=== PATIENT | male | born 1985 | race Caucasian/White ===

== ENCOUNTER 2016-08-23 23:39 | Emergency (ER) | payer SELFPAY ==
[~2016-08-23] VITALS: Ht 170.2 cm; Wt 72.6 kg
[~2016-08-23 23:39] MED LIST: BUSP5TAB59 PO; CODE118S2 PO; HYDR-3816 PO; MINO50CA2 PO; OMEP20CA12 PO; PRM25T PO; SUCR1ORA5 PO; SULF1TAB38 PO
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
[2016-08-24] MEDS ORDERED: SULF1TAB35 PO (00:11)
[2016-08-24] MEDS ORDERED: NF-CIPROHC OT (00:11)
[2016-08-24] MEDS ORDERED: TRIM/SULFAMETH 160/800 (SEPTRA DS) TAB PO ONE (00:15)
[2016-08-24] MEDS ORDERED: KETOROLAC 60 MG/2 ML VIAL IM ONE (00:15)
[2016-08-24 00:36] VITALS: BP 0/0
== END 2016-08-24 00:36 | disposition home or self-care (01) ==
LOC: EDUNIT# 23:39 → ER 23:41
DX: H60.01 Abscess of right external ear (principal); F41.9 Anxiety disorder, unspecified; F32.9 Major depressive disorder, single episode, unspecified; K21.9 Gastro-esophageal reflux disease without esophagitis; F17.210 Nicotine dependence, cigarettes, uncomplicated
CPT/HCPCS: 96372; 99284

== ENCOUNTER 2016-08-28 08:18 | Emergency (ER) | payer SELFPAY ==
[~2016-08-28] VITALS: Ht 170.2 cm; Wt 72.6 kg
[~2016-08-28 08:18] MED LIST changes: +NF-CIPROHC OT; +SULF1TAB35 PO
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
[2016-08-28] MEDS ORDERED: fentaNYL INJECTION 100 MCG/2 ML AMP IM ONE (09:15)
[2016-08-28 10:36] VITALS: BP 0/0
== END 2016-08-28 10:36 | disposition left against medical advice (07) ==
LOC: EDUNIT# 08:18 → ER 08:19
DX: M25.511 Pain in right shoulder (principal); V86.09XA Driver of other special all-terrain or other off-road motor vehicle injured in traffic accident, initial encounter; Y92.480 Sidewalk as the place of occurrence of the external cause
CPT/HCPCS: 71010; 73000; 73030; 96372; 99284

== ENCOUNTER 2017-04-10 14:59 | Emergency (ER) | payer SELFPAY ==
[~2017-04-10] VITALS: Ht 170.2 cm; Wt 63.5 kg
[~2017-04-10 14:59] MED LIST changes: +HYDR-34 PO; -HYDR-3816 PO
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
[2017-04-10] MEDS ORDERED: NS IV 1000 ML 1,000 ML IV STA (16:29)
[2017-04-10] MEDS ORDERED: FAMOTIDINE 20MG/2ML IV (PEPCID) IV STA (16:29)
[2017-04-10] MEDS ORDERED: SUCRALFATE 1 GM (CARAFATE) TAB PO ONE (16:30)
[2017-04-10 16:39] LABS: BASOPHILS % (AUTO) 0 % (0-10); EOSINOPHILS # (AUTO) 0.1 10^3/uL (0.0-0.3); EOSINOPHILS % (AUTO) 1 % (0-10); HEMATOCRIT 49 % (40-54); HEMOGLOBIN 17.4 G/DL (13.3-17.7); LYMPHOCYTES # (AUTO) 2.1 X 10^3 (1.0-4.0); LYMPHOCYTES % (AUTO) 20 % (12-44); MEAN CORPUSCULAR HEMOGLOBIN 31 PG (25-34); MEAN CORPUSCULAR HGB CONC 35 G/DL (32-36); MEAN CORPUSCULAR VOLUME 88 FL (80-99); MEAN PLATELET VOLUME 10.2 FL (7.4-10.4); MONOCYTES # (AUTO) 0.5 X 10^3 (0.0-1.0); MONOCYTES % (AUTO) 5 % (0-12); NEUTROPHILS # (AUTO) 7.3 X 10^3 (1.8-7.8); NEUTROPHILS % (AUTO) 73 % (42-75); PLATELET COUNT 262 10^3/uL (130-400); RED BLOOD COUNT 5.57 10^6/uL (4.35-5.85); RED CELL DISTRIBUTION WIDTH 12.8 % (10.0-14.5); WHITE BLOOD COUNT 10.1 10^3/uL (4.3-11.0)
[2017-04-10 16:52] LABS: ALANINE AMINOTRANSFERASE 23 U/L (0-55); ALBUMIN 4.7 GM/DL (3.2-4.5); ALKALINE PHOSPHATASE 62 U/L (40-136); BILIRUBIN,TOTAL 0.5 MG/DL (0.1-1.0); BUN/CREATININE RATIO 6; CALCIUM 10.6 MG/DL (8.5-10.1); CARBON DIOXIDE 25 MMOL/L (21-32); CHLORIDE 101 MMOL/L (98-107); CREATININE SERUM 1.07 MG/DL (0.60-1.30); GFR ESTIMATED > 60; GLUCOSE 107 MG/DL (70-105); SODIUM 138 MMOL/L (135-145)
[2017-04-10] MEDS ORDERED: SUCR1TAB36 PO (17:01)
--- NOTE | 2017-04-10 17:06 | ED Abdominal Pain ---
General Chief Complaint: Abdominal/GI Problems Stated Complaint: STOMACH PAIN Nursing Triage Note: abdominal pain and nausea with hx of gastritis Sepsis Screen: No Definite Risk History of Present Illness Date Seen by Provider: Apr 10, 2017 Time Seen by Provider: 16:15 Initial Comments 32-year-old male Patient reports for abdominal pain. He reports symptoms of been present for approximately 2 weeks, intermittently. He reports the pain has worsened over the last 2 days. He denies any matting or diarrhea. He's had very little solid food or liquid intake in the last 24 hours because of the pain. He's had a previous appendectomy, no other abdominal surgeries. He reports a normal stool yesterday with no discoloration. He denies any blood in stools or change in color. Timing/Duration: Intermittent Severity/Quality: Cramping, Dull Location: Generalized Abdomen Radiation: No Radiation Activities at Onset: None Associated Symptoms: Denies Symptoms Allergies and Home Medications Allergies Coded Allergies: No Known Drug Allergies (Unverified , 02/04/13) Home Medications Ciprofloxacin/Hydrocortisone 1 Ea Susp, 2 DROPS OT TID Prescribed by: IBETH AHN on 08/24/16 001 Omeprazole 20 Mg Capsule.dr, 20 MG PO BID Prescribed by: DALILA GUPTA on 02/04/16 002 Sucralfate 1 Gm/10 Ml Oral.susp, 1 GM PO QID 30 minutes before meals and bedtime Prescribed by: DALILA GUPTA on 02/04/16 0024 Sucralfate 1 Gm Tablet, 1 GM PO BID Prescribed by: PINEDA CAST on 04/10/17 1701 Sulfamethoxazole/Trimethoprim 1 Each Tablet, 1 EACH PO BID Prescribed by: IBETH AHN on 08/24/16 001 Patient Home Medication List Home Medication List Reviewed: Yes Review of Systems Constitutional: no symptoms reported, see HPI Gastrointestinal: See HPI, Abdominal Pain, Denies Constipated, Denies Diarrhea , Denies Difficulty Swallowing, Nausea, Poor Appetite, Poor Fluid Intake, Denies Rectal Bleeding, Denies Vomiting All Other Systems Reviewed Negative Unless Noted: Yes Past Aujjdxs-Fnnkgy-Riyccq Hx Patient Social History Alcohol Beverage of Choice: Beer 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 Type Used: Cigarettes Recent Foreign Travel: No Contact w/Someone Who Travel: No Recent Infectious Disease Expo: No Recent Hopitalizations: No Immunizations Up To Date Tetanus Booster (TDap): Unknown Seasonal Allergies Seasonal Allergies: No Surgeries History of Surgeries: Yes (JAW/FACIAL SURGERY; FLUID DRAINED FROM RIGHT HIP) Surgeries: Appendectomy Respiratory History of Respiratory Disorde: No Cardiovascular History of Cardiac Disorders: No Neurological History of Neurological Disord: No Reproductive System Hx Reproductive Disorders: No Gastrointestinal History of Gastrointestinal Di: Yes Gastrointestinal Disorders: Gastroesophageal Reflux Musculoskeletal History of Musculoskeletal Dis: No Endocrine History of Endocrine Disorders: No Cancer History of Cancer: No Psychosocial History of Psychiatric Problem: Yes Behavioral Health Disorders: Anxiety, Depression Integumentary History of Skin or Integumenta: No Skin/Integumentary Disorders: Recent Skin Changes Blood Transfusions History of Blood Disorders: No Adverse Reaction to a Blood Tr: No Reviewed Nursing Assessment Reviewed/Agree w Nursing PMH: Yes Physical Exam Vital Signs VS - Last 72 Hours, by Label 04/10/17 15:27 Temp 96.8 Pulse 43 Resp 20 B/P (MAP) 142/86 (104) Pulse Ox 99 O2 Delivery Room Air Capillary Refill : Less Than 3 Seconds General Appearance: WD/WN, no apparent distress HEENT: PERRL/EOMI, normal ENT inspection Neck: non-tender, full range of motion, supple, normal inspection Respiratory: chest non-tender, lungs clear, normal breath sounds Cardiovascular: normal peripheral pulses, regular rate, rhythm, no murmur Gastrointestinal: normal bowel sounds, non tender, soft, No rebound, No tenderness, other (negative Fiore sign) Extremities: normal range of motion, non-tender, normal inspection, normal capillary refill Neurologic/Psychiatric: no motor/sensory deficits, alert, normal mood/affect, oriented x 3 Skin: normal color, warm/dry Progress/Results/Core Measures Results/Orders Lab Results Laboratory Tests Test 04/10/17 15:20 Range/Units White Blood Count 10.1 4.3-11.0 10^3/uL Red Blood Count 5.57 4.35-5.85 10^6/uL Hemoglobin 17.4 13.3-17.7 G/DL Hematocrit 49 40-54 % Mean Corpuscular Volume 88 80-99 FL Mean Corpuscular Hemoglobin 31 25-34 PG Mean Corpuscular Hemoglobin Concent 35 32-36 G/DL Red Cell Distribution Width 12.8 10.0-14.5 % Platelet Count 262 130-400 10^3/uL Mean Platelet Volume 10.2 7.4-10.4 FL Neutrophils (%) (Auto) 73 42-75 % Lymphocytes (%) (Auto) 20 12-44 % Monocytes (%) (Auto) 5 0-12 % Eosinophils (%) (Auto) 1 0-10 % Basophils (%) (Auto) 0 0-10 % Neutrophils # (Auto) 7.3 1.8-7.8 X 10^3 Lymphocytes # (Auto) 2.1 1.0-4.0 X 10^3 Monocytes # (Auto) 0.5 0.0-1.0 X 10^3 Eosinophils # (Auto) 0.1 0.0-0.3 10^3/uL Basophils # (Auto) 0.0 0.0-0.1 10^3/uL Sodium Level 138 135-145 MMOL/L Potassium Level 4.0 3.6-5.0 MMOL/L Chloride Level 101 98-107 MMOL/L Carbon Dioxide Level 25 21-32 MMOL/L Anion Gap 12 5-14 MMOL/L Blood Urea Nitrogen 6 L 7-18 MG/DL Creatinine 1.07 0.60-1.30 MG/DL Estimat Glomerular Filtration Rate > 60 BUN/Creatinine Ratio 6 Glucose Level 107 H 70-105 MG/DL Calcium Level 10.6 H 8.5-10.1 MG/DL Total Bilirubin 0.5 0.1-1.0 MG/DL Aspartate Amino Transf (AST/SGOT) 21 5-34 U/L Alanine Aminotransferase (ALT/SGPT) 23 0-55 U/L Alkaline Phosphatase 62 40-136 U/L Total Protein 8.0 6.4-8.2 GM/DL Albumin 4.7 H 3.2-4.5 GM/DL My Orders Orders - PINEDA CAST Ns Iv 1000 Ml (Sodium Chloride 0.9%) (04/10/17 16:29) Famotidine Injection (Pepcid Injection) (04/10/17 16:29) Saline Lock/Iv-Start (04/10/17 16:29) Sucralfate Tablet (Carafate Tablet) (04/10/17 16:30) Cbc With Automated Diff (04/10/17 16:31) Comprehensive Metabolic Panel (04/10/17 16:31) Medications Given in ED Current Medications Medications Dose Ordered Sig/Suha Route Start Time Stop Time Status Last Admin Dose Admin Sucralfate 1 gm ONCE ONCE PO 04/10/17 16:30 04/10/17 16:32 DC 04/10/17 16:41 1 GM Vital Signs/I&O Vital Sign - Last 12Hours 04/10/17 15:27 Temp 96.8 Pulse 43 Resp 20 B/P (MAP) 142/86 (104) Pulse Ox 99 O2 Delivery Room Air Blood Pressure Mean: 104 Progress Note : Time: 16:15 Progress Note Initial evaluation completed, will give normal saline 1 L IV, Pepcid 20 mg IV and Carafate 1 g by mouth. 171 patient reports symptoms have improved, he no longer has abdominal pain. Discharge instructions and return precautions reviewed with patient, all questions answered. Departure Impression Impression: Primary Impression: Gastritis Qualified Codes: K29.00 - Acute gastritis without bleeding Disposition: HOME, SELF-CARE Condition: Improved Departure-Patient Inst. Decision time for Depature: 17:00 Referrals: NO,LOCAL PHYSICIAN (PCP/Family) Primary Care Physician Patient Instructions: [place] Diet, Gastritis (DC) Add. Discharge Instructions: [place] diet. Increase water intake. Take medication as directed. Prilosec Over The Counter, take 1 tablet 4 times daily for 2 weeks, then discontinue. Establish care at [facility], [phone] Return to emergency department for new problems or concerns. All discharge instructions reviewed with patient and/or family. Voiced understanding. Scripts Sucralfate (Carafate) 1 Gm Tablet 1 GM PO BID, #20 TAB Prov: PINEDA CAST 04/10/17 PINEDA CAST Apr 10, 2017 17:06
[2017-04-10 17:50] VITALS: BP 142/86
== END 2017-04-10 17:50 | disposition home or self-care (01) ==
LOC: EDUNIT# 14:59 → ER 15:00
DX: K29.70 Gastritis, unspecified, without bleeding (principal); F41.9 Anxiety disorder, unspecified; F32.9 Major depressive disorder, single episode, unspecified; K21.9 Gastro-esophageal reflux disease without esophagitis; Z90.49 Acquired absence of other specified parts of digestive tract
CPT/HCPCS: 36415; 80053; 85025

== ENCOUNTER 2017-04-11 06:43 | Emergency (ER) | payer SELFPAY ==
[~2017-04-11] VITALS: Ht 170.2 cm; Wt 63.5 kg
[~2017-04-11 06:43] MED LIST changes: +SUCR1TAB36 PO
[2017-04-11] MEDS ORDERED: NS IV 1000 ML 1,000 ML IV SCH (06:55)
[2017-04-11 07:02] LABS: BASOPHILS % (AUTO) 0 % (0-10); EOSINOPHILS # (AUTO) 0.2 10^3/uL (0.0-0.3); EOSINOPHILS % (AUTO) 2 % (0-10); HEMATOCRIT 47 % (40-54); HEMOGLOBIN 16.7 G/DL (13.3-17.7); LYMPHOCYTES # (AUTO) 2.4 X 10^3 (1.0-4.0); LYMPHOCYTES % (AUTO) 26 % (12-44); MEAN CORPUSCULAR HEMOGLOBIN 31 PG (25-34); MEAN CORPUSCULAR HGB CONC 36 G/DL (32-36); MEAN CORPUSCULAR VOLUME 87 FL (80-99); MEAN PLATELET VOLUME 9.8 FL (7.4-10.4); MONOCYTES # (AUTO) 0.3 X 10^3 (0.0-1.0); MONOCYTES % (AUTO) 3 % (0-12); NEUTROPHILS # (AUTO) 6.4 X 10^3 (1.8-7.8); NEUTROPHILS % (AUTO) 69 % (42-75); PLATELET COUNT 243 10^3/uL (130-400); RED BLOOD COUNT 5.33 10^6/uL (4.35-5.85); RED CELL DISTRIBUTION WIDTH 12.8 % (10.0-14.5); WHITE BLOOD COUNT 9.3 10^3/uL (4.3-11.0)
[2017-04-11 07:27] LABS: ALANINE AMINOTRANSFERASE 18 U/L (0-55); ALBUMIN 4.2 GM/DL (3.2-4.5); ALKALINE PHOSPHATASE 52 U/L (40-136); BILIRUBIN,TOTAL 0.4 MG/DL (0.1-1.0); BUN/CREATININE RATIO 8; CALCIUM 9.9 MG/DL (8.5-10.1); CARBON DIOXIDE 26 MMOL/L (21-32); CHLORIDE 104 MMOL/L (98-107); CREATININE SERUM 1.38 MG/DL (0.60-1.30); GFR ESTIMATED 60; GLUCOSE 206 MG/DL (70-105); POTASSIUM 3.5 MMOL/L (3.6-5.0); SODIUM 138 MMOL/L (135-145); TOTAL PROTEIN 6.9 GM/DL (6.4-8.2)
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
--- NOTE | 2017-04-11 08:25 | Diagnostic Imaging Report ---
INDICATION: Left foot pain. FINDINGS: 3 views of left foot show no fracture, dislocation or other acute abnormalities. IMPRESSION: Negative left foot. Dictated by: Dictated on workstation # [id number]
[2017-04-11 08:33] LABS: AMPHETAMINE SCREEN, URINE POSITIVE (NEGATIVE); BARBITURATE SCREEN URINE NEGATIVE (NEGATIVE); BENZODIAZEPINES SCREEN URINE NEGATIVE (NEGATIVE); CANNABINOID SCREEN, URINE POSITIVE (NEGATIVE); COCAINE SCREEN URINE NEGATIVE (NEGATIVE); METHADONE STAT NEGATIVE (NEGATIVE); METHAMPHETAMINE SCREEN URINE S POSITIVE (NEGATIVE); OPIATE SCREEN URINE NEGATIVE (NEGATIVE); OXYCODONE STAT NEGATIVE (NEGATIVE); PROPOXYPHENE STAT NEGATIVE (NEGATIVE); TRICYCLIC ANTIDEPRESSANTS SCRE NEGATIVE (NEGATIVE)
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
[2017-04-11 09:09] VITALS: BP 105/78
== END 2017-04-11 09:09 ==
LOC: EDUNIT# 06:43 → ER 06:44
DX: S09.90XA Unspecified injury of head, initial encounter (principal); M25.511 Pain in right shoulder; M79.672 Pain in left foot; F19.10 Other psychoactive substance abuse, uncomplicated; K21.9 Gastro-esophageal reflux disease without esophagitis; F41.9 Anxiety disorder, unspecified; F32.9 Major depressive disorder, single episode, unspecified; F12.10 Cannabis abuse, uncomplicated; F15.10 Other stimulant abuse, uncomplicated; F17.210 Nicotine dependence, cigarettes, uncomplicated; Z90.49 Acquired absence of other specified parts of digestive tract; W01.198A Fall on same level from slipping, tripping and stumbling with subsequent striking against other object, initial encounter
CPT/HCPCS: 36415; 70450; 71045; 72125; 73030; 73630; 80053; 80306; 80320; 85025

== ENCOUNTER 2021-05-07 05:35 | Outpatient (CLI) | payer OTHER ==
[~2021-05-07] VITALS: Ht 170.2 cm; Wt 73.0 kg
[~2021-05-07 05:35] MED LIST changes: -OMEP20CA12 PO; +OMEP20CA18 PO; -SULF1TAB35 PO
== END 2021-05-08 14:12 | disposition home or self-care (01) ==
LOC: PREOP 05:35
PROVIDERS: ATTEND Surgery
DX: Z01.818 Encounter for other preprocedural examination (principal)

== ENCOUNTER 2021-05-18 08:37 | Day surgery (SDC) | payer OTHER ==
[~2021-05-18] VITALS: Ht 170.2 cm; Wt 73.0 kg
[2021-05-18] MEDS ORDERED: LACTATED RINGERS 1,000 ML IV ONE (08:42)
[2021-05-18] MEDS ORDERED: LACTATED RINGERS 1,000 ML IV STA (08:56)
[2021-05-18 09:00] VITALS: BP 110/77
[2021-05-18] MEDS ORDERED: HURRICAINE EXT TUBE (BENZOCAINE) XX PRN (09:00)
[2021-05-18] MEDS ORDERED: fentaNYL INJ 100 MCG/2 ML AMP ONE (09:57)
[2021-05-18] MEDS ORDERED: fentaNYL INJ 100 MCG/2 ML AMP IVP ONE (10:00)
[2021-05-18] MEDS ORDERED: MIDAZOLAM 2 MG/2 ML (VERSED) VIAL ONE (11:01)
[2021-05-18] MEDS ORDERED: PROPOFOL INJECTION 50 ML IV ONE (11:01)
--- NOTE | 2021-05-18 11:38 | Progress Note-Post Operative ---
Post-Operative Progess Note Surgeon (s)/General Utility Maintenance Repairer (s) Surgeon MARICRUZ FRANKEL DO General Utility Maintenance Repairer: Henrique Hurd, MSIII Pre-Operative Diagnosis Rectal bleed, Chronic Gastritis, Anal lesion Post-Operative Diagnosis Gastritis Esophagitis Hiatal hernia anal lesion int hemorrhoids Procedure & Operative Findings Date of Procedure 05/18/21 Procedure Performed/Findings EGD with bx Colon with cold bx PROCEDURE NOTE: After informed consent was obtained, the patient was brought to the endoscopy suite, placed in bed in left lateral decubitus position. He was administered IV sedation by the STREET WORKER who then monitored vitals the entire time, heart rate, blood pressure and pulse ox and the scope was inserted down the mouth through the esophagus into the stomach. On the way down, noted some mild esophagitis, took a picture, pushed into the stomach, pushed past the antrum into the duodenum. Duodenum looked good. Pulled back and did a biopsy of antrum and then retroflexed the scope. Took another biopsy of the body of the stomach and saw hiatal hernia; took a picture of this. Then pulled the scope into the GE junction, took another picture of the esophagitis and then did a biopsy of the GE junction. Pushed the scope back into the stomach, suctioned all the air out of the stomach. At this point pulled the scope up the esophagus and out the mouth. Switched camera, switched gloves, went down below, started the colonoscopy. Just prior to pushing in took a picture of the anal lesion. Pushed the scope in to about 120 cm to get all the way to cecum, took a picture of the appendiceal orifice, noted the ileocecal valve and then slowly withdrew the scope, insufflating to look circumferentially at the gautam starting in the cecum, up the ascending colon to the hepatic flexure, then down the transverse colon, splenic flexure, into the descending colon, down into the sigmoid and finally into the rectum. Retroflexed in the rectal vault, did not see any fistula but did see some minimal internal hemorrhoids and took a picture of this. I did a NLYA and the anal canal was firm along the 9 o'clock position with him in left lateral decub; this was also where the anal/gluteal lesion was located. Then did 3 cold biopsies of the anal/gluteal lesion. The patient tolerated the procedure and he recovered in the endoscopy suite. Anesthesia Type IV sedation by STREET WORKER Estimated Blood Loss Estimated blood loss (mL): scant Specimens/Packing Specimens Removed antral bx body of stomach bx GE jxn bx anal lesion bx MARICRUZ FRANKEL DO May 18, 2021 11:38
[2021-05-18 11:40] VITALS: BP 100/63
--- NOTE | 2021-05-18 11:42 | Endoscopy Discharge Instruct ---
Endo Procedure/Findings Findings 1.: Gastritis 2.: Hiatal Hernia 3.: Internal Hemorrhoids 4.: Other Findings (anal lesion) Discharge Instructions - Activity: You might feel a little sleepy until tomorrow. This is due to the medicine you received to relax you. Until tomorrow, you should: NOT drive a car, operate machinery or power tools. NOT drink any alcoholic beverages. NOT make any important decisions or sign importortant papers. Do not return to work until tomorrow, unless otherwise instructed. Resume previous activities tomorrow. Diet: Start by taking liquids. If you tolerate liquids, advance to solid food. 1.: EGD in 3 years 2.: Colonscopy in 10 years Notify Physician - If you experience excessive bleeding, unusual abdominal pain, fever, or chest pain, contact your doctor immediately. MARICRUZ FRANKEL DO May 18, 2021 11:42
[2021-05-18 12:25] VITALS: BP 106/81
[2021-05-18 12:39] VITALS: BP 106/81
--- NOTE | 2021-05-18 13:27 | Anesthesia-General Post-Op ---
MAC Patient Condition Mental Status/LOC: Same as Preop Cardiovascular: Satisfactory Nausea/Vomiting: Absent Respiratory: Satisfactory Pain: Controlled Complications: Absent Post Op Complications Complications None Follow Up Care/Instructions Patient Instructions None needed. Anesthesiology Discharge Order Discharge Order Patient is doing well, no complaints, stable vital signs, no apparent adverse anesthesia problems. No complications reported per nursing. SUZY TESFAYE CRNA May 18, 2021 13:27
--- NOTE | 2021-06-04 13:18 | Progress Note ---
Standard Progress Note Progress Notes/Assess & Plan Date Seen by a Provider: May 18, 2021 Time Seen by a Provider: 11:03 Progress/Assessment & Plan Addendum to Anesthesia Record: Versed 2mg IV given to patient at 1103 prior to the start of EGD. SUZY TESFAYE CRNA Jun 04, 2021 13:18
== END 2021-05-18 12:47 | disposition home or self-care (01) ==
LOC: ENDO 08:37
PROVIDERS: ATTEND Surgery
DX: C44.520 Squamous cell carcinoma of anal skin (principal); K29.50 Unspecified chronic gastritis without bleeding; K31.89 Other diseases of stomach and duodenum; K20.90 Esophagitis, unspecified without bleeding; K44.9 Diaphragmatic hernia without obstruction or gangrene; K64.4 Residual hemorrhoidal skin tags
CPT/HCPCS: 88305

== ENCOUNTER 2021-05-26 11:18 | Emergency (ER) | payer OTHER ==
[~2021-05-26] VITALS: Ht 167 cm; Wt 77.0 kg
[2021-05-26] MEDS ORDERED: CATHETER FLUSH 10 ML SYR IV PRN (12:30)
[2021-05-26] MEDS ORDERED: NS 100 ML (IVPB) BAG IV ONE (12:30)
[2021-05-26] MEDS ORDERED: HOLD METFORMIN - RECEIVED CONTRAST 20 ML VIAL IV SCH (12:30)
[2021-05-26] MEDS ORDERED: IOHEXOL 350 MG/ML 100 ML (OMNIPAQUE 350) VIAL IV ONE (12:30)
[2021-05-26 12:39] LABS: BASOPHILS # (AUTO) 0.1 10^3/uL (0.0-0.1); BASOPHILS % (AUTO) 1 % (0-10); EOSINOPHILS # (AUTO) 0.2 10^3/uL (0.0-0.3); EOSINOPHILS % (AUTO) 2 % (0-10); HEMATOCRIT 42 % (40-54); HEMOGLOBIN 13.8 g/dL (13.3-17.7); LYMPHOCYTES # (AUTO) 1.4 10^3/uL (1.0-4.0); LYMPHOCYTES % (AUTO) 13 % (12-44); MEAN CORPUSCULAR HEMOGLOBIN 30 pg (25-34); MEAN CORPUSCULAR HGB CONC 33 g/dL (32-36); MEAN CORPUSCULAR VOLUME 89 fL (80-99); MEAN PLATELET VOLUME 9.6 fL (9.0-12.2); MONOCYTES # (AUTO) 0.6 10^3/uL (0.0-1.0); MONOCYTES % (AUTO) 6 % (0-12); NEUTROPHILS # (AUTO) 8.1 10^3/uL (1.8-7.8); NEUTROPHILS % (AUTO) 78 % (42-75); PLATELET COUNT 307 10^3/uL (130-400); WHITE BLOOD COUNT 10.3 10^3/uL (4.3-11.0)
[2021-05-26 12:43] LABS: ALBUMIN 4.5 GM/DL (3.2-4.5); POTASSIUM 3.6 MMOL/L (3.6-5.0)
[2021-05-26 12:45] LABS: CALCIUM 9.4 MG/DL (8.5-10.1)
[2021-05-26 12:46] LABS: TOTAL PROTEIN 7.7 GM/DL (6.4-8.2)
[2021-05-26 12:48] LABS: BILIRUBIN,TOTAL 0.5 MG/DL (0.1-1.0)
[2021-05-26 12:49] LABS: CREATININE SERUM 1.01 MG/DL (0.60-1.30)
--- NOTE | 2021-05-26 13:01 | Diagnostic Imaging Report ---
EXAMINATION: CT chest, abdomen and pelvis with intravenous contrast. TECHNIQUE: Multiple contiguous axial images were obtained through the chest, abdomen and pelvis after the uneventful administration of intravenous contrast. All CT scans use one or more of the following dose optimizing techniques: automated exposure control, MA and/or KvP adjustment based on patient size and exam type or iterative reconstruction. HISTORY: rectal pain, recent dx Anal CA COMPARISON: None available. FINDINGS: Thyroid: The visualized thyroid gland is normal. Mediastinum: Heart size is normal without significant pericardial effusion. The aorta is normal in caliber. No suspicious lymphadenopathy. Lungs and airways: The lungs are clear without consolidation, pleural effusion, or pneumothorax. No suspicious pulmonary lesion. The airways are normal. Solid organs: The liver is normal without focal lesion. The gallbladder is normal. There is no biliary ductal dilation. Pancreas is normal. Spleen is normal. Adrenal glands are normal. The kidneys are normal without hydronephrosis. Bowel: The stomach and small bowel are normal without obstruction. The colon and appendix are normal. There is thickening of the right perirenal soft tissues with trace air and fluid. Peritoneum: There is no intraperitoneal free fluid or free air. No suspicious lymphadenopathy. Vasculature: Normal without aneurysm. Musculoskeletal: No suspicious osseous lesion or compression fracture. Pelvis: The prostate gland is normal. The urinary bladder is normal. IMPRESSION: 1. No acute abnormality in the chest, abdomen and pelvis. 2. Thickening of the right perirenal soft tissues which may be compatible with history of recent diagnosis of anal cancer. Recommend correlation with any recent procedure to this location. Tiny amount of air and fluid could be postprocedural or secondary to fistula or infection. Dictated by: Dictated on workstation # [id number]
--- NOTE | 2021-05-26 13:04 | ED GI ---
General Chief Complaint: Rect Problems Stated Complaint: RECTAL PAIN Nursing Triage Note: PT AMBULATORY TO ER. PT C/O PAIN TO RECTUM. PT REPORTS STARTED OUT A HEMMORHOID, REPORTS HAS EVOLVED INTO A FISSURE, REPORTS DR TESFAYE CULTURED IT RECENTLY, UNSURE OF RESULTS, PT C/O INCREASE IN PAIN/DRAINAGE. Source of Information: Patient Exam Limitations: No Limitations History of Present Illness Date Seen by Provider: May 26, 2021 Time Seen by Provider: 13:11 Initial Comments To vehicle with reports of rectal pain. This is been increasing over the course of the past few days no fevers no chills. He had a colonoscopy and EGD on the of this month and is scheduled to follow with Dr. Frankel today at 2:30 PM. He is otherwise healthy. He states he had a sore to this location at his anus for about 2 years. Timing/Duration: 2-3 Days Severity/Quality: Severe Location: Other (Rectal) Radiation: No Radiation Activities at Onset: None Associated Symptoms: Denies Symptoms Allergies and Home Medications Allergies Coded Allergies: No Known Drug Allergies (Unverified , 02/04/13) Patient Home Medication List Home Medication List Reviewed: Yes No Active Prescriptions or Reported Meds Review of Systems Review of Systems Constitutional: see HPI EENTM: No Symptoms Reported Respiratory: No Symptoms Reported Cardiovascular: No Symptoms Reported Gastrointestinal: See HPI, Abdominal Pain (Suprapubic pain), Other Genitourinary: No Symptoms Reported Musculoskeletal: no symptoms reported Skin: no symptoms reported Psychiatric/Neurological: No Symptoms Reported Endocrine: No Symptoms Reported Hematologic/Lymphatic: No Symptoms Reported Past Qpnitgw-Yxhuos-Ffkdqp Hx Patient Social History Tobacco Use?: Yes Tobacco type used: Cigarettes Smoking Status: Current Everyday Smoker Use of E-Cig and/or Vaping dev: No Substance use?: Yes Substance type: Marijuana Alcohol Use?: No Pt feels they are or have been: No Immunizations Up To Date Tetanus Booster (TDap): Unknown First/Initial COVID19 Vaccinat: NO Second COVID19 Vaccination Jim: NO Third COVID19 Vaccination Date: NO Seasonal Allergies Seasonal Allergies: No Past Medical History Surgeries: Yes (JAW/FACIAL SURGERY; FLUID DRAINED FROM RIGHT HIP) Appendectomy Respiratory: No Cardiac: No Neurological: No Reproductive Disorders: No Gastrointestinal: Yes Gastroesophageal Reflux Musculoskeletal: No Endocrine: No HEENT: No Cancer: No Psychosocial: Yes Anxiety, Depression Integumentary: No Recent Skin Changes Blood Disorders: No Adverse Reaction/Blood Tranf: No Physical Exam Vital Signs Vital Signs - First Documented 05/26/21 11:48 Temp 36.7 Pulse 108 Resp 24 B/P (MAP) 134/89 (104) Pulse Ox 94 O2 Delivery Room Air Capillary Refill : Height/Weight/BMI Height: 5'7.00" Weight: 140lbs. 0oz. [id number]; 27.00 BMI Method:Stated General Appearance: WD/WN, no apparent distress HEENT: PERRL/EOMI, normal ENT inspection Respiratory: no respiratory distress, no accessory muscle use Cardiovascular: regular rate, rhythm, no murmur Gastrointestinal: normal bowel sounds, non tender, soft Genital/Rectal: other (Rectal exam done on with Zahida BERGER student at the bedside. At the right side of the anus there is an moist beefy red colored patch) Neurologic/Psychiatric: alert, normal mood/affect, oriented x 3 Skin: normal color, warm/dry Progress/Results/Core Measures Results/Orders Lab Results Laboratory Tests Test 05/26/21 11:56 Range/Units White Blood Count 10.3 4.3-11.0 10^3/uL Red Blood Count 4.67 4.30-5.52 10^6/uL Hemoglobin 13.8 13.3-17.7 g/dL Hematocrit 42 40-54 % Mean Corpuscular Volume 89 80-99 fL Mean Corpuscular Hemoglobin 30 25-34 pg Mean Corpuscular Hemoglobin Concent 33 32-36 g/dL Red Cell Distribution Width 14.1 10.0-14.5 % Platelet Count 307 130-400 10^3/uL Mean Platelet Volume 9.6 9.0-12.2 fL Immature Granulocyte % (Auto) 0 % Neutrophils (%) (Auto) 78 H 42-75 % Lymphocytes (%) (Auto) 13 12-44 % Monocytes (%) (Auto) 6 0-12 % Eosinophils (%) (Auto) 2 0-10 % Basophils (%) (Auto) 1 0-10 % Neutrophils # (Auto) 8.1 H 1.8-7.8 10^3/uL Lymphocytes # (Auto) 1.4 1.0-4.0 10^3/uL Monocytes # (Auto) 0.6 0.0-1.0 10^3/uL Eosinophils # (Auto) 0.2 0.0-0.3 10^3/uL Basophils # (Auto) 0.1 0.0-0.1 10^3/uL Immature Granulocyte # (Auto) 0.0 0.0-0.1 10^3/uL Sodium Level 142 135-145 MMOL/L Potassium Level 3.6 3.6-5.0 MMOL/L Chloride Level 103 98-107 MMOL/L Carbon Dioxide Level 25 21-32 MMOL/L Anion Gap 14 5-14 MMOL/L Blood Urea Nitrogen 12 7-18 MG/DL Creatinine 1.01 0.60-1.30 MG/DL Estimat Glomerular Filtration Rate 99 BUN/Creatinine Ratio 12 Glucose Level 90 70-105 MG/DL Calcium Level 9.4 8.5-10.1 MG/DL Corrected Calcium 9.0 8.5-10.1 MG/DL Total Bilirubin 0.5 0.1-1.0 MG/DL Aspartate Amino Transf (AST/SGOT) 21 5-34 U/L Alanine Aminotransferase (ALT/SGPT) 34 0-55 U/L Alkaline Phosphatase 76 40-136 U/L Total Protein 7.7 6.4-8.2 GM/DL Albumin 4.5 3.2-4.5 GM/DL My Orders Orders - ZANA OLMEDO EQUIPMENT APPLICATION SPECIALIST Cbc With Automated Diff (05/26/21 12:24) Comprehensive Metabolic Panel (05/26/21 12:24) Ed Iv/Invasive Line Start (05/26/21 12:24) Ct Chest/Abdomen/Pelvis W (05/26/21 12:24) Iohexol Injection (Omnipaque 350 Mg/Ml 1 (05/26/21 12:30) Received Contrast (Hold Metformin- Contr (05/26/21 12:30) Sodium Chloride Flush (Catheter Flush Sy (05/26/21 12:30) Ns (Ivpb) (Sodium Chloride 0.9% Ivpb Bag (05/26/21 12:30) Medications Given in ED Current Medications Medications Dose Ordered Sig/Suha Route Start Time Stop Time Status Last Admin Dose Admin Iohexol 100 ml ONCE ONCE IV 05/26/21 12:30 05/26/21 12:32 DC 05/26/21 12:57 97 ML Sodium Chloride 10 ml NEEDED PRN IV 05/26/21 12:30 05/26/21 12:57 10 ML Sodium Chloride 100 ml ONCE ONCE IV 05/26/21 12:30 05/26/21 12:32 DC 05/26/21 12:57 80 ML Vital Signs/I&O 05/26/21 11:48 Temp 36.7 Pulse 108 Resp 24 B/P (MAP) 134/89 (104) Pulse Ox 94 O2 Delivery Room Air Blood Pressure Mean: 104 Departure Communication (Admissions) NAME: LOIS VILLALTA [facility] REC#: [id number] PT STATUS: REG ER : 1985 PHYSICIAN: ZANA OLMEDO EQUIPMENT APPLICATION SPECIALIST ADMIT DATE: 05/26/21/ER Draft Date of Exam:05/26/21 CT CHEST/ABDOMEN/PELVIS W EXAMINATION: CT chest, abdomen and pelvis with intravenous contrast. TECHNIQUE: Multiple contiguous axial images were obtained through the chest, abdomen and pelvis after the uneventful administration of intravenous contrast. All CT scans use one or more of the following dose optimizing techniques: automated exposure control, MA and/or KvP adjustment based on patient size and exam type or iterative reconstruction. HISTORY: rectal pain, recent dx Anal CA COMPARISON: None available. FINDINGS: Thyroid: The visualized thyroid gland is normal. Mediastinum: Heart size is normal without significant pericardial effusion. The aorta is normal in caliber. No suspicious lymphadenopathy. Lungs and airways: The lungs are clear without consolidation, pleural effusion, or pneumothorax. No suspicious pulmonary lesion. The airways are normal. Solid organs: The liver is normal without focal lesion. The gallbladder is normal. There is no biliary ductal dilation. Pancreas is normal. Spleen is normal. Adrenal glands are normal. The kidneys are normal without hydronephrosis. Bowel: The stomach and small bowel are normal without obstruction. The colon and appendix are normal. There is thickening of the right perirenal soft tissues with trace air and fluid. Peritoneum: There is no intraperitoneal free fluid or free air. No suspicious lymphadenopathy. Vasculature: Normal without aneurysm. Musculoskeletal: No suspicious osseous lesion or compression fracture. Pelvis: The prostate gland is normal. The urinary bladder is normal. IMPRESSION: 1. No acute abnormality in the chest, abdomen and pelvis. 2. Thickening of the right perirenal soft tissues which may be compatible with history of recent diagnosis of anal cancer. Recommend correlation with any recent procedure to this location. Tiny amount of air and fluid could be postprocedural or secondary to fistula or infection. Dictated on workstation # [id number] Dict: 05/26/21 1257 Trans: 05/26/21 1300 [facility] [id number] Interpreted by: GRACY CORONEL DO Electronically signed by: Impression Primary Impression: Anal cancer Disposition: HOME, SELF-CARE Condition: Stable Departure-Patient Inst. Decision time for Depature: 13:14 Referrals: MARICRUZ FRANKEL,LOCAL PHYSICIAN (PCP) Primary Care Physician Patient Instructions: Anal Cancer Add. Discharge Instructions: 1. Keep appoint with Dr. Frankel later today. Return you have any concerns. All discharge instructions reviewed with patient and/or family. Voiced understanding. Scripts Amoxicillin/Potassium Clav (Augmentin 500-125 Tablet) 500 Mg-125 Mg Tablet 1 EACH PO BID, #10 TAB Prov: ZANA OLMEDO APRN 05/26/21 Oxycodone HCl/Acetaminophen (Percocet 5-325 mg Tablet) 1 Each Tablet 1 TAB PO Q4H for PAIN-MODERATE MDD 6 TABS for 7 Days, #20 TAB Prov: ZANA OLMEDO APRN 05/26/21 Docusate Sodium (Colace) 100 Mg Capsule 100 MG PO BID, #20 CAP Prov: ZANA OLMEDO APRN 05/26/21 Copy Copies To 1: MARICRUZ FRANKEL PETER J APRN May 26, 2021 13:04
[2021-05-26] MEDS ORDERED: oxyCODONE/APAP 5/325MG (PERCOCET 5) TABLET PO ONE (13:15)
[2021-05-26] MEDS ORDERED: fentaNYL INJ 100 MCG/2 ML AMP IVP PRN (13:15)
[2021-05-26] MEDS ORDERED: AUGMENTIN 875 MG TAB (AMOXICILLIN/CLAVULANATE) PO SCH (13:15)
[2021-05-26] MEDS ORDERED: LIDOCAINE 2% VISCOUS 15 ML UDC MM ONE (13:15)
[2021-05-26] MEDS ORDERED: OXYC1TAB87 PO (13:16)
[2021-05-26] MEDS ORDERED: DOCU-143 PO (13:16)
[2021-05-26] MEDS ORDERED: AMOX-355 PO (13:16)
[2021-05-26 13:51] VITALS: BP 118/74
== END 2021-05-26 13:51 | disposition home or self-care (01) ==
LOC: ER 11:18
DX: C21.0 Malignant neoplasm of anus, unspecified (principal); F17.210 Nicotine dependence, cigarettes, uncomplicated
CPT/HCPCS: 36415; 71260; 74177; 80053; 85025

== ENCOUNTER 2021-06-02 13:03 | Outpatient (RCR) | payer OTHER ==
[~2021-06-02 13:03] MED LIST changes: -ACET-2267 PO; -CALC300T4 PO
[2021-06-02 13:41] LABS: BASOPHILS # (AUTO) 0.1 10^3/uL (0.0-0.1); BASOPHILS % (AUTO) 1 % (0-10); EOSINOPHILS # (AUTO) 0.3 10^3/uL (0.0-0.3); EOSINOPHILS % (AUTO) 4 % (0-10); HEMATOCRIT 45 % (40-54); LYMPHOCYTES % (AUTO) 25 % (12-44); MEAN CORPUSCULAR HEMOGLOBIN 30 pg (25-34); MEAN CORPUSCULAR HGB CONC 34 g/dL (32-36); MEAN CORPUSCULAR VOLUME 89 fL (80-99); MONOCYTES # (AUTO) 0.5 10^3/uL (0.0-1.0); MONOCYTES % (AUTO) 6 % (0-12); NEUTROPHILS % (AUTO) 64 % (42-75); PLATELET COUNT 342 10^3/uL (130-400); WHITE BLOOD COUNT 7.8 10^3/uL (4.3-11.0)
[2021-06-02 14:19] LABS: ALANINE AMINOTRANSFERASE 73 U/L (0-55); ALBUMIN 4.6 GM/DL (3.2-4.5); ALKALINE PHOSPHATASE 71 U/L (40-136); BILIRUBIN,TOTAL 0.5 MG/DL (0.1-1.0); BUN/CREATININE RATIO 12; CALCIUM 9.7 MG/DL (8.5-10.1); CARBON DIOXIDE 26 MMOL/L (21-32); CHLORIDE 105 MMOL/L (98-107); CREATININE SERUM 1.12 MG/DL (0.60-1.30); GFR ESTIMATED 88; GLUCOSE 94 MG/DL (70-105); POTASSIUM 4.1 MMOL/L (3.6-5.0); SODIUM 142 MMOL/L (135-145); TOTAL PROTEIN 8.3 GM/DL (6.4-8.2)
[2021-06-03] MEDS ORDERED: CALC300T4 PO (13:53)
[2021-06-03] MEDS ORDERED: ACET-2267 PO (13:53)
== END 2021-06-06 | disposition home or self-care (01) ==
LOC: ONC 13:03
PROVIDERS: ATTEND Internal Medicine Hematology & Oncology
DX: C21.0 Malignant neoplasm of anus, unspecified (principal); I87.2 Venous insufficiency (chronic) (peripheral)
CPT/HCPCS: 80053; 85025; 86703; G0463; 36415; 99214

== ENCOUNTER → 2021-06-02 | Outpatient (CLI) | payer OTHER ==
[~2021-06-02] VITALS: Ht 167.7 cm; Wt 77.3 kg
[~2021-06-02] MED LIST changes: +ACET-2267 PO; +AMOX-355 PO; +CALC300T4 PO; +DOCU-143 PO; +OXYC1TAB87 PO
== END | disposition home or self-care (01) ==
LOC: PREOP 15:14
PROVIDERS: ATTEND Surgery
DX: Z01.818 Encounter for other preprocedural examination (principal)

== ENCOUNTER 2021-06-05 07:42 | Day surgery (SDC) | payer OTHER ==
[~2021-06-05] VITALS: Ht 167.7 cm; Wt 77.3 kg
[~2021-06-05 07:42] MED LIST changes: +ACET-2267 PO; +CALC300T4 PO
[2021-06-05] MEDS ORDERED: LACTATED RINGERS 1,000 ML IV PRN (08:00)
[2021-06-05] MEDS ORDERED: ceFAZolin 2 GM IV Premixed 50 ML IV ONE (08:00)
[2021-06-05 08:12] LABS: AMPHETAMINE SCREEN, URINE POSITIVE (NEGATIVE); BARBITURATE SCREEN URINE NEGATIVE (NEGATIVE); BENZODIAZEPINES SCREEN URINE NEGATIVE (NEGATIVE); CANNABINOID SCREEN, URINE POSITIVE (NEGATIVE); COCAINE SCREEN URINE NEGATIVE (NEGATIVE); METHADONE STAT NEGATIVE (NEGATIVE); OPIATE SCREEN URINE NEGATIVE (NEGATIVE); OXYCODONE STAT NEGATIVE (NEGATIVE); PROPOXYPHENE STAT NEGATIVE (NEGATIVE); TRICYCLIC ANTIDEPRESSANTS SCRE NEGATIVE (NEGATIVE)
[2021-06-05] MEDS ORDERED: 0.9% SODIUM CHLORIDE PF INJ 20 ML VIAL ONE (08:12)
[2021-06-05] MEDS ORDERED: LIDOCAINE/EPI 2% 1:100,00 (XYLOCAINE) 20 ML VIAL ONE (08:12)
[2021-06-05] MEDS ORDERED: HEParin (CENTRAL IV FLUSH) 500 UNIT/5 ML SYR ONE (08:12)
== END 2021-06-05 08:27 | disposition home or self-care (01) ==
LOC: SDC 07:42
PROVIDERS: ATTEND Surgery
DX: C21.0 Malignant neoplasm of anus, unspecified (principal); F15.90 Other stimulant use, unspecified, uncomplicated; Z53.09 Procedure and treatment not carried out because of other contraindication
CPT/HCPCS: 80306; 87081

== ENCOUNTER → 2021-06-08 | Outpatient (CLI) | payer OTHER ==
--- NOTE | 2021-06-08 14:51 | Diagnostic Imaging Report ---
INDICATION: Primary squamous cell carcinoma of the anus. Serum blood glucose level at the time of injection is 97 mg/dL. The patient was administered 12.3 mCi F-18 FDG intravenously in the right antecubital location and PET imaging was performed from the top of the skull to mid thighs. Noncontrast CT was also performed for attenuation correction and anatomic correlation. No prior PET/CT studies are available for comparison. Comparison is made with CT chest, abdomen and pelvis study from 05/26/2021. There is symmetric activity throughout the brain. Soft tissues of the neck are unremarkable. No mediastinal or hilar hypermetabolism is seen. No pulmonary parenchymal hypermetabolism is identified. There is physiologic activity throughout the gastrointestinal and genitourinary tracts of abdomen and pelvis. There is intense hypermetabolism in the region of the anus correlating with the patient's recent diagnosis. SUV max is 12.5. No other areas of hypermetabolism are identified. IMPRESSION: Unremarkable PET/CT study apart from hypermetabolism of the anus corresponding with patient's diagnosis of anal carcinoma. No distant metastases are identified. Dictated by: Dictated on workstation # [id number]
== END ==
LOC: RAD 08:52
PROVIDERS: ATTEND Internal Medicine Hematology & Oncology
DX: C21.0 Malignant neoplasm of anus, unspecified (principal)
CPT/HCPCS: 78815; A9552

== ENCOUNTER 2021-06-10 05:39 | Outpatient (CLI) | payer SELFPAY ==
[~2021-06-10] VITALS: Ht 170.2 cm; Wt 74.4 kg
[2021-06-12] MEDS ORDERED: ACHD5005 PO (12:36)
== END 2021-06-10 10:28 | disposition home or self-care (01) ==
LOC: PREOP 05:39
PROVIDERS: ATTEND Surgery
DX: Z01.818 Encounter for other preprocedural examination (principal)

== ENCOUNTER 2021-06-12 09:53 | Day surgery (SDC) | payer OTHER ==
[2021-06-12] VITALS (9 sets, daily range): BP systolic 100–121; BP diastolic 68–78
[~2021-06-12] VITALS: Ht 170.2 cm; Wt 74.4 kg
[2021-06-12] MEDS ORDERED: ceFAZolin 2 GM IV Premixed 50 ML IV ONE (10:15)
[2021-06-12] MEDS ORDERED: LACTATED RINGERS 1,000 ML IV PRN (10:15)
[2021-06-12 10:20] LABS: AMPHETAMINE SCREEN, URINE NEGATIVE (NEGATIVE); BARBITURATE SCREEN URINE NEGATIVE (NEGATIVE); BENZODIAZEPINES SCREEN URINE NEGATIVE (NEGATIVE); CANNABINOID SCREEN, URINE POSITIVE (NEGATIVE); COCAINE SCREEN URINE NEGATIVE (NEGATIVE); METHADONE STAT NEGATIVE (NEGATIVE); OPIATE SCREEN URINE NEGATIVE (NEGATIVE); OXYCODONE STAT NEGATIVE (NEGATIVE); PROPOXYPHENE STAT NEGATIVE (NEGATIVE); TRICYCLIC ANTIDEPRESSANTS SCRE NEGATIVE (NEGATIVE)
[2021-06-12] MEDS ORDERED: LIDOCAINE/EPI 1%-1:200,000 (XYLOCAINE) 30 ML VIAL ONE (10:36)
[2021-06-12] MEDS ORDERED: 0.9% SODIUM CHLORIDE PF INJ 20 ML VIAL ONE (10:36)
[2021-06-12] MEDS ORDERED: HEParin (CENTRAL IV FLUSH) 500 UNIT/5 ML SYR ONE (10:36)
[2021-06-12] MEDS ORDERED: PROPOFOL INJECTION 50 ML IV ONE (10:43)
[2021-06-12] MEDS ORDERED: fentaNYL INJ 100 MCG/2 ML AMP ONE ×2 (10:43→12:48)
[2021-06-12] MEDS ORDERED: MIDAZOLAM 2 MG/2 ML (VERSED) VIAL ONE (10:44)
--- NOTE | 2021-06-12 11:46 | Progress Note-Pre Operative ---
Pre-Operative Progress Note H&P Reviewed The H&P was reviewed, patient examined and no changes noted. Time Seen by Provider: 11:44 Date H&P Reviewed: June 12, 2021 Time H&P Reviewed: 11:44 Pre-Operative Diagnosis: Anal CA, Venous insufficiency MARICRUZ FRANKEL DO June 12, 2021 11:46
--- NOTE | 2021-06-12 12:35 | Progress Note-Post Operative ---
Post-Operative Progess Note Surgeon (s)/Building Service Worker (s) Surgeon MARICRUZ FRANKEL DO Building Service Worker: none Pre-Operative Diagnosis Anal CA, Venous insufficiency Post-Operative Diagnosis same Procedure & Operative Findings Date of Procedure 06/12/21 Procedure Performed/Findings PROCEDURE: Neelam-Cath placement The patient was taken to the operating suite, was prepped and draped in the sterile fashion. A surgical pause was performed. Local anesthetic was infiltrated at the clavicle and along the tract to the right anterior chest, where more local was placed so the pocket could be created. Using an 18 gauge finder needle with negative inspiration the right subclavian vein was accessed on the first attempt and dark nonpulsatile blood was withdrawn. The wire was inserted and fluoroscopy assured proper placement. The needle was removed. The regular wire was inserted and fluoroscopy assured proper placement. The wire was then secured. A #11 blade scalpel was used to make an incision over the right chest and along the guidewire. Cautery was used to dissect down to the pectoral fascia. A pocket was created with blunt dissection. The dilator sheath was then advanced over the wire under fluoroscopy and the dilator and wire were removed. The Groshong catheter was inserted through the sheath and the sheath was then removed. The Groshong wire was removed. The catheter was then tunneled to the right chest pocket. Fluoroscopy was used to cut to length and this was then attached to the port which was then placed within the pocket. The port was then sutured down to the chest wall with a 3-0 prolene. The port was then accessed without difficulty. It was then flushed with saline and then heparin. The subcutaneous tissues were then reapproximated using 3-0 Vicryl. Finally the skin was closed with 4-0 undyed monocryl, 3 interrupted sutures. The areas were then washed and dried. Skin Affix was placed over incision. The insertion point of the neck Skin Affix was placed over the incision. The patient tolerated the procedure well without complication and was taken to recovery room in stable condition. Anesthesia Type IV sedation by Anesthesia Estimated Blood Loss Estimated blood loss (mL): scant Specimens/Packing Specimens Removed MARICRUZ Oliver DO June 12, 2021 12:35
[2021-06-12] MEDS ORDERED: ACHD5005 PO (12:36)
--- NOTE | 2021-06-12 12:37 | Discharge Inst-Surgical ---
Discharge Inst-Surgical Depart Medication/Instructions New, Converted or Re-Newed RX: Transmitted to Pharmacy Patient Instructions Follow up Appt: Make appointment for 2 weeks. [phone] Instructions: No lifting greater than 20 pounds. No strenuous activity. May shower in 24 hours, no tub bath or soaking. Use incentive spirometer at home as directed. No Smoking Skin/Wound Care: May remove bandages in am. You need to leave the Dermabond on incision it will fall off on it's own. Symptoms to Report: Appetite Changes, Extremity Discoloration, Numbness/Tingling, Swelling Increased, Bleeding Excessive, Eyesight Changes, Pain Increased, Urine Color Change, Constipation(Persistent), Fever over 101 degree F, Pain/Pressure in chest, Urinating Difficulty, Cough Up/Vomit Blood, Heart Beat Irreg/Pounding, Pain/Pressure in jaw, Cramps in feet or legs, Lightheadedness, Pain/Pressure in shoulder, Diarrhea(Persistent), Memory Changes Suddenly, Questions/Concerns, Weight gain consecutive days, Dizziness/Fainting, Nausea/Vomiting, Shortness of Breath, Weight gain over 2 pounds If questions or concerns contact your physician Or seek help at emergency department. Activity Activity as Tolerated: Yes Activity Instructions: Avoid Stress to Incision Driving Instructions: No Driving/Refer to Dr. Zavala Discharge Diet: No Restrictions Diet After 24 Hours: Clear Liquid if Nauseous If Any Problems/Questions/Issu: Contact Your Physician, Go to Emergency Room Skin/Wound Care Infection Signs and Symptoms: Increased Redness, Foul Odor of Wound, Increased Drainage, Skin Itchy or Has a Rash, Increased Swelling, Temperature Above 101 F Bathing Instructions: Shower Stitches/Christopher/Dermabond Dis: Dermabond Ice Pack: Ice On and Off Site MARICRUZ FRANKEL DO June 12, 2021 12:37
[2021-06-12] MEDS ORDERED: fentaNYL INJ 100 MCG/2 ML AMP IVP ONE (13:00)
[2021-06-12] MEDS ORDERED: HYDROcodone/APAP 5 MG/325 MG (LORTAB) TAB ONE (13:42)
[2021-06-12] MEDS ORDERED: HYDROcodone/APAP 5 MG/325 MG (LORTAB) TAB PO ONE (13:45)
--- NOTE | 2021-06-12 14:56 | Anesthesia-General Post-Op ---
MAC Patient Condition Mental Status/LOC: Same as Preop Cardiovascular: Satisfactory Nausea/Vomiting: Absent Respiratory: Satisfactory Pain: Controlled Complications: Absent Post Op Complications Complications None Follow Up Care/Instructions Patient Instructions None needed. Anesthesiology Discharge Order Discharge Order Patient was seen and doing well after the procedure with no complaints, stable vital signs, no apparent adverse anesthesia problems. MARIANO MENDIOLA DO June 12, 2021 14:56
--- NOTE | 2021-06-12 15:06 | Diagnostic Imaging Report ---
INDICATION: Fluoroscopy for port placement. Fluoroscopy was provided in the OR during port placement. Six seconds of fluoroscopic time was utilized. Three images were obtained demonstrating a right chest wall port tip overlying the region of the right atrium. IMPRESSION: Fluoroscopy for port placement. Dictated by: Dictated on workstation # [id number]
== END 2021-06-12 15:30 | disposition home or self-care (01) ==
LOC: SDC 09:53
PROVIDERS: ATTEND Surgery
DX: C21.1 Malignant neoplasm of anal canal (principal); I87.2 Venous insufficiency (chronic) (peripheral); F17.210 Nicotine dependence, cigarettes, uncomplicated; Z28.310 Unvaccinated for COVID-19; Z28.9 Immunization not carried out for unspecified reason
CPT/HCPCS: 36561; 76000; 80306; 87081; C1788

== ENCOUNTER 2021-06-17 10:22 | Emergency (ER) | payer OTHER ==
[~2021-06-17] VITALS: Ht 167 cm; Wt 74.0 kg
[~2021-06-17 10:22] MED LIST changes: +ACHD5005 PO
[2021-06-17] MEDS ORDERED: KETOROLAC 30 MG/ML VIAL IVP ONE (10:45)
[2021-06-17] MEDS ORDERED: ASPIRIN 81 MG CHEW (CHILDREN'S ASA) PO ONE (10:45)
[2021-06-17 10:46] LABS: BASOPHILS % (AUTO) 1 % (0-10); EOSINOPHILS % (AUTO) 0 % (0-10); HEMATOCRIT 36 % (40-54); HEMOGLOBIN 12.6 g/dL (13.3-17.7); LYMPHOCYTES # (AUTO) 0.8 10^3/uL (1.0-4.0); LYMPHOCYTES % (AUTO) 13 % (12-44); MEAN CORPUSCULAR HEMOGLOBIN 31 pg (25-34); MEAN CORPUSCULAR HGB CONC 35 g/dL (32-36); MEAN CORPUSCULAR VOLUME 88 fL (80-99); MEAN PLATELET VOLUME 8.8 fL (9.0-12.2); MONOCYTES # (AUTO) 0.5 10^3/uL (0.0-1.0); MONOCYTES % (AUTO) 8 % (0-12); NEUTROPHILS # (AUTO) 4.9 10^3/uL (1.8-7.8); NEUTROPHILS % (AUTO) 79 % (42-75); PLATELET COUNT 329 10^3/uL (130-400); WHITE BLOOD COUNT 6.3 10^3/uL (4.3-11.0)
[2021-06-17 11:00] LABS: CHLORIDE 101 MMOL/L (98-107); INR 1.1 (0.8-1.4); POTASSIUM 3.9 MMOL/L (3.6-5.0); PROTHROMBIN TIME PATIENT 14.2 SEC (12.2-14.7); SODIUM 138 MMOL/L (135-145)
[2021-06-17 11:01] LABS: AMYLASE 28 U/L (25-125); CALCIUM 9.6 MG/DL (8.5-10.1)
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
[2021-06-17 11:02] LABS: GLUCOSE 94 MG/DL (70-105); TOTAL PROTEIN 7.9 GM/DL (6.4-8.2)
[2021-06-17 11:03] LABS: CARBON DIOXIDE 27 MMOL/L (21-32)
[2021-06-17 11:04] LABS: BILIRUBIN,TOTAL 0.8 MG/DL (0.1-1.0)
[2021-06-17 11:06] LABS: ALKALINE PHOSPHATASE 71 U/L (40-136); CREATININE SERUM 0.89 MG/DL (0.60-1.30); GFR ESTIMATED 115
[2021-06-17 11:07] LABS: BUN/CREATININE RATIO 15
--- NOTE | 2021-06-17 11:07 | Diagnostic Imaging Report ---
INDICATION: Chest pain COMPARISON: 04/11/2017 FINDINGS: The lungs are clear. Old healed deformities to the right clavicular shaft chronic. No infiltrate, effusion, pneumothorax or failure pattern. Lungs are clear although hyperexpanded. IMPRESSION: Clear hyperexpanded lungs, otherwise negative. Dictated by: Dictated on workstation # [id number]
[2021-06-17 11:09] LABS: ALANINE AMINOTRANSFERASE 34 U/L (0-55); MAGNESIUM 2.5 MG/DL (1.6-2.4)
[2021-06-17 11:10] LABS: CREATINE KINASE 252 U/L (30-200); LIPASE 14 U/L (8-78)
[2021-06-17 11:17] LABS: CREATINE KINASE MB 3.7 NG/ML (<6.6)
[2021-06-17 11:23] LABS: BILIRUBIN,URINE NEGATIVE (NEGATIVE); CLARITY,URINE CLEAR; COLOR,URINE YELLOW; GLUCOSE, URINE (UA) NEGATIVE (NEGATIVE); KETONES,URINE NEGATIVE (NEGATIVE); LEUKOCYTE ESTERASE ,URINE NEGATIVE (NEGATIVE); NITRITE,URINE NEGATIVE (NEGATIVE); PH,URINE 7.5 (5-9); PROTEIN,URINE NEGATIVE (NEGATIVE)
[2021-06-17 11:36] LABS: AMPHETAMINE SCREEN, URINE POSITIVE (NEGATIVE); BARBITURATE SCREEN URINE NEGATIVE (NEGATIVE); BENZODIAZEPINES SCREEN URINE NEGATIVE (NEGATIVE); CANNABINOID SCREEN, URINE POSITIVE (NEGATIVE); COCAINE SCREEN URINE NEGATIVE (NEGATIVE); METHADONE STAT NEGATIVE (NEGATIVE); OPIATE SCREEN URINE POSITIVE (NEGATIVE); OXYCODONE STAT NEGATIVE (NEGATIVE); PROPOXYPHENE STAT NEGATIVE (NEGATIVE); TRICYCLIC ANTIDEPRESSANTS SCRE NEGATIVE (NEGATIVE)
[2021-06-17 11:38] LABS: BACTERIA,URINE NEGATIVE /HPF
[2021-06-17 12:25] VITALS: BP 115/74
== END 2021-06-17 12:25 | disposition home or self-care (01) ==
LOC: EDUNIT# 10:22 → ER 10:25
DX: R07.89 Other chest pain (principal); F15.90 Other stimulant use, unspecified, uncomplicated; F19.90 Other psychoactive substance use, unspecified, uncomplicated; C21.0 Malignant neoplasm of anus, unspecified; F17.200 Nicotine dependence, unspecified, uncomplicated; Z28.310 Unvaccinated for COVID-19
CPT/HCPCS: 71045; 80053; 80306; 81000; 82150; 82550; 82553; 83690; 83735; 83874; 83880; 84484; 85025; 85610; 85730; G0480; 36415; 80320; 93005

== ENCOUNTER 2021-06-17 12:59 | Emergency (ER) | payer OTHER ==
[~2021-06-17] VITALS: Ht 172 cm; Wt 90.0 kg
[2021-06-17] MEDS ORDERED: NS 100 ML (IVPB) BAG IV ONE (13:15)
[2021-06-17] MEDS ORDERED: IOHEXOL 350 MG/ML 100 ML (OMNIPAQUE 350) VIAL IV ONE (13:15)
[2021-06-17] MEDS ORDERED: CATHETER FLUSH 10 ML SYR IV PRN (13:15)
[2021-06-17] MEDS ORDERED: HOLD METFORMIN - RECEIVED CONTRAST 20 ML VIAL IV SCH (13:15)
--- NOTE | 2021-06-17 14:16 | Diagnostic Imaging Report ---
PROCEDURE: CT angiography of the chest with contrast. TECHNIQUE: Multiple contiguous axial images were obtained through the chest after uneventful bolus administration of intravenous contrast. 3D reconstructed CTA MIP acquisitions were also performed. Auto Exposure Controls were utilized during the CT exam to meet ALARA standards for radiation dose reduction. DATE: June 17, 2021. COMPARISON: CT chest, abdomen and pelvis May 26, 2021. INDICATION: 36-year-old male, chest pain. History of rectal cancer. FINDINGS: There is no identified pulmonary nodule or lung mass. There is no focal airspace consolidation. There is no pneumothorax. There is no pleural effusion. The central airways are patent. There is no identified pulmonary embolus. The heart is not enlarged. There is no pericardial effusion. There is no identified abnormally enlarged mediastinal, hilar, or axillary lymph node which meets CT size criteria for adenopathy. There is a low-attenuation right adrenal nodule measuring 13 mm in size on axial image 145. Internal attenuation measures 8 Hounsfield units. This is consistent with an adrenal adenoma. Multilevel degenerative changes of the spine. There is no identified acute bony abnormality. IMPRESSION: CT CHEST. 1. No identified pulmonary embolus or other acute cardiopulmonary abnormality. 2. No evidence of metastatic disease to the chest. 3. 11 mm right adrenal adenoma. Dictated by: Dictated on workstation # [id number]
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
[2021-06-17 14:43] LABS: AMPHETAMINE SCREEN, URINE POSITIVE (NEGATIVE); BARBITURATE SCREEN URINE NEGATIVE (NEGATIVE); BENZODIAZEPINES SCREEN URINE NEGATIVE (NEGATIVE); CANNABINOID SCREEN, URINE POSITIVE (NEGATIVE); COCAINE SCREEN URINE NEGATIVE (NEGATIVE); METHADONE STAT NEGATIVE (NEGATIVE); OPIATE SCREEN URINE POSITIVE (NEGATIVE); OXYCODONE STAT NEGATIVE (NEGATIVE); PROPOXYPHENE STAT NEGATIVE (NEGATIVE); TRICYCLIC ANTIDEPRESSANTS SCRE NEGATIVE (NEGATIVE)
[2021-06-17 14:46] VITALS: BP 99/68
== END 2021-06-17 14:46 | disposition home or self-care (01) ==
LOC: EDUNIT# 12:59 → ER 13:00
DX: R07.89 Other chest pain (principal); F15.90 Other stimulant use, unspecified, uncomplicated; F12.20 Cannabis dependence, uncomplicated; F19.90 Other psychoactive substance use, unspecified, uncomplicated; C21.0 Malignant neoplasm of anus, unspecified; F17.210 Nicotine dependence, cigarettes, uncomplicated
CPT/HCPCS: 36415; 71275; 80306; 84484; 93005; 93041

== ENCOUNTER 2021-07-01 10:02 | Outpatient (RCR) | payer OTHER ==
[2021-06-15 09:36] LABS: BASOPHILS # (AUTO) 0.1 10^3/uL (0.0-0.1); BASOPHILS % (AUTO) 1 % (0-10); EOSINOPHILS # (AUTO) 0.2 10^3/uL (0.0-0.3); EOSINOPHILS % (AUTO) 3 % (0-10); HEMATOCRIT 33 % (40-54); HEMOGLOBIN 11.3 g/dL (13.3-17.7); LYMPHOCYTES # (AUTO) 1.1 10^3/uL (1.0-4.0); LYMPHOCYTES % (AUTO) 15 % (12-44); MEAN CORPUSCULAR HEMOGLOBIN 30 pg (25-34); MEAN CORPUSCULAR HGB CONC 34 g/dL (32-36); MEAN CORPUSCULAR VOLUME 88 fL (80-99); MONOCYTES # (AUTO) 0.6 10^3/uL (0.0-1.0); MONOCYTES % (AUTO) 8 % (0-12); NEUTROPHILS # (AUTO) 5.7 10^3/uL (1.8-7.8); NEUTROPHILS % (AUTO) 74 % (42-75); PLATELET COUNT 304 10^3/uL (130-400); WHITE BLOOD COUNT 7.7 10^3/uL (4.3-11.0)
[2021-06-15 09:45] LABS: ALBUMIN 4.1 GM/DL (3.2-4.5)
[2021-06-15 09:46] LABS: POTASSIUM 4.2 MMOL/L (3.6-5.0)
[2021-06-15 09:47] LABS: CALCIUM 9.6 MG/DL (8.5-10.1)
[2021-06-15 09:48] LABS: TOTAL PROTEIN 7.7 GM/DL (6.4-8.2)
[2021-06-15 09:50] LABS: BILIRUBIN,TOTAL 0.9 MG/DL (0.1-1.0)
[2021-06-15 09:52] LABS: CREATININE SERUM 0.94 MG/DL (0.60-1.30)
[~2021-07-01] VITALS: Ht 170.2 cm; Wt 74.4 kg
[~2021-07-01 10:02] MED LIST changes: +FLUOROURACIL IV SCH; +HEParin (CENTRAL IV FLUSH) 500 UNIT/5 ML SYR IV PRN; +MITOMYCIN IV SCH; +NS IV 500 ML (CANCER CENTER) IV SCH; +NS IV SCH; +ONDANSETRON MDV (CANCER CENTER 8 MG in NS (IVPB) 50 ML IV SCH
== END 2021-07-07 | disposition home or self-care (01) ==
LOC: ONC 10:02
PROVIDERS: ATTEND Internal Medicine Hematology & Oncology
DX: Z51.0 Encounter for antineoplastic radiation therapy (principal); C21.0 Malignant neoplasm of anus, unspecified
CPT/HCPCS: 77300; 77301; 77334; 77338; 77470; G0463; 36591; 77290; 77336; 77386; 80053; 85025; 96409; 96416; 99204; J9290

== ENCOUNTER → 2021-07-20 | Outpatient (CLI) | payer OTHER ==
[~2021-07-20] MED LIST changes: -FLUOROURACIL IV SCH; -HEParin (CENTRAL IV FLUSH) 500 UNIT/5 ML SYR IV PRN; +IOHEXOL 240 MGI/ML 50 ML (OMNIPAQUE) VIAL IV ONE; -MITOMYCIN IV SCH; -NS IV 500 ML (CANCER CENTER) IV SCH; -NS IV SCH; -ONDANSETRON MDV (CANCER CENTER 8 MG in NS (IVPB) 50 ML IV SCH
--- NOTE | 2021-07-20 13:04 | Diagnostic Imaging Report ---
INDICATION: Possible malfunctioning port. TIME OF EXAM: 12:05 p.m. The port was accessed by the radiology nursing. Fluoroscopy over the chest was performed during injection of approximately 10 mL of Omnipaque 240 contrast. A total of 0.6 minutes of fluoroscopic time was utilized. Preliminary radiograph of the chest demonstrates a right chest wall port. No definite fracture or interruption of the port tubing is seen. There is no abnormal kinking of the tubing. Note is made that the port tip is located within the right atrium. No abnormal extravasation of contrast from the port tubing is seen during contrast injection. There is normal flushing of the tubing with aspiration of blood. IMPRESSION: The tip of the port is located within the right atrium. No port malfunction is identified. No kinking, fracture, or abnormal extravasation is seen. Dictated by: Dictated on workstation # [id number]
== END ==
LOC: RAD 07-16 10:50
PROVIDERS: ATTEND Internal Medicine Hematology & Oncology
DX: C21.0 Malignant neoplasm of anus, unspecified (principal)
CPT/HCPCS: 36598

== ENCOUNTER 2021-07-29 16:40 | Inpatient (IN) | payer OTHER ==
[~2021-07-29] VITALS: Ht 170.2 cm; Wt 74.1 kg
[~2021-07-29 16:40] MED LIST changes: -IOHEXOL 240 MGI/ML 50 ML (OMNIPAQUE) VIAL IV ONE
[2021-07-29] MEDS ORDERED: morphine INJ 10 MG/ML 1ML (SYR OR VIAL) IV STA (17:01)
[2021-07-29 17:13] LABS: BASOPHILS % (AUTO) 1 % (0-10); EOSINOPHILS % (AUTO) 0 % (0-10); HEMATOCRIT 42 % (40-54); HEMOGLOBIN 14.5 g/dL (13.3-17.7); LYMPHOCYTES # (AUTO) 0.4 10^3/uL (1.0-4.0); LYMPHOCYTES % (AUTO) 8 % (12-44); MEAN CORPUSCULAR HEMOGLOBIN 31 pg (25-34); MEAN CORPUSCULAR HGB CONC 34 g/dL (32-36); MEAN CORPUSCULAR VOLUME 89 fL (80-99); MEAN PLATELET VOLUME 8.3 fL (9.0-12.2); MONOCYTES # (AUTO) 0.5 10^3/uL (0.0-1.0); MONOCYTES % (AUTO) 9 % (0-12); NEUTROPHILS # (AUTO) 4.3 10^3/uL (1.8-7.8); NEUTROPHILS % (AUTO) 82 % (42-75); PLATELET COUNT 260 10^3/uL (130-400); WHITE BLOOD COUNT 5.3 10^3/uL (4.3-11.0)
[2021-07-29] MEDS ORDERED: ASPIRIN 81 MG CHEW (CHILDREN'S ASA) PO ONE (17:15)
[2021-07-29] MEDS ORDERED: NITROGLYCERIN 0.4 MG SL TABS BTL 25'S SL ONE (17:19)
[2021-07-29] MEDS: NITROGLYCERIN 0.4 MG SL TABS BTL 25'S SL PRN ×3 (17:20→21:51)
--- NOTE | 2021-07-29 17:23 | Diagnostic Imaging Report ---
INDICATION: Chest pain. Continuous chemotherapy infusions. Tightness in the chest and shoulder. EXAMINATION: Chest, 07/29/2021. COMPARISON: 06/17/2021. FINDINGS: There is a right-sided chest port at the tip in the junction of the SVC and right atrium. The heart and pulmonary vasculature appear normal. Lungs and pleural spaces clear. No infiltrate, effusion or pneumothorax. There is an old fracture of the right clavicle. IMPRESSION: No acute cardiopulmonary process. Dictated by: Dictated on workstation # [id number]
[2021-07-29 17:25] LABS: ALBUMIN 4.3 GM/DL (3.2-4.5); POTASSIUM 3.7 MMOL/L (3.6-5.0)
[2021-07-29 17:26] LABS: CALCIUM 9.6 MG/DL (8.5-10.1); PROTHROMBIN TIME PATIENT 13.4 SEC (12.2-14.7)
[2021-07-29 17:28] LABS: TOTAL PROTEIN 8.1 GM/DL (6.4-8.2)
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
[2021-07-29 17:29] LABS: BILIRUBIN,TOTAL 0.6 MG/DL (0.1-1.0)
[2021-07-29] MEDS ORDERED: ENOXAPARIN 80 MG/0.8 ML (LOVENOX) SYR SC ONE (17:30)
[2021-07-29] MEDS ORDERED: ONDANSETRON 4 MG/2 ML (SDV) Z0FRAN IVP ONE (17:30)
[2021-07-29 17:31] LABS: CREATININE SERUM 1.27 MG/DL (0.60-1.30)
[2021-07-29 17:34] LABS: MAGNESIUM 2.2 MG/DL (1.6-2.4)
[2021-07-29] MEDS ORDERED: NS IV 1000 ML 1,000 ML ONE ×2 (17:35→17:47)
[2021-07-29] MEDS ORDERED: LIDOCAINE 1% INJ 20 ML VIAL ONE (17:46)
[2021-07-29] MEDS ORDERED: HEParin (CATH LAB) 2,000 ML IV ONE (17:46)
[2021-07-29] MEDS ORDERED: MIDAZOLAM 5 MG/5 ML (VERSED) VIAL ONE (17:46)
[2021-07-29] MEDS ORDERED: fentaNYL INJ 100 MCG/2 ML AMP ONE (17:46)
[2021-07-29] MEDS ORDERED: HEParin 1000 UNIT/ML (10ML VIAL) FOR BOLUS ONE (17:47)
[2021-07-29] MEDS ORDERED: NITRO DRIP 25000 MCG/D5W 250 ML IV ONE (17:47)
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
[2021-07-29 17:50] LABS: LYMPHOCYTES % (MANUAL) 9 %; MONOCYTES % (MANUAL) 6 %; NEUTROPHILS % (MANUAL) 85 %; RBC MORPH NORMAL
[2021-07-29] MEDS ORDERED: VERAPAMIL 5 MG/2 ML (CALAN) VIAL IV ONE (17:51)
[2021-07-29 17:57] LABS: BILIRUBIN,URINE NEGATIVE (NEGATIVE); CLARITY,URINE CLOUDY; COLOR,URINE YELLOW; GLUCOSE, URINE (UA) NEGATIVE (NEGATIVE); KETONES,URINE NEGATIVE (NEGATIVE); LEUKOCYTE ESTERASE ,URINE NEGATIVE (NEGATIVE); NITRITE,URINE NEGATIVE (NEGATIVE); PROTEIN,URINE NEGATIVE (NEGATIVE)
[2021-07-29 18:00] VITALS: BP 89/67
[2021-07-29 18:14] LABS: BACTERIA,URINE FEW /HPF; HYALINE CASTS, URINE RARE /LPF; RBC,URINE RARE /HPF; SQUAMOUS EPITHELIAL CELL,UR RARE /HPF; WBC,URINE 0-2 /HPF
[2021-07-29 18:23] LABS: AMPHETAMINE SCREEN, URINE POSITIVE (NEGATIVE); BARBITURATE SCREEN URINE NEGATIVE (NEGATIVE); BENZODIAZEPINES SCREEN URINE NEGATIVE (NEGATIVE); CANNABINOID SCREEN, URINE POSITIVE (NEGATIVE); COCAINE SCREEN URINE NEGATIVE (NEGATIVE); METHADONE STAT NEGATIVE (NEGATIVE); OPIATE SCREEN URINE POSITIVE (NEGATIVE); OXYCODONE STAT NEGATIVE (NEGATIVE); PROPOXYPHENE STAT NEGATIVE (NEGATIVE); TRICYCLIC ANTIDEPRESSANTS SCRE NEGATIVE (NEGATIVE)
[2021-07-29] MEDS ORDERED: NS IV 1000 ML 1,000 ML IV SCH (18:30)
--- NOTE | 2021-07-29 18:32 | Cardiac Cath Report ---
Cardiac Cath Report Physician (s)/Grounds Foreman (s) Physician MARJ DAY MD Pre-Procedure Diagnosis Pre-Procedure Diagnosis: Coronary artery disease Post-Procedure Note Procedure Start Date: Jul 29, 2021 Name of Procedure: Emergency cardiac catheterization Left ventriculogram Aortic arch angiogram Findings/Procedure Note PROCEDURE NOTE: 36-year-old gentleman with history of tobaccoism, methamphetamine use, noted to have acute ST elevation on arrival to the emergency room with severe chest pain. He has been starting on 5-FU treatment for anal cancer. Production Material Handler was called, I decided to proceed with emergency cardiac catheterization. After explaining the procedure to the patient, all pros and cons were explained, all questions were answered. The patient signed the consent and then he was placed on the cardiac catheterization laboratory. Groin was prepped SL fashion local anesthesia was used. Sheath placed in the right radial artery, [place] catheter was advanced to the left ventricular cavity, engage the right and left coronary system then I pulled back the catheter to the aortic arch and did aortic arch angiogram then I used the J-wire to cross the aortic valve and advanced to the left ventricle and performed left ventriculogram. Pullback LV to aorta was done. At the end of the procedure the sheath was removed. Vascular band was used FINDINGS: Hemodynamics LV 92/20, end-diastolic pressure of 20 Aorta 95/74 mean of 83 ANATOMY: Left Main is free of obstructive disease Left Anterior Descending is slightly tortuous with no obstructive disease, mild disease in the small diagonal branch Left Circumflex has mild disease nonobstructive disease Right Coronary Artery is dominant artery, tortuous artery with no obstructive disease LV Gram was done showing normal left ventricular size with mild hypokinesia of the anterior wall, estimate ejection fraction 40% Aorta evaluation done with aortic arch angiogram showing normal aortic arch in size, no dissection or aneurysm, normal origin of the brachiocephalic artery, left carotid and left subclavian arteries CONCLUSION: 1. Slightly tortuous coronary system with mild disease no significant obstructive disease 2. Normal left ventricular size with mild hypokinesia at the anterior wall with ejection fraction 40% 3. Normal aortic arch and great vessels of the neck DISCUSSION AND RECOMMENDATION: ST elevation is probably secondary to chemotherapy with probably coronary spasm or the use of methamphetamine. There is no significant obstructive disease at this point, patient had elevated troponin level, I will continue on aspirin katie atment, advised avoiding any illicit drug use. We will discussed with Dr. Mason regarding his treatment Anesthesia Type: Conscious Sedation Estimated blood loss (mL): 10 ml Contrast Amount: 42 ml Total Radiation Dose: 128 mGy Post-Procedure Diagnosis Post-operative diagnosis: ST elevation myocardial infarction Coronary artery disease Anal cancer Hypotension MARJ DAY MD Jul 29, 2021 18:32
[2021-07-29] MEDS ORDERED: PANTOPRAZOLE 40 MG (PROTONIX) VIAL IV NR (19:00)
[2021-07-30] MEDS: NITROGLYCERIN 0.4 MG SL TABS BTL 25'S SL PRN (00:53)
[2021-07-30] MEDS ORDERED: NITROGLYCERIN 0.4 MG SL TABS BTL 25'S SL PRN (02:45)
[2021-07-30] MEDS: NS IV 1000 ML 1,000 ML IV SCH ×2 (03:38→13:33)
[2021-07-30 06:12] LABS: HEMATOCRIT 39 % (40-54); HEMOGLOBIN 12.9 g/dL (13.3-17.7); MEAN CORPUSCULAR HEMOGLOBIN 30 pg (25-34); MEAN CORPUSCULAR HGB CONC 33 g/dL (32-36); MEAN CORPUSCULAR VOLUME 91 fL (80-99); MEAN PLATELET VOLUME 8.7 fL (9.0-12.2); PLATELET COUNT 215 10^3/uL (130-400); WHITE BLOOD COUNT 3.4 10^3/uL (4.3-11.0)
[2021-07-30 06:28] LABS: POTASSIUM 4.1 MMOL/L (3.6-5.0)
[2021-07-30 06:29] LABS: CALCIUM 8.9 MG/DL (8.5-10.1)
[2021-07-30 06:33] LABS: CREATININE SERUM 0.99 MG/DL (0.60-1.30)
[2021-07-30] MEDS ORDERED: ASPIRIN E.C. 81 MG (ECOTRIN) TAB PO SCH ×2 (09:00)
[2021-07-30] MEDS ORDERED: PANTOPRAZOLE 40 MG (PROTONIX) TAB PO SCH ×2 (09:00)
--- NOTE | 2021-07-30 09:00 | Cardiology Progress Note ---
Subjective Date Seen by Provider: Jul 30, 2021 Time Seen by Provider: 08:58 Subjective/Events-last exam Patient was seen at bedside, laying down comfortably Complaining of fatigue, had another episode of chest pain last night, responded to nitroglycerin Review of Systems General: No Chills, No Night Sweats; Fatigue; No Malaise, No Appetite, No Other HEENT: No Head Aches, No Visual Changes, No Eye Pain, No Ear Pain, No Dysphasia, No Sinus Congestion, No Post Nasal Drip, No Sore Throat, No Other Pulmonary: No Dyspnea, No Cough, No Pleuritic Chest Pain, No Other Cardiovascular: No: Chest Pain, Palpitations, Orthopnea, Paroxysmal Noc. Dyspnea, Edema, Lt Headedness, Other Objective-Cardiology Exam Last Set of Vital Signs Vital Signs 07/30/21 07/30/21 13:28 17:00 Temp 36.8 Pulse 90 Resp 9 B/P (MAP) 98/64 Pulse Ox 96 O2 Delivery Room Air I&O Intake and Output 07/29/21 23:59 Intake Total 1250 ml Output Total 400 ml Balance 850 ml Intake Oral 250 ml IV Total 1000 ml Output Urine Total 400 ml Daily Weight Change No General: Alert, Oriented X3, Cooperative, No Acute Distress HEENT: Atraumatic, PERRLA Neck: Supple, No JVD Lungs: Clear to Auscultation, Normal Air Movement Heart: Regular Rate, Normal S1, Normal S2, No Murmurs Abdomen: Normal Bowel Sounds, Soft, No Tenderness, No Hepatosplenomegaly, No Masses Extremities: No Clubbing, No Cyanosis, No Edema, Normal Pulses, No Tenderness/Swelling Skin: No Rashes, No Breakdown, No Significant Lesion Neuro: Normal Gait, Normal Speech, Strength at 5/5 X4 Ext, Normal Tone, Sensation Intact Psych/Mental Status: Mental Status NL, Mood NL Results Lab Laboratory Tests 07/30/21 05:37 A/P-Cardiology Admission Diagnosis Acute ST elevation myocardial infarction Coronary artery disease Hypotension Tobaccoism Assessment/Plan Acute ST elevation myocardial infarction in the inferolateral leads with h ypotensive shock Started on IV fluid, received aspirin 325 mg, Lovenox 70 mg, 1 sublingual nitroglycerin Cardiac catheterization was carried out on July 29, 2021 showing mild coronary artery disease nonobstructive disease, probably she has significant coronary spasm. Recurrent chest pain, mild elevation in troponin, probably secondary to his coronary spasm, Prinzmetal angina. Educated on avoiding illicit drugs. Continue to monitor Mild cardiomyopathy noted on left ventriculogram, I am planning to evaluate 2D echocardiogram. Nausea and vomiting, received 1 dose of Zofran. Feeling better Anal cancer, receiving chemotherapy, has been receiving 5-FU. Had similar chest pain with the first infusion about a month ago and currently having chest pain during the second infusion Tobaccoism, educated on smoking cessation History of methamphetamine use. Educated on avoiding drugs Addendum on 07/30/2021 at 1720 Patient became anxious about going home, requesting to go home I received multiple phone calls patient is demanding to go home, has been feeling better. I will discharge him home and arrange for follow-up as an outpatient Final diagnosis Acute ST elevation myocardial infarction in the inferolateral wall Chest pain Congestive heart failure, acute left ventricular systolic dysfunction, ischemic cardiomyopathy Anal cancer MARJ DAY MD Jul 30, 2021 09:00
[2021-07-30] MEDS ORDERED: [UNRECOGNIZED DRUG - CODE] INCATH (14:01)
[2021-07-30] MEDS ORDERED: ASPI-1238 PO (17:25)
--- NOTE | 2021-07-30 17:26 | Discharge Inst-Post CATH ---
Discharge Inst-CATH/EP Problems Reviewed?: Yes Post Cardiac Cath/EP D/C Inst Follow Up/Plan Appointment with Dr. Crespo's office in 1 to 2 weeks <b>CARDIAC CATH/EP PROCEDURE DISCHARGE INSTRUCTIONS</b> ACTIVITY * Go Home directly and rest. * Limit activity of the leg (or wrist if it was used) for 7 days including aer obics, swimming, jogging, bicycling, etc. * Restrict stair-climbing for 7 days if possible, if not, climb up with your non-cath leg, then bring together on the same step. * Avoid lifting, pushing, pulling or excessive movement of the affected extremi ty for 7 days. * Customary sexual activity may be resumed after 2 days-use caution not to use a position that strains or causes pain to the affected extremity. * No driving for 24 hours. * NO SMOKING. * Avoid straining for bowel movements for 7 days. * Gentle walking on level ground is allowed. * Returning to work will depend on the type of procedure and the results. Your doctor will discuss this with you. CALL YOUR DOCTOR FOR ANY OF THE FOLLOWING: *If bleeding from the puncture site occurs- Apply gentle pressure to site with clean cloth and call your doctor or EMS. * If a knot or lump forms under the skin, increases in size, or causes pain. * If bruising appears to be worsening or moving further down your leg instead of disappearing. * Temperature above 101 F. CARE OF YOUR GROIN INCISION; * Bruising or purple discoloration of the skin near the puncture site is common. * You may shower only, no bathtub bathing for 5 days. Be careful to avoid slipping as your leg may feel stiff. * If a closure device was used on your femoral artery, please see the attached guide regarding care of the device and your leg. * Leave dressing on FOR 24 hours. CARE OF YOUR WRIST INCISION; * Bruising or purple discoloration of the skin near the puncture site is common. * You may shower. * DO NOT submerge wrist. * Leave dressing on FOR 24 hours. MARJ CRESPO MD Jul 30, 2021 17:25
[2021-07-30] MEDS ORDERED: CARV3.12 PO (17:28)
[2021-07-30] MEDS ORDERED: LOSA25TA41 PO (17:28)
== END 2021-07-30 18:30 | disposition home or self-care (01) | DRG 280 ==
LOC: EDUNIT# 16:40 → ER 16:42 → ICU 18:26 → ER 18:26 → ICU 18:46
PROVIDERS: ADMIT Internal Medicine Cardiovascular Disease; ATTEND Internal Medicine Cardiovascular Disease
PROC: 4A023N7 Measurement of Cardiac Sampling and Pressure, Left Heart, Percutaneous Approach (ICD-10-PCS; principal; 2021-07-29)
PROC: B2111ZZ Fluoroscopy of Multiple Coronary Arteries using Low Osmolar Contrast (ICD-10-PCS; 2021-07-29)
PROC: B2151ZZ Fluoroscopy of Left Heart using Low Osmolar Contrast (ICD-10-PCS; 2021-07-29)
PROC: B3101ZZ Fluoroscopy of Thoracic Aorta using Low Osmolar Contrast (ICD-10-PCS; 2021-07-29)
DX: I21.19 ST elevation (STEMI) myocardial infarction involving other coronary artery of inferior wall (principal); R57.8 Other shock; I50.21 Acute systolic (congestive) heart failure; C21.0 Malignant neoplasm of anus, unspecified; F17.210 Nicotine dependence, cigarettes, uncomplicated; G43.909 Migraine, unspecified, not intractable, without status migrainosus; Z87.820 Personal history of traumatic brain injury; K21.9 Gastro-esophageal reflux disease without esophagitis; Z85.048 Personal history of other malignant neoplasm of rectum, rectosigmoid junction, and anus; Z92.21 Personal history of antineoplastic chemotherapy; F41.9 Anxiety disorder, unspecified; F32.A Depression, unspecified; F43.10 Post-traumatic stress disorder, unspecified; R11.2 Nausea with vomiting, unspecified; I25.10 Atherosclerotic heart disease of native coronary artery without angina pectoris; I25.5 Ischemic cardiomyopathy
CPT/HCPCS: 36415; 71045; 80048; 80053; 80306; 81000; 83735; 83874; 83880; 84484; 85007; 85027; 85610; 85730; 87081; 87088; 93005; 93041; 93306

== ENCOUNTER → 2021-08-06 | Outpatient (RCR) | payer OTHER ==
[2021-07-14 10:54] LABS: BASOPHILS % (AUTO) 1 % (0-10); EOSINOPHILS # (AUTO) 0.2 10^3/uL (0.0-0.3); EOSINOPHILS % (AUTO) 5 % (0-10); HEMATOCRIT 40 % (40-54); HEMOGLOBIN 13.2 g/dL (13.3-17.7); LYMPHOCYTES # (AUTO) 0.5 10^3/uL (1.0-4.0); LYMPHOCYTES % (AUTO) 10 % (12-44); MEAN CORPUSCULAR HEMOGLOBIN 30 pg (25-34); MEAN CORPUSCULAR HGB CONC 33 g/dL (32-36); MEAN CORPUSCULAR VOLUME 90 fL (80-99); MEAN PLATELET VOLUME 8.1 fL (9.0-12.2); MONOCYTES # (AUTO) 0.4 10^3/uL (0.0-1.0); MONOCYTES % (AUTO) 8 % (0-12); NEUTROPHILS # (AUTO) 3.7 10^3/uL (1.8-7.8); NEUTROPHILS % (AUTO) 77 % (42-75); PLATELET COUNT 238 10^3/uL (130-400); WHITE BLOOD COUNT 4.9 10^3/uL (4.3-11.0)
[2021-07-14 11:29] LABS: ALBUMIN 4.3 GM/DL (3.2-4.5); BILIRUBIN,TOTAL 0.3 MG/DL (0.1-1.0); CALCIUM 9.4 MG/DL (8.5-10.1); CREATININE SERUM 1.16 MG/DL (0.60-1.30); POTASSIUM 3.8 MMOL/L (3.6-5.0); TOTAL PROTEIN 8.2 GM/DL (6.4-8.2)
[2021-07-27 10:23] LABS: BASOPHILS # (AUTO) 0.1 10^3/uL (0.0-0.1); BASOPHILS % (AUTO) 1 % (0-10); EOSINOPHILS # (AUTO) 0.3 10^3/uL (0.0-0.3); EOSINOPHILS % (AUTO) 5 % (0-10); HEMATOCRIT 39 % (40-54); HEMOGLOBIN 13.2 g/dL (13.3-17.7); LYMPHOCYTES # (AUTO) 0.4 10^3/uL (1.0-4.0); LYMPHOCYTES % (AUTO) 8 % (12-44); MEAN CORPUSCULAR HEMOGLOBIN 30 pg (25-34); MEAN CORPUSCULAR HGB CONC 34 g/dL (32-36); MEAN CORPUSCULAR VOLUME 90 fL (80-99); MEAN PLATELET VOLUME 8.3 fL (9.0-12.2); MONOCYTES # (AUTO) 0.6 10^3/uL (0.0-1.0); MONOCYTES % (AUTO) 10 % (0-12); NEUTROPHILS # (AUTO) 4.1 10^3/uL (1.8-7.8); NEUTROPHILS % (AUTO) 76 % (42-75); PLATELET COUNT 254 10^3/uL (130-400); WHITE BLOOD COUNT 5.5 10^3/uL (4.3-11.0)
[2021-07-27 10:44] LABS: BILIRUBIN,TOTAL 0.4 MG/DL (0.1-1.0); CALCIUM 8.8 MG/DL (8.5-10.1); CREATININE SERUM 1.04 MG/DL (0.60-1.30); TOTAL PROTEIN 7.3 GM/DL (6.4-8.2)
[~2021-08-06] MED LIST changes: +ASPI-1238 PO; +CARV3.12 PO; +FLUOROURACIL IV SCH; +HEParin (CENTRAL IV FLUSH) 500 UNIT/5 ML SYR IV PRN; +LOSA25TA41 PO; +NS IV 500 ML (CANCER CENTER) IV SCH; +NS IV SCH; +ONDANSETRON MDV (CANCER CENTER 8 MG in NS (IVPB) 50 ML IV SCH; +[UNRECOGNIZED DRUG - CODE] INCATH
== END | disposition home or self-care (01) ==
LOC: ONC 07-08 10:26
PROVIDERS: ATTEND Internal Medicine Hematology & Oncology
DX: Z51.0 Encounter for antineoplastic radiation therapy (principal); C21.0 Malignant neoplasm of anus, unspecified
CPT/HCPCS: 77386; G0463; 36221; 36591; 77336; 80053; 85025; 93458; 96375; 99213

== ENCOUNTER 2021-08-28 09:40 | Outpatient (RCR) | payer OTHER ==
[~2021-08-28 09:40] MED LIST changes: -FLUOROURACIL IV SCH; -HEParin (CENTRAL IV FLUSH) 500 UNIT/5 ML SYR IV PRN; -NS IV 500 ML (CANCER CENTER) IV SCH; -NS IV SCH; -ONDANSETRON MDV (CANCER CENTER 8 MG in NS (IVPB) 50 ML IV SCH
== END 2021-09-06 | disposition home or self-care (01) ==
LOC: ONC 09:40
PROVIDERS: ATTEND Internal Medicine Hematology & Oncology
DX: Z51.0 Encounter for antineoplastic radiation therapy (principal); C21.0 Malignant neoplasm of anus, unspecified
CPT/HCPCS: 77336; 77386

== ENCOUNTER 2021-09-08 09:51 | Outpatient (RCR) | payer OTHER | END 2021-10-07 15:10 | disposition home or self-care (01) | LOC: ONC 09:51 | PROVIDERS: ATTEND Internal Medicine Hematology & Oncology | DX: C21.0 Malignant neoplasm of anus, unspecified (principal) | CPT/HCPCS: 99213 ==

== ENCOUNTER → 2021-10-08 | Outpatient (CLI) | payer OTHER ==
[~2021-10-08] MED LIST changes: +CATHETER FLUSH 10 ML SYR IV PRN; +HOLD METFORMIN - RECEIVED CONTRAST 20 ML VIAL IV SCH; +IOHEXOL 350 MG/ML 100 ML (OMNIPAQUE 350) VIAL IV ONE; +NS 100 ML (IVPB) BAG IV ONE
--- NOTE | 2021-10-08 14:22 | Diagnostic Imaging Report ---
PROCEDURE: CT of the chest and pelvis with contrast and CT of the abdomen with and without contrast. TECHNIQUE: Precontrast acquisitions were acquired through the abdomen. Multiple contiguous axial images were obtained through the chest, abdomen and pelvis after administration of intravenous contrast. Auto Exposure Controls were utilized during the CT exam to meet ALARA standards for radiation dose reduction. INDICATION: History of rectal carcinoma status post treatment. Finished chemotherapy 2 months ago. Prior appendectomy. EXAMINATION: CT chest, abdomen and pelvis with contrast 10/08/2021 Comparison made to a CT angiogram of the chest from 06/17/2021 and PET scan from 06/08/[address] a CT chest abdomen pelvis from 05/26/2021 FINDINGS: CHEST: The lungs appear clear. Shotty lymph nodes within the mediastinum stable from previous imaging with no interval development of lymphadenopathy within the mediastinum, axilla or ray. There is a chest port overlying the right anterior chest. The tip ends in the distal SVC. There is a tiny pericardial effusion. No pleural effusions. No acute osseous abnormality is appreciated. CT ABDOMEN AND PELVIS: Within the liver there is a small hypodensity adjacent to the falciform ligament most consistent with focal fatty change stable from previous imaging. There are no new liver lesions. The spleen and pancreas appear normal. Gallbladder unremarkable. There is a small hypodensity within the right adrenal gland stable from previous imaging presumably an adenoma. This could be followed to assure stability. Left adrenal gland unremarkable. Kidneys appear unremarkable. There is no focal mass appreciated within the perirectal region. Minimal fluid right paracentrally likely postoperative in nature. Mild fat stranding within the subcutaneous soft tissues perirectal in location likely postoperative as well. There is no free fluid or air in the pelvis. There is no new adenopathy. There are post operative changes in the cecum consistent with prior appendectomy. There is no acute osseous abnormality. IMPRESSION: 1. No evidence for metastatic disease within the chest. 2. Small pericardial effusion. 3. Postoperative changes in the perirectal region suspected given mild fat stranding with the previously noted soft tissue abnormality no longer seen. A tiny fluid collection right paracentrally likely post treatment seroma or hematoma. No evidence for distant metastatic disease. Dictated by: Dictated on workstation # [id number]
== END ==
LOC: RAD 10:08
PROVIDERS: ATTEND Internal Medicine Hematology & Oncology
DX: C21.0 Malignant neoplasm of anus, unspecified (principal); J90 Pleural effusion, not elsewhere classified; Z92.21 Personal history of antineoplastic chemotherapy
CPT/HCPCS: 71260; 74178

== ENCOUNTER 2021-10-14 10:10 | Outpatient (RCR) | payer OTHER ==
[~2021-10-14 10:10] MED LIST changes: -CATHETER FLUSH 10 ML SYR IV PRN; -HOLD METFORMIN - RECEIVED CONTRAST 20 ML VIAL IV SCH; -IOHEXOL 350 MG/ML 100 ML (OMNIPAQUE 350) VIAL IV ONE; -NS 100 ML (IVPB) BAG IV ONE
[2021-10-14 10:28] LABS: BASOPHILS # (AUTO) 0.1 10^3/uL (0.0-0.1); BASOPHILS % (AUTO) 1 % (0-10); EOSINOPHILS # (AUTO) 0.2 10^3/uL (0.0-0.3); EOSINOPHILS % (AUTO) 4 % (0-10); HEMATOCRIT 36 % (40-54); HEMOGLOBIN 12.2 g/dL (13.3-17.7); LYMPHOCYTES # (AUTO) 0.6 10^3/uL (1.0-4.0); LYMPHOCYTES % (AUTO) 9 % (12-44); MEAN CORPUSCULAR HEMOGLOBIN 30 pg (25-34); MEAN CORPUSCULAR HGB CONC 34 g/dL (32-36); MEAN CORPUSCULAR VOLUME 90 fL (80-99); MEAN PLATELET VOLUME 8.3 fL (9.0-12.2); MONOCYTES # (AUTO) 0.6 10^3/uL (0.0-1.0); MONOCYTES % (AUTO) 8 % (0-12); NEUTROPHILS # (AUTO) 5.3 10^3/uL (1.8-7.8); NEUTROPHILS % (AUTO) 78 % (42-75); PLATELET COUNT 320 10^3/uL (130-400); WHITE BLOOD COUNT 6.8 10^3/uL (4.3-11.0)
[2021-10-14 10:52] LABS: ALBUMIN 3.8 GM/DL (3.2-4.5); BILIRUBIN,TOTAL 0.4 MG/DL (0.1-1.0); CREATININE SERUM 1.22 MG/DL (0.60-1.30); POTASSIUM 4.7 MMOL/L (3.6-5.0); TOTAL PROTEIN 7.2 GM/DL (6.4-8.2)
== END 2021-11-06 | disposition home or self-care (01) ==
LOC: ONC 10:10
PROVIDERS: ATTEND Internal Medicine Hematology & Oncology
DX: C21.0 Malignant neoplasm of anus, unspecified (principal)
CPT/HCPCS: 80053; 85025; G0463 ×2; 36415; 99213

== ENCOUNTER 2021-12-03 02:37 | Observation (INO) | payer OTHER ==
[~2021-12-03] VITALS: Ht 167.7 cm; Wt 68.0 kg
[2021-12-03] MEDS: IOHEXOL 350 MG/ML 100 ML (OMNIPAQUE 350) VIAL IV ONE ×2 (02:58→04:09)
[2021-12-03] MEDS: CATHETER FLUSH 10 ML SYR IV PRN ×2 (02:59→04:10)
[2021-12-03] MEDS: NS 100 ML (IVPB) BAG IV ONE ×2 (02:59→04:10)
[2021-12-03 03:15] LABS: BASOPHILS % (AUTO) 1 % (0-10); EOSINOPHILS # (AUTO) 0.4 10^3/uL (0.0-0.3); EOSINOPHILS % (AUTO) 5 % (0-10); HEMATOCRIT 34 % (40-54); HEMOGLOBIN 11.4 g/dL (13.3-17.7); LYMPHOCYTES # (AUTO) 0.7 10^3/uL (1.0-4.0); LYMPHOCYTES % (AUTO) 9 % (12-44); MEAN CORPUSCULAR HEMOGLOBIN 29 pg (25-34); MEAN CORPUSCULAR HGB CONC 33 g/dL (32-36); MEAN CORPUSCULAR VOLUME 87 fL (80-99); MEAN PLATELET VOLUME 8.3 fL (9.0-12.2); MONOCYTES # (AUTO) 0.7 10^3/uL (0.0-1.0); MONOCYTES % (AUTO) 8 % (0-12); NEUTROPHILS # (AUTO) 6.4 10^3/uL (1.8-7.8); NEUTROPHILS % (AUTO) 78 % (42-75); PLATELET COUNT 270 10^3/uL (130-400); WHITE BLOOD COUNT 8.2 10^3/uL (4.3-11.0)
[2021-12-03] MEDS ORDERED: fentaNYL INJ 100 MCG/2 ML AMP IVP ONE (03:15)
[2021-12-03 03:20] LABS: ALBUMIN 3.5 GM/DL (3.2-4.5); POTASSIUM 3.7 MMOL/L (3.6-5.0)
[2021-12-03 03:21] LABS: CALCIUM 8.7 MG/DL (8.5-10.1)
[2021-12-03 03:23] LABS: TOTAL PROTEIN 6.7 GM/DL (6.4-8.2)
[2021-12-03 03:24] LABS: BILIRUBIN,TOTAL 0.3 MG/DL (0.1-1.0)
[2021-12-03 03:26] LABS: CREATININE SERUM 1.35 MG/DL (0.60-1.30)
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
[2021-12-03] MEDS ORDERED: morphine INJ 10 MG/ML 1ML (SYR OR VIAL) IVP STA (05:50)
[2021-12-03] MEDS ORDERED: PIPERACILLIN SODIUM/TAZOBACTAM 4.5 GM in NS (IVPB) 100 ML IV ONE (06:30)
--- NOTE | 2021-12-03 07:06 | Diagnostic Imaging Report ---
PROCEDURE: CT abdomen and pelvis with contrast. TECHNIQUE: Multiple contiguous axial images were obtained through the abdomen and pelvis after administration of intravenous contrast. Auto Exposure Controls were utilized during the CT exam to meet ALARA standards for radiation dose reduction. All CT scans use one or more of the following dose optimizing techniques: automated exposure control, MA and/or KvP adjustment based on patient size and exam type or iterative reconstruction. INDICATION: Rectal and abdominal pain. History of rectal cancer. COMPARISON: 05/26/2021 FINDINGS: Included portions lung bases are clear. CT ABDOMEN: Moderate air and stool is present scattered throughout the colon. Small bowel loops are nondistended. Normal appendix cannot be adequately identified, but there is no pericecal inflammation. The kidneys, spleen, pancreas, and liver have a normal CT appearance. Right adrenal nodule measures 1.6 x 1 cm. This is present previously and appears stable. Left adrenal gland has a normal CT appearance. There is no loculated fluid collection, free fluid or free air within the abdomen. No abnormal mesenteric or retroperitoneal adenopathy is seen. Osseous structures show no acute abnormalities. CT pelvis: Urinary bladder is unopacified. No calculi are seen within urinary bladder. Note is made of abnormal thickened appearance to the lower rectum. This may correspond a provided clinical history of rectal cancer. There is small amount of perianal gas on the right. This, however may be artifactual and located within a crease. Small fistula, however is not excluded. There is no loculated fluid collection, free fluid or free air within the pelvis. No abnormal pelvic adenopathy is seen. Osseous structures show no acute abnormalities. IMPRESSION: 1. Abnormal thickened appearance to the lower rectal wall. Again, this may correlate to provided clinical history of rectal cancer. 2.. Small amount of perianal gas is also noted and may be located within a crease. Small fistula or abscess cannot be excluded. Clinical correlation is advised. 3. Moderate colonic air and stool. Please correlate for constipation. 4. Stable right adrenal nodule. Dictated by: Dictated on workstation # [id number]
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
[2021-12-03] MEDS ORDERED: ONDANSETRON 4 MG/2 ML (SDV) Z0FRAN IV PRN (08:45)
[2021-12-03] MEDS: morphine INJ 10 MG/ML 1ML (SYR OR VIAL) IV PRN ×3 (08:46→17:29)
[2021-12-03 10:04] VITALS: BP 115/75
[2021-12-03] MEDS: LACTATED RINGERS 1,000 ML IV SCH ×3 (10:37→20:17)
[2021-12-03 11:27] VITALS: BP 112/77
[2021-12-03] MEDS: PIPERACILLIN SODIUM/TAZOBACTAM 4.5 GM in NS (IVPB) 100 ML IV SCH ×2 (14:34→22:20)
[2021-12-03] MEDS ORDERED: ASPI-1238 PO (15:33)
[2021-12-03 15:50] VITALS: BP 133/63
[2021-12-03] MEDS: ACETAMINOPHEN 500 MG TAB (TYLENOL) PO PRN (16:30)
[2021-12-03 19:41] VITALS: BP 110/59
[2021-12-04] VITALS: BP 129/64
[2021-12-04 04:14] VITALS: BP 107/62
[2021-12-04] MEDS: PIPERACILLIN SODIUM/TAZOBACTAM 4.5 GM in NS (IVPB) 100 ML IV SCH ×3 (06:13→22:17)
[2021-12-04] MEDS: morphine INJ 10 MG/ML 1ML (SYR OR VIAL) IV PRN ×4 (06:18→15:02)
[2021-12-04 07:53] VITALS: BP 116/75
[2021-12-04] MEDS: NICOTINE 21 MG (NICODERM) PATCH TD SCH (08:18)
[2021-12-04] MEDS: LACTATED RINGERS 1,000 ML IV SCH ×4 (08:35→22:17)
--- NOTE | 2021-12-04 09:41 | Progress Note - Surgery ---
SARAHI LUNA 12/04/21 0941: Subjective Date Seen by a Provider: Dec 04, 2021 Time Seen by a Provider: 09:36 Subjective/Events-last exam Patient is awake today and more cooperative when answering questions. He is laying prone and states this alleviates some of the painful pressure on his rec hunter area. Currently, he states his rectal pain is at a 7/10, but with pain meds he states his pain resolves completely. He states he has been hungry and eating well, but has not had any bowel movements. He notes that there is continued clear drainage coming out of his rectal area. Patient's temperature was elevated at 38.5 around midnight last night, but is now 36.6 this morning. Denies any abdominal pain, fever or chills at this time. Review of Systems General: No Chills, No Night Sweats Pulmonary: No Dyspnea, No Pleuritic Chest Pain Gastrointestinal: Constipation; No: Nausea, Vomiting, Abdominal Pain Genitourinary: No Dysuria, No Hematuria Focused Exam Lactate Level 12/03/21 06:32: Lactic Acid Level 0.56 Objective Exam Vital Signs Date Time Temp Pulse Resp B/P (MAP) Pulse Ox O2 Delivery O2 Flow Rate FiO2 12/04/21 08:00 Room Air 12/04/21 07:53 37.0 95 18 116/75 (89) 99 Room Air 12/04/21 04:14 37.8 96 16 107/62 (77) 97 Room Air 12/04/21 00:00 38.5 105 16 129/64 (85) 98 Room Air 12/03/21 20:00 Room Air 12/03/21 19:41 37.8 108 20 110/59 (76) 97 Room Air 12/03/21 19:40 37.8 108 20 12/03/21 17:24 36.6 12/03/21 17:24 36.6 12/03/21 16:30 38.2 12/03/21 15:50 39.5 130 20 133/63 (86) 97 Room Air 12/03/21 11:27 37.2 108 18 112/77 (89) 98 Room Air 12/03/21 10:04 36.6 94 18 115/75 (88) 98 Room Air I & O 12/04/21 07:00 Intake Total 2156 ml Output Total 2475 ml Balance -319 ml Capillary Refill : General Appearance: No Apparent Distress, Chronically ill Neck: Non Tender, Supple Respiratory: Chest Non Tender, Lungs Clear, Normal Breath Sounds, No Accessory Muscle Use, No Respiratory Distress Cardiovascular: Regular Rate, Rhythm, No Edema, No Murmur Peripheral Pulses: 0 Carotid (R), 0 Carotid (L), 0 Femoral (R), 0 Femoral (L), 0 Dorsalis Pedis (R), 0 Left Dors-Pedis (L), 0 Radial Pulses (R), 0 Radial Pulses (L) Gastrointestinal: normal bowel sounds, soft, no organomegaly, tenderness (tender to palpation over the LLQ) Extremity: Non Tender, No Calf Tenderness, No Pedal Edema Neurologic/Psychiatric: Alert, Oriented x3, Normal Mood/Affect Skin: Normal Color, Warm/Dry Lymphatic: No Adenopathy (cervical) Assessment/Plan Assessment/Plan Assessment/Plan Rectal Ulcer Rectal Pain Anal Cancer Will continue Zosyn and Morphine for pain control. Zofran for nausea. Will order labs to look for elevated WBC count and evaluate for possible infection of the rectal area. Plan is to continue to monitor the patient for any changes in rectal area and if infection is present, will plan for physical exam of the area under anesthesia in the OR. CODY MCCLENDON DO 12/04/21 1408: Subjective Time Seen by a Provider: 12:22 Subjective/Events-last exam Pt seen and examined, was lying on his back and sleepy. Able to answer questions, still has pain but tolerating diet. Review of Systems General: No Chills, No Night Sweats Pulmonary: No Dyspnea Gastrointestinal: Constipation; No: Nausea, Vomiting, Abdominal Pain Objective Exam General Appearance: No Apparent Distress, Chronically ill Respiratory: Chest Non Tender, Lungs Clear, Normal Breath Sounds, No Accessory Muscle Use, No Respiratory Distress Cardiovascular: Regular Rate, Rhythm, No Murmur Gastrointestinal: soft, no organomegaly, tenderness (tender to palpation over the LLQ) Neurologic/Psychiatric: Alert, Oriented x3 Skin: Other (pt did not want to let me look today, nurse looked and stated no changes - did not look like purulent drainage) Assessment/Plan Assessment/Plan Assessment/Plan Rectal Ulcer Rectal Pain Anal Cancer Will continue Zosyn and Morphine for pain control. Zofran for nausea. Will order labs to look for elevated WBC count and evaluate for possible infection of the rectal area. Plan is to continue to monitor the patient for any changes in rectal area and if infection is present, will plan for physical exam of the area under anesthesia in the OR. Supervisory-Addendum Brief Verification & Attestation Participated in pt care: history, MDM, physical Personally performed: exam, history, MDM, supervision of care Care discussed with: Medical Student Procedures: n/a Verification and Attestation of Medical Student E/M Service A medical student performed and documented this service. I then reviewed and verified all information documented by the medical student and made modifications to such information, when appropriate. I personally performed a physical exam, medical decision making and then discussed any differences between the notes and made revisions as necessary to create one note. Cody Mcclendon , 12/04/21 , 14:08 SARAHI LUNA Dec 04, 2021 09:41 CODY MCCLENDON DO Dec 04, 2021 14:08
[2021-12-04 11:34] VITALS: BP 122/75
[2021-12-04 12:57] LABS: BASOPHILS % (AUTO) 1 % (0-10); EOSINOPHILS # (AUTO) 0.3 10^3/uL (0.0-0.3); EOSINOPHILS % (AUTO) 6 % (0-10); HEMATOCRIT 35 % (40-54); HEMOGLOBIN 11.6 g/dL (13.3-17.7); LYMPHOCYTES # (AUTO) 0.4 10^3/uL (1.0-4.0); LYMPHOCYTES % (AUTO) 9 % (12-44); MEAN CORPUSCULAR HEMOGLOBIN 29 pg (25-34); MEAN CORPUSCULAR HGB CONC 33 g/dL (32-36); MEAN CORPUSCULAR VOLUME 89 fL (80-99); MEAN PLATELET VOLUME 8.2 fL (9.0-12.2); MONOCYTES # (AUTO) 0.5 10^3/uL (0.0-1.0); MONOCYTES % (AUTO) 10 % (0-12); NEUTROPHILS # (AUTO) 3.5 10^3/uL (1.8-7.8); NEUTROPHILS % (AUTO) 74 % (42-75); PLATELET COUNT 203 10^3/uL (130-400); WHITE BLOOD COUNT 4.8 10^3/uL (4.3-11.0)
[2021-12-04 15:36] VITALS: BP 104/67
[2021-12-04] MEDS: oxyCODONE/APAP 10/325MG (PERCOCET 10) TABLET PO PRN ×2 (18:28→23:56)
[2021-12-04] MEDS ORDERED: polyethylene glycoL POWDER 17 GM (MIRALAX) PACK PO NR (18:45)
[2021-12-04] MEDS ORDERED: DOCUSATE SODIUM 100 MG (COLACE) CAP PO NR (18:45)
[2021-12-04 19:19] VITALS: BP 106/68
[2021-12-04] MEDS: ACETAMINOPHEN 500 MG TAB (TYLENOL) PO PRN (22:19)
[2021-12-05 00:11] VITALS: BP 108/58
[2021-12-05 04:23] VITALS: BP 111/66
[2021-12-05 05:56] LABS: BASOPHILS % (AUTO) 1 % (0-10); EOSINOPHILS # (AUTO) 0.4 10^3/uL (0.0-0.3); EOSINOPHILS % (AUTO) 10 % (0-10); HEMATOCRIT 35 % (40-54); HEMOGLOBIN 11.4 g/dL (13.3-17.7); LYMPHOCYTES # (AUTO) 0.5 10^3/uL (1.0-4.0); LYMPHOCYTES % (AUTO) 13 % (12-44); MEAN CORPUSCULAR HEMOGLOBIN 29 pg (25-34); MEAN CORPUSCULAR HGB CONC 32 g/dL (32-36); MEAN CORPUSCULAR VOLUME 89 fL (80-99); MEAN PLATELET VOLUME 8.5 fL (9.0-12.2); MONOCYTES # (AUTO) 0.5 10^3/uL (0.0-1.0); MONOCYTES % (AUTO) 13 % (0-12); NEUTROPHILS # (AUTO) 2.7 10^3/uL (1.8-7.8); NEUTROPHILS % (AUTO) 64 % (42-75); PLATELET COUNT 217 10^3/uL (130-400); WHITE BLOOD COUNT 4.2 10^3/uL (4.3-11.0)
[2021-12-05] MEDS: PIPERACILLIN SODIUM/TAZOBACTAM 4.5 GM in NS (IVPB) 100 ML IV SCH ×3 (06:03→22:25)
[2021-12-05] MEDS: LACTATED RINGERS 1,000 ML IV SCH ×3 (06:03→19:56)
[2021-12-05] MEDS: oxyCODONE/APAP 10/325MG (PERCOCET 10) TABLET PO PRN ×3 (06:03→19:56)
[2021-12-05 07:59] VITALS: BP 106/69
[2021-12-05] MEDS: NICOTINE 21 MG (NICODERM) PATCH TD SCH (09:09)
[2021-12-05] MEDS: NICOTINE PATCH REMOVAL TP SCH (09:09)
--- NOTE | 2021-12-05 09:37 | Progress Note - Surgery ---
SARAHI LUNA 12/05/21 0937: Subjective Date Seen by a Provider: Dec 05, 2021 Time Seen by a Provider: 09:32 Subjective/Events-last exam Patient is awake today and reports having 2 BMs overnight. States they were very painful to have, but he did not see any blood in his stools. Notes continued clear drainage from the rectal area. He reports his rectal pain to be 8/10 at present without any pain medications. His WBC count is 4.2 today and temperature has been stable over the course of last night. He is wondering if he can have anything to eat this morning and also wanting something for his pain. Review of Systems General: Chills; No Night Sweats Cardiovascular: No: Chest Pain, Palpitations Gastrointestinal: Constipation; No: Nausea, Vomiting, Abdominal Pain Focused Exam Lactate Level 12/03/21 06:32: Lactic Acid Level 0.56 Objective Exam Vital Signs Date Time Temp Pulse Resp B/P (MAP) Pulse Ox O2 Delivery O2 Flow Rate FiO2 12/05/21 07:59 36.6 82 18 106/69 (81) 97 Room Air 12/05/21 04:23 36.4 91 16 111/66 (81) 98 Room Air 12/05/21 00:11 37.1 80 16 108/58 (75) 98 Room Air 12/04/21 20:18 Room Air 12/04/21 19:19 36.4 107 20 106/68 (81) 95 Room Air 12/04/21 15:36 37.0 110 18 104/67 (79) 97 Room Air 12/04/21 11:34 36.6 100 18 122/75 (91) 99 Room Air I & O 12/05/21 07:00 Intake Total 3440 ml Output Total 5275 ml Balance -1835 ml Capillary Refill : General Appearance: No Apparent Distress, Chronically ill Neck: Non Tender, Supple Respiratory: Chest Non Tender, Lungs Clear, Normal Breath Sounds, No Accessory Muscle Use, No Respiratory Distress Cardiovascular: Regular Rate, Rhythm, No Edema, No Murmur Peripheral Pulses: 0 Carotid (R), 0 Carotid (L), 0 Femoral (R), 0 Femoral (L), 0 Dorsalis Pedis (R), 0 Left Dors-Pedis (L), 0 Radial Pulses (R), 0 Radial Pulses (L) Gastrointestinal: soft, no organomegaly, other (rectal pain with perianal ulcerations and clear drainage) Extremity: Non Tender, No Calf Tenderness, No Pedal Edema Neurologic/Psychiatric: Alert, Oriented x3 Skin: Normal Color, Warm/Dry Lymphatic: No Adenopathy (cervical) Results Lab Laboratory Tests 12/04/21 12:49: White Blood Count 4.8, Red Blood Count 3.99L, Hemoglobin 11.6L, Hematocrit 35L, Mean Corpuscular Volume 89, Mean Corpuscular Hemoglobin 29, Mean Corpuscular Hemoglobin Concent 33, Red Cell Distribution Width 13.2, Platelet Count 203, Mean Platelet Volume 8.2L, Immature Granulocyte % (Auto) 0, Neutrophils (%) (Auto) 74, Lymphocytes (%) (Auto) 9L, Monocytes (%) (Auto) 10, Eosinophils (%) (Auto) 6, Basophils (%) (Auto) 1, Neutrophils # (Auto) 3.5, Lymphocytes # (Auto) 0.4L, Monocytes # (Auto) 0.5, Eosinophils # (Auto) 0.3, Basophils # (Auto) 0.0, Immature Granulocyte # (Auto) 0.0 12/05/21 05:18: White Blood Count 4.2L, Red Blood Count 3.97L, Hemoglobin 11.4L, Hematocrit 35L, Mean Corpuscular Volume 89, Mean Corpuscular Hemoglobin 29, Mean Corpuscular Hemoglobin Concent 32, Red Cell Distribution Width 13.1, Platelet Count 217, Mean Platelet Volume 8.5L, Immature Granulocyte % (Auto) 0, Neutrophils (%) (Auto) 64, Lymphocytes (%) (Auto) 13, Monocytes (%) (Auto) 13H, Eosinophils (%) (Auto) 10, Basophils (%) (Auto) 1, Neutrophils # (Auto) 2.7, Lymphocytes # (Auto) 0.5L, Monocytes # (Auto) 0.5, Eosinophils # (Auto) 0.4H, Basophils # (Auto) 0.0, Immature Granulocyte # (Auto) 0.0 Microbiology 12/03/21 Blood Culture - Preliminary, Resulted No growth Assessment/Plan Assessment/Plan Assessment/Plan Rectal Ulcer Rectal Pain Anal Cancer Patient is afebrile and WBC count is 4.2 today. Infection does not seem to be present. Will continue IV antibiotics, Zofran and medication to get pain under control. DC NPO status and possibly discharge patient home for continued outpatient cancer treatment. CODY MCCLENDON DO 12/05/21 1543: Subjective Time Seen by a Provider: 11:10 Subjective/Events-last exam Pt seen and examined, he threatened to sign out AMA if he didn't get food. I had kept him NPO in case we needed to do an exploration in the OR. He stated pain was controlled and possibly better than yesterday. He wants to eat. Review of Systems General: Chills; No Night Sweats Cardiovascular: No: Chest Pain, Palpitations Gastrointestinal: Constipation; No: Nausea, Vomiting, Abdominal Pain Objective Exam General Appearance: No Apparent Distress, Chronically ill Respiratory: Lungs Clear, Normal Breath Sounds, No Accessory Muscle Use, No Respiratory Distress Cardiovascular: Regular Rate, Rhythm, No Murmur Gastrointestinal: soft, no organomegaly, other (rectal pain with large perianal ulcerationand clear drainage) Extremity: No Calf Tenderness, No Pedal Edema Neurologic/Psychiatric: Alert Skin: Normal Color, Warm/Dry, Other (some firmness around anus, minimal erythema, do not feel any fluctuance) Assessment/Plan Assessment/Plan Assessment/Plan Rectal Ulcer Rectal Pain Anal Cancer Patient allowed me to inspect the area today, not as painful as the first day. I don't think he has abscess, he may have a cellulitis (it is not getting worse) and most of what is going on is probably chronic plus changes from radiation. Patient is afebrile and WBC count is 4.2 today. Infection does not seem to be present. Will continue IV antibiotics, Zofran and medication to get pain under control. DC NPO status and possibly discharge patient home for continued outpatient cancer treatment. Unfortunately, I am not sure pt can get oral ABX (he states he is broke) and therefore may need to keep him until we can get SW involved. Supervisory-Addendum Brief Verification & Attestation Participated in pt care: history, MDM, physical Personally performed: exam, history, MDM, supervision of care Care discussed with: Medical Student Procedures: n/a Verification and Attestation of Medical Student E/M Service A medical student performed and documented this service. I then reviewed and verified all information documented by the medical student and made modifications to such information, when appropriate. I personally performed a physical exam, medical decision making and then discussed any differences between the notes and made revisions as necessary to create one note. Cody Mcclendon , 12/05/21 , 15:43 SARAHI LUNA Dec 05, 2021 09:37 CODY MCCLENDON DO Dec 05, 2021 15:43
[2021-12-05] MEDS ORDERED: morphine INJ 4 MG/ML 1 ML (VIAL/SYRINGE) IVP STA (09:45)
[2021-12-05 11:44] VITALS: BP 102/64
[2021-12-05 16:00] VITALS: BP 119/82
[2021-12-05 20:24] VITALS: BP 113/73
[2021-12-05] MEDS ORDERED: MELATONIN 3 MG TABLET PO PRN (21:00)
[2021-12-06] VITALS (7 sets, daily range): BP systolic 101–141; BP diastolic 58–92
[2021-12-06] MEDS: oxyCODONE/APAP 10/325MG (PERCOCET 10) TABLET PO PRN ×4 (01:38→21:00)
[2021-12-06] MEDS: LACTATED RINGERS 1,000 ML IV SCH ×4 (01:39→22:57)
[2021-12-06] MEDS: PIPERACILLIN SODIUM/TAZOBACTAM 4.5 GM in NS (IVPB) 100 ML IV SCH ×3 (07:14→22:57)
[2021-12-06] MEDS: NICOTINE 21 MG (NICODERM) PATCH TD SCH (08:00)
[2021-12-06] MEDS: NICOTINE PATCH REMOVAL TP SCH (08:00)
--- NOTE | 2021-12-06 11:28 | Progress Note - Surgery ---
SARAHI LUNA 12/06/21 1128: Subjective Date Seen by a Provider: Dec 06, 2021 Time Seen by a Provider: 11:20 Subjective/Events-last exam Patient is sleepy today and not answering questions as well. He reports his pain to be a 6/10 at present with pain medication. Without pain meds, he states his pain gets up to a 10/10 and that his pain is exacerbated by any movement. He reports having more BMs which cause pain to the rectal area. Nurse states the area continues to drain clear fluid. Review of Systems General: No Chills, No Night Sweats Pulmonary: No Dyspnea, No Cough Cardiovascular: No: Chest Pain, Palpitations Gastrointestinal: Constipation; No: Nausea, Vomiting, Abdominal Pain Objective Exam Vital Signs Date Time Temp Pulse Resp B/P (MAP) Pulse Ox O2 Delivery O2 Flow Rate FiO2 12/06/21 08:06 36.8 97 18 117/71 (86) 98 Room Air 12/06/21 08:00 Room Air 12/06/21 03:44 36.6 97 16 107/63 (78) 97 Room Air 12/06/21 00:00 37.1 102 16 101/61 (74) 97 Room Air 12/05/21 20:24 36.7 114 16 113/73 (86) 98 Room Air 12/05/21 20:00 Room Air 12/05/21 16:00 37.1 106 20 119/82 (94) 97 Room Air 12/05/21 11:44 36.2 87 18 102/64 (77) 99 Room Air I & O 12/06/21 07:00 Intake Total 4720 ml Output Total 3050 ml Balance 1670 ml Capillary Refill : General Appearance: No Apparent Distress, Chronically ill HEENT: Moist Mucous Membranes; No Scleral Icterus (L), No Scleral Icterus (R) Neck: Non Tender, Supple Respiratory: Lungs Clear, Normal Breath Sounds, No Accessory Muscle Use, No Respiratory Distress Cardiovascular: Regular Rate, Rhythm, No Murmur Peripheral Pulses: 0 Carotid (R), 0 Carotid (L), 0 Femoral (R), 0 Femoral (L), 0 Dorsalis Pedis (R), 0 Left Dors-Pedis (L), 0 Radial Pulses (R), 0 Radial Pulses (L) Gastrointestinal: soft, no organomegaly, other (rectal pain with large perianal ulceration and clear drainage) Extremity: No Calf Tenderness, No Pedal Edema Neurologic/Psychiatric: Alert Skin: Normal Color, Warm/Dry Lymphatic: No Adenopathy (cervical) Results Lab Microbiology 12/03/21 Blood Culture - Preliminary, Resulted No growth Assessment/Plan Assessment/Plan Assessment/Plan Rectal Ulcer Rectal Pain Anal Cancer Will continue IV antibiotics, Zofran and medication to get pain under control. Will plan to discharge patient home for continued outpatient cancer treatment after we can get him set up with [facility] and get his antibiotics for him with the help of social work. CODY MCCLENDON DO 12/06/21 1410: Subjective Time Seen by a Provider: 13:05 Subjective/Events-last exam Pt seen and examined, no changes. Still having moderate pain, worse if he doesn't get pain meds. Review of Systems General: No Chills, No Night Sweats Pulmonary: No Dyspnea, No Cough Cardiovascular: No: Chest Pain, Palpitations Gastrointestinal: Constipation; No: Nausea, Vomiting, Abdominal Pain Objective Exam General Appearance: No Apparent Distress, Chronically ill HEENT: Moist Mucous Membranes Respiratory: Lungs Clear, Normal Breath Sounds, No Accessory Muscle Use, No Respiratory Distress Cardiovascular: Regular Rate, Rhythm, No Murmur Gastrointestinal: soft, no organomegaly, other (rectal pain with large perianal ulceration and clear drainage) Neurologic/Psychiatric: Alert Assessment/Plan Assessment/Plan Assessment/Plan Rectal Ulcer Rectal Pain Anal Cancer Will continue IV antibiotics, Zofran and medication to get pain under control. Will plan to discharge patient home for continued outpatient cancer treatment after we can get him set up with [facility] and get his antibiotics for him with the help of social work. Unfortunately, no social science instructor until Tuesday. Supervisory-Addendum Brief Verification & Attestation Participated in pt care: history, MDM, physical Personally performed: exam, history, MDM, supervision of care Care discussed with: Medical Student Procedures: n/a Verification and Attestation of Medical Student E/M Service A medical student performed and documented this service. I then reviewed and verified all information documented by the medical student and made modifications to such information, when appropriate. I personally performed a physical exam, medical decision making and then discussed any differences between the notes and made revisions as necessary to create one note. Cody Mcclendon , 12/06/21 , 14:10 SARAHI LUNA Dec 06, 2021 11:28 CODY MCCLENDON DO Dec 06, 2021 14:10
[2021-12-06] MEDS ORDERED: CALCIUM CARBONATE 500 MG (TUMS) TAB.CHEW PO PRN (17:00)
[2021-12-06] MEDS: ACETAMINOPHEN 500 MG TAB (TYLENOL) PO PRN (21:54)
[2021-12-07 02:52] VITALS: BP 119/80
[2021-12-07] MEDS: oxyCODONE/APAP 10/325MG (PERCOCET 10) TABLET PO PRN ×2 (02:53→08:57)
[2021-12-07] MEDS: PIPERACILLIN SODIUM/TAZOBACTAM 4.5 GM in NS (IVPB) 100 ML IV SCH ×2 (06:11→15:40)
[2021-12-07] MEDS: LACTATED RINGERS 1,000 ML IV SCH ×2 (06:11→14:09)
[2021-12-07 07:53] VITALS: BP 118/76
[2021-12-07] MEDS: NICOTINE PATCH REMOVAL TP SCH (08:57)
[2021-12-07] MEDS: NICOTINE 21 MG (NICODERM) PATCH TD SCH (08:57)
--- NOTE | 2021-12-07 11:22 | Progress Note - Surgery ---
Subjective Time Seen by a Provider: 11:12 Subjective/Events-last exam Pt seen and examined, he is more awake today. Pain mostly controlled and he would like to leave. Review of Systems General: No Chills, No Night Sweats Pulmonary: No Dyspnea, No Cough Cardiovascular: No: Chest Pain, Palpitations Gastrointestinal: No: Nausea, Vomiting, Abdominal Pain rectal pain Objective Exam Vital Signs Date Time Temp Pulse Resp B/P (MAP) Pulse Ox O2 Delivery O2 Flow Rate FiO2 12/07/21 08:00 97 Room Air 12/07/21 07:53 36.6 98 18 118/76 (90) 96 Room Air 12/07/21 02:52 36.6 95 16 119/80 (93) 97 Room Air 12/06/21 23:28 36.3 99 20 127/76 (93) 99 Room Air 12/06/21 19:46 36.9 109 20 141/92 (108) 98 Room Air 12/06/21 19:25 Room Air 12/06/21 16:00 36.8 106 20 112/58 (76) 96 Room Air 12/06/21 12:04 97 Room Air 12/06/21 11:32 36.7 88 18 105/71 (82) 97 Room Air I & O 12/07/21 07:00 Intake Total 5100 ml Output Total 3350 ml Balance 1750 ml Capillary Refill : General Appearance: No Apparent Distress, Chronically ill HEENT: Moist Mucous Membranes Respiratory: Lungs Clear, Normal Breath Sounds, No Accessory Muscle Use, No Respiratory Distress Cardiovascular: Regular Rate, Rhythm, No Murmur Peripheral Pulses: 0 Carotid (R), 0 Carotid (L), 0 Femoral (R), 0 Femoral (L), 0 Dorsalis Pedis (R), 0 Left Dors-Pedis (L), 0 Radial Pulses (R), 0 Radial Pulses (L) Gastrointestinal: soft, no organomegaly, other (rectal pain with large perianal ulceration and clear drainage) Neurologic/Psychiatric: Alert Skin: Normal Color, Warm/Dry Results Lab Microbiology 12/03/21 Blood Culture - Preliminary, Resulted No growth Assessment/Plan Assessment/Plan Assessment/Plan Rectal Ulcer Rectal Pain Anal Cancer Will prescribe PO antibiotics and oral pain medication; with plan to discharge patient home for continued outpatient cancer treatment. Pt told to go get set up with [facility]. MARICRUZ FRANKEL DO Dec 07, 2021 11:22
[2021-12-07] MEDS ORDERED: AMOX1TAB12 PO (11:27)
[2021-12-07] MEDS ORDERED: OXYC5TAB PO (11:27)
--- NOTE | 2021-12-07 11:28 | Discharge Inst-Surgical ---
Discharge Inst-Surgical Depart Medication/Instructions New, Converted or Re-Newed RX: Transmitted to Pharmacy Patient Instructions Follow up Appt: Make appointment for 1 week. [phone] Instructions: May shower in 24 hours, no tub bath or soaking. Use incentive spirometer at home as directed. No Smoking Skin/Wound Care: May remove bandages in am. You need to clean area daily and keep dry as possible Symptoms to Report: Appetite Changes, Extremity Discoloration, Numbness/Tingling, Swelling Increased, Bleeding Excessive, Eyesight Changes, Pain Increased, Urine Color Change, Constipation(Persistent), Fever over 101 degree F, Pain/Pressure in chest, Urinating Difficulty, Cough Up/Vomit Blood, Heart Beat Irreg/Pounding, Pain/Pressure in jaw, Cramps in feet or legs, Lightheadedness, Pain/Pressure in shoulder, Diarrhea(Persistent), Memory Changes Suddenly, Questions/Concerns, Weight gain consecutive days, Dizziness/Fainting, Nausea/Vomiting, Shortness of Breath, Weight gain over 2 pounds If questions or concerns contact your physician Or seek help at emergency department. Activity Activity as Tolerated: Yes Driving Instructions: No Driving/Refer to Dr. Zavala Discharge Diet: No Restrictions Diet After 24 Hours: Clear Liquid if Nauseous If Any Problems/Questions/Issu: Contact Your Physician, Go to Emergency Room Skin/Wound Care Infection Signs and Symptoms: Increased Redness, Foul Odor of Wound, Increased Drainage, Skin Itchy or Has a Rash, Increased Swelling, Temperature Above 101 F Bathing Instructions: MARICRUZ Walters DO Dec 07, 2021 11:28
[2021-12-07 11:46] VITALS: BP 106/65
[2021-12-07 15:30] VITALS: BP 109/74
[2021-12-07] MEDS: ACETAMINOPHEN 500 MG TAB (TYLENOL) PO PRN (17:02)
== END 2021-12-07 17:35 | disposition home or self-care (01) ==
LOC: EDUNIT# 02:37 → ER 02:38 → UNDOADMOB 06:19 → 4TH 06:19 → UNDODISOB 12-07 17:35
PROVIDERS: ADMIT Surgery; ATTEND Surgery
DX: K62.6 Ulcer of anus and rectum (principal); C21.0 Malignant neoplasm of anus, unspecified; F17.210 Nicotine dependence, cigarettes, uncomplicated; F12.90 Cannabis use, unspecified, uncomplicated; F15.90 Other stimulant use, unspecified, uncomplicated
CPT/HCPCS: 74177; 80053; 83605; 83690; 85025 ×3; 87040; 96361 ×2; 96365; 96366 ×4; 96375; 96376 ×4; 99284; G0378; 36415

== ENCOUNTER 2021-12-21 05:51 | Inpatient (IN) | payer OTHER ==
[~2021-12-21] VITALS: Ht 168 cm; Wt 70.8 kg
[~2021-12-21 05:51] MED LIST changes: +AMOX1TAB12 PO; +OXYC5TAB PO
[2021-12-21 06:14] LABS: BASOPHILS % (AUTO) 0 % (0-10); EOSINOPHILS # (AUTO) 0.4 10^3/uL (0.0-0.3); EOSINOPHILS % (AUTO) 4 % (0-10); HEMATOCRIT 33 % (40-54); HEMOGLOBIN 10.8 g/dL (13.3-17.7); LYMPHOCYTES # (AUTO) 0.6 10^3/uL (1.0-4.0); LYMPHOCYTES % (AUTO) 6 % (12-44); MEAN CORPUSCULAR HEMOGLOBIN 29 pg (25-34); MEAN CORPUSCULAR HGB CONC 33 g/dL (32-36); MEAN CORPUSCULAR VOLUME 87 fL (80-99); MEAN PLATELET VOLUME 8.1 fL (9.0-12.2); MONOCYTES # (AUTO) 0.7 10^3/uL (0.0-1.0); MONOCYTES % (AUTO) 7 % (0-12); NEUTROPHILS # (AUTO) 8.2 10^3/uL (1.8-7.8); NEUTROPHILS % (AUTO) 83 % (42-75); PLATELET COUNT 300 10^3/uL (130-400); WHITE BLOOD COUNT 9.9 10^3/uL (4.3-11.0)
[2021-12-21] MEDS ORDERED: fentaNYL INJ 100 MCG/2 ML AMP IVP ONE (06:15)
[2021-12-21 06:35] LABS: ALBUMIN 3.7 GM/DL (3.2-4.5); BILIRUBIN,TOTAL 0.1 MG/DL (0.1-1.0); CREATININE SERUM 0.87 MG/DL (0.60-1.30); POTASSIUM 4.2 MMOL/L (3.6-5.0)
[2021-12-21 06:37] LABS: EOSINOPHILS % (MANUAL) 4 %; LYMPHOCYTES % (MANUAL) 6 %; METAMYELOCYTES % 1 %; MONOCYTES % (MANUAL) 4 %; NEUTROPHILS % (MANUAL) 85 %; RBC MORPH NORMAL
[2021-12-21 06:48] LABS: AMPHETAMINE SCREEN, URINE POSITIVE (NEGATIVE); BARBITURATE SCREEN URINE NEGATIVE (NEGATIVE); BENZODIAZEPINES SCREEN URINE NEGATIVE (NEGATIVE); CANNABINOID SCREEN, URINE NEGATIVE (NEGATIVE); COCAINE SCREEN URINE NEGATIVE (NEGATIVE); METHADONE STAT NEGATIVE (NEGATIVE); OPIATE SCREEN URINE NEGATIVE (NEGATIVE); OXYCODONE STAT NEGATIVE (NEGATIVE); PROPOXYPHENE STAT NEGATIVE (NEGATIVE); TRICYCLIC ANTIDEPRESSANTS SCRE NEGATIVE (NEGATIVE)
[2021-12-21] MEDS ORDERED: morphine INJ 10 MG/ML 1ML (SYR OR VIAL) IVP STA ×2 (07:14→11:59)
[2021-12-21] MEDS ORDERED: NS IV 1000 ML 1,000 ML IV SCH ×2 (07:15→12:00)
[2021-12-21] MEDS ORDERED: ONDANSETRON 4 MG/2 ML (SDV) Z0FRAN IVP ONE (07:15)
--- NOTE | 2021-12-21 07:21 | ED GI ---
General Chief Complaint: Rect Problems Stated Complaint: WOUND Nursing Triage Note: Pt to ED5 via EMS w c/o rectal pain. States he has rectal cancer (diagnosed 8 months ago) and has had a fistula starting around 3-4 years ago. Advises he has not had chemo for 6 months and has used meth 2 days ago. Pt reports being unable to sleep d/t pain. Source of Information: Patient Exam Limitations: No Limitations History of Present Illness Date Seen by Provider: Dec 21, 2021 Time Seen by Provider: 07:05 Initial Comments 36-year-old male history of rectal cancer presents to the emergency room with significant increased pain. Patient has been generally noncompliant with treatment and therapy. He just discontinued his oncology follow-ups. Has been using oxycodone at home but missed an appointment last week. He has nausea related to the pain. Bowel movements are exquisitely painful. He is able to urinate. No fevers or chills. Admitted methamphetamine abuse, last use was 2 days ago. Insomnia due to the pain. All other review of systems reviewed and negative except as stated. Timing/Duration: Constant, Getting Worse Severity/Quality: Severe, Sharp, Stabbing, Throbbing Location: Other (rectal) Radiation: No Radiation Associated Symptoms: Nausea/Vomiting Allergies and Home Medications Allergies Coded Allergies: No Known Drug Allergies (Unverified , 06/10/21) Patient Home Medication List Home Medication List Reviewed: Yes No Active Prescriptions or Reported Meds Review of Systems Review of Systems Constitutional: see HPI EENTM: No Symptoms Reported Respiratory: No Symptoms Reported Cardiovascular: No Symptoms Reported Gastrointestinal: Nausea, Other (rectal pain) Genitourinary: No Symptoms Reported Musculoskeletal: no symptoms reported Skin: no symptoms reported All Other Systems Reviewed Negative Unless Noted: Yes Past Nlkkxof-Lixeym-Xqfwps Hx Patient Social History Tobacco Use?: Yes Tobacco type used: Cigarettes Smoking Status: Current Everyday Smoker Smokeless Tobacco Frequency: Never a User Use of E-Cig and/or Vaping dev: No Use of E-Cig and/or Vaping Dillon: Never a User Substance use?: Yes Substance type: Methamphetamine, Marijuana Substance frequency: Couple times a week Alcohol Use?: No Pt feels they are or have been: No Immunizations Up To Date Tetanus Booster (TDap): Unknown Influenza Vaccine Up-to-Date: No; Not Current First/Initial COVID19 Vaccinat: NO Second COVID19 Vaccination Jim: NO Third COVID19 Vaccination Date: NO Seasonal Allergies Seasonal Allergies: Yes Past Medical History Surgery/Hospitalization HX: RECTAL CANCER, APPY, JAW Surgeries: Yes (Neelam-cath placement, Jaw surgery) Appendectomy, Orthopedic Respiratory: No Currently Using CPAP: No Currently Using BIPAP: No Cardiac: No Neurological: Yes TIA Reproductive Disorders: No Sexually Transmitted Disease: No HIV/AIDS: No Genitourinary: No Gastrointestinal: No Gastroesophageal Reflux, Chronic Constipation Musculoskeletal: Yes Arthritis Endocrine: No HEENT: No Loss of Vision: Denies Hearing Impairment: Denies Cancer: Yes Rectal Did You Recieve Any Treatments: Yes What Type of Treatment Did You: Chemotherapy Psychosocial: Yes Anxiety, Violent Behavior, Depression Integumentary: No Blood Disorders: No Adverse Reaction/Blood Tranf: No Family Medical History Cancer, Hypertension Physical Exam Vital Signs Vital Signs - First Documented 12/21/21 05:53 Temp 36.6 Pulse 113 Resp 22 B/P (MAP) 129/73 (91) Pulse Ox 99 O2 Delivery Room Air Capillary Refill : Height/Weight/BMI Height: 5'7.00" Weight: 140lbs. 0oz. 63.070886fz; 25.00 BMI Method:Stated General Appearance: WD/WN, no apparent distress HEENT: PERRL/EOMI Respiratory: no respiratory distress, no accessory muscle use Cardiovascular: regular rate, rhythm Gastrointestinal: normal bowel sounds, non tender, soft Rectal: other (erythema over the buttocks with increased warmth; edema and induration of the anus with a fissue extending at 6 o'clock, deep with a necrotic base, green exudate at base - extends about 3-4 cm to the perineum; very tender to palpation) Extremities: normal range of motion, normal inspection Neurologic/Psychiatric: no motor/sensory deficits, alert, normal mood/affect, oriented x 3 Skin: warm/dry Focused Exam Lactate Level 12/21/21 08:04: Lactic Acid Level 0.94 Lactic Acid Level Laboratory Tests Test 12/21/21 08:04 Lactic Acid Level 0.94 MMOL/L (0.50-2.00) Progress/Results/Core Measures Results/Orders Lab Results Laboratory Tests Test 12/21/21 06:06 12/21/21 06:16 12/21/21 08:04 Range/Units White Blood Count 9.9 4.3-11.0 10^3/uL Red Blood Count 3.75 L 4.30-5.52 10^6/uL Hemoglobin 10.8 L 13.3-17.7 g/dL Hematocrit 33 L 40-54 % Mean Corpuscular Volume 87 80-99 fL Mean Corpuscular Hemoglobin 29 25-34 pg Mean Corpuscular Hemoglobin Concent 33 32-36 g/dL Red Cell Distribution Width 14.2 10.0-14.5 % Platelet Count 300 130-400 10^3/uL Mean Platelet Volume 8.1 L 9.0-12.2 fL Immature Granulocyte % (Auto) 0 % Neutrophils (%) (Auto) 83 H 42-75 % Lymphocytes (%) (Auto) 6 L 12-44 % Monocytes (%) (Auto) 7 0-12 % Eosinophils (%) (Auto) 4 0-10 % Basophils (%) (Auto) 0 0-10 % Neutrophils # (Auto) 8.2 H 1.8-7.8 10^3/uL Lymphocytes # (Auto) 0.6 L 1.0-4.0 10^3/uL Monocytes # (Auto) 0.7 0.0-1.0 10^3/uL Eosinophils # (Auto) 0.4 H 0.0-0.3 10^3/uL Basophils # (Auto) 0.0 0.0-0.1 10^3/uL Immature Granulocyte # (Auto) 0.0 0.0-0.1 10^3/uL Neutrophils % (Manual) 85 % Lymphocytes % (Manual) 6 % Monocytes % (Manual) 4 % Eosinophils % (Manual) 4 % Metamyelocytes % 1 % Blood Morphology Comment NORMAL Prothrombin Time 13.6 12.2-14.7 SEC INR Comment 1.0 0.8-1.4 Activated Partial Thromboplast Time 37 H 24-35 SEC Sodium Level 137 135-145 MMOL/L Potassium Level 4.2 3.6-5.0 MMOL/L Chloride Level 104 98-107 MMOL/L Carbon Dioxide Level 21 21-32 MMOL/L Anion Gap 12 5-14 MMOL/L Blood Urea Nitrogen 16 7-18 MG/DL Creatinine 0.87 0.60-1.30 MG/DL Estimat Glomerular Filtration Rate 115 BUN/Creatinine Ratio 18 Glucose Level 107 H 70-105 MG/DL Calcium Level 9.0 8.5-10.1 MG/DL Corrected Calcium 9.2 8.5-10.1 MG/DL Total Bilirubin 0.1 0.1-1.0 MG/DL Aspartate Amino Transf (AST/SGOT) 21 5-34 U/L Alanine Aminotransferase (ALT/SGPT) 18 0-55 U/L Alkaline Phosphatase 70 40-136 U/L Total Protein 7.0 6.4-8.2 GM/DL Albumin 3.7 3.2-4.5 GM/DL Serum Alcohol 10 <10 MG/DL Urine Opiates Screen NEGATIVE NEGATIVE Urine Oxycodone Screen NEGATIVE NEGATIVE Urine Methadone Screen NEGATIVE NEGATIVE Urine Propoxyphene Screen NEGATIVE NEGATIVE Urine Barbiturates Screen NEGATIVE NEGATIVE Ur Tricyclic Antidepressants Screen NEGATIVE NEGATIVE Urine Phencyclidine Screen NEGATIVE NEGATIVE Urine Amphetamines Screen POSITIVE H NEGATIVE Urine Methamphetamines Screen POSITIVE H NEGATIVE Urine Benzodiazepines Screen NEGATIVE NEGATIVE Urine Cocaine Screen NEGATIVE NEGATIVE Urine Cannabinoids Screen NEGATIVE NEGATIVE Lactic Acid Level 0.94 0.50-2.00 MMOL/L Micro Results Microbiology 12/21/21 Blood Culture - Preliminary, Resulted No growth 12/21/21 Blood Culture - Preliminary, Resulted No growth My Orders Orders - DUARTE CHAVEZ MD Blood Culture (12/21/21 07:14) Protime With Inr (12/21/21 07:14) Partial Thromboplastin Time (12/21/21 07:14) Chest 1 View, Ap/Pa Only (12/21/21 07:14) Ed Iv/Invasive Line Start (12/21/21 07:14) Ed Iv/Invasive Line Start (12/21/21 07:14) Vital Signs Adult Sepsis Patie Q15M (12/21/21 07:14) O2 (12/21/21 07:14) Remove Rings In Anticipation O (12/21/21 07:14) Lactic Acid Analyzer (12/21/21 07:14) Ct Abdomen/Pelvis W (12/21/21 07:14) Morphine Injection (Morphine Injection (12/21/21 07:14) Ondansetron Injection (Zofran Injectio (12/21/21 07:15) Ns Iv 1000 Ml (Sodium Chloride 0.9%) (12/21/21 07:15) Iohexol Injection (Omnipaque 350 Mg/Ml 1 (12/21/21 08:00) Received Contrast (Hold Metformin- Contr (12/21/21 08:00) Ns (Ivpb) (Sodium Chloride 0.9% Ivpb Bag (12/21/21 08:00) Sodium Chloride Flush (Catheter Flush Sy (12/21/21 08:00) Morphine Injection (Morphine Injection (12/21/21 11:59) Ns Iv 1000 Ml (Sodium Chloride 0.9%) (12/21/21 12:00) Medications Given in ED Vital Signs/I&O 12/21/21 05:53 Temp 36.6 Pulse 113 Resp 22 B/P (MAP) 129/73 (91) Pulse Ox 99 O2 Delivery Room Air Blood Pressure Mean: 91 Progress Progress Note #1: Time: 08:41 Progress Note Labs, CT reviewed, apparent gas at the rectum concerning for may be development of some abscess. I discussed the case with Dr. Mcclendon. He will be down to evaluate. No concerning findings for sepsis at this point. Patient is treated in the emergency room for pain with IV fentanyl and morphine. He is also given some fluids as well as nausea medications. No clinical or objective findings to warrant further studies. He clinically does not have evidence of bowel obstr uction. He is able to have bowel movements. Further disposition after Dr. Mcclendon evaluates. Progress Note #2: Time: 12:30 Progress Note Patient is wanting discharged. He states he is hurting and thinks he should undergo surgery. I talked to Dr Mcclendon. He will admit. Diagnostic Imaging Diagonstic Imaging: Xray Comments [facility] [place], [place] NAME: LOIS VILLALTA [facility] REC#: [id number] PT STATUS: REG ER : 1985 PHYSICIAN: DUARTE CHAVEZ MD ADMIT DATE: 12/21/21/ER Draft Date of Exam:12/21/21 CHEST 1 VIEW, AP/PA ONLY INDICATION: Rectal carcinoma. TIME OF EXAM: 8:29 AM Correlation is made with prior chest from 07/29/2021. FINDINGS: Heart size is stable. Right chest wall port has tip overlying the right atrium. Lungs are clear. No infiltrates are seen. There is no effusion or pneumothorax. IMPRESSION: No acute cardiopulmonary process is detected. Dictated on workstation # [id number] Dict: 12/21/21 0835 Trans: 12/21/2136 [id number] Interpreted by: DALE SANDOVAL MD Electronically signed by: [facility] Imaging: CT [facility] [place], [place] NAME: LOIS VILLALTA [facility] REC#: [id number] PT STATUS: REG ER : 1985 PHYSICIAN: DUARTE CHAVEZ MD ADMIT DATE: 12/21/21/ER Draft Date of Exam:12/21/21 CT ABDOMEN/PELVIS W PROCEDURE: CT abdomen and pelvis with contrast. TECHNIQUE: Multiple contiguous axial images were obtained through the abdomen and pelvis after administration of intravenous contrast. Auto Exposure Controls were utilized during the CT exam to meet ALARA standards for radiation dose reduction. All CT scans use one or more of the following dose optimizing techniques: automated exposure control, MA and/or KvP adjustment based on patient size and exam type or iterative reconstruction. INDICATION: Rectal pain. Patient has diagnosis of rectal carcinoma. Correlation is made with prior CT from 12/03/2021. The lung bases are clear. No discrete liver mass is detected. Gallbladder is unremarkable. There is no biliary ductal dilatation. Pancreas and spleen are unremarkable. Small low-density right adrenal nodule appears stable. Left adrenal gland is unremarkable. The kidneys are unremarkable. No hydronephrosis is detected. Aorta is nonaneurysmal. No central, retroperitoneal or mesenteric lymphadenopathy is detected. There is moderate stool throughout the colon, similar to prior exam. A rectal wall thickening with right-sided minimal perirectal gas appears similar to prior exam. There is some vague slightly low density along the right side of the thickened rectum as well as this area anterolateral to the left which could represent early abscess formation. No pelvic lymphadenopathy is identified. Bony structures are nonacute. IMPRESSION: Rectal wall thickening consistent with patient's diagnosis of rectal carcinoma. There is some minimal perirectal gas present, similar to prior exam. There is also slight low density surrounding the rectum particularly on the right side which could represent small perirectal abscess. The remainder of the study is unremarkable. Dictated on workstation # [id number] Dict: 12/21/2129 Trans: 12/21/21 0835 [facility] [id number] Interpreted by: DALE SANDOVAL MD Electronically signed by: Departure Communication (Admissions) Time/Spoke to Admitting Phy: 12:[address] Mcclendon Time/Spoke to Consulting Phy: 08:[address] Mcclendon Impression Primary Impression: Rectal or anal pain Additional Impressions: hisory of rectal cancer Medical non-compliance Methamphetamine abuse Disposition: ADMITTED INPATIENT Condition: Stable Admissions Decision to Admit Reason: Admit from ER (General) Decision to Admit/Date: Dec 21, 2021 Time/Decision to Admit Time: 12:30 Departure-Patient Inst. Referrals: NO,LOCAL PHYSICIAN (PCP/Family) Primary Care Physician Scripts No Active Prescriptions or Reported Meds DUARTE CHAVEZ MD Dec 21, 2021 07:21
[2021-12-21 07:56] LABS: PROTHROMBIN TIME PATIENT 13.6 SEC (12.2-14.7)
[2021-12-21] MEDS ORDERED: IOHEXOL 350 MG/ML 100 ML (OMNIPAQUE 350) VIAL IV ONE (08:00)
[2021-12-21] MEDS ORDERED: NS 100 ML (IVPB) BAG IV ONE (08:00)
[2021-12-21] MEDS ORDERED: CATHETER FLUSH 10 ML SYR IV PRN (08:00)
[2021-12-21] MEDS ORDERED: HOLD METFORMIN - RECEIVED CONTRAST 20 ML VIAL IV SCH (08:00)
--- NOTE | 2021-12-21 08:36 | Diagnostic Imaging Report ---
PROCEDURE: CT abdomen and pelvis with contrast. TECHNIQUE: Multiple contiguous axial images were obtained through the abdomen and pelvis after administration of intravenous contrast. Auto Exposure Controls were utilized during the CT exam to meet ALARA standards for radiation dose reduction. All CT scans use one or more of the following dose optimizing techniques: automated exposure control, MA and/or KvP adjustment based on patient size and exam type or iterative reconstruction. INDICATION: Rectal pain. Patient has diagnosis of rectal carcinoma. Correlation is made with prior CT from 12/03/2021. The lung bases are clear. No discrete liver mass is detected. Gallbladder is unremarkable. There is no biliary ductal dilatation. Pancreas and spleen are unremarkable. Small low-density right adrenal nodule appears stable. Left adrenal gland is unremarkable. The kidneys are unremarkable. No hydronephrosis is detected. Aorta is nonaneurysmal. No central, retroperitoneal or mesenteric lymphadenopathy is detected. There is moderate stool throughout the colon, similar to prior exam. A rectal wall thickening with right-sided minimal perirectal gas appears similar to prior exam. There is some vague slightly low density along the right side of the thickened rectum as well as this area anterolateral to the left which could represent early abscess formation. No pelvic lymphadenopathy is identified. Bony structures are nonacute. IMPRESSION: Rectal wall thickening consistent with patient's diagnosis of rectal carcinoma. There is some minimal perirectal gas present, similar to prior exam. There is also slight low density surrounding the rectum particularly on the right side which could represent small perirectal abscess. The remainder of the study is unremarkable. Dictated by: Dictated on workstation # [id number]
--- NOTE | 2021-12-21 08:36 | Diagnostic Imaging Report ---
INDICATION: Rectal carcinoma. TIME OF EXAM: 8:29 AM Correlation is made with prior chest from 07/29/2021. FINDINGS: Heart size is stable. Right chest wall port has tip overlying the right atrium. Lungs are clear. No infiltrates are seen. There is no effusion or pneumothorax. IMPRESSION: No acute cardiopulmonary process is detected. Dictated by: Dictated on workstation # [id number]
--- NOTE | 2021-12-21 10:24 | Consultation - Surgery ---
YANA LEHAMN 12/21/21 1024: History of Present Illness History of Present Illness Patient Consulted On(katheryn/time) 12/21/21 10:19 Date Seen by Provider: Dec 21, 2021 Time Seen by Provider: 09:20 History of Present Illness 36 year old male with anal cancer known to Dr. Frankel previously asked to be seen in ER for draining rectal lesion causing severe pain. 36 year old male with a past medical history of Rectal Cancer presented to [facility] ER via ambulance for severe rectal pain caused by his rectal lesion that is 2/2 anal cancer. Patient was just given a dose of morphine and stated that he was really tired. Patient fell asleep a couple of times while I was interviewing him. Patient states that although his pain has been present for multiple weeks he had an acute increase in pain over the past couple of days. 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 Patient states the pain is in and around his rectum. Has been constant. Feels like a deep ache with super imposed sharp pain. Patient states he has tried a myriad of things but nothing has really helped. Bowel movements aggravate the pain. Patient rates the pain a 7/10 currently. Patient also endorses feeling slightly feverish. Patient's toxicology was positive for marijuana and methamphetamine. Patient states that it has been three days since he has used these drugs. Allergies and Home Medications Allergies Coded Allergies: No Known Drug Allergies (Unverified , 06/10/21) Patient Home Medication List Home Medication List Reviewed: Yes Amoxicillin/Potassium Clav (Amox Tr-K Clv 875-125 mg Tab) 875 Mg-125 Mg Tablet, 1 EACH PO BID Prescribed by: MARICRUZ FRANKEL on 12/07/21 1127 Aspirin (Aspirin EC) 81 Mg Tablet.dr, 81 MG PO DAILY, (Reported) Entered as Reported by: BRENDA CHRISTIANSON on 12/03/21 1533 Oxycodone HCl (Oxycodone HCl) 5 Mg Tablet, 5 MG PO Q8H Prescribed by: MARICRUZ FRANKEL on 12/07/21 1127 Past Ntfgqrw-Hxdrqk-Bikavu Hx Patient Social History Drug of Choice: HX OF METH Smoking Status: Current Everyday Smoker Type Used: Cigarettes 2nd Hand Smoke Exposure: Yes Recent Hopitalizations: No Alcohol Use?: No Substance type: Methamphetamine, Marijuana Have you traveled recently?: No Immunizations Up To Date Tetanus Booster (TDap): Unknown Seasonal Allergies Seasonal Allergies: Yes Surgeries History of Surgeries: Yes (Neelam-cath placement, Jaw surgery) Surgeries: Appendectomy, Orthopedic Respiratory History of Respiratory Disorde: No Cardiovascular History of Cardiac Disorders: No Neurological History of Neurological Disord: Yes Neurological Disorders: TIA Reproductive System Hx Reproductive Disorders: No Sexually Transmitted Disease: No HIV/AIDS: No Genitourinary History of Genitourinary Disor: No Gastrointestinal History of Gastrointestinal Di: Yes Gastrointestinal Disorders: Gastroesophageal Reflux, Chronic Constipation Musculoskeletal History of Musculoskeletal Dis: Yes Musculoskeletal Disorders: Arthritis Endocrine History of Endocrine Disorders: No HEENT History of HEENT Disorders: No Loss of Vision: Denies Hearing Impairment: Denies Cancer History of Cancer: Yes Cancer: Rectal (Anal ) Psychosocial History of Psychiatric Problem: Yes Behavioral Health Disorders: Anxiety, Violent Behavior, Depression Integumentary History of Skin or Integumenta: No Blood Transfusions History of Blood Disorders: No Adverse Reaction to a Blood Tr: No Family Medical History Significant Family History: Cancer, Hypertension Review of Systems-General Constitutional: No chills, No diaphoresis; fever EENTM: No hearing loss, No vision loss Respiratory: No cough, No dyspnea on exertion Cardiovascular: No chest pain, No palpitations Gastrointestinal: No constipation, No diarrhea, No nausea, No vomiting; other (rectal pain; perirectal lesion discharge) Genitourinary: No discharge, No dysuria, No frequency, No hematuria Musculoskeletal: No joint pain, No joint swelling Psychiatric/Neurological: Denies Anxiety, Denies Depressed Physical Exam-General Problems Physical Exam Vital Signs Vital Signs - First Documented 12/21/21 05:53 Temp 36.6 Pulse 113 Resp 22 B/P (MAP) 129/73 (91) Pulse Ox 99 O2 Delivery Room Air Capillary Refill : General Appearance: WD/WN, no apparent distress HEENT: PERRL/EOMI Neck: supple, normal inspection Respiratory: chest non-tender, lungs clear, normal breath sounds, no respiratory distress, no accessory muscle use Cardiovascular: no murmur, tachycardia (regular rhythm) Gastrointestinal: non tender, soft Rectal: tenderness, other (rectal ulceration/lesion along superior and right lateral margins. Hard indurated/granulative feeling tissue lateral to the ulcer susupicous for tracking. Granulation tissue all along lesion. ) Extremities: no pedal edema, no calf tenderness Neurologic/Psychiatric: alert, oriented x 3, other (lethargic/tired. Fell asleep multiple times during my interview) Skin: normal color, warm/dry Data Review Labs Laboratory Tests 12/21/21 06:06: White Blood Count 9.9, Red Blood Count 3.75L, Hemoglobin 10.8L, Hematocrit 33L, Mean Corpuscular Volume 87, Mean Corpuscular Hemoglobin 29, Mean Corpuscular Hemoglobin Concent 33, Red Cell Distribution Width 14.2, Platelet Count 300, Mean Platelet Volume 8.1L, Immature Granulocyte % (Auto) 0, Neutrophils (%) (Auto) 83H, Lymphocytes (%) (Auto) 6L, Monocytes (%) (Auto) 7, Eosinophils (%) ( Auto) 4, Basophils (%) (Auto) 0, Neutrophils # (Auto) 8.2H, Lymphocytes # (Auto) 0.6L, Monocytes # (Auto) 0.7, Eosinophils # (Auto) 0.4H, Basophils # (Auto) 0.0, Immature Granulocyte # (Auto) 0.0, Neutrophils % (Manual) 85, Lymphocytes % (Manual) 6, Monocytes % (Manual) 4, Eosinophils % (Manual) 4, Metamyelocytes % 1, Blood Morphology Comment NORMAL, Prothrombin Time 13.6, INR Comment 1.0, Activated Partial Thromboplast Time 37H, Sodium Level 137, Potassium Level 4.2, Chloride Level 104, Carbon Dioxide Level 21, Anion Gap 12, Blood Urea Nitrogen 16, Creatinine 0.87, Estimat Glomerular Filtration Rate 115, BUN/Creatinine Ratio 18, Glucose Level 107H, Calcium Level 9.0, Corrected Calcium 9.2, Total Bilirubin 0.1, Aspartate Amino Transf (AST/SGOT) 21, Alanine Aminotransferase (ALT/SGPT) 18, Alkaline Phosphatase 70, Total Protein 7.0, Albumin 3.7, Serum Alcohol 10 12/21/21 06:16: Urine Opiates Screen NEGATIVE, Urine Oxycodone Screen NEGATIVE, Urine Methadone Screen NEGATIVE, Urine Propoxyphene Screen NEGATIVE, Urine Barbiturates Screen NEGATIVE, Ur Tricyclic Antidepressants Screen NEGATIVE, Urine Phencyclidine Screen NEGATIVE, Urine Amphetamines Screen POSITIVEH, Urine Methamphetamines Screen POSITIVEH, Urine Benzodiazepines Screen NEGATIVE, Urine Cocaine Screen NEGATIVE, Urine Cannabinoids Screen NEGATIVE 12/21/21 08:04: Lactic Acid Level 0.94 Radiology [facility] [place], [place] NAME: LOIS VILLALTA [facility] REC#: [id number] PT STATUS: REG ER : 1985 PHYSICIAN: DUARTE CHAVEZ MD ADMIT DATE: 12/21/21/ER Draft Date of Exam:12/21/21 CHEST 1 VIEW, AP/PA ONLY INDICATION: Rectal carcinoma. TIME OF EXAM: 8:29 AM Correlation is made with prior chest from 07/29/2021. FINDINGS: Heart size is stable. Right chest wall port has tip overlying the right atrium. Lungs are clear. No infiltrates are seen. There is no effusion or pneumothorax. IMPRESSION: No acute cardiopulmonary process is detected. Dictated on workstation # [id number] Dict: 12/21/21 0835 Trans: 12/21/21 0836 [id number] Interpreted by: DALE SANDOVAL MD Electronically signed by: [facility] [place], [place] NAME: LOIS VILLALTA [facility] REC#: [id number] PT STATUS: REG ER : 1985 PHYSICIAN: DUARTE CHAVEZ MD ADMIT DATE: 12/21/21/ER Draft Date of Exam:12/21/21 CT ABDOMEN/PELVIS W PROCEDURE: CT abdomen and pelvis with contrast. TECHNIQUE: Multiple contiguous axial images were obtained through the abdomen and pelvis after administration of intravenous contrast. Auto Exposure Controls were utilized during the CT exam to meet ALARA standards for radiation dose reduction. All CT scans use one or more of the following dose optimizing techniques: automated exposure control, MA and/or KvP adjustment based on patient size and exam type or iterative reconstruction. INDICATION: Rectal pain. Patient has diagnosis of rectal carcinoma. Correlation is made with prior CT from 12/03/2021. The lung bases are clear. No discrete liver mass is detected. Gallbladder is unremarkable. There is no biliary ductal dilatation. Pancreas and spleen are unremarkable. Small low-density right adrenal nodule appears stable. Left adrenal gland is unremarkable. The kidneys are unremarkable. No hydronephrosis is detected. Aorta is nonaneurysmal. No central, retroperitoneal or mesenteric lymphadenopathy is detected. There is moderate stool throughout the colon, similar to prior exam. A rectal wall thickening with right-sided minimal perirectal gas appears similar to prior exam. There is some vague slightly low density along the right side of the thickened rectum as well as this area anterolateral to the left which could represent early abscess formation. No pelvic lymphadenopathy is identified. Bony structures are nonacute. IMPRESSION: Rectal wall thickening consistent with patient's diagnosis of rectal carcinoma. There is some minimal perirectal gas present, similar to prior exam. There is also slight low density surrounding the rectum particularly on the right side which could represent small perirectal abscess. The remainder of the study is unremarkable. Dictated on workstation # [id number] Dict: 12/21/21 0829 Trans: 12/21/21 0835 [facility] [id number] Interpreted by: DALE SANDOVAL MD Electronically signed by: Assessment/Plan Assessment/Plan Assessment/Plan Anal Cancer Anal lesion Tachycardia Discussed options with patient. Letting him know that given the extent of his disease and the progression of this lesion, that the best way to proceed would be a diverting colectomy. After discussing with patient what this procedure entailed, he was agreeable to the procedure initially. Will discuss in further detail the risks and benefits when patient is more alert. If patient is still agreeable to diverting colectomy and this time, will get him admitted and prepped for a diverting colectomy procedure. MARICRUZ FRANKEL DO 12/21/21 1205: History of Present Illness History of Present Illness Time Seen by Provider: 11:18 History of Present Illness Surgery asked to consult regarding gluteal/anal ulcer; Hx of anal CA. Intractable pain. Pt is a 36 yo well known to me, I diagnosed his anal CA. He unfortunately is no t following up with Oncology like he is supposed to. His pain is 7 out of 10 after getting meds, 10 out of 10 at home. His main complaint is pain with BM and sitting, "excruciating". Allergies and Home Medications Allergies Coded Allergies: No Known Drug Allergies (Unverified , 06/10/21) Patient Home Medication List Home Medication List Reviewed: Yes Amoxicillin/Potassium Clav (Amox Tr-K Clv 875-125 mg Tab) 875 Mg-125 Mg Tablet, 1 EACH PO BID Prescribed by: MARICRUZ FRANKEL on 12/07/21 1127 Aspirin (Aspirin EC) 81 Mg Tablet.dr, 81 MG PO DAILY, (Reported) Entered as Reported by: BRENDA CHRISTIANSON on 12/03/21 1533 Oxycodone HCl (Oxycodone HCl) 5 Mg Tablet, 5 MG PO Q8H Prescribed by: MARICRUZ FRANKEL on 12/07/21 1127 Past Exjiaks-Lxbetl-Fyuysk Hx Patient Social History Smoking Status: Current Someday Smoker Alcohol Use?: Yes Substance type: Methamphetamine Surgeries History of Surgeries: Yes (anal bx, Neelam-Cath placemeng) Surgeries: Orthopedic (jaw surgery) Respiratory History of Respiratory Disorde: No Cardiovascular History of Cardiac Disorders: No Neurological History of Neurological Disord: Yes Neurological Disorders: TIA Gastrointestinal History of Gastrointestinal Di: No Musculoskeletal History of Musculoskeletal Dis: No Endocrine History of Endocrine Disorders: No HEENT History of HEENT Disorders: No Loss of Vision: Denies Hearing Impairment: Denies Cancer History of Cancer: Yes Cancer: Rectal (Anal ) Psychosocial History of Psychiatric Problem: No Integumentary History of Skin or Integumenta: No Family Medical History Significant Family History: Cancer, Hypertension Review of Systems-General Constitutional: No chills, No diaphoresis; fever EENTM: No hearing loss, No vision loss, No epistaxis Respiratory: No cough, No dyspnea on exertion Cardiovascular: No chest pain, No palpitations Gastrointestinal: No constipation, No diarrhea, No nausea, No vomiting; other (rectal pain; perirectal lesion discharge) Genitourinary: No discharge, No dysuria, No frequency, No hematuria Musculoskeletal: No joint pain, No joint swelling Skin: No change in color, No change in hair/nails; hx of skin cancer Psychiatric/Neurological: Denies Anxiety, Denies Depressed, Denies Seizure, Denies Tremors Physical Exam-General Problems Physical Exam General Appearance: WD/WN, moderate distress (secondary to pain) Eyes: Bilateral Eye PERRL, Bilateral Eye EOMI HEENT: pharynx normal; No scleral icterus (R), No scleral icterus (L) Neck: supple, normal inspection Respiratory: chest non-tender, lungs clear, normal breath sounds, no respiratory distress, no accessory muscle use Cardiovascular: no murmur, tachycardia (regular rhythm) Gastrointestinal: non tender, soft Rectal: tenderness, other (rectal ulceration/lesion along superior and right lateral margins. Hard indurated/granulative feeling tissue lateral to the ulcer susupicous for tracking. Granulation tissue all along lesion. ) Back: no CVA tenderness, no vertebral tenderness Extremities: no pedal edema, no calf tenderness Neurologic/Psychiatric: alert, oriented x 3 Skin: normal color, warm/dry Lymphatic: no adenopathy (neck, axilla) Assessment/Plan Assessment/Plan Assessment/Plan Anal Cancer Anal lesion Tachycardia Discussed options with patient. Letting him know that given the extent of his disease and the progression of this lesion, that the best way to proceed would be a diverting colostomy. Pt was told that it would help his pain with BM, but not his pain with sitting. I also informed him that he needed to go back to Oncology, because the ulcer would not heal until all the cancer has been taken care. I discussed the procedure with him, he was agreeable to the procedure initially (when he spoke to student) but when I spoke to him he said he didn't think he could agree to colostomy yet. Pt would need to be admitted and prepped for a diverting colostomy; if he agrees to it. Supervisory-Addendum Brief Verification & Attestation Participated in pt care: history, MDM, physical Personally performed: exam, history, MDM, supervision of care Care discussed with: Medical Student Procedures: n/a Verification and Attestation of Medical Student E/M Service A medical student performed and documented this service. I then reviewed and verified all information documented by the medical student and made modifications to such information, when appropriate. I personally performed a physical exam, medical decision making and then discussed any differences between the notes and made revisions as necessary to create one note. Maricruz Frankel , 12/21/21 , 12:05 AYNA LEHMAN Dec 21, 2021 10:24 MARICRUZ FRANKEL DO Dec 21, 2021 12:05
[2021-12-21 14:09] VITALS: BP 135/76
[2021-12-21] MEDS: ONDANSETRON 4 MG/2 ML (SDV) Z0FRAN IVP PRN (14:16)
[2021-12-21] MEDS: morphine INJ 10 MG/ML 1ML (SYR OR VIAL) IVP PRN ×2 (14:17→19:55)
[2021-12-21] MEDS: oxyCODONE/APAP 10/325MG (PERCOCET 10) TABLET PO PRN ×2 (14:17→19:48)
[2021-12-21] MEDS: LACTATED RINGERS 1,000 ML IV SCH ×2 (14:26→19:48)
[2021-12-21 15:52] VITALS: BP 111/62
[2021-12-21 17:00] VITALS: BP 109/70
[2021-12-21 19:55] VITALS: BP 142/80
[2021-12-22] VITALS (7 sets, daily range): BP systolic 109–152; BP diastolic 63–97
[2021-12-22] MEDS: morphine INJ 10 MG/ML 1ML (SYR OR VIAL) IVP PRN ×4 (00:58→19:53)
[2021-12-22] MEDS ORDERED: NICOTINE 14 MG (NICODERM) PATCH TD ONE (01:30)
[2021-12-22] MEDS: NICOTINE 14 MG (NICODERM) PATCH TD SCH ×2 (01:33→08:23)
[2021-12-22] MEDS: oxyCODONE/APAP 10/325MG (PERCOCET 10) TABLET PO PRN ×4 (03:19→22:26)
[2021-12-22] MEDS: LACTATED RINGERS 1,000 ML IV SCH ×3 (05:43→21:01)
[2021-12-22 05:44] LABS: BASOPHILS # (AUTO) 0.1 10^3/uL (0.0-0.1); BASOPHILS % (AUTO) 1 % (0-10); EOSINOPHILS # (AUTO) 0.4 10^3/uL (0.0-0.3); EOSINOPHILS % (AUTO) 5 % (0-10); HEMATOCRIT 35 % (40-54); HEMOGLOBIN 11.3 g/dL (13.3-17.7); LYMPHOCYTES # (AUTO) 0.5 10^3/uL (1.0-4.0); LYMPHOCYTES % (AUTO) 5 % (12-44); MEAN CORPUSCULAR HEMOGLOBIN 29 pg (25-34); MEAN CORPUSCULAR HGB CONC 33 g/dL (32-36); MEAN CORPUSCULAR VOLUME 87 fL (80-99); MEAN PLATELET VOLUME 8.1 fL (9.0-12.2); MONOCYTES # (AUTO) 0.7 10^3/uL (0.0-1.0); MONOCYTES % (AUTO) 8 % (0-12); NEUTROPHILS # (AUTO) 7.1 10^3/uL (1.8-7.8); NEUTROPHILS % (AUTO) 82 % (42-75); PLATELET COUNT 288 10^3/uL (130-400); WHITE BLOOD COUNT 8.7 10^3/uL (4.3-11.0)
[2021-12-22 06:03] LABS: ALBUMIN 3.4 GM/DL (3.2-4.5); BILIRUBIN,TOTAL 0.4 MG/DL (0.1-1.0); CREATININE SERUM 0.87 MG/DL (0.60-1.30); POTASSIUM 4.1 MMOL/L (3.6-5.0); TOTAL PROTEIN 6.6 GM/DL (6.4-8.2)
[2021-12-22] MEDS: PANTOPRAZOLE 40 MG (PROTONIX) VIAL IV SCH (08:23)
--- NOTE | 2021-12-22 10:26 | Progress Note - Surgery ---
BHARAT LARES 12/22/21 1026: Subjective Date Seen by a Provider: Dec 22, 2021 Time Seen by a Provider: 07:54 Subjective/Events-last exam Pt is 36 yo M admitted for pain management and preparation for diverting colostomy procedure tomorrow. Pt sleeping this morning on his rightside. He is in no acute distress. States his anal region is still hurting but pain medication is helping. Pain is non-radiating, sharp, and constant 9/10. Pt has had no BM but has passed gas since admit. No trouble with urination. Ambulating in room a few times per day. Diet has been liquids and jello. Review of Systems General: Chills; No Fatigue HEENT: No Head Aches, No Visual Changes Pulmonary: No Dyspnea, No Cough Cardiovascular: Lt Headedness; No: Chest Pain, Palpitations Gastrointestinal: Abdominal Pain (in LLQ); No: Nausea, Vomiting Genitourinary: No Dysuria, No Frequency, No Hematuria Musculoskeletal: other (pain in anal region); No: leg pain Neurological: No: Weakness, Numbness Focused Exam Lactate Level 12/21/21 08:04: Lactic Acid Level 0.94 Objective Exam Vital Signs Date Time Temp Pulse Resp B/P (MAP) Pulse Ox O2 Delivery O2 Flow Rate FiO2 12/22/21 08:00 96 Room Air 12/22/21 07:44 36.4 99 18 109/69 (82) 96 Room Air 12/22/21 04:00 37.0 92 18 135/72 (93) 97 Room Air 12/22/21 00:00 36.7 94 18 123/65 (84) 97 Room Air 12/21/21 20:00 Room Air 12/21/21 19:55 37.3 106 18 142/80 (100) 98 Room Air 12/21/21 17:00 36.8 105 18 109/70 (83) 100 Room Air 12/21/21 15:52 37.0 113 18 111/62 (78) 95 Room Air 12/21/21 14:09 36.9 104 18 135/76 (95) 96 Room Air 12/21/21 13:45 96 Room Air 12/21/21 13:25 104 18 122/68 99 I & O 12/22/21 07:00 Intake Total 4807 ml Output Total 2000 ml Balance 2807 ml Capillary Refill : General Appearance: No Apparent Distress, WD/WN HEENT: PERRL/EOMI, Moist Mucous Membranes Neck: Full Range of Motion, Non Tender, Supple Respiratory: Lungs Clear, Normal Breath Sounds, No Accessory Muscle Use, No Respiratory Distress; No Crackles Cardiovascular: Regular Rate, Rhythm, No Murmur, Normal Peripheral Pulses Peripheral Pulses: 2+ Dorsalis Pedis (R), 2+ Left Dors-Pedis (L), 2+ Radial Pulses (R), 2+ Radial Pulses (L) Gastrointestinal: normal bowel sounds, non tender, soft, tenderness (in LLQ) Extremity: Non Tender, No Calf Tenderness, No Pedal Edema Neurologic/Psychiatric: Alert, Oriented x3 Skin: Normal Color, Warm/Dry, Tattoos/Piercings Results Lab Laboratory Tests 12/22/21 05:30: White Blood Count 8.7, Red Blood Count 3.97L, Hemoglobin 11.3L, Hematocrit 35L, Mean Corpuscular Volume 87, Mean Corpuscular Hemoglobin 29, Mean Corpuscular Hemoglobin Concent 33, Red Cell Distribution Width 14.1, Platelet Count 288, Mean Platelet Volume 8.1L, Immature Granulocyte % (Auto) 0, Neutrophils (%) (Auto) 82H, Lymphocytes (%) (Auto) 5L, Monocytes (%) (Auto) 8, Eosinophils (%) (Auto) 5, Basophils (%) (Auto) 1, Neutrophils # (Auto) 7.1, Lymphocytes # (Auto) 0.5L, Monocytes # (Auto) 0.7, Eosinophils # (Auto) 0.4H, Basophils # (Auto) 0.1, Immature Granulocyte # (Auto) 0.0, Sodium Level 137, Potassium Level 4.1, Chloride Level 100, Carbon Dioxide Level 24, Anion Gap 13, Blood Urea Nitrogen 8, Creatinine 0.87, Estimat Glomerular Filtration Rate 115, BUN/Creatinine Ratio 9, Glucose Level 110H, Calcium Level 9.0, Corrected Calcium 9.5, Total Bilirubin 0.4, Aspartate Amino Transf (AST/SGOT) 19, Alanine Aminotransferase (ALT/SGPT) 17, Alkaline Phosphatase 73, Total Protein 6.6, Albumin 3.4 Assessment/Plan Assessment/Plan Assessment/Plan Anal Cancer Anal lesion Tachycardia Keep on liquid diet. Continue IVF and pain management. Preparing for diverting colostomy procedure on 12/23. CODY FRANKEL DO 12/22/21 1321: Subjective Time Seen by a Provider: 11:17 Subjective/Events-last exam Pt seen and examined, no new complaints. Still has rectal/anal pain. Review of Systems General: Chills; No Fatigue HEENT: No Head Aches, No Visual Changes Pulmonary: No Dyspnea, No Cough Cardiovascular: No: Chest Pain, Palpitations Gastrointestinal: Abdominal Pain (in LLQ); No: Nausea, Vomiting Genitourinary: No Dysuria, No Frequency Musculoskeletal: other (pain in anal region) Objective Exam General Appearance: No Apparent Distress, WD/WN HEENT: PERRL/EOMI, Moist Mucous Membranes Respiratory: Lungs Clear, Normal Breath Sounds, No Accessory Muscle Use, No Respiratory Distress Cardiovascular: Regular Rate, Rhythm, No Murmur Gastrointestinal: non tender, soft Neurologic/Psychiatric: Alert, Oriented x3 Skin: Normal Color, Warm/Dry, Tattoos/Piercings, Other (anal ulcer left gluteal cheek with necrotic base) Assessment/Plan Assessment/Plan Assessment/Plan Anal Cancer Anal lesion Tachycardia Pt has started bowel prep and will continue IVF and pain management. Plan for diverting colostomy (Monroe's procedure) on 12/23. I again went over procedure with pt; risks and complications not limited to pain, bleeding, infection, scar, damage to bowel and need for further procedure. We are doing this because of the pain he has with every BM and to keep stool away from his open ulcer. At the same time as this surgery, we will debride ulcerated area of any necrotic tissue. All questions answered to his satisfaction. He is ready to proceed with surgery. Supervisory-Addendum Brief Verification & Attestation Participated in pt care: history, MDM, physical Personally performed: exam, history, MDM, supervision of care Care discussed with: Medical Student Procedures: n/a Verification and Attestation of Medical Student E/M Service A medical student performed and documented this service. I then reviewed and verified all information documented by the medical student and made modifications to such information, when appropriate. I personally performed a physical exam, medical decision making and then discussed any differences between the notes and made revisions as necessary to create one note. Cody Frankel , 12/22/21 , 13:21 BHARAT LARES Dec 22, 2021 10:26 CODY FRANKEL DO Dec 22, 2021 13:21
[2021-12-22] MEDS ORDERED: BISACODYL 5 MG (DULCOLAX) TABLET PO NR ×2 (12:00→15:00)
[2021-12-22] MEDS ORDERED: polyethylene glycoL Bowel Prep(MIRALAX) 238 GM PO SCH (18:00)
[2021-12-22] MEDS: ONDANSETRON 4 MG/2 ML (SDV) Z0FRAN IVP PRN (21:05)
[2021-12-23] VITALS (11 sets, daily range): BP systolic 116–151; BP diastolic 66–106
[2021-12-23] MEDS: morphine INJ 10 MG/ML 1ML (SYR OR VIAL) IVP PRN ×3 (02:20→08:20)
[2021-12-23] MEDS: LACTATED RINGERS 1,000 ML IV SCH ×3 (05:05→14:30)
--- NOTE | 2021-12-23 07:36 | Progress Note - Surgery ---
YANA LEHMAN 12/23/21 0736: Subjective Date Seen by a Provider: Dec 23, 2021 Time Seen by a Provider: 07:05 Subjective/Events-last exam Patient being seen in f/u for anal ulcer pain. Patient resting in bed when I spoke with him. Has been NPO. When asked if ready to proceed with surgery, patient stated "not really" but that he feels this is the best route moving forward. Patient states he did have clear liquid stools last night towards the end of his bowel prep. Patient denies any further questions involving the surgery at this time. Review of Systems General: No Chills, No Night Sweats HEENT: No Head Aches, No Visual Changes Pulmonary: No Dyspnea, No Cough Cardiovascular: No: Chest Pain, Palpitations Gastrointestinal: No: Nausea, Vomiting, Abdominal Pain Genitourinary: No Dysuria, No Frequency Neurological: No: Weakness, Numbness Focused Exam Lactate Level 12/21/21 08:04: Lactic Acid Level 0.94 Objective Exam Vital Signs Date Time Temp Pulse Resp B/P (MAP) Pulse Ox O2 Delivery O2 Flow Rate FiO2 12/23/21 03:04 36.4 105 18 136/66 (89) 96 Room Air 12/22/21 23:14 36.8 103 18 130/63 (85) 97 Room Air 12/22/21 20:19 Room Air 12/22/21 19:44 37.3 102 17 132/82 (99) 100 Room Air 12/22/21 15:58 36.9 100 17 130/97 (108) 95 Room Air 12/22/21 12:23 36.8 97 18 152/83 (106) 99 Room Air 12/22/21 08:00 96 Room Air 12/22/21 07:44 36.4 99 18 109/69 (82) 96 Room Air I & O 12/23/21 07:00 Intake Total 2960 ml Output Total 800 ml Balance 2160 ml Capillary Refill : General Appearance: No Apparent Distress, WD/WN HEENT: PERRL/EOMI Neck: Non Tender, Supple Respiratory: Lungs Clear, Normal Breath Sounds, No Accessory Muscle Use, No Respiratory Distress Cardiovascular: No Murmur, Tachycardia (regular rhythm) Peripheral Pulses: 2+ Dorsalis Pedis (R), 2+ Left Dors-Pedis (L), 2+ Radial Pulses (R), 2+ Radial Pulses (L) Gastrointestinal: non tender, soft Extremity: Non Tender, No Calf Tenderness, No Pedal Edema Neurologic/Psychiatric: Alert, Oriented x3 Skin: Normal Color, Warm/Dry, Tattoos/Piercings, Other (anal ulcer left gluteal cheek with necrotic base) Results Lab Microbiology 12/21/21 Blood Culture - Preliminary, Resulted No growth Assessment/Plan Assessment/Plan Assessment/Plan Anal Cancer Anal lesion/ulceration Tachycardia Pt completed bowel prep and is currently NPO. Plan for diverting colostomy (Monroe's procedure) today, 12/23. Have went over procedure with pt; risks and complications not limited to pain, bleeding, infection, scar, damage to bowel and need for further procedure. We are doing this because of the pain he has with every BM and to keep stool away from his open ulcer. At the same time as this surgery, we will debride ulcerated area of any necrotic tissue. All questions have been answered to his satisfaction. He is ready to proceed with surgery. CODY FRANKEL DO 12/23/21 1545: Subjective Time Seen by a Provider: 14:24 Subjective/Events-last exam Pt seen just before surgery, still having pain and is ready for procedure. Review of Systems Pulmonary: No Dyspnea, No Cough Cardiovascular: No: Chest Pain, Palpitations Gastrointestinal: No: Nausea, Vomiting, Abdominal Pain Objective Exam General Appearance: No Apparent Distress HEENT: PERRL/EOMI Respiratory: Lungs Clear, Normal Breath Sounds, No Accessory Muscle Use, No Respiratory Distress Cardiovascular: No Murmur, Tachycardia (regular rhythm) Gastrointestinal: non tender, soft, no organomegaly Skin: Other (anal ulcer left gluteal cheek with necrotic base) Assessment/Plan Assessment/Plan Assessment/Plan Anal Cancer Anal lesion/ulceration Tachycardia Pt completed bowel prep and is currently NPO. Plan for diverting colostomy (Monroe's procedure) today, 12/23. Have went over procedure with pt; risks and complications not limited to pain, bleeding, infection, scar, damage to bowel and need for further procedure. We are doing this because of the pain he has with every BM and to keep stool away from his open ulcer. At the same time as this surgery, we will debride ulcerated area of any necrotic tissue. All questions have been answered to his satisfaction. He is ready to proceed with surgery. Supervisory-Addendum Brief Verification & Attestation Participated in pt care: history, MDM, physical Personally performed: exam, history, MDM, supervision of care Care discussed with: Medical Student Procedures: n/a Verification and Attestation of Medical Student E/M Service A medical student performed and documented this service. I then reviewed and verified all information documented by the medical student and made modifications to such information, when appropriate. I personally performed a physical exam, medical decision making and then discussed any differences between the notes and made revisions as necessary to create one note. Cody Frankel , 12/23/21 , 15:45 YANA LEHMAN Dec 23, 2021 07:36 CODY FRANKEL DO Dec 23, 2021 15:45
[2021-12-23] MEDS: PANTOPRAZOLE 40 MG (PROTONIX) VIAL IV SCH (08:10)
[2021-12-23] MEDS: NICOTINE 14 MG (NICODERM) PATCH TD SCH (08:10)
[2021-12-23] MEDS: PATCH REMOVAL TP SCH (10:14)
[2021-12-23] MEDS: morphine INJ 4 MG/ML 1 ML (VIAL/SYRINGE) IVP PRN ×3 (12:22→20:25)
[2021-12-23] MEDS ORDERED: ROCURONIUM 10 MG/ML 5 ML SYRINGE IV ONE (13:18)
[2021-12-23] MEDS ORDERED: SEVOFLURANE (ULTANE) 15 ML INHAL SOLN ONE ×2 (13:18→15:17)
[2021-12-23] MEDS ORDERED: LIDOCAINE PF 2% 5 ML (XYLOCAINE) VIAL ONE (13:18)
[2021-12-23] MEDS ORDERED: proPOfol 200 MG/20 ML (DIPRIVAN) VIAL IV ONE (13:18)
[2021-12-23] MEDS ORDERED: ONDANSETRON 4 MG/2 ML (SDV) Z0FRAN ONE (13:18)
[2021-12-23] MEDS ORDERED: fentaNYL INJ 100 MCG/2 ML AMP ONE (13:19)
[2021-12-23] MEDS ORDERED: MIDAZOLAM 2 MG/2 ML (VERSED) VIAL ONE (13:19)
[2021-12-23] MEDS ORDERED: LACTATED RINGERS 1,000 ML IV PRN ×2 (13:30→13:45)
[2021-12-23] MEDS ORDERED: BUP/EPI 0.5% 1:200,000 (MARCAINE) 10ML VIAL IJ ONE (13:41)
[2021-12-23] MEDS ORDERED: LIDOCAINE/EPI 1%-1:100,000 (XYLOCAINE) 10 ML ONE (13:41)
[2021-12-23] MEDS ORDERED: metroNIDAZOLE 500MG/100ML IVPB 100 ML ONE (13:54)
[2021-12-23] MEDS ORDERED: ceFAZolin INJECTION 2,000 MG ONE (13:55)
[2021-12-23] MEDS ORDERED: HYDROmorphone 2 MG/ML VIAL (DILAUDID) ONE (14:32)
[2021-12-23] MEDS ORDERED: LIDOCAINE/EPI 1%-1:100,000 (XYLOCAINE) 10 ML INJ ONE (14:50)
[2021-12-23] MEDS ORDERED: metroNIDAZOLE 500MG/100ML IVPB 100 ML IV ONE (14:51)
[2021-12-23] MEDS ORDERED: ceFAZolin INJECTION 2,000 MG IV ONE (14:58)
--- NOTE | 2021-12-23 15:43 | Progress Note-Post Operative ---
Post-Operative Progess Note Surgeon (s)/Drapery And Upholstery Measurer (s) Surgeon MRAICRUZ FRANKEL DO Drapery And Upholstery Measurer: Mihir Pre-Operative Diagnosis Anal Cancer, Anal/Gluteal Ulcer Post-Operative Diagnosis same Procedure & Operative Findings Date of Procedure 12/23/21 Procedure Performed/Findings 1) Laparoscopic Monroe's procedure with end colostomy 2) Rough debridement with packing of anal/Gluteal ulcer Anesthesia Type GET Estimated Blood Loss Estimated blood loss (mL): less than 20ml Specimens/Packing Specimens Removed portion of sigmoid colon MARICRUZ FRANKEL DO Dec 23, 2021 15:43
[2021-12-23] MEDS ORDERED: morphine INJ 10 MG/ML 1ML (SYR OR VIAL) ONE (16:10)
[2021-12-23] MEDS: ONDANSETRON 4 MG/2 ML (SDV) Z0FRAN IVP PRN (16:14)
[2021-12-23] MEDS ORDERED: ONDANSETRON 4 MG/2 ML (SDV) Z0FRAN IVP PRN (17:00)
[2021-12-23] MEDS ORDERED: morphine INJ 10 MG/ML 1ML (SYR OR VIAL) IVP ONE (17:00)
[2021-12-23] MEDS: oxyCODONE/APAP 10/325MG (PERCOCET 10) TABLET PO PRN (18:46)
[2021-12-24 00:16] VITALS: BP 113/70
[2021-12-24] MEDS: LACTATED RINGERS 1,000 ML IV SCH ×4 (00:18→23:54)
[2021-12-24] MEDS: oxyCODONE/APAP 10/325MG (PERCOCET 10) TABLET PO PRN ×5 (00:39→23:54)
[2021-12-24] MEDS: morphine INJ 4 MG/ML 1 ML (VIAL/SYRINGE) IVP PRN ×7 (00:39→22:40)
[2021-12-24 03:46] VITALS: BP 120/67
[2021-12-24 07:51] VITALS: BP 112/74
--- NOTE | 2021-12-24 07:55 | Progress Note - Surgery ---
BHARAT LARES 12/24/21 0755: Subjective Date Seen by a Provider: Dec 24, 2021 Time Seen by a Provider: 07:27 Subjective/Events-last exam Our pt is on POD#1 from laparoscopic Monroe's procedure with end colostomy and rough debridement with packing of anal/gluteal ulcer. Pt is quietly sleeping on his back this morning, in no acute distress. States he has 9/10 pain in his rectum which he describes as similar to a toothache. Pain meds helping a bit. He also is having pain in LLQ of abdomen at ostomy site. He has not been ambulating since procedure and has Sommer catheter in place. Pt tolerating water/jello this morning. Colostomy bag has some blood and watery fluid, but no stool inside. Bag did leak this morning and RN informed. Review of Systems General: Chills, Fatigue HEENT: No Head Aches, No Visual Changes Pulmonary: No Dyspnea, No Cough; Other (states hard to catch breath due to abdominal pain) Cardiovascular: No: Chest Pain, Palpitations Gastrointestinal: Nausea, Abdominal Pain (LLQ); No: Vomiting Genitourinary: No Dysuria, No Hematuria; Other (Sommer in place) Musculoskeletal: shoulder pain (think due to muscle strain); No: neck pain Neurological: No: Weakness, Numbness Focused Exam Lactate Level 12/21/21 08:04: Lactic Acid Level 0.94 Objective Exam Vital Signs Date Time Temp Pulse Resp B/P (MAP) Pulse Ox O2 Delivery O2 Flow Rate FiO2 12/24/21 03:46 37.0 94 18 120/67 (84) 97 Room Air 12/24/21 00:16 36.4 104 16 113/70 (84) 97 Room Air 12/23/21 20:35 Room Air 12/23/21 19:07 36.3 102 18 137/85 (102) 99 Room Air 12/23/21 16:47 36.1 99 22 151/100 (117) Room Air 12/23/21 16:45 Room Air 12/23/21 16:39 36.3 16 141/91 (108) 99 Room Air 12/23/21 16:35 Room Air 12/23/21 16:29 16 147/99 (115) 100 OxyMask 10.00 12/23/21 16:20 OxyMask 10.00 12/23/21 16:19 15 148/106 (120) 100 OxyMask 10.00 12/23/21 16:09 14 149/102 (118) 99 OxyMask 10.00 12/23/21 16:05 OxyMask 10.00 12/23/21 15:59 16 135/91 (106) 100 OxyMask 10.00 12/23/21 15:49 OxyMask 10.00 12/23/21 15:49 36.2 16 126/83 (97) 100 OxyMask 10.00 12/23/21 11:42 36.8 101 18 116/78 (91) 100 Room Air 12/23/21 08:03 36.6 96 18 130/74 (92) 99 Room Air 12/23/21 08:00 99 Room Air I & O 12/24/21 07:00 Intake Total 3330 ml Output Total 4430 ml Balance -1100 ml Capillary Refill : General Appearance: No Apparent Distress HEENT: PERRL/EOMI, Moist Mucous Membranes Neck: Non Tender, Supple Respiratory: Lungs Clear, Normal Breath Sounds, No Accessory Muscle Use, No Respiratory Distress Cardiovascular: Regular Rate, Rhythm, No Murmur, Tachycardia (regular rhythm) Peripheral Pulses: 2+ Dorsalis Pedis (R), 2+ Left Dors-Pedis (L), 2+ Radial Pulses (R), 2+ Radial Pulses (L) Gastrointestinal: soft, no organomegaly, guarding (LLQ), tenderness (LLQ), other (colostomy bag in place) Extremity: Non Tender, No Calf Tenderness, No Pedal Edema Neurologic/Psychiatric: Alert, Oriented x3 Skin: Warm/Dry, Tattoos/Piercings (tattoo left shoulder), Other (anal ulcer left gluteal cheek with necrotic base) Results Lab Microbiology 12/22/21 MRSA Screen - Final, Complete MRSA not isolated 12/21/21 Blood Culture - Preliminary, Resulted No growth Assessment/Plan Assessment/Plan Assessment/Plan Laparoscopic Monroe's procedure with end colostomy and rough debridement with packing of anal/gluteal ulcer - POD#1 Anal Cancer Anal lesion/ulceration Tachycardia Continue pain management, IVF, and clear liquid diet, consider transition to soft diet. Sommer removal and begin ambulation as tolerated. CODY FRANKEL DO 12/24/21 1000: Subjective Time Seen by a Provider: 09:44 Subjective/Events-last exam Pt seen and examined, lying in bed and sleepy. Rates rectal pain as 9 out of 10. Still has sommer in place. Review of Systems General: Chills, Fatigue Pulmonary: No Dyspnea, No Cough Cardiovascular: No: Chest Pain, Palpitations Gastrointestinal: Nausea, Abdominal Pain (LLQ); No: Vomiting Genitourinary: Other (sommer in place with light yellow colored urine) Objective Exam General Appearance: No Apparent Distress Respiratory: Lungs Clear, Normal Breath Sounds, No Accessory Muscle Use, No Respiratory Distress Cardiovascular: Regular Rate, Rhythm, No Murmur Gastrointestinal: soft, no organomegaly, tenderness (LLQ), other (ostomy viable, no output yet) Assessment/Plan Assessment/Plan Assessment/Plan Laparoscopic Monroe's procedure with end colostomy and rough debridement with packing of anal/gluteal ulcer - POD#1 Anal Cancer Anal lesion/ulceration Tachycardia Continue pain management, IVF, and clear liquid diet, consider transition to soft diet. Sommer removal and begin ambulation as tolerated. Supervisory-Addendum Brief Verification & Attestation Participated in pt care: history, MDM, physical Personally performed: exam, history, MDM, supervision of care Care discussed with: Medical Student Procedures: n/a Verification and Attestation of Medical Student E/M Service A medical student performed and documented this service. I then reviewed and verified all information documented by the medical student and made modifications to such information, when appropriate. I personally performed a physical exam, medical decision making and then discussed any differences between the notes and made revisions as necessary to create one note. Cody Frankel , 12/24/21 , 10:00 BHARAT LARES Dec 24, 2021 07:55 CODY FRANKEL DO Dec 24, 2021 10:00
[2021-12-24] MEDS: PANTOPRAZOLE 40 MG (PROTONIX) VIAL IV SCH (08:10)
[2021-12-24] MEDS: NICOTINE 14 MG (NICODERM) PATCH TD SCH (08:11)
[2021-12-24] MEDS: PATCH REMOVAL TP SCH (08:12)
[2021-12-24] MEDS ORDERED: HYDROmorphone 2 MG/ML VIAL (DILAUDID) IV NR (11:45)
[2021-12-24 12:00] VITALS: BP 127/83
[2021-12-24 15:03] VITALS: BP 130/72
--- NOTE | 2021-12-24 17:33 | OPERATIVE REPORT ---
DATE OF SERVICE: 12/23/2021 PREOPERATIVE DIAGNOSIS: Anal cancer with anal ulcer/gluteal ulcer. POSTOPERATIVE DIAGNOSIS: Anal cancer with anal ulcer/gluteal ulcer. PROCEDURE: 1. Laparoscopic Shonna's procedure with end colostomy. 2. Debridement and packing of anal/gluteal ulcer. SURGEON: Maricruz Mcclendon DO EYEGLASS MAKER: Dr. Ash. ANESTHESIA: General endotracheal tube. SPECIMENS: Portion of colon. BLOOD LOSS: Scant. FLUIDS: Per anesthesia. POSTOPERATIVE CONDITION: Stable. INDICATIONS FOR PROCEDURE: The patient is a 36-year-old male who unfortunately has anal cancer and he has a large anal ulcer. The anal ulcer was getting worse and he is having severe pain over time as a bowel movement. We need to do a diverting colostomy to try and help this area heal. In addition, pain was on the regions he stopped doing his treatments. FINDINGS: The patient had a colostomy performed. He had a very bad ulcer almost going all the way around to the rectum going actually down the right and left cheeks and tunneling up. DESCRIPTION OF PROCEDURE: After informed consent was obtained, the patient was brought to the operating room and placed on the table in lithotomy position. He was then sterilely prepped and draped in normal fashion. Local lidocaine used to infiltrate the skin above the umbilicus, made an incision with 11 blade, carried down through the skin into the subcutaneous tissue. Then deepened down to subcutaneous tissue with electrocautery down to the fascia. Fascia was incised with electrocautery and bluntly. The abdomen was prepped. A finger placed 11 mm trocar port under direct visualization. I had also placed 0 Vicryl [id number] suture created pneumoperitoneum and then placed 2 more ports, one in the left lower quadrant where we were going to make our colostomy, one in the right lower quadrant, able to visualize. There was no pathology seen in the abdomen. We went down to the sigmoid colon just above the sacral promontory, came across the mesentery with the LigaSure, clamping, coagulating transecting and then getting under on both sides, getting under the sigmoid colon and then at this point, switched and brought in an Endo-SHANTEL 60 mm stapler across the distal portion of the sigmoid clamped and held for 30 seconds and then fired. This came all the way across was a good resection and then came across the mesentery with the LigaSure, clamping, coagulating and transecting until we were able to free this up, thus creating the distal Shonna's pouch and then through the 10 mm incision. We first grasped the bowel with a grasper and then opened this defect a little bit further to be able to bring out the colostomy, increased the incisions in a transverse direction, took out the port and then down to the fascia, increased the fascial incision slightly and then did a cruciate incision then able to get 2 fingers through here and then pull the grasper and the bowel through this opening and it came through very easily. At this point, then allowed the pneumoperitoneum to look in there. There was no twisting of the bowel and so at this point, then removed the laparoscopic ports, allowed the pneumoperitoneum to escape, closed the umbilical incision, closed in the fascia with 0 Vicryl suture previously placed, copiously irrigated and then closed this incision as well as the right lower quadrant incision with adalberto. At this point, placed cleaned and dried the stomach and then placed a 11/16/2021 drape. Then cut off the distal portion of the colon, passed this off the table and then matured our colostomy in a havasupai type colostomy suturing at the skin and then lower portion of the colon and then at the opening in the mucosa, did this at the 12, 3, 6, and 9 o'clock position, bringing the colon down, so we havasupai it out nicely and then in between each of these were placed, two more simple 4-0 Vicryl sutures. This matured the colostomy very nicely, able to push my finger through into the abdomen, did not appear constricted and at this point, then went down to the lower portion, found that the ulcer was going down the right gluteal cheek as well as the left gluteal cheek and then up around the rectum. There was some fecal material into here. I did some rough debridement with a lap sponge, did not see any necrotic tissue that need to be surgically debrided. At this point, then elected to pack this with iodoform packing, packed this area and then were done. Sponge and needle counts were correct at the end of the case. Dr. Ash assisted in this case, able to make incisions, identify anatomy, hold anatomy of the way and help with the colostomy. The patient was then transferred to recovery room in stable condition. Job ID: [id number] DocumentID: [id number] Dictated Date: 12/24/2021 12:55:32 Obstetrician Date: 12/24/2021 17:31:00 Dictated By: MARICRUZ MCCLENDON DO
[2021-12-24 19:01] VITALS: BP 123/77
[2021-12-25] VITALS: BP 141/82
[2021-12-25] MEDS: morphine INJ 4 MG/ML 1 ML (VIAL/SYRINGE) IVP PRN ×10 (00:56→22:38)
[2021-12-25 03:34] VITALS: BP 127/79
[2021-12-25] MEDS: oxyCODONE/APAP 10/325MG (PERCOCET 10) TABLET PO PRN ×5 (03:46→22:37)
[2021-12-25 07:16] VITALS: BP 121/76
[2021-12-25] MEDS: PANTOPRAZOLE 40 MG (PROTONIX) VIAL IV SCH (08:09)
[2021-12-25] MEDS: NICOTINE 14 MG (NICODERM) PATCH TD SCH (08:09)
[2021-12-25] MEDS: LACTATED RINGERS 1,000 ML IV SCH ×2 (08:09→16:14)
[2021-12-25] MEDS: PATCH REMOVAL TP SCH (08:09)
--- NOTE | 2021-12-25 08:50 | Progress Note - Surgery ---
YANA LEHMAN 12/25/21 0850: Subjective Date Seen by a Provider: Dec 25, 2021 Time Seen by a Provider: 08:00 Subjective/Events-last exam Patient resting on his back in bed. States he feels okay, just slightly irritated about little things due to his rectal pain. Patient states it is improving slowly, but is still very painful. Patient states he feels a little bloated, but has passed gas through his ostomy. No stool yet, but does have some fluid collection in his ostomy bag. Patient does state he was able to get up once overnight. Patient had a discussion with yesterday and has begun working on acquiring medicaid again. Patient had questions as to when anal packing would be changed. Review of Systems HEENT: No Head Aches, No Visual Changes Pulmonary: No Dyspnea, No Cough Cardiovascular: No: Chest Pain, Palpitations Gastrointestinal: Abdominal Pain; No: Nausea, Vomiting Genitourinary: No Dysuria, No Frequency Neurological: No: Weakness, Numbness Objective Exam Vital Signs Date Time Temp Pulse Resp B/P (MAP) Pulse Ox O2 Delivery O2 Flow Rate FiO2 12/25/21 07:16 36.6 96 18 121/76 (91) 98 Room Air 0.00 0.00 12/25/21 03:34 36.5 102 20 127/79 (95) 97 Room Air 12/25/21 00:00 36.6 107 20 141/82 (101) 96 Room Air 12/24/21 19:40 Room Air 12/24/21 19:01 37.1 109 18 123/77 (92) 100 Room Air 0.00 0.00 12/24/21 15:03 37.3 110 20 130/72 (91) 98 Room Air 0.00 0.00 12/24/21 12:00 36.8 106 18 127/83 (98) 100 I & O 12/25/21 07:00 Intake Total 3280 ml Output Total 3030 ml Balance 250 ml Capillary Refill : General Appearance: No Apparent Distress, WD/WN HEENT: PERRL/EOMI Neck: Non Tender, Supple Respiratory: Lungs Clear, Normal Breath Sounds, No Accessory Muscle Use, No Re spiratory Distress Cardiovascular: No Murmur, Tachycardia Peripheral Pulses: 2+ Dorsalis Pedis (R), 2+ Left Dors-Pedis (L), 2+ Radial Pulses (R), 2+ Radial Pulses (L) Gastrointestinal: distended (mild), tenderness (generalized, same as yesterday ) Extremity: Non Tender, No Calf Tenderness, No Pedal Edema Neurologic/Psychiatric: Alert, Oriented x3 Skin: Normal Color, Warm/Dry, Tattoos/Piercings (tattoo left shoulder) Results Lab Microbiology 12/22/21 MRSA Screen - Final, Complete MRSA not isolated 12/21/21 Blood Culture - Preliminary, Resulted No growth Assessment/Plan Assessment/Plan Assessment/Plan Laparoscopic Monroe's procedure with end colostomy and rough debridement with packing of anal/gluteal ulcer - POD#2 Anal Cancer Anal lesion/ulceration Tachycardia Continue pain management, IVF, consistent ambulation, IS use, gum mastication CODY FRANKEL DO 12/25/21 1144: Subjective Time Seen by a Provider: 09:44 Subjective/Events-last exam Pt seen and examined, still moderate to severe anal pain. He states he is seeing gas in ostomy. Review of Systems Pulmonary: No Dyspnea, No Cough Cardiovascular: No: Chest Pain, Palpitations Gastrointestinal: Abdominal Pain; No: Nausea, Vomiting Objective Exam General Appearance: No Apparent Distress, WD/WN Respiratory: Lungs Clear, Normal Breath Sounds, No Accessory Muscle Use, No Respiratory Distress Cardiovascular: Regular Rate, Rhythm, No Murmur Gastrointestinal: distended (mild), tenderness (generalized, same as yesterday ), other (ostomy viable with some edematous fluid in bag, no stool yet) Extremity: Non Tender, No Calf Tenderness, No Pedal Edema Assessment/Plan Assessment/Plan Assessment/Plan Laparoscopic Monroe's procedure with end colostomy and rough debridement with packing of anal/gluteal ulcer - POD#2 Anal Cancer Anal lesion/ulceration Tachycardia Continue pain management, IVF, consistent ambulation, IS use, gum mastication. Asked nurse to change packing and call wound care for consult. Supervisory-Addendum Brief Verification & Attestation Participated in pt care: history, MDM, physical Personally performed: exam, history, MDM, supervision of care Care discussed with: Medical Student Procedures: n/a Verification and Attestation of Medical Student E/M Service A medical student performed and documented this service. I then reviewed and verified all information documented by the medical student and made modifications to such information, when appropriate. I personally performed a physical exam, medical decision making and then discussed any differences between the notes and made revisions as necessary to create one note. Cody Frankel , 12/25/21 , 11:44 YANA LEHMAN Dec 25, 2021 08:50 CODY FRANKEL DO Dec 25, 2021 11:44
[2021-12-25 11:08] VITALS: BP 121/76
[2021-12-25] MEDS ORDERED: HYPOCHLOROUS ACID/NaCl (VASHE) 250 ML IR PRN (12:00)
--- NOTE | 2021-12-25 12:18 | Wound Care Assessment ---
Wound Care Assessment Date Seen by Provider: Dec 25, 2021 Time Seen by Provider: 12:10 Chief Complaint Anal cancer with chronic abscess/ulceration HPI This 36 year old patient presented to our facility with severe rectal pain. 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 He began self medicating with methamphetamine and marijuana. 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 He did undergo 2 rounds of chemotherapy and 5 radiation. He does note that he did miss appoin tments with both (due to side effects and other issues) and ultimately stopped going to his oncology appointments due to pain on exams. He is uncertain if he was ever cleared of his cancer. He has continued to have severe pain in his rectum since with drainage (christina. with defecation). While admitted this week, he underwent Monroe's pouch with end colostomy as well as debridement of ulceration. He continues to have significant swelling to gluteus and circumferential anal ulceration. He does not have elevated WBC or evidence of cellulitis/sepsis. Labs are reassuring as are vitals. CT from - with perirectal gas and swelling in perirectal region (obviously concerning in light of cancer history). Trenton states that he "hates hospitals and doctors". I suspect this, his pain and his illicit drug use have all played a role in his noncompliance. Plan to continue daily packing with iodoform for now. I did discuss with Dr. Mcclendon and agree with current treatment plan. Should he show signs of systemic infection, antibiotics should be considered. His perianal ulceration will be extremely difficult to heal with his h/o radiation therapy and anal cancer along with his current lifestyle choices and medical noncompliance. Smoking Status: Current Someday Smoker Recreational Drug Use: Yes (Methamphetamines and marijuana) Exam Vital Signs Date Time Temp Pulse Resp B/P (MAP) Pulse Ox O2 Delivery O2 Flow Rate FiO2 12/25/21 11:08 36.8 99 20 121/76 (91) 96 Room Air 0.00 0.00 Capillary Refill : General Appearance: moderate distress (pain) HEENT: other (hearing wnl) Neck: full range of motion Cardiovascular: no edema Respiratory: no respiratory distress, no accessory muscle use Extremities: normal range of motion Neurologic/Psychiatric: alert, normal mood/affect Skin Problem Location: other (Gluteus bilateral) Skin Character: abscess Wound assessment: 3.8x1.5x4.1. The epithelialization is none. There is no tunneling or undermining noted on my exam (however, this is extremely limited by patient's pain), drainage is medium and serous, granulation is none. Necrotic is medium and slough. Margins show epibole. Note that trenton's ulceration is circumferential and includes his anus. There is no "wound bed" at the base but only his rectum. His anus is quite friable and enlarged from surrounding ulceration. Results Microbiology 12/22/21 MRSA Screen - Final, Complete MRSA not isolated 12/21/21 Blood Culture - Preliminary, Resulted No growth Assessment/Plan/Dx Assessment: 1. Anal ulcer (chronic) 2. 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 Soft tissue radiation necrosis 4. Methamphetamine addiction and abuse 5. Chronic rectal pain Plan: 1. Cleanse with vashe. Pack daily with iodoform gauze. Off load area as much as possible 2. Strongly encouraged Trenton resume his follow up with oncology. Status of anal cancer is uncertain 3. Radiation injury will certainly delay healing (if not make healing impossible in current state) 4. cessation strongly advised 5. Would agree with pain management while admitted. DAISY HANSON MD Dec 25, 2021 12:18
--- NOTE | 2021-12-25 14:43 | Anesthesia-General Post-Op ---
General Patient Condition Mental Status/LOC: Same as Preop Cardiovascular: Satisfactory Nausea/Vomiting: Absent Respiratory: Satisfactory Pain: Uncontrolled Complications: Absent Post Op Complications Complications None Follow Up Care/Instructions Patient Instructions None needed. Anesthesia/Patient Condition Patient Condition Patient was seen yesterday approximately 1145 and he was doing well. Did was having significant pain, which he said was present preop as well. He had stable vital signs, no apparent adverse anesthesia problems. MARIANO MENDIOLA DO Dec 25, 2021 14:43
[2021-12-25 15:59] VITALS: BP 131/77
[2021-12-25 19:44] VITALS: BP 120/71
[2021-12-26] VITALS (7 sets, daily range): BP systolic 101–110; BP diastolic 58–69
[2021-12-26] MEDS: LACTATED RINGERS 1,000 ML IV SCH ×3 (00:51→15:19)
[2021-12-26] MEDS: morphine INJ 4 MG/ML 1 ML (VIAL/SYRINGE) IVP PRN ×5 (00:53→15:10)
[2021-12-26] MEDS: oxyCODONE/APAP 10/325MG (PERCOCET 10) TABLET PO PRN ×3 (03:57→17:17)
--- NOTE | 2021-12-26 07:59 | Progress Note - Surgery ---
KUSHAL GUZMAN 12/26/21 0759: Subjective Date Seen by a Provider: Dec 26, 2021 Time Seen by a Provider: 07:55 Subjective/Events-last exam Patient is laying in bed uncomfortably Still has pain in his rectum, which he rates as a 9/10, but says its improved from yesterday He does endorse passing gas Denies any N/V, fever, or chills No stool yet in his ostomy bag at this time, but has fluid accumulation Is using his IS sporadically Appetite is appropriate Anal packing in place at this time, to be changed later today Labs reviewed Objective Exam Vital Signs Date Time Temp Pulse Resp B/P (MAP) Pulse Ox O2 Delivery O2 Flow Rate FiO2 12/26/21 07:20 37.0 104 20 110/69 (83) 96 Room Air 0.00 0.00 12/26/21 04:27 37.2 12/26/21 03:43 37.2 115 16 109/62 (78) 97 Room Air 12/26/21 01:23 37.4 12/26/21 00:00 37.4 98 16 104/65 (78) 98 Room Air 12/25/21 23:07 37.2 12/25/21 20:00 Room Air 12/25/21 19:44 37.2 113 18 120/71 (87) 96 Room Air 12/25/21 15:59 37.2 107 18 131/77 (95) 98 Room Air 12/25/21 11:08 36.8 99 20 121/76 (91) 96 Room Air 0.00 0.00 12/25/21 08:55 Room Air I & O 12/26/21 07:00 Intake Total 3832 ml Output Total 5095 ml Balance -1263 ml Capillary Refill : General Appearance: No Apparent Distress, WD/WN, Chronically ill HEENT: PERRL/EOMI; No Scleral Icterus (L), No Scleral Icterus (R) Neck: Non Tender, Supple Respiratory: Chest Non Tender, No Accessory Muscle Use, No Respiratory Distress, Wheezing (Mild wheeze bilaterally ) Cardiovascular: Regular Rate, Rhythm, No Murmur Peripheral Pulses: 2+ Dorsalis Pedis (R), 2+ Left Dors-Pedis (L), 2+ Radial Pulses (R), 2+ Radial Pulses (L) Gastrointestinal: no pulsatile mass, tenderness (Tender to palpation in inscison sites), other (ostomy viable with some edematous fluid in bag, no stool yet) Extremity: Non Tender, No Calf Tenderness, No Pedal Edema Neurologic/Psychiatric: Alert, Oriented x3 Skin: Normal Color, Warm/Dry, Tattoos/Piercings (tattoo left shoulder) Lymphatic: No Adenopathy Results Lab Microbiology 12/22/21 MRSA Screen - Final, Complete MRSA not isolated 12/21/21 Blood Culture - Preliminary, Resulted No growth Assessment/Plan Assessment/Plan Assessment/Plan Laparoscopic Monroe's procedure with end colostomy and rough debridement with packing of anal/gluteal ulcer - POD#3 Anal Cancer Anal lesion/ulceration Tachycardia Continue pain management Continue supportive care Promote consistent ambulation Continue IS Continue changing packing, wound care consulted ALMAS TESFAYE DO 12/26/21 1428: Subjective Subjective/Events-last exam Pain varies, sometimes under control. Fluid from colostomy. Using IS some. Not wanting to ambulate. Tolerating diet. Denies n/v fever sweats chills shortness of breath or chest pain. Objective Exam General Appearance: No Apparent Distress, WD/WN HEENT: PERRL/EOMI, Normal ENT Inspection Neck: Non Tender, Supple Respiratory: Chest Non Tender, No Accessory Muscle Use, No Respiratory Distress Cardiovascular: Tachycardia Gastrointestinal: non tender, soft, tenderness (Tender to palpation in inscison sites), other (ostomy viable with some edematous fluid in bag, no stool yet) Extremity: Non Tender, No Calf Tenderness Neurologic/Psychiatric: Alert, Oriented x3 Skin: Normal Color, Warm/Dry, Other (perianal wound, with packing present and stool drainage from area) Lymphatic: No Adenopathy Assessment/Plan Assessment/Plan Assessment/Plan Laparoscopic Monroe's procedure with end colostomy and rough debridement with packing of anal/gluteal ulcer - POD#3 Anal Cancer Anal lesion/ulceration Tachycardia Continue pain management Continue supportive care Promote consistent ambulation Continue IS Daily dressing changes and PRN Informed patient to shower and then do wound dressing. repeat labs in am Supervisory-Addendum Brief Verification & Attestation Participated in pt care: history, MDM, physical Personally performed: exam, history, MDM, supervision of care Care discussed with: Medical Student Procedures: n/a Results interpretation: Verified all documentation Verification and Attestation of Medical Student E/M Service A medical student performed and documented this service in my presence. I reviewed and verified all information documented by the medical student and made modifications to such information, when appropriate. I personally performed the physical exam and medical decision making. Almas Tesfaye, Dec 26, 2021,14:29 KUSHAL GUZMAN Dec 26, 2021 07:59 ALMAS TESFAYE DO Dec 26, 2021 14:28
[2021-12-26] MEDS: PANTOPRAZOLE 40 MG (PROTONIX) VIAL IV SCH (08:23)
[2021-12-26] MEDS: PATCH REMOVAL TP SCH (08:24)
[2021-12-26] MEDS: NICOTINE 14 MG (NICODERM) PATCH TD SCH (08:24)
[2021-12-26] MEDS: HYDROmorphone 2 MG/ML VIAL (DILAUDID) IV PRN ×4 (15:17→22:43)
[2021-12-26] MEDS ORDERED: VANCOMYCIN INJECTION 0.1 MG in NS (IVPB) 250 ML IV SCH (17:00)
[2021-12-26] MEDS ORDERED: VANCOMYCIN 1500 MG/NS 500 ML IVPB IV ONE ×2 (18:00)
[2021-12-27] VITALS (7 sets, daily range): BP systolic 104–135; BP diastolic 55–75
[2021-12-27] MEDS: oxyCODONE/APAP 10/325MG (PERCOCET 10) TABLET PO PRN ×2 (01:27→08:33)
[2021-12-27] MEDS: HYDROmorphone 2 MG/ML VIAL (DILAUDID) IV PRN ×4 (01:27→10:19)
[2021-12-27] MEDS: LACTATED RINGERS 1,000 ML IV SCH ×2 (02:33→08:39)
[2021-12-27] MEDS: VANCOMYCIN 1 GM/NS 250 ML IVPB IV SCH ×4 (05:31→17:22)
[2021-12-27 06:07] LABS: HEMATOCRIT 37 % (40-54); MEAN CORPUSCULAR HEMOGLOBIN 29 pg (25-34); MEAN CORPUSCULAR HGB CONC 33 g/dL (32-36); MEAN CORPUSCULAR VOLUME 87 fL (80-99); MEAN PLATELET VOLUME 8.5 fL (9.0-12.2); PLATELET COUNT 332 10^3/uL (130-400); WHITE BLOOD COUNT 8.3 10^3/uL (4.3-11.0)
[2021-12-27 06:39] LABS: CALCIUM 9.6 MG/DL (8.5-10.1); CREATININE SERUM 0.84 MG/DL (0.60-1.30); POTASSIUM 3.8 MMOL/L (3.6-5.0)
--- NOTE | 2021-12-27 07:55 | Progress Note - Surgery ---
KUSHAL GUZMAN 12/27/21 0755: Subjective Date Seen by a Provider: Dec 27, 2021 Time Seen by a Provider: 07:50 Subjective/Events-last exam Patient is laying in bed uncomfortably Still has pain in his rectum, which he rates as a 9/10, unchanged from yesterday He does endorse passing gas Denies any N/V, fever, or chills No stool yet in his ostomy bag at this time, fluid present- amount unchanged from yesterday Is using his IS sporadically Appetite is appropriate Ambulated some yesterday in the hallway Was able to shower and get new packing yesterday, ulcer reported to be looking clean- per nurse Labs reviewed Review of Systems General: No Chills, No Night Sweats HEENT: No Ear Pain, No Sinus Congestion Pulmonary: No Dyspnea, No Cough Cardiovascular: No: Chest Pain, Palpitations Gastrointestinal: No: Vomiting, Abdominal Pain Genitourinary: No Frequency, No Hematuria Musculoskeletal: No: neck pain, shoulder pain Neurological: No: Numbness, Confusion Objective Exam Vital Signs Date Time Temp Pulse Resp B/P (MAP) Pulse Ox O2 Delivery O2 Flow Rate FiO2 12/27/21 07:29 36.3 109 18 109/68 (82) 96 Room Air 0.00 0.00 12/27/21 06:02 36.8 12/27/21 03:39 36.8 120 16 120/61 (80) 98 Room Air 12/27/21 01:57 37.3 12/27/21 01:57 37.3 12/27/21 00:10 37.3 115 16 108/56 (73) 96 Room Air 12/26/21 23:13 37.3 12/26/21 22:43 37.3 12/26/21 20:25 102/64 (77) 12/26/21 20:00 Room Air 12/26/21 19:20 37.3 119 18 102/58 (73) 95 Room Air 12/26/21 15:06 37.3 124 26 101/61 (74) 97 Room Air 12/26/21 11:23 36.7 119 18 105/62 (76) 97 Room Air 0.00 0.00 12/26/21 08:00 96 Room Air 0.00 I & O 12/27/21 07:00 Intake Total 2680 ml Output Total 3720 ml Balance -1040 ml Capillary Refill : General Appearance: No Apparent Distress, WD/WN HEENT: PERRL/EOMI, Normal ENT Inspection Neck: Non Tender, Supple Respiratory: Chest Non Tender, No Accessory Muscle Use, No Respiratory Distress Cardiovascular: No Gallop, No Murmur, Tachycardia Peripheral Pulses: 2+ Dorsalis Pedis (R), 2+ Left Dors-Pedis (L), 2+ Radial Pulses (R), 2+ Radial Pulses (L) Gastrointestinal: soft, no organomegaly, tenderness (Tender to palpation in inscison sites), other (ostomy viable with some edematous fluid in bag, no stool yet) Extremity: Non Tender, No Calf Tenderness Neurologic/Psychiatric: Alert, Oriented x3 Skin: Normal Color, Warm/Dry, Other (perianal wound, packing present and intact at this time) Lymphatic: No Adenopathy Results Lab Laboratory Tests 12/27/21 05:30: White Blood Count 8.3, Red Blood Count 4.21L, Hemoglobin 12.0L, Hematocrit 37L, Mean Corpuscular Volume 87, Mean Corpuscular Hemoglobin 29, Mean Corpuscular Hemoglobin Concent 33, Red Cell Distribution Width 13.4, Platelet Count 332, Mean Platelet Volume 8.5L, Sodium Level 135, Potassium Level 3.8, Chloride Level 97L, Carbon Dioxide Level 26, Anion Gap 12, Blood Urea Nitrogen 13, Creatinine 0 .84, Estimat Glomerular Filtration Rate 117, BUN/Creatinine Ratio 15, Glucose Level 127H, Calcium Level 9.6, Magnesium Level 2.0 Microbiology 12/25/21 Gram Stain - Final, Resulted 12/25/21 Wound Culture - Preliminary, Resulted Staphylococcus aureus 12/22/21 MRSA Screen - Final, Complete MRSA not isolated 12/21/21 Blood Culture - Final, Complete No growth Assessment/Plan Assessment/Plan Assessment/Plan Laparoscopic Monroe's procedure with end colostomy and rough debridement with packing of anal/gluteal ulcer - POD#4 Anal Cancer Anal lesion/ulceration-MRSA positive Tachycardia Continue Abx Continue pain management Continue supportive care Promote consistent ambulation Continue IS Daily dressing changes and PRN Monitor labs ALMAS TESFAYE DO 12/27/21 1156: Subjective Subjective/Events-last exam Patient pain still high. Dilaudid helped some. Passing flatus, Some liquid from colostomy, no stool. Showered this morning. Tolerating diet. Denies n/v fever sweats chill shortness of breath or chest pain. Objective Exam General Appearance: No Apparent Distress, WD/WN HEENT: PERRL/EOMI, Normal ENT Inspection Neck: Non Tender, Supple Respiratory: Chest Non Tender, No Accessory Muscle Use, No Respiratory Distress Cardiovascular: No JVD, Tachycardia Gastrointestinal: soft, tenderness (Tender to palpation in inscison sites), other (ostomy viable with some edematous fluid in bag, no stool yet) Extremity: Non Tender, No Calf Tenderness Neurologic/Psychiatric: Alert, Oriented x3 Skin: Normal Color, Warm/Dry, Other (perianal wound clean ) Assessment/Plan Assessment/Plan Assessment/Plan Laparoscopic Monroe's procedure with end colostomy and rough debridement with packing of anal/gluteal ulcer - POD#4 Anal Cancer Anal lesion/ulceration-MRSA positive Tachycardia Continue Abx Continue pain management adjust for better pain control. Substance us history may be contributing to pain control difficulties. Continue supportive care Promote consistent ambulation Continue IS Daily dressing changes and PRN Monitor labs Supervisory-Addendum Brief Verification & Attestation Participated in pt care: history, MDM, physical Personally performed: exam, history, MDM, supervision of care Care discussed with: Medical Student Procedures: n/a Results interpretation: Verified all documentation Verification and Attestation of Medical Student E/M Service A medical student performed and documented this service in my presence. I reviewed and verified all information documented by the medical student and made modifications to such information, when appropriate. I personally performed the physical exam and medical decision making. Almas Tesfaye, Dec 27, 2021,11:56 KUSHAL GUZMAN Dec 27, 2021 07:55 ALMAS TESFAYE DO Dec 27, 2021 11:56
[2021-12-27] MEDS: NICOTINE 14 MG (NICODERM) PATCH TD SCH (08:34)
[2021-12-27] MEDS: PANTOPRAZOLE 40 MG (PROTONIX) VIAL IV SCH (08:34)
[2021-12-27] MEDS: PATCH REMOVAL TP SCH (08:34)
[2021-12-27] MEDS ORDERED: diphenhydrAMINE 50 MG/ML INJ (BENADRYL) IV PRN (11:00)
[2021-12-27] MEDS ORDERED: METOCLOPRAMIDE INJ 10 MG/2 ML (REGLAN) IV PRN (11:00)
[2021-12-27] MEDS ORDERED: ONDANSETRON 4 MG/2 ML (SDV) Z0FRAN IV PRN (11:00)
[2021-12-27] MEDS ORDERED: NALOXONE 0.4 MG/ML 1 ML (NARCAN) VIAL IV PRN (11:00)
[2021-12-27] MEDS ORDERED: LACTATED RINGERS 1,000 ML IV SCH (11:12)
--- NOTE | 2021-12-27 11:16 | Consultation - Hospitalist ---
HPI History of Present Illness: HPI/Chief Complaint Patient is a 36-year-old male with past medical history of anal cancer who was admitted to the surgery service for anal lesion resection. I am consulted for sinus tachycardia. He underwent surgery on December 23 with end colostomy creation. He has had significant pain since that time and they have been adjusting his pain medications increasing to Dilaudid yesterday. He reports his pain is still 8 out of 10. He denies any chest pain, palpitations, shortness of breath. EKG was being done while I was at bedside. He has no other complaints other than pain. Source: patient Date Seen 12/27/21 Attending Physician Trisha,Local Physician PCP Admitting Physician: Cody Mcclendon DO Attending Physician: Cody Mcclendon DO Referring Physician Date of Admission Dec 21, 2021 at 13:14 Home Medications & Allergies Home Medications Reviewed patient Home Medication Reconciliation performed by pharmacy medication reconciliations crop and soil technician and/or nursing. Patients Allergies have been reviewed. Allergies Allergies Coded Allergies No Known Drug Allergies (Unverified06/10/21) Past Wqlsrmc-Smtxss-Wdvnec Hx Patient Social History Tobacco Use?: Yes Tobacco type used: Cigarettes Smoking Status: Current Someday Smoker Smokeless Tobacco Frequency: Never a User Use of E-Cig and/or Vaping dev: No Use of E-Cig and/or Vaping [place]: Never a User Substance use?: Yes Substance type: Methamphetamine Substance frequency: Couple times a week Alcohol Use?: Yes Pt feels they are or have been: No Immunizations Up To Date First/Initial COVID19 Vaccinat: NO Second COVID19 Vaccination Jim: NO Tetanus Booster (TDap): Unknown Hepatitis A: No Hepatitis B: No Seasonal Allergies Seasonal Allergies: Yes Current Status Advance Directives: No Communicates: Verbally Primary Language: Yakut Preferred Spoken Language: Yakut Is interpretation needed?: No Past Medical History Surgeries: Orthopedic (jaw surgery) Currently Using CPAP: No Currently Using BIPAP: No TIA Sexually Transmitted Disease: No HIV/AIDS: No Gastroesophageal Reflux, Chronic Constipation Arthritis Loss of Vision: Denies Hearing Impairment: Denies Rectal (Anal ) Did You Recieve Any Treatments: Yes What Type of Treatment Did You: Chemotherapy Anxiety, Violent Behavior, Depression Blood Disorders: No Adverse Reaction/Blood Tranf: No Family Medical History Reviewed Nursing Family Hx Cancer, Hypertension Review of Systems Constitutional: No chills, No fever EENTM: no symptoms reported Respiratory: No dyspnea on exertion, No short of breath Cardiovascular: No chest pain, No edema, No palpitations Gastrointestinal: abdominal pain Genitourinary: no symptoms reported Musculoskeletal: joint pain (shoulder pain) Skin: no symptoms reported Psychiatric/Neurological: No Symptoms Reported Physical Exam Physical Exam Vital Signs Vital Signs - First Documented 12/21/21 05:53 Temp 36.6 Pulse 113 Resp 22 B/P (MAP) 129/73 (91) Pulse Ox 99 O2 Delivery Room Air Capillary Refill : Height, Weight, BMI Height: 5'7.00" Weight: 140lbs. 0oz. 63.221563gm; 25.00 BMI Method:Stated General Appearance: No Apparent Distress, WD/WN, Thin Eyes: Bilateral Eye PERRL, Bilateral Eye EOMI HEENT: PERRL/EOMI, Moist Mucous Membranes; No Scleral Icterus (L), No Scleral Icterus (R) Neck: Normal Inspection, Supple Respiratory: Lungs Clear, No Accessory Muscle Use, No Respiratory Distress Cardiovascular: No JVD, No Murmur, Tachycardia Gastrointestinal: No Distended; Guarding, Tenderness (diffuse, appropriate) Extremity: Non Tender, No Calf Tenderness, No Pedal Edema Neurologic/Psychiatric: Alert, Oriented x3, Normal Mood/Affect Skin: Normal Color, Warm/Dry, Other (perianal wound, packing present and intact at this time) Results Results/Procedures Labs Laboratory Tests 12/27/21 05:30 Patient resulted labs reviewed. 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
[2021-12-27] MEDS: HYDROmorphone PCA 20 MG/100 ML NS IV PRN (11:57)
[2021-12-28 03:28] VITALS: BP 109/68
[2021-12-28] MEDS ORDERED: TROUGH ORDER-PHARMACY XX ONE (05:00)
[2021-12-28] MEDS: VANCOMYCIN 1 GM/NS 250 ML IVPB IV SCH ×6 (06:27→21:26)
--- NOTE | 2021-12-28 07:55 | Progress Note - Surgery ---
YANA LEHMAN 12/28/21 0755: Subjective Date Seen by a Provider: Dec 28, 2021 Time Seen by a Provider: 07:30 Subjective/Events-last exam Patient received breakfast while I was in the room. States his pain is about the same. RN states that ELECTRIC MOTOR TESTER ASSEMBLER device has helped with his pain. Patient states that all of his pain is in his rectum. States that his ostomy and abdomen are not causing him problems. Patient states he will continue to try to get up and ambulate throughout the day. Review of Systems General: No Chills, No Night Sweats HEENT: No Head Aches, No Visual Changes Pulmonary: No Dyspnea, No Cough Cardiovascular: No: Chest Pain, Palpitations Gastrointestinal: No: Nausea, Vomiting, Abdominal Pain Genitourinary: No Dysuria, No Frequency Neurological: No: Weakness, Numbness Objective Exam Vital Signs Date Time Temp Pulse Resp B/P (MAP) Pulse Ox O2 Delivery O2 Flow Rate FiO2 12/28/21 07:07 Room Air 12/28/21 03:28 37.0 117 16 109/68 (82) 98 Room Air 12/27/21 23:52 36.4 120 16 135/75 (95) 98 Room Air 12/27/21 20:54 Room Air 12/27/21 20:05 37.3 126 20 108/65 (79) Room Air 12/27/21 15:53 37.5 112 18 104/59 (74) 98 Room Air 12/27/21 11:40 36.7 106 18 116/55 (75) 98 Room Air 0.00 0.00 12/27/21 08:00 96 Room Air 0.00 I & O 12/28/21 07:00 Intake Total 8845 ml Output Total 3950 ml Balance 4895 ml Capillary Refill : General Appearance: No Apparent Distress, WD/WN HEENT: PERRL/EOMI Neck: Non Tender, Supple Respiratory: Chest Non Tender, No Accessory Muscle Use, No Respiratory Distress Cardiovascular: No JVD, Tachycardia Peripheral Pulses: 2+ Dorsalis Pedis (R), 2+ Left Dors-Pedis (L), 2+ Radial Pulses (R), 2+ Radial Pulses (L) Gastrointestinal: soft, tenderness (Mild around incisional sites), other (Ostomy pink and patent, trace stool in ostomy bag) Extremity: Non Tender, No Calf Tenderness Neurologic/Psychiatric: Alert, Oriented x3 Skin: Normal Color, Warm/Dry, Other (perianal wound clean ) Results Lab Laboratory Tests 12/28/21 05:10: Vancomycin Level Trough 5.5L Microbiology 12/25/21 Gram Stain - Final, Resulted 12/25/21 Wound Culture - Preliminary, Resulted Staphylococcus aureus 12/22/21 MRSA Screen - Final, Complete MRSA not isolated 12/21/21 Blood Culture - Final, Complete No growth Assessment/Plan Assessment/Plan Assessment/Plan Laparoscopic Monroe's procedure with end colostomy and rough debridement with packing of anal/gluteal ulcer - POD#5 Anal Cancer Anal lesion/ulceration-MRSA positive Tachycardia Continue Abx Continue pain management adjust for better pain control. 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 Continue supportive care Promote consistent ambulation Continue IS Daily dressing changes and PRN Monitor labs CODY FRANKEL DO 12/28/21 1224: Subjective Time Seen by a Provider: 11:35 Subjective/Events-last exam Pt seen and examined, states he is doing better with ELECTRIC MOTOR TESTER ASSEMBLER. Also reports solid BM per rectum and now "just liquid drainage". Review of Systems Pulmonary: No Dyspnea, No Cough Cardiovascular: No: Chest Pain, Palpitations Gastrointestinal: Other (rectal pain); No: Nausea, Vomiting, Abdominal Pain Objective Exam General Appearance: No Apparent Distress, WD/WN HEENT: PERRL/EOMI Respiratory: Chest Non Tender, Lungs Clear, Normal Breath Sounds, No Accessory Muscle Use, No Respiratory Distress Cardiovascular: No JVD, Tachycardia Gastrointestinal: soft, tenderness (Mild around incisional sites), other (Ostomy pink and patent, large amount of stool in ostomy bag) Extremity: Non Tender, No Calf Tenderness Assessment/Plan Assessment/Plan Assessment/Plan Laparoscopic Monroe's procedure with end colostomy and rough debridement with packing of anal/gluteal ulcer - POD#5 Anal Cancer Anal lesion/ulceration-MRSA positive Tachycardia Continue Abx, Continue pain management adjust for better pain control. 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 Encourage IS and ambulation, Wound care to help with daily dressing changes and PRN Trying to get insurance, home health, etc set up. Supervisory-Addendum Brief Verification & Attestation Participated in pt care: history, MDM, physical Personally performed: exam, history, MDM, supervision of care Care discussed with: Medical Student Procedures: n/a Verification and Attestation of Medical Student E/M Service A medical student performed and documented this service. I then reviewed and verified all information documented by the medical student and made modifications to such information, when appropriate. I personally performed a physical exam, medical decision making and then discussed any differences between the notes and made revisions as necessary to create one note. Cody Frankel , 12/28/21 , 12:24 YANA LEHMAN Dec 28, 2021 07:55 CODY FRANKEL DO Dec 28, 2021 12:24
[2021-12-28 08:21] VITALS: BP 121/67
[2021-12-28] MEDS: PANTOPRAZOLE 40 MG (PROTONIX) VIAL IV SCH (08:26)
[2021-12-28] MEDS: PATCH REMOVAL TP SCH (08:26)
[2021-12-28] MEDS: NICOTINE 14 MG (NICODERM) PATCH TD SCH (08:26)
[2021-12-28] MEDS: SENNA W/DOCUSATE (SENOKOT S) TABLET PO SCH (08:26)
[2021-12-28] MEDS: HYDROmorphone PCA 20 MG/100 ML NS IV PRN (10:01)
[2021-12-28] MEDS: NS IV 1000 ML 1,000 ML IV SCH (10:21)
[2021-12-28 11:08] VITALS: BP 111/65
[2021-12-28 16:22] VITALS: BP 116/64
--- NOTE | 2021-12-28 16:52 | Progress Note - Hospitalist ---
Subjective HPI/CC On Admission Date Seen by Provider: Dec 28, 2021 Time Seen by Provider: 10:10 Patient is a 36-year-old male with past medical history of anal cancer who was admitted to the surgery service for anal lesion resection. I am consulted for sinus tachycardia. He underwent surgery on December 23 with end colostomy creation. He has had significant pain since that time and they have been adjusting his pain medications increasing to Dilaudid yesterday. He reports his pain is still 8 out of 10. He denies any chest pain, palpitations, shortness of breath. EKG was being done while I was at bedside. He has no other complaints other than pain. Subjective/Events-last exam He is still having pain. He has no other complaints. Objective Exam Vital Signs Vital Signs Date Time Temp Pulse Resp B/P (MAP) Pulse Ox O2 Delivery O2 Flow Rate FiO2 12/28/21 16:22 36.8 114 21 116/64 (81) 99 Room Air 12/27/21 11:40 0.00 0.00 Capillary Refill : General Appearance: No Apparent Distress, WD/WN Respiratory: Lungs Clear, No Respiratory Distress Gastrointestinal: Normal Bowel Sounds, Soft Extremity: Normal Inspection, No Pedal Edema Neurologic/Psychiatric: Alert, Normal Mood/Affect Skin: Normal Color, Warm/Dry Results/Procedures Lab Patient resulted labs reviewed. 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
[2021-12-28 19:37] VITALS: BP 138/74
[2021-12-28 23:05] VITALS: BP 97/57
[2021-12-29 04:16] VITALS: BP 110/57
[2021-12-29] MEDS ORDERED: TROUGH ORDER-PHARMACY XX NR (05:00)
[2021-12-29] MEDS: VANCOMYCIN 1 GM/NS 250 ML IVPB IV SCH ×6 (06:34→21:48)
[2021-12-29] MEDS: NS IV 1000 ML 1,000 ML IV SCH ×2 (07:16→20:17)
[2021-12-29 07:33] VITALS: BP 108/66
[2021-12-29] MEDS: SENNA W/DOCUSATE (SENOKOT S) TABLET PO SCH (07:41)
[2021-12-29] MEDS: NICOTINE 14 MG (NICODERM) PATCH TD SCH (07:41)
[2021-12-29] MEDS: PANTOPRAZOLE 40 MG (PROTONIX) VIAL IV SCH (07:41)
--- NOTE | 2021-12-29 08:40 | Progress Note - Surgery ---
YANA LEHMAN 12/29/21 0840: Subjective Date Seen by a Provider: Dec 29, 2021 Time Seen by a Provider: 07:00 Subjective/Events-last exam Patient sleeping when I entered the room. States his pain is about the same as yesterday, maybe a little improved. Patient did learn how to change and clean ostomy yesterday. Patient states that he talked with social services assistant yesterday, although I do not see a note. Patient is working on acquiring medicaid so that he can receive outpatient treatment for his wounds and cancer. Patient has been getting up and ambulating. Review of Systems General: No Chills, No Night Sweats HEENT: No Head Aches, No Visual Changes Pulmonary: No Dyspnea, No Cough Cardiovascular: No: Chest Pain, Palpitations Gastrointestinal: Abdominal Pain (Primarily rectal, trace abdominal pain ); No: Nausea, Vomiting Genitourinary: No Dysuria, No Frequency Musculoskeletal: leg pain (LE soreness/tightness ) Neurological: No: Weakness, Numbness Objective Exam Vital Signs Date Time Temp Pulse Resp B/P (MAP) Pulse Ox O2 Delivery O2 Flow Rate FiO2 12/29/21 07:33 37.1 111 16 108/66 (80) 97 Room Air 12/29/21 07:29 99 Room Air 0.00 12/29/21 04:16 37.0 115 18 110/57 (74) 99 Room Air 12/28/21 23:05 37.0 115 21 97/57 (70) 99 Room Air 12/28/21 20:00 Room Air 12/28/21 19:37 37.5 90 21 138/74 (95) 98 Room Air 12/28/21 16:22 36.8 114 21 116/64 (81) 99 Room Air 12/28/21 11:08 37.1 114 20 111/65 (80) 97 Room Air I & O 12/29/21 06:59 Intake Total 4210 ml Output Total 1501 ml Balance 2709 ml Capillary Refill : General Appearance: No Apparent Distress, WD/WN HEENT: PERRL/EOMI Neck: Non Tender, Supple Respiratory: Lungs Clear, Normal Breath Sounds, No Accessory Muscle Use, No Respiratory Distress Cardiovascular: No Gallop, No Murmur, Tachycardia Peripheral Pulses: 2+ Dorsalis Pedis (R), 2+ Left Dors-Pedis (L), 2+ Radial Pulses (R), 2+ Radial Pulses (L) Gastrointestinal: soft; No tenderness; other (Ostomy pink and patent, stool present in ostomy ) Extremity: Normal Inspection, Non Tender, No Calf Tenderness, No Pedal Edema Neurologic/Psychiatric: Alert, Normal Mood/Affect Skin: Normal Color, Warm/Dry Results Lab Laboratory Tests 12/29/21 05:25: Vancomycin Level Trough 13.1 Microbiology 12/25/21 Gram Stain - Final, Complete 12/25/21 Wound Culture - Final, Complete Staphylococcus aureus 12/22/21 MRSA Screen - Final, Complete MRSA not isolated 12/21/21 Blood Culture - Final, Complete No growth Assessment/Plan Assessment/Plan Assessment/Plan Laparoscopic Monroe's procedure with end colostomy and rough debridement with packing of anal/gluteal ulcer - POD#6 Anal Cancer Anal lesion/ulceration-MRSA positive Tachycardia Continue Abx, Continue pain management adjust for better pain control. 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 Encourage IS and ambulation, Wound care to help with daily dressing changes and PRN Trying to get insurance, home health, etc set up. Will f/u with wound care to make sure the ball is rolling. Once this is set up, patient can be discharged with outpt f/u. CODY FRANKEL DO 12/29/21 1431: Subjective Time Seen by a Provider: 12:49 Subjective/Events-last exam Pt seen and examined, no new complaints. States pain mostly controlled. Review of Systems General: No Chills, No Night Sweats Pulmonary: No Dyspnea, No Cough Cardiovascular: No: Chest Pain, Palpitations Gastrointestinal: Abdominal Pain (Primarily rectal, trace abdominal pain ); No: Nausea, Vomiting Objective Exam General Appearance: No Apparent Distress, WD/WN Respiratory: Lungs Clear, Normal Breath Sounds, No Accessory Muscle Use, No Respiratory Distress Cardiovascular: No Murmur, Tachycardia Gastrointestinal: soft; No tenderness; other (Ostomy pink and patent, stool present in ostomy ) Assessment/Plan Assessment/Plan Assessment/Plan Laparoscopic Monroe's procedure with end colostomy and rough debridement with packing of anal/gluteal ulcer - POD#6 Anal Cancer Anal lesion/ulceration-MRSA positive Tachycardia Continue Abx, Continue pain management adjust for better pain control. 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 Encourage IS and ambulation, Wound care to help with daily dressing changes and PRN Trying to get insurance, home health, etc set up. Will f/u with wound care to make sure the ball is rolling. Once this is set up, patient can be discharged with outpt f/u. Supervisory-Addendum Brief Verification & Attestation Participated in pt care: history, MDM, physical Personally performed: exam, history, MDM, supervision of care Care discussed with: Medical Student Procedures: n/a Verification and Attestation of Medical Student E/M Service A medical student performed and documented this service. I then reviewed and verified all information documented by the medical student and made modifications to such information, when appropriate. I personally performed a physical exam, medical decision making and then discussed any differences between the notes and made revisions as necessary to create one note. Cody Frankel , 12/29/21 , 14:31 YANA LEHMAN Dec 29, 2021 08:40 CODY FRANKEL DO Dec 29, 2021 14:31
[2021-12-29] MEDS: PATCH REMOVAL TP SCH (10:09)
[2021-12-29] MEDS ORDERED: oxyCODONE ER 40 MG (oxyCONTIN CR) TAB PO NR (11:30)
[2021-12-29] MEDS: HYDROmorphone PCA 20 MG/100 ML NS IV PRN (11:37)
[2021-12-29 12:03] VITALS: BP 125/70
[2021-12-29 15:18] VITALS: BP 106/61
--- NOTE | 2021-12-29 16:25 | Progress Note - Hospitalist ---
Subjective HPI/CC On Admission Date Seen by Provider: Dec 29, 2021 Time Seen by Provider: 10:25 Patient is a 36-year-old male with past medical history of anal cancer who was admitted to the surgery service for anal lesion resection. I am consulted for sinus tachycardia. He underwent surgery on December 23 with end colostomy creation. He has had significant pain since that time and they have been adjusting his pain medications increasing to Dilaudid yesterday. He reports his pain is still 8 out of 10. He denies any chest pain, palpitations, shortness of breath. EKG was being done while I was at bedside. He has no other complaints other than pain. Subjective/Events-last exam He is up walking in the del cid. He is having bowel movements. He is still having pain. He thinks it might be improving. Objective Exam Vital Signs Vital Signs Date Time Temp Pulse Resp B/P (MAP) Pulse Ox O2 Delivery O2 Flow Rate FiO2 12/29/21 15:18 37.0 121 18 106/61 (76) 97 Room Air 12/29/21 07:29 0.00 Capillary Refill : General Appearance: No Apparent Distress, WD/WN Respiratory: Lungs Clear, No Respiratory Distress Cardiovascular: Regular Rate, Rhythm, No Murmur Gastrointestinal: Normal Bowel Sounds, Soft Extremity: Normal Inspection, No Pedal Edema Neurologic/Psychiatric: Alert, No Motor/Sensory Deficits Skin: Normal Color, Warm/Dry Results/Procedures Lab Patient resulted labs reviewed. 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
[2021-12-29 19:55] VITALS: BP 109/62
[2021-12-29] MEDS: oxyCODONE ER 40 MG (oxyCONTIN CR) TAB PO SCH (20:16)
[2021-12-29 23:12] VITALS: BP 109/63
[2021-12-30] VITALS (7 sets, daily range): BP systolic 97–118; BP diastolic 52–63
[2021-12-30] MEDS: NS IV 1000 ML 1,000 ML IV SCH (05:38)
[2021-12-30] MEDS: VANCOMYCIN 1 GM/NS 250 ML IVPB IV SCH ×6 (05:38→21:22)
[2021-12-30 06:19] LABS: CALCIUM 8.8 MG/DL (8.5-10.1); CREATININE SERUM 0.81 MG/DL (0.60-1.30); POTASSIUM 4.3 MMOL/L (3.6-5.0)
--- NOTE | 2021-12-30 07:47 | Progress Note - Surgery ---
YANA LEHMAN 12/30/21 0747: Subjective Date Seen by a Provider: Dec 30, 2021 Time Seen by a Provider: 07:15 Subjective/Events-last exam Patient resting in bed when I entered the room. Told me he may be a little sleepy from recently receiving pain meds. Patient does state that his pain is slowly improving. He has been up and ambulating and using IS. Patient has still not seen social work job titles. Review of Systems General: No Chills, No Night Sweats HEENT: No Head Aches, No Visual Changes Pulmonary: No Dyspnea, No Cough Cardiovascular: No: Chest Pain, Palpitations Gastrointestinal: Other (rectal pain ); No: Nausea, Vomiting, Abdominal Pain Genitourinary: No Dysuria, No Frequency Neurological: No: Weakness, Numbness Objective Exam Vital Signs Date Time Temp Pulse Resp B/P (MAP) Pulse Ox O2 Delivery O2 Flow Rate FiO2 12/30/21 03:13 37.4 113 20 109/63 (78) 97 Room Air 0.00 0.00 12/29/21 23:12 37.3 113 20 109/63 (78) 94 Room Air 12/29/21 20:00 Room Air 12/29/21 19:55 36.4 134 20 109/62 (78) 96 Room Air 12/29/21 15:18 37.0 121 18 106/61 (76) 97 Room Air 12/29/21 12:03 37.2 115 20 125/70 (88) 96 Room Air I & O 12/30/21 07:00 Intake Total 5720 ml Output Total 4425 ml Balance 1295 ml Capillary Refill : General Appearance: No Apparent Distress, WD/WN HEENT: PERRL/EOMI Neck: Non Tender, Supple Respiratory: Lungs Clear, Normal Breath Sounds, No Accessory Muscle Use, No Respiratory Distress Cardiovascular: No Murmur, Tachycardia (regular rhythm ) Gastrointestinal: non tender, soft; No tenderness; other (Ostomy pink and patent, stool present in ostomy ) Extremity: Normal Inspection, Non Tender, No Calf Tenderness, No Pedal Edema Neurologic/Psychiatric: Alert, No Motor/Sensory Deficits Skin: Normal Color, Warm/Dry Results Lab Laboratory Tests 12/30/21 05:15: Sodium Level 138, Potassium Level 4.3, Chloride Level 102, Carbon Dioxide Level 25, Anion Gap 11, Blood Urea Nitrogen 13, Creatinine 0.81, Estimat Glomerular Filtration Rate 118, BUN/Creatinine Ratio 16, Glucose Level 95, Calcium Level 8.8 Microbiology 12/25/21 Gram Stain - Final, Complete 12/25/21 Wound Culture - Final, Complete Staphylococcus aureus 12/22/21 MRSA Screen - Final, Complete MRSA not isolated 12/21/21 Blood Culture - Final, Complete No growth Assessment/Plan Assessment/Plan Assessment/Plan Laparoscopic Monroe's procedure with end colostomy and rough debridement with packing of anal/gluteal ulcer - POD#7 Anal Cancer Anal lesion/ulceration-MRSA positive Tachycardia Continue Abx, Continue pain management adjust for better pain control. 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 Encourage IS and ambulation, Wound care to help with daily dressing changes and PRN Trying to get insurance, home health, etc set up. Will make sure that social work job titles touch base today with patient. Once this is complete patient will be safe for discharge with outpatient follow up. CODY FRANKEL DO 12/30/21 1020: Subjective Time Seen by a Provider: 08:29 Subjective/Events-last exam Pt seen and examined, no changes and nurse states he is only on oral meds now. Review of Systems Pulmonary: No Dyspnea, No Cough Cardiovascular: No: Chest Pain, Palpitations Gastrointestinal: No: Nausea, Vomiting, Abdominal Pain Objective Exam General Appearance: No Apparent Distress, WD/WN HEENT: PERRL/EOMI Respiratory: Lungs Clear, Normal Breath Sounds, No Accessory Muscle Use, No Respiratory Distress Cardiovascular: No Murmur, Tachycardia (regular rhythm ) Gastrointestinal: non tender, soft, other (Ostomy pink and patent, stool present in ostomy ) Assessment/Plan Assessment/Plan Assessment/Plan Laparoscopic Monroe's procedure with end colostomy and rough debridement with packing of anal/gluteal ulcer - POD#7 Anal Cancer Anal lesion/ulceration-MRSA positive Tachycardia Continue Abx for anal/gluteal wound, Continue pain management; orals only. Encourage IS and nurse states pt is doing very well with ambulation, Wound care to help with daily dressing changes and PRN Still attempting social service for this pt and wound care for packing the wound daily. Spoke with social work job titles and will try to get this done, will be harder because of holidays. Supervisory-Addendum Brief Verification & Attestation Participated in pt care: history, MDM, physical Personally performed: exam, history, MDM, supervision of care Care discussed with: Medical Student Procedures: n/a Verification and Attestation of Medical Student E/M Service A medical student performed and documented this service. I then reviewed and verified all information documented by the medical student and made modifications to such information, when appropriate. I personally performed a physical exam, medical decision making and then discussed any differences between the notes and made revisions as necessary to create one note. Cody Frankel , 12/30/21 , 10:20 YANA LEHMAN Dec 30, 2021 07:47 CODY FRANKEL DO Dec 30, 2021 10:20
[2021-12-30] MEDS: oxyCODONE ER 40 MG (oxyCONTIN CR) TAB PO SCH ×2 (08:07→20:34)
[2021-12-30] MEDS: PATCH REMOVAL TP SCH (08:07)
[2021-12-30] MEDS: SENNA W/DOCUSATE (SENOKOT S) TABLET PO SCH (08:07)
[2021-12-30] MEDS: NICOTINE 14 MG (NICODERM) PATCH TD SCH (08:07)
[2021-12-30] MEDS: PANTOPRAZOLE 40 MG (PROTONIX) VIAL IV SCH (08:10)
[2021-12-30] MEDS ORDERED: LACTATED RINGERS 1,000 ML IV ONE (11:45)
--- NOTE | 2021-12-30 17:26 | Progress Note - Hospitalist ---
Subjective HPI/CC On Admission Date Seen by Provider: Dec 30, 2021 Time Seen by Provider: 11:25 Patient is a 36-year-old male with past medical history of anal cancer who was admitted to the surgery service for anal lesion resection. I am consulted for sinus tachycardia. He underwent surgery on December 23 with end colostomy creation. He has had significant pain since that time and they have been adjusting his pain medications increasing to Dilaudid yesterday. He reports his pain is still 8 out of 10. He denies any chest pain, palpitations, shortness of breath. EKG was being done while I was at bedside. He has no other complaints other than pain. Subjective/Events-last exam He is still reporting pain. He is up walking. Objective Exam Vital Signs Vital Signs Date Time Temp Pulse Resp B/P (MAP) Pulse Ox O2 Delivery O2 Flow Rate FiO2 12/30/21 15:34 37.1 112 18 97/54 (68) 94 Room Air 12/30/21 03:13 0.00 0.00 Capillary Refill : General Appearance: No Apparent Distress, WD/WN Neck: Normal Inspection, Supple Respiratory: Lungs Clear, No Respiratory Distress Cardiovascular: No Murmur, Tachycardia Gastrointestinal: Normal Bowel Sounds, Soft Extremity: Normal Inspection, No Pedal Edema Neurologic/Psychiatric: Alert, Other (drowsy appearing) Skin: Normal Color, Warm/Dry Results/Procedures Lab Laboratory Tests 12/30/21 05:15 Patient resulted labs reviewed. 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
[2021-12-30] MEDS ORDERED: OXC5T PO (17:48)
[2021-12-30] MEDS ORDERED: OXC40TCR PO (17:48)
--- NOTE | 2021-12-30 17:52 | Discharge Inst-Surgical ---
Discharge Inst-Surgical Depart Medication/Instructions New, Converted or Re-Newed RX: Transmitted to Pharmacy Patient Instructions Follow up Appt: Make appointment for 1 week. [phone] Instructions: No lifting greater than 20 pounds. No strenuous activity. May shower in 24 hours, no tub bath or soaking. Use incentive spirometer at home as directed. No Smoking Skin/Wound Care: You need to leave the adalberto in place and come to the clinic to have them removed. Symptoms to Report: Appetite Changes, Extremity Discoloration, Numbness/Tingling, Swelling Increased, Bleeding Excessive, Eyesight Changes, Pain Increased, Urine Color Change, Constipation(Persistent), Fever over 101 degree F, Pain/Pressure in chest, Urinating Difficulty, Cough Up/Vomit Blood, Heart Beat Irreg/Pounding, Pain/Pressure in jaw, Cramps in feet or legs, Lightheadedness, Pain/Pressure in shoulder, Diarrhea(Persistent), Memory Changes Suddenly, Questions/Concerns, Weight gain consecutive days, Dizziness/Fainting, Nausea/Vomiting, Shortness of Breath, Weight gain over 2 pounds If questions or concerns contact your physician Or seek help at emergency department. Activity Activity as Tolerated: Yes Diet Discharge Diet: No Restrictions Diet After 24 Hours: Clear Liquid if Nauseous If Any Problems/Questions/Issu: Contact Your Physician, Go to Emergency Room Skin/Wound Care Infection Signs and Symptoms: Increased Redness, Foul Odor of Wound, Increased Drainage, Skin Itchy or Has a Rash, Increased Swelling, Temperature Above 101 F Wound Care Comment: Ostomy teaching Bathing Instructions: Shower Stitches/Adalberto/Dermabond Dis: Care of MARICRUZ Zamorano DO Dec 30, 2021 17:52
[2021-12-31 03:21] VITALS: BP 102/55
[2021-12-31 08:00] VITALS: BP 119/67
[2021-12-31] MEDS: PANTOPRAZOLE 40 MG (PROTONIX) VIAL IV SCH (08:20)
[2021-12-31] MEDS: PATCH REMOVAL TP SCH (08:21)
[2021-12-31] MEDS: SENNA W/DOCUSATE (SENOKOT S) TABLET PO SCH (08:21)
[2021-12-31] MEDS: oxyCODONE ER 40 MG (oxyCONTIN CR) TAB PO SCH ×2 (08:21→19:38)
[2021-12-31] MEDS: NICOTINE 14 MG (NICODERM) PATCH TD SCH (08:21)
--- NOTE | 2021-12-31 09:58 | Progress Note - Surgery ---
Subjective Time Seen by a Provider: 09:21 Subjective/Events-last exam Pt seen and examined, had just walked out of the bathroom. States he is doing ok; did not appear to be in pain. Review of Systems General: No Chills, No Night Sweats Pulmonary: No Dyspnea, No Cough Cardiovascular: No: Chest Pain, Palpitations Gastrointestinal: No: Nausea, Vomiting, Abdominal Pain Objective Exam Vital Signs Date Time Temp Pulse Resp B/P (MAP) Pulse Ox O2 Delivery O2 Flow Rate FiO2 12/31/21 08:00 37.0 105 18 119/67 (84) 100 Room Air 12/31/21 03:21 37.3 109 18 102/55 (71) 96 Room Air 12/30/21 23:16 36.9 117 20 103/52 (69) 99 Room Air 12/30/21 21:25 117 98 Room Air 12/30/21 19:30 Room Air 12/30/21 19:09 37.7 123 20 98/55 (69) 98 Room Air 12/30/21 15:34 37.1 112 18 97/54 (68) 94 Room Air 12/30/21 14:21 113 22 100/56 (71) 100 Room Air 12/30/21 12:08 20 12/30/21 11:31 37.1 100 18 99/63 (75) 97 Room Air I & O 12/31/21 07:00 Intake Total 3390 ml Balance 3390 ml Capillary Refill : General Appearance: No Apparent Distress, WD/WN HEENT: PERRL/EOMI Respiratory: Lungs Clear, No Respiratory Distress Cardiovascular: No Murmur, Tachycardia Gastrointestinal: non tender, soft, other (Ostomy pink and patent, stool present in ostomy ) Neurologic/Psychiatric: Alert Results Lab Microbiology 12/25/21 Gram Stain - Final, Complete 12/25/21 Wound Culture - Final, Complete Staphylococcus aureus 12/22/21 MRSA Screen - Final, Complete MRSA not isolated 12/21/21 Blood Culture - Final, Complete No growth Assessment/Plan Assessment/Plan Assessment/Plan Laparoscopic Monroe's procedure with end colostomy and rough debridement with packing of anal/gluteal ulcer - POD#7 Anal Cancer Anal lesion/ulceration-MRSA positive Tachycardia Continue Abx for anal/gluteal wound, Continue pain management; orals only. Encourage IS and nurse states pt is doing very well with ambulation, Wound care to help with daily dressing changes and PRN Unable to get pain meds because of holidays, will try and d/c tomorrow. MARICRUZ FRANKEL DO Dec 31, 2021 09:58
[2021-12-31 12:00] VITALS: BP 118/68
[2021-12-31 16:50] VITALS: BP 117/60
[2021-12-31 21:00] VITALS: BP 100/56
[2021-12-31 23:04] VITALS: BP 111/74
[2022-01-01 03:47] VITALS: BP 108/76
[2022-01-01 07:22] VITALS: BP 103/59
[2022-01-01] MEDS: oxyCODONE ER 40 MG (oxyCONTIN CR) TAB PO SCH (08:42)
[2022-01-01] MEDS: NICOTINE 14 MG (NICODERM) PATCH TD SCH (08:42)
[2022-01-01] MEDS: PANTOPRAZOLE 40 MG (PROTONIX) VIAL IV SCH ×2 (08:42→10:54)
[2022-01-01] MEDS: PATCH REMOVAL TP SCH (08:48)
[2022-01-01] MEDS: SENNA W/DOCUSATE (SENOKOT S) TABLET PO SCH (08:48)
--- NOTE | 2022-01-01 10:00 | Progress Note - Surgery ---
YANA LEHMAN 01/01/22 1000: Subjective Date Seen by a Provider: Jan 01, 2022 Time Seen by a Provider: 09:00 Subjective/Events-last exam Patient in the bathroom when I saw him. States he is having worsening pain in his rectal area. States that he doesn't think that the packing is helping and is just making it worse. Patient states he is doing "not good" today. Patient then walked to his bed, laid down and closed his eyes. Seeming to not want further conversation with me. Review of Systems General: No Chills, No Night Sweats HEENT: No Head Aches, No Visual Changes Pulmonary: No Dyspnea, No Cough Cardiovascular: No: Chest Pain, Palpitations Gastrointestinal: Other (rectal pain); No: Nausea, Vomiting, Abdominal Pain Genitourinary: No Dysuria, No Frequency Neurological: No: Weakness, Numbness Objective Exam Vital Signs Date Time Temp Pulse Resp B/P (MAP) Pulse Ox O2 Delivery O2 Flow Rate FiO2 01/01/22 07:39 Room Air 01/01/22 07:22 36.6 102 18 103/59 (74) 96 Room Air 01/01/22 03:47 37.0 122 18 108/76 (87) 97 Room Air 01/01/22 01:01 125 12/31/21 23:04 37.7 133 18 111/74 (86) 96 Room Air 0.00 0.00 12/31/21 21:00 37.7 119 19 100/56 (71) 98 Room Air 12/31/21 20:00 Room Air 12/31/21 16:50 37.9 116 18 117/60 (79) 97 Room Air 12/31/21 12:00 37.0 108 18 118/68 (85) 96 Room Air l I & O 01/01/22 07:00 Intake Total 2870 ml Output Total 275 ml Balance 2595 ml Capillary Refill : General Appearance: No Apparent Distress, WD/WN HEENT: PERRL/EOMI Respiratory: Lungs Clear, Normal Breath Sounds, No Accessory Muscle Use, No Respiratory Distress Cardiovascular: No Murmur, Tachycardia Gastrointestinal: non tender, soft, other (Ostomy pink and patent, stool present in ostomy. Abdominal icisions c/d/i, healing well ) Extremity: No Calf Tenderness, No Pedal Edema Neurologic/Psychiatric: Alert, Oriented x3, Normal Mood/Affect (irritated ), Abnormal Gait (widened, shuffling gait, 2/2 rectal ulcer + packing) Skin: Normal Color, Warm/Dry Results Lab Microbiology 12/25/21 Gram Stain - Final, Complete 12/25/21 Wound Culture - Final, Complete Staphylococcus aureus 12/22/21 MRSA Screen - Final, Complete MRSA not isolated 12/21/ Blood Culture - Final, Complete No growth Assessment/Plan Assessment/Plan Assessment/Plan Laparoscopic Monroe's procedure with end colostomy and rough debridement with packing of anal/gluteal ulcer - POD#9 Anal Cancer Anal lesion/ulceration-MRSA positive Tachycardia Patient finished Abx for rectal ulcer, Continue pain management; orals only. Encourage IS and nurse states pt is doing well with ambulation, Wound care to help with daily dressing changes and PRN. Plan for D/C today as long as pharmacy is open. CODY FRANKEL DO 01/01/22 1219: Subjective Time Seen by a Provider: 11:18 Subjective/Events-last exam Pt seen and examined, he had just walked in the del c[place]. Did not appear to be in major pain, although he said he was. Review of Systems HEENT: No Head Aches, No Visual Changes Pulmonary: No Dyspnea, No Cough Cardiovascular: No: Chest Pain, Palpitations Gastrointestinal: Other (rectal pain); No: Nausea, Vomiting, Abdominal Pain Objective Exam General Appearance: No Apparent Distress, WD/WN HEENT: PERRL/EOMI Respiratory: Lungs Clear, Normal Breath Sounds, No Accessory Muscle Use, No Respiratory Distress Cardiovascular: No Murmur, Tachycardia Gastrointestinal: non tender, soft, other (Ostomy pink and patent, stool present in ostomy. Abdominal icisions c/d/i, healing well ) Neurologic/Psychiatric: Abnormal Gait (widened, shuffling gait, 2/2 rectal ulcer + packing) Assessment/Plan Assessment/Plan Assessment/Plan Laparoscopic Monroe's procedure with end colostomy and rough debridement with packing of anal/gluteal ulcer - POD#9 Anal Cancer Anal lesion/ulceration-MRSA positive Tachycardia Patient finished Abx for rectal ulcer, Continue pain management; orals only. Encourage IS and nurse states pt is doing well with ambulation, Wound care to help with daily dressing changes and PRN. Plan for D/C today; will switch meds to different pharmacy. Supervisory-Addendum Brief Verification & Attestation Participated in pt care: history, MDM, physical Personally performed: exam, history, MDM, supervision of care Care discussed with: Medical Student Procedures: n/a Verification and Attestation of Medical Student E/M Service A medical student performed and documented this service. I then reviewed and verified all information documented by the medical student and made modifications to such information, when appropriate. I personally performed a physical exam, medical decision making and then discussed any differences between the notes and made revisions as necessary to create one note. Cody Frankel , 01/01/22 , 12:19 YANA LEHMAN Jan 01, 2022 10:00 CODY FRANKEL DO Jan 01, 2022 12:19
[2022-01-01 11:21] VITALS: BP 124/70
[2022-01-01] MEDS ORDERED: OXC5T PO (12:22)
[2022-01-01] MEDS ORDERED: OXC40TCR PO (12:22)
[2022-01-01 15:54] VITALS: BP 98/56
[2022-01-01 17:20] VITALS: BP 98/56
== END 2022-01-01 17:15 | disposition home or self-care (01) | DRG 330 ==
LOC: EDUNIT# 05:51 → ER 05:52 → 4TH 13:14
PROVIDERS: ADMIT Surgery; ATTEND Surgery
PROC: 0HB8XZZ Excision of Buttock Skin, External Approach (ICD-10-PCS; 2021-12-23)
PROC: 0DBN0ZZ Excision of Sigmoid Colon, Open Approach (ICD-10-PCS; principal; 2021-12-23 13:59)
PROC: 0D1N0Z4 Bypass Sigmoid Colon to Cutaneous, Open Approach (ICD-10-PCS; 2021-12-23 13:59)
DX: C21.0 Malignant neoplasm of anus, unspecified (principal); K61.0 Anal abscess; K62.6 Ulcer of anus and rectum; F15.10 Other stimulant abuse, uncomplicated; Z22.322 Carrier or suspected carrier of Methicillin resistant Staphylococcus aureus; R00.0 Tachycardia, unspecified; F17.210 Nicotine dependence, cigarettes, uncomplicated; K21.9 Gastro-esophageal reflux disease without esophagitis; M19.90 Unspecified osteoarthritis, unspecified site; Z92.21 Personal history of antineoplastic chemotherapy; F41.9 Anxiety disorder, unspecified; F32.A Depression, unspecified; G89.29 Other chronic pain
CPT/HCPCS: 36415; 71045; 74177; 80048; 80053; 80202; 80306; 80320; 83605; 83735; 85007; 85025; 85027; 85610; 85730; 87040; 87070; 87077; 87081; 87186; 87205; 88305; 93005; 96361; 96374; 96375; 96376

== ENCOUNTER 2022-01-02 00:35 | Emergency (ER) | payer OTHER ==
[~2022-01-02] VITALS: Ht 168 cm; Wt 71.0 kg
[~2022-01-02 00:35] MED LIST changes: +OXC40TCR PO; +OXC5T PO
[2022-01-02] MEDS ORDERED: KETOROLAC 30 MG/ML VIAL IVP STA (00:42)
[2022-01-02] MEDS ORDERED: LACTATED RINGERS 1,000 ML IV ONE ×2 (00:45→01:15)
[2022-01-02] MEDS ORDERED: ONDANSETRON 4 MG/2 ML (SDV) Z0FRAN IVP ONE (00:45)
[2022-01-02 01:02] LABS: BASOPHILS # (AUTO) 0.1 10^3/uL (0.0-0.1); BASOPHILS % (AUTO) 1 % (0-10); EOSINOPHILS # (AUTO) 0.4 10^3/uL (0.0-0.3); EOSINOPHILS % (AUTO) 3 % (0-10); HEMATOCRIT 34 % (40-54); HEMOGLOBIN 11.1 g/dL (13.3-17.7); LYMPHOCYTES # (AUTO) 0.7 10^3/uL (1.0-4.0); LYMPHOCYTES % (AUTO) 6 % (12-44); MEAN CORPUSCULAR HEMOGLOBIN 28 pg (25-34); MEAN CORPUSCULAR HGB CONC 33 g/dL (32-36); MEAN CORPUSCULAR VOLUME 86 fL (80-99); MEAN PLATELET VOLUME 8.2 fL (9.0-12.2); MONOCYTES # (AUTO) 0.8 10^3/uL (0.0-1.0); MONOCYTES % (AUTO) 7 % (0-12); NEUTROPHILS # (AUTO) 9.6 10^3/uL (1.8-7.8); NEUTROPHILS % (AUTO) 83 % (42-75); PLATELET COUNT 392 10^3/uL (130-400); WHITE BLOOD COUNT 11.6 10^3/uL (4.3-11.0)
[2022-01-02 01:07] LABS: ALBUMIN 3.7 GM/DL (3.2-4.5); CHLORIDE 97 MMOL/L (98-107); POTASSIUM 4.2 MMOL/L (3.6-5.0); SODIUM 134 MMOL/L (135-145)
[2022-01-02 01:08] LABS: AMYLASE 25 U/L (25-125)
[2022-01-02 01:09] LABS: CALCIUM 9.6 MG/DL (8.5-10.1)
[2022-01-02 01:10] LABS: GLUCOSE 104 MG/DL (70-105); TOTAL PROTEIN 7.5 GM/DL (6.4-8.2)
[2022-01-02 01:11] LABS: CARBON DIOXIDE 26 MMOL/L (21-32)
[2022-01-02 01:12] LABS: BILIRUBIN,TOTAL 0.4 MG/DL (0.1-1.0)
[2022-01-02 01:13] LABS: ALKALINE PHOSPHATASE 71 U/L (40-136)
[2022-01-02 01:14] LABS: CREATININE SERUM 0.85 MG/DL (0.60-1.30); GFR ESTIMATED 116
[2022-01-02 01:15] LABS: BUN/CREATININE RATIO 21
[2022-01-02 01:16] LABS: ALANINE AMINOTRANSFERASE 22 U/L (0-55)
[2022-01-02 01:17] LABS: LIPASE 12 U/L (8-78)
[2022-01-02 01:56] LABS: BILIRUBIN,URINE NEGATIVE (NEGATIVE); CLARITY,URINE CLEAR; COLOR,URINE YELLOW; GLUCOSE, URINE (UA) NEGATIVE (NEGATIVE); KETONES,URINE NEGATIVE (NEGATIVE); LEUKOCYTE ESTERASE ,URINE NEGATIVE (NEGATIVE); NITRITE,URINE NEGATIVE (NEGATIVE); PH,URINE 6.5 (5-9); PROTEIN,URINE NEGATIVE (NEGATIVE)
--- NOTE | 2022-01-02 02:07 | ED Abdominal Pain ---
General Chief Complaint: Abdominal/GI Problems Stated Complaint: ABD PAIN Nursing Triage Note: BROUGHT IN BY [facility] FOR STOMA & RECTAL PAIN. DC'D FROM HOSPITAL 01/01/26 REPORTS NOT PICKING UP PAIN MEDICATION. Source of Information: Patient (DIFFICULT HISTORIAN AND APPEARS TO BE UNDER THE INFLUENCE OF SOME SUBSTANCE/S) History of Present Illness Date Seen by Provider: Jan 02, 2022 Time Seen by Provider: 00:37 Initial Comments PT ARRIVES VIA EMS FROM HOME PT WAS JUST DISMISSED FROM HOSPITAL TODAY 01/01/22 --HE WAS PRESCRIBED PAIN MEDICATION, BUT PT SIMPLY DID NOT GO TO PHARMACY TO PICK THEM UP, HE STATES HE DOESN'T HAVE ANY MONEY TO GET THEM FILLED. PT WITH HISTORY OF ANAL CANCER, RECEIVED CHEMO AND RADIATION IN THE PAST, THEN QUIT GOING TO ONCOLOGY. HE PRESENTED TO ER 12/03-12/07/21 AND WAS ADMITTED FOR ABDOMINAL PAIN , THEN LEFT AMA. HE PRESENTED AGAIN TO ER 12/21/21 AND WAS ADMITTED. HE SUBSEQUENTLY HAD COLON RESECTION WITH PERMANENT COLOSTOMY PLACED. HE WAS DISMISSED 01/01/22. HE C/O PAIN AROUND HIS STOMA AND TO HIS RECTAL AREAS--SURGICAL SITES HIS IS HAVING NORMAL STOOL OUTPUT--NORMAL COLOR, AND CONSISTENCY AND AMOUNT HE STATES HE HAS NOT EATEN SINCE HE WAS DISMISSED--STATES HE "JUST DIDN'T" . STATES HE HAS BEEN DRINKING "A LITTLE" --GIVES NO REASON WHY HE HAS NOT BEEN DRINKING ANY LIQUIDS DOES STATE HE IS A LITTLE NAUSEATED, BUT NO VOMITING NO FEVER. NO ABDOMINAL DISTENTION. PT HAS AN EXTENSIVE HISTORY OF DRUG USE, ESPECIALLY METHAMPHETAMINES AND OPIATES--ESPECIALLY OXYCODONE--ON A DAILY BASIS. HE ALSO USES MARIJUANA ON A DAILY BASIS. HE WILL NOT STATE IF HE HAS USED ANY DRUGS SINCE HE GOT HOME FROM THE HOSPITAL. [place] [facility] [place]: DR. FRANKEL Allergies and Home Medications Allergies Coded Allergies: No Known Drug Allergies (Unverified , 06/10/21) Patient Home Medication List Home Medication List Reviewed: Yes Oxycodone HCl (Oxycodone HCl ER) 40 Mg Tab.er.12h, 40 MG PO BID Prescribed by: MARICRUZ FRANKEL on 01/01/22 1223 Oxycodone Hcl (Oxyir Tablet) 5 Mg Tab, 15 MG PO Q6H PRN for PAIN MODERATE TO SEVERE Prescribed by: MARICRUZ FRANKEL on 01/01/22 1223 Review of Systems Review of Systems Constitutional: no symptoms reported Respiratory: No Symptoms Reported Cardiovascular: No Symptoms Reported Gastrointestinal: See HPI Genitourinary: No Symptoms Reported Musculoskeletal: no symptoms reported Skin: no symptoms reported Psychiatric/Neurological: No Symptoms Reported Endocrine: No Symptoms Reported Hematologic/Lymphatic: No Symptoms Reported Past Tjgqodg-Mqsamc-Vzdmyz Hx Patient Social History Tobacco Use?: Yes Tobacco type used: Cigarettes Smoking Status: Current Everyday Smoker Substance use?: Yes Substance type: Methamphetamine, Opiates/Opioids, Misuse of prescript meds, Ma rijuana Substance frequency: Daily Alcohol Use?: No Pt feels they are or have been: No Immunizations Up To Date Tetanus Booster (TDap): Unknown First/Initial COVID19 Vaccinat: NO Second COVID19 Vaccination Jim: NO Third COVID19 Vaccination Date: NO Seasonal Allergies Seasonal Allergies: Yes Past Medical History Surgery/Hospitalization HX: RECTAL CANCER, COLONOSCOPY, COLOSTOMY, PORT APPY, JAW, GERD, ANXIETY, NON-COMPLIANCE, DEPRESSION, VIOLENT BEHAVIOR. Surgeries: Yes (ANAL BIOPSY; PORT PLACEMENT; COLONOSCOPIES; COLOSTOMY) Abdominal, Appendectomy, Bowel Surgery, Orthopedic Respiratory: No Currently Using CPAP: No Currently Using BIPAP: No Cardiac: No Neurological: Yes TIA Reproductive Disorders: No Sexually Transmitted Disease: No HIV/AIDS: No Genitourinary: No Gastrointestinal: Yes (ANAL CANCER) Gastroesophageal Reflux, Chronic Constipation Musculoskeletal: Yes Arthritis, Chronic Back Pain Endocrine: No HEENT: No Loss of Vision: Denies Hearing Impairment: Denies Cancer: Yes Rectal Did You Recieve Any Treatments: Yes What Type of Treatment Did You: Chemotherapy, Radiation, Surgical Intervention ANAL CANCER--COLOSTOMY PLACED 12/2021. HAD PREVIOUS RADIATION AND CHEMO, BUT WAS NOT COMPLIANT WITH TREATMENT AND QUIT GOING TO ONCOLOGIST Psychosocial: Yes (POLYSUBSTANCE ABUSE) Anxiety, Violent Behavior, Depression Integumentary: No Blood Disorders: No Adverse Reaction/Blood Tranf: No Family Medical History Cancer, Hypertension Physical Exam Vital Signs Vital Signs - First Documented 01/02/22 00:37 Temp 37.3 Pulse 129 Resp 12 B/P (MAP) 107/78 (88) Pulse Ox 99 O2 Delivery Room Air Capillary Refill : Less Than 3 Seconds Height/Weight/BMI Height: 5'7.00" Weight: 140lbs. 0oz. 63.868101cf; 25.00 BMI Method:Stated General Appearance: WD/WN, no apparent distress, other (LAYING ON RIGHT SIDE. SPEECH IS RAPID AND SOMEWHAT MUMBLED AND DIFFICULT TO UNDERSTAND AT TIMES. PT CONSTANTLY TALKING IN THE ROOM, WHEN NO ONE ELSE IS IN THE ROOM. ) Respiratory: normal breath sounds, no respiratory distress, no accessory muscle use Cardiovascular: no murmur, tachycardia Gastrointestinal: normal bowel sounds, soft; No distended, No guarding, No rebound; tenderness (COLOSTOMY IN LEFT MID ABDOMEN WITH NORMAL APPEARANCE. NORMAL APPEARING STOOL. NO BLOOD NOTED. PERIUMBILICAL INCISION IS CLEAN/DRY/INTACT. SONIA INTACT. THERE IS MILD MICHELLE-STOMAL TENDERNESS. NO OTHER ABDOMINAL TENDERNESS. NO SIGNIFICANT RECTAL DRAINAGE. ABDOMEN IS FLAT AND NON- DISTENDED. 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 as tested, no motor/sensory deficits, alert, oriented x 3 Skin: normal color, warm/dry, tattoos/piercings (MULTIPLE TATTOOS) Progress/Results/Core Measures Results/Orders Lab Results Laboratory Tests Test 01/02/22 00:43 01/02/22 01:50 Range/Units White Blood Count 11.6 H 4.3-11.0 10^3/uL Red Blood Count 3.93 L 4.30-5.52 10^6/uL Hemoglobin 11.1 L 13.3-17.7 g/dL Hematocrit 34 L 40-54 % Mean Corpuscular Volume 86 80-99 fL Mean Corpuscular Hemoglobin 28 25-34 pg Mean Corpuscular Hemoglobin Concent 33 32-36 g/dL Red Cell Distribution Width 13.2 10.0-14.5 % Platelet Count 392 130-400 10^3/uL Mean Platelet Volume 8.2 L 9.0-12.2 fL Immature Granulocyte % (Auto) 1 % Neutrophils (%) (Auto) 83 H 42-75 % Lymphocytes (%) (Auto) 6 L 12-44 % Monocytes (%) (Auto) 7 0-12 % Eosinophils (%) (Auto) 3 0-10 % Basophils (%) (Auto) 1 0-10 % Neutrophils # (Auto) 9.6 H 1.8-7.8 10^3/uL Lymphocytes # (Auto) 0.7 L 1.0-4.0 10^3/uL Monocytes # (Auto) 0.8 0.0-1.0 10^3/uL Eosinophils # (Auto) 0.4 H 0.0-0.3 10^3/uL Basophils # (Auto) 0.1 0.0-0.1 10^3/uL Immature Granulocyte # (Auto) 0.1 0.0-0.1 10^3/uL Neutrophils % (Manual) 85 % Lymphocytes % (Manual) 6 % Monocytes % (Manual) 5 % Eosinophils % (Manual) 4 % Blood Morphology Comment NORMAL Sodium Level 134 L 135-145 MMOL/L Potassium Level 4.2 3.6-5.0 MMOL/L Chloride Level 97 L 98-107 MMOL/L Carbon Dioxide Level 26 21-32 MMOL/L Anion Gap 11 5-14 MMOL/L Blood Urea Nitrogen 18 7-18 MG/DL Creatinine 0.85 0.60-1.30 MG/DL Estimat Glomerular Filtration Rate 116 BUN/Creatinine Ratio 21 Glucose Level 104 70-105 MG/DL Calcium Level 9.6 8.5-10.1 MG/DL Corrected Calcium 9.8 8.5-10.1 MG/DL Total Bilirubin 0.4 0.1-1.0 MG/DL Aspartate Amino Transf (AST/SGOT) 18 5-34 U/L Alanine Aminotransferase (ALT/SGPT) 22 0-55 U/L Alkaline Phosphatase 71 40-136 U/L Total Protein 7.5 6.4-8.2 GM/DL Albumin 3.7 3.2-4.5 GM/DL Amylase Level 25 25-125 U/L Lipase 12 8-78 U/L Serum Alcohol < 10 <10 MG/DL Urine Opiates Screen POSITIVE H NEGATIVE Urine Oxycodone Screen POSITIVE H NEGATIVE Urine Methadone Screen NEGATIVE NEGATIVE Urine Propoxyphene Screen NEGATIVE NEGATIVE Urine Barbiturates Screen NEGATIVE NEGATIVE Ur Tricyclic Antidepressants Screen NEGATIVE NEGATIVE Urine Phencyclidine Screen NEGATIVE NEGATIVE Urine Amphetamines Screen POSITIVE H NEGATIVE Urine Methamphetamines Screen POSITIVE H NEGATIVE Urine Benzodiazepines Screen NEGATIVE NEGATIVE Urine Cocaine Screen NEGATIVE NEGATIVE Urine Cannabinoids Screen POSITIVE H NEGATIVE My Orders Orders - MARY JANE SMITH DO Ed Iv/Invasive Line Start (01/02/22 00:42) Monitor-Rhythm Ecg Trace Only (01/02/22 00:42) Amylase (01/02/22 00:42) Cbc With Automated Diff (01/02/22 00:42) Comprehensive Metabolic Panel (01/02/22 00:42) Lipase (01/02/22 00:42) Ua Culture If Indicated (01/02/22 00:42) Ed Iv/Invasive Line Start (01/02/22 00:42) Lactated Ringers (Lr 1000 Ml Iv Solution (01/02/22 00:45) Ondansetron Injection (Zofran Injectio (01/02/22 00:45) Ketorolac Injection (Toradol Injection) (01/02/22 00:42) Alcohol (01/02/22 00:44) Drug Screen Stat (Urine) (01/02/22 00:44) Manual Differential (01/02/22 00:43) Ed Iv/Invasive Line Start (01/02/22 01:15) Lactated Ringers (Lr 1000 Ml Iv Solution (01/02/22 01:15) Medications Given in ED Current Medications Medications Dose Ordered Sig/Suha Route Start Time Stop Time Status Last Admin Dose Admin Lactated Ringer's 1,000 ml @ 0 mls/hr Q0M ONCE IV 01/02/22 00:45 01/02/22 00:46 DC 01/02/22 00:50 0 MLS/HR Lactated Ringer's 1,000 ml @ 0 mls/hr Q0M ONCE IV 01/02/22 01:15 01/02/22 01:16 DC 01/02/22 01:18 0 MLS/HR Ondansetron HCl 4 mg ONCE ONCE IVP 01/02/22 00:45 01/02/22 00:46 DC 01/02/22 00:50 4 MG Vital Signs/I&O 01/02/22 00:37 Temp 37.3 Pulse 129 Resp 12 B/P (MAP) 107/78 (88) Pulse Ox 99 O2 Delivery Room Air Blood Pressure Mean: 88 Progress Progress Note : Progress Note GIVEN IV FLUIDS, TORADOL AND ZOFRAN , WITH RELIEF OF SYMPTOMS. NO COMPLAINTS FOR REMAINDER OF ER STAY BP >100 SYSTOLIC AND HR < 100 AFTER FLUIDS. UNEVENTFUL ER STAY PT AMBULATES OUT OF ER ON HIS OWN. Departure Impression Primary Impression: Post-op pain Additional Impressions: Non-compliance Volume depletion Colostomy in place Illicit drug use Methamphetamine use Cannabis abuse, daily use Opiate abuse, continuous Disposition: 01 HOME, SELF-CARE Condition: Stable Departure-Patient Inst. Decision time for Depature: 02:19 Referrals: MARICRUZ FRANKEL DO [facility] Patient Instructions: How to Care for Your Ostomy, Adult, Postoperative Pain (DC) Add. Discharge Instructions: CLEAR LIQUIDS FOLLOW DIET ADVISED BY YOUR SURGEON NO DRUGS--NO METH AND NO MARIJUANA!!! GET YOUR PRESCRIPTION FILLED AND TAKE DESCRIBED FOLLOW UP WITH DR. FRANKEL ADVISED CALL [facility] TO ESTABLISH PRIMARY CARE All discharge instructions reviewed with patient and/or family. Voiced understanding. MARY JANE SIMTH DO Jan 02, 2022 02:07
[2022-01-02 02:12] LABS: EOSINOPHILS % (MANUAL) 4 %; LYMPHOCYTES % (MANUAL) 6 %; MONOCYTES % (MANUAL) 5 %; NEUTROPHILS % (MANUAL) 85 %
[2022-01-02 02:13] LABS: RBC MORPH NORMAL
[2022-01-02 02:13] LABS: AMPHETAMINE SCREEN, URINE POSITIVE (NEGATIVE); BENZODIAZEPINES SCREEN URINE NEGATIVE (NEGATIVE); CANNABINOID SCREEN, URINE POSITIVE (NEGATIVE); COCAINE SCREEN URINE NEGATIVE (NEGATIVE); OPIATE SCREEN URINE POSITIVE (NEGATIVE); OXYCODONE STAT POSITIVE (NEGATIVE)
[2022-01-02 02:14] LABS: BARBITURATE SCREEN URINE NEGATIVE (NEGATIVE); METHADONE STAT NEGATIVE (NEGATIVE); PROPOXYPHENE STAT NEGATIVE (NEGATIVE); TRICYCLIC ANTIDEPRESSANTS SCRE NEGATIVE (NEGATIVE)
[2022-01-02 02:22] VITALS: BP 116/77
[2022-01-02 02:27] LABS: BACTERIA,URINE NEGATIVE /HPF
== END 2022-01-02 02:39 | disposition home or self-care (01) ==
LOC: EDUNIT# 00:35 → ER 00:37
DX: G89.18 Other acute postprocedural pain (principal); E86.9 Volume depletion, unspecified; F15.10 Other stimulant abuse, uncomplicated; F11.10 Opioid abuse, uncomplicated; F12.10 Cannabis abuse, uncomplicated; F17.210 Nicotine dependence, cigarettes, uncomplicated; Z93.3 Colostomy status; Z91.199 Patient's noncompliance with other medical treatment and regimen due to unspecified reason; Z28.310 Unvaccinated for COVID-19
CPT/HCPCS: 80053; 80306; 81000; 82150; 83690; 85007; 85027; 93041; 99283; G0480; 36415; 80320

== ENCOUNTER 2022-01-05 23:14 | Emergency (ER) | payer SELFPAY ==
--- NOTE | 2022-01-05 23:45 | ED GI ---
General Chief Complaint: Abdominal/GI Problems Stated Complaint: COLOSTOMY BAG NEEDS CHANGED Nursing Triage Note: Pt presents to ER stating that he packed a bag to travel and is missing his colostomy supplies. Pt has taped a diaper over his colostomy at this time. He's requesting a wafer and bag. History of Present Illness Date Seen by Provider: Jan 05, 2022 Time Seen by Provider: 23:40 Initial Comments 36-year-old male with PMH of anal cancer with recent resection and colostomy approximately 10 days ago. Patient is here today for a new colostomy bag. Patient states that he does not have any extra colostomy bags. Denies pain, nausea vomiting, fever. No other complaints. Allergies and Home Medications Allergies Coded Allergies: No Known Drug Allergies (Unverified , 06/10/21) Patient Home Medication List Home Medication List Reviewed: Yes Oxycodone HCl (Oxycodone HCl ER) 40 Mg Tab.er.12h, 40 MG PO BID Prescribed by: MARICRUZ FRANKEL on 01/01/22 1223 Oxycodone Hcl (Oxyir Tablet) 5 Mg Tab, 15 MG PO Q6H PRN for PAIN MODERATE TO SEVERE Prescribed by: MARICRUZ FRANKEL on 01/01/22 1223 Review of Systems Review of Systems Constitutional: no symptoms reported EENTM: No Symptoms Reported Respiratory: No Symptoms Reported Cardiovascular: No Symptoms Reported Gastrointestinal: Other Genitourinary: No Symptoms Reported Musculoskeletal: no symptoms reported Skin: no symptoms reported Psychiatric/Neurological: No Symptoms Reported Endocrine: No Symptoms Reported Hematologic/Lymphatic: No Symptoms Reported Past Syxmadq-Weaddx-Oyhexd Hx Immunizations Up To Date Tetanus Booster (TDap): Unknown First/Initial COVID19 Vaccinat: NO Second COVID19 Vaccination Jim: NO Third COVID19 Vaccination Date: NO Seasonal Allergies Seasonal Allergies: Yes Past Medical History Surgery/Hospitalization HX: RECTAL CANCER, COLONOSCOPY, COLOSTOMY, PORT APPY, JAW, GERD, ANXIETY, NON-COMPLIANCE, DEPRESSION, VIOLENT BEHAVIOR. Surgeries: Yes (ANAL BIOPSY; PORT PLACEMENT; COLONOSCOPIES; COLOSTOMY) Abdominal, Appendectomy, Bowel Surgery, Orthopedic Respiratory: No Currently Using CPAP: No Currently Using BIPAP: No Cardiac: No Neurological: Yes TIA Reproductive Disorders: No Sexually Transmitted Disease: No HIV/AIDS: No Genitourinary: No Gastrointestinal: Yes (ANAL CANCER) Gastroesophageal Reflux, Chronic Constipation Musculoskeletal: Yes Arthritis, Chronic Back Pain Endocrine: No HEENT: No Loss of Vision: Denies Hearing Impairment: Denies Cancer: Yes Rectal Did You Recieve Any Treatments: Yes What Type of Treatment Did You: Chemotherapy, Radiation, Surgical Intervention Psychosocial: Yes (POLYSUBSTANCE ABUSE) Anxiety, Violent Behavior, Depression Integumentary: No Blood Disorders: No Adverse Reaction/Blood Tranf: No Family Medical History Cancer, Hypertension Physical Exam Vital Signs Capillary Refill : Height/Weight/BMI Height: 5'7.00" Weight: 140lbs. 0oz. 63.033145zb; 25.00 BMI Method:Stated General Appearance: WD/WN, no apparent distress HEENT: PERRL/EOMI Gastrointestinal: normal bowel sounds, non tender, soft, other (Colostomy site is covered by diaper and paper towel since he did not have any extra bags) Extremities: normal range of motion Skin: normal color Progress/Results/Core Measures Progress Progress Note : Progress Note 1. COLOSTOMY BAG CHANGE: -Colostomy bag given to patient -Advised to follow-up with GI and PCP, and also obtain necessary supplies Departure Impression Primary Impression: Colostomy care Disposition: HOME, SELF-CARE Condition: Improved Departure-Patient Inst. Referrals: NO,LOCAL PHYSICIAN (PCP/Family) Primary Care Physician Patient Instructions: Colostomy Care Add. Discharge Instructions: -Advised to follow-up with GI and PCP, and also obtain necessary supplies All discharge instructions reviewed with patient and/or family. Voiced understanding. PRISCA LOGAN MD Jan 05, 2022 23:45
== END 2022-01-06 01:17 | disposition home or self-care (01) ==
LOC: EDUNIT# 23:14 → ER 23:17
DX: Z43.3 Encounter for attention to colostomy (principal); Z28.310 Unvaccinated for COVID-19
CPT/HCPCS: 99281

== ENCOUNTER 2022-02-26 17:15 | Observation (INO) | payer MEDICAID ==
[~2022-02-26] VITALS: Ht 170.2 cm; Wt 69.0 kg
[2022-02-26 17:50] LABS: BASOPHILS # (AUTO) 0.1 10^3/uL (0.0-0.1); BASOPHILS % (AUTO) 1 % (0-10); EOSINOPHILS # (AUTO) 0.5 10^3/uL (0.0-0.3); EOSINOPHILS % (AUTO) 4 % (0-10); HEMATOCRIT 32 % (40-54); HEMOGLOBIN 10.6 g/dL (13.3-17.7); LYMPHOCYTES # (AUTO) 0.8 10^3/uL (1.0-4.0); LYMPHOCYTES % (AUTO) 7 % (12-44); MEAN CORPUSCULAR HEMOGLOBIN 28 pg (25-34); MEAN CORPUSCULAR HGB CONC 33 g/dL (32-36); MEAN CORPUSCULAR VOLUME 84 fL (80-99); MEAN PLATELET VOLUME 7.8 fL (9.0-12.2); MONOCYTES # (AUTO) 0.7 10^3/uL (0.0-1.0); MONOCYTES % (AUTO) 6 % (0-12); NEUTROPHILS % (AUTO) 82 % (42-75); PLATELET COUNT 394 10^3/uL (130-400); WHITE BLOOD COUNT 11.1 10^3/uL (4.3-11.0)
--- NOTE | 2022-02-26 17:54 | ED GI ---
General Chief Complaint: Rect Problems Stated Complaint: RECTAL PAIN/ISSUES FROM CANCER Nursing Triage Note: PT AMBULATE TO ROOM 06 WITH C/O RECTAL PAIN. 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 Source of Information: Patient Exam Limitations: No Limitations History of Present Illness Date Seen by Provider: Feb 26, 2022 Time Seen by Provider: 17:53 Initial Comments To ER by private vehicle with reports of severe anal pain. History of cancer for which he has a diverting colostomy and had a couple of rounds of radiation and chemotherapy. He uses marijuana and methamphetamine for pain control. Most recently he smoked both of them about 4 hours ago. He presented to [facility] today and was referred here for further evaluation given his symptoms. When asked how his pain is now he states "its not too bad right now". Severity/Quality: Moderate Location: Other (buttock) Radiation: No Radiation Allergies and Home Medications Allergies Coded Allergies: No Known Drug Allergies (Unverified , 06/10/21) Patient Home Medication List Home Medication List Reviewed: Yes Oxycodone HCl (Oxycodone HCl ER) 40 Mg Tab.er.12h, 40 MG PO BID Prescribed by: MARICRUZ FRANKEL on 01/01/22 1223 Oxycodone Hcl (Oxyir Tablet) 5 Mg Tab, 15 MG PO Q6H PRN for PAIN MODERATE TO SEVERE Prescribed by: MARICRUZ FRANKEL on 01/01/22 1223 Review of Systems Review of Systems Constitutional: see HPI Past Qtnxtqr-Hcvczf-Wheuey Hx Patient Social History Tobacco Use?: Yes Smoking Status: Heavy Tobacco Smoker Smokeless Tobacco Frequency: Never a User Use of E-Cig and/or Vaping dev: No Use of E-Cig and/or Vaping Dillon: Never a User Substance use?: Yes Substance type: Methamphetamine, Marijuana Additional substance use comme: METH AND POT X4 HOURS AGO. Substance frequency: Daily Alcohol Use?: No Pt feels they are or have been: No Immunizations Up To Date Tetanus Booster (TDap): Unknown First/Initial COVID19 Vaccinat: NO Second COVID19 Vaccination Jim: NO Third COVID19 Vaccination Date: NO Seasonal Allergies Seasonal Allergies: Yes Past Medical History Surgery/Hospitalization HX: RECTAL CANCER, COLONOSCOPY, COLOSTOMY, PORT APPY, JAW, GERD, ANXIETY, NON-COMPLIANCE, DEPRESSION, VIOLENT BEHAVIOR. Surgeries: Yes (ANAL BIOPSY; PORT PLACEMENT; COLONOSCOPIES; COLOSTOMY) Abdominal, Appendectomy, Bowel Surgery, Orthopedic Respiratory: No Currently Using CPAP: No Currently Using BIPAP: No Cardiac: No Neurological: Yes TIA Reproductive Disorders: No Sexually Transmitted Disease: No HIV/AIDS: No Genitourinary: No Gastrointestinal: Yes (ANAL CANCER) Gastroesophageal Reflux, Chronic Constipation Musculoskeletal: Yes Arthritis, Chronic Back Pain Endocrine: No HEENT: No Loss of Vision: Denies Hearing Impairment: Denies Cancer: Yes Rectal Did You Recieve Any Treatments: Yes What Type of Treatment Did You: Chemotherapy, Radiation, Surgical Intervention Psychosocial: Yes (POLYSUBSTANCE ABUSE) Anxiety, Violent Behavior, Depression Integumentary: No Blood Disorders: No Adverse Reaction/Blood Tranf: No Family Medical History Cancer, Hypertension Physical Exam Vital Signs Vital Signs - First Documented 02/26/22 17:41 Temp 37.0 Pulse 133 Resp 20 B/P (MAP) 133/77 (95) O2 Delivery Room Air Capillary Refill : Less Than 3 Seconds Height/Weight/BMI Height: 5'7.00" Weight: 140lbs. 0oz. 63.061151mh; 23.00 BMI Method:Stated General Appearance: WD/WN, no apparent distress, other (No distress alert and oriented very pleasant) Neck: non-tender, full range of motion Respiratory: no respiratory distress Cardiovascular: other (Slight tachycardia heart rate 105) Gastrointestinal: normal bowel sounds, non tender, soft, other (Colostomy left lower abdomen with normal output) Genital/Rectal: other (Some induration of the perianal tissues with fistulas noted superior to the anus at the gluteal cleft.) Progress/Results/Core Measures Results/Orders Lab Results Laboratory Tests Test 02/26/22 17:43 02/26/22 18:52 Range/Units White Blood Count 11.1 H 4.3-11.0 10^3/uL Red Blood Count 3.85 L 4.30-5.52 10^6/uL Hemoglobin 10.6 L 13.3-17.7 g/dL Hematocrit 32 L 40-54 % Mean Corpuscular Volume 84 80-99 fL Mean Corpuscular Hemoglobin 28 25-34 pg Mean Corpuscular Hemoglobin Concent 33 32-36 g/dL Red Cell Distribution Width 14.4 10.0-14.5 % Platelet Count 394 130-400 10^3/uL Mean Platelet Volume 7.8 L 9.0-12.2 fL Immature Granulocyte % (Auto) 0 % Neutrophils (%) (Auto) 82 H 42-75 % Lymphocytes (%) (Auto) 7 L 12-44 % Monocytes (%) (Auto) 6 0-12 % Eosinophils (%) (Auto) 4 0-10 % Basophils (%) (Auto) 1 0-10 % Neutrophils # (Auto) 9.0 H 1.8-7.8 10^3/uL Lymphocytes # (Auto) 0.8 L 1.0-4.0 10^3/uL Monocytes # (Auto) 0.7 0.0-1.0 10^3/uL Eosinophils # (Auto) 0.5 H 0.0-0.3 10^3/uL Basophils # (Auto) 0.1 0.0-0.1 10^3/uL Immature Granulocyte # (Auto) 0.0 0.0-0.1 10^3/uL Neutrophils % (Manual) 80 % Lymphocytes % (Manual) 5 % Monocytes % (Manual) 11 % Eosinophils % (Manual) 4 % Blood Morphology Comment NORMAL Sodium Level 134 L 135-145 MMOL/L Potassium Level 3.4 L 3.6-5.0 MMOL/L Chloride Level 98 98-107 MMOL/L Carbon Dioxide Level 25 21-32 MMOL/L Anion Gap 11 5-14 MMOL/L Blood Urea Nitrogen 9 7-18 MG/DL Creatinine 0.95 0.60-1.30 MG/DL Estimat Glomerular Filtration Rate 107 BUN/Creatinine Ratio 9 Glucose Level 131 H 70-105 MG/DL Calcium Level 9.2 8.5-10.1 MG/DL Corrected Calcium 9.4 8.5-10.1 MG/DL Total Bilirubin 0.2 0.1-1.0 MG/DL Aspartate Amino Transf (AST/SGOT) 15 5-34 U/L Alanine Aminotransferase (ALT/SGPT) 19 0-55 U/L Alkaline Phosphatase 71 40-136 U/L Total Protein 7.4 6.4-8.2 GM/DL Albumin 3.7 3.2-4.5 GM/DL Urine Color YELLOW Urine Clarity CLEAR Urine pH 5.5 5-9 Urine Specific [place] 1.020 1.016-1.022 Urine Protein TRACE H NEGATIVE Urine Glucose (UA) NEGATIVE NEGATIVE Urine Ketones NEGATIVE NEGATIVE Urine Nitrite NEGATIVE NEGATIVE Urine Bilirubin NEGATIVE NEGATIVE Urine Urobilinogen 1.0 < = 1.0 MG/DL Urine Leukocyte Esterase NEGATIVE NEGATIVE Urine RBC (Auto) NEGATIVE NEGATIVE Urine RBC RARE /HPF Urine WBC NONE /HPF Urine Crystals NONE /LPF Urine Bacteria TRACE /HPF Urine Casts NONE /LPF Urine Mucus SMALL H /LPF Urine Culture Indicated NO Urine Opiates Screen NEGATIVE NEGATIVE Urine Oxycodone Screen NEGATIVE NEGATIVE Urine Methadone Screen NEGATIVE NEGATIVE Urine Propoxyphene Screen NEGATIVE NEGATIVE Urine Barbiturates Screen NEGATIVE NEGATIVE Ur Tricyclic Antidepressants Screen NEGATIVE NEGATIVE Urine Phencyclidine Screen NEGATIVE NEGATIVE Urine Amphetamines Screen POSITIVE H NEGATIVE Urine Methamphetamines Screen POSITIVE H NEGATIVE Urine Benzodiazepines Screen NEGATIVE NEGATIVE Urine Cocaine Screen NEGATIVE NEGATIVE Urine Cannabinoids Screen POSITIVE H NEGATIVE My Orders Orders - ZANA OLMEDO APRN Cbc With Automated Diff (02/26/22 17:32) Comprehensive Metabolic Panel (02/26/22 17:32) Ua Culture If Indicated (02/26/22 17:32) Drug Screen Stat (Urine) (02/26/22 17:32) Ed Iv/Invasive Line Start (02/26/22 17:32) Ct Abdomen/Pelvis W (02/26/22 17:32) Oxycodone/Acet 10/325mg Tablet (Percocet (02/26/22 18:00) Fentanyl Inj (Sublimaze Injection) (02/26/22 18:00) Iohexol Injection (Omnipaque 350 Mg/Ml 1 (02/26/22 18:00) Ns (Ivpb) (Sodium Chloride 0.9% Ivpb Bag (02/26/22 18:00) Manual Differential (02/26/22 17:43) Medications Given in ED Current Medications Medications Dose Ordered Sig/Suha Route Start Time Stop Time Status Last Admin Dose Admin Fentanyl Citrate 50 mcg ONCE ONCE IVP 02/26/22 18:00 02/26/22 18:01 DC 02/26/22 18:17 50 MCG Iohexol 100 ml ONCE ONCE IV 02/26/22 18:00 02/26/22 18:01 DC 02/26/22 18:33 79 ML Oxycodone/ Acetaminophen 1 tab ONCE ONCE PO 02/26/22 18:00 02/26/22 18:01 DC 02/26/22 18:20 1 TAB Sodium Chloride 100 ml ONCE ONCE IV 02/26/22 18:00 02/26/22 18:01 DC 02/26/22 18:33 80 ML Vital Signs/I&O 02/26/22 17:41 Temp 37.0 Pulse 133 Resp 20 B/P (MAP) 133/77 (95) O2 Delivery Room Air Blood Pressure Mean: 95 Departure Communication (Admissions) NAME: LOIS VILLALTA [facility] REC#: [id number] PT STATUS: REG ER : 1985 PHYSICIAN: ZANA OLMEDO CREDIT RELATIONSHIP MANAGER ADMIT DATE: 02/26/22/ER Draft Date of Exam:02/26/22 CT ABDOMEN/PELVIS W EXAMINATION: CT abdomen and pelvis with intravenous contrast. TECHNIQUE: Multiple contiguous axial images were obtained through the abdomen and pelvis after the uneventful administration of intravenous contrast. All CT scans use one or more of the following dose optimizing techniques: automated exposure control, MA and/or KvP adjustment based on patient size and exam type or iterative reconstruction. HISTORY: anal pain/hx cancer COMPARISON: 12/21/2021. FINDINGS: Lung bases: The lung bases are clear. Solid organs: The liver is normal without focal lesion. The gallbladder is normal. There is no biliary ductal dilation. Pancreas is normal. Spleen is normal. Adrenal glands are normal. The kidneys are normal without hydronephrosis. Bowel: The stomach and small bowel are normal without obstruction. Surgical changes from partial colectomy with left lower quadrant colostomy. There is mild thickening of the lower rectal stump and anus with a 3.1 x 1.8 cm fluid collection seen posterior to the anal canal. Peritoneum: There is no intraperitoneal free fluid or free air. No suspicious lymphadenopathy. Vasculature: Normal without aneurysm. Musculoskeletal: No suspicious osseous lesion or compression fracture. Pelvis: The prostate gland is normal. The urinary bladder is normal. IMPRESSION: 1. Wall thickening of the lower rectal stump and anal canal with an adjacent 3.1 x 1.8 cm fluid collection within the right gluteal soft tissues. Findings concerning for a perianal abscess. Dictated on workstation # [id number] Dict: 02/26/22 1839 Trans: 02/26/22 1846 [id number] Interpreted by: GRACY CORONEL DO Electronically signed by: his labs are not back yet so I will have optoelectronic technician proceed with imaging and if BUN and creatinine are elevated will hydrate post imaging Impression Primary Impression: Perianal abscess Additional Impression: Anal cancer Disposition: ADMITTED INPATIENT Condition: Stable Departure-Patient Inst. Referrals: [facility] (PCP/Family) Primary Care Physician ZANA OLMEDO APRN Feb 26, 2022 17:54
[2022-02-26] MEDS ORDERED: fentaNYL INJ 100 MCG/2 ML AMP IVP ONE (18:00)
[2022-02-26] MEDS ORDERED: IOHEXOL 350 MG/ML 100 ML (OMNIPAQUE 350) VIAL IV ONE (18:00)
[2022-02-26] MEDS ORDERED: oxyCODONE/APAP 10/325MG (PERCOCET 10) TABLET PO ONE (18:00)
[2022-02-26] MEDS ORDERED: NS 100 ML (IVPB) BAG IV ONE (18:00)
[2022-02-26 18:05] LABS: ALBUMIN 3.7 GM/DL (3.2-4.5); POTASSIUM 3.4 MMOL/L (3.6-5.0)
[2022-02-26 18:06] LABS: CALCIUM 9.2 MG/DL (8.5-10.1)
[2022-02-26 18:07] LABS: TOTAL PROTEIN 7.4 GM/DL (6.4-8.2)
[2022-02-26 18:09] LABS: BILIRUBIN,TOTAL 0.2 MG/DL (0.1-1.0)
[2022-02-26 18:11] LABS: CREATININE SERUM 0.95 MG/DL (0.60-1.30)
[2022-02-26 18:15] LABS: EOSINOPHILS % (MANUAL) 4 %; LYMPHOCYTES % (MANUAL) 5 %; MONOCYTES % (MANUAL) 11 %; NEUTROPHILS % (MANUAL) 80 %; RBC MORPH NORMAL
--- NOTE | 2022-02-26 18:46 | Diagnostic Imaging Report ---
EXAMINATION: CT abdomen and pelvis with intravenous contrast. TECHNIQUE: Multiple contiguous axial images were obtained through the abdomen and pelvis after the uneventful administration of intravenous contrast. All CT scans use one or more of the following dose optimizing techniques: automated exposure control, MA and/or KvP adjustment based on patient size and exam type or iterative reconstruction. HISTORY: anal pain/hx cancer COMPARISON: 12/21/2021. FINDINGS: Lung bases: The lung bases are clear. Solid organs: The liver is normal without focal lesion. The gallbladder is normal. There is no biliary ductal dilation. Pancreas is normal. Spleen is normal. Adrenal glands are normal. The kidneys are normal without hydronephrosis. Bowel: The stomach and small bowel are normal without obstruction. Surgical changes from partial colectomy with left lower quadrant colostomy. There is mild thickening of the lower rectal stump and anus with a 3.1 x 1.8 cm fluid collection seen posterior to the anal canal. Peritoneum: There is no intraperitoneal free fluid or free air. No suspicious lymphadenopathy. Vasculature: Normal without aneurysm. Musculoskeletal: No suspicious osseous lesion or compression fracture. Pelvis: The prostate gland is normal. The urinary bladder is normal. IMPRESSION: 1. Wall thickening of the lower rectal stump and anal canal with an adjacent 3.1 x 1.8 cm fluid collection within the right gluteal soft tissues. Findings concerning for a perianal abscess. Dictated by: Dictated on workstation # [id number]
[2022-02-26 18:58] LABS: BILIRUBIN,URINE NEGATIVE (NEGATIVE); CLARITY,URINE CLEAR; COLOR,URINE YELLOW; GLUCOSE, URINE (UA) NEGATIVE (NEGATIVE); KETONES,URINE NEGATIVE (NEGATIVE); LEUKOCYTE ESTERASE ,URINE NEGATIVE (NEGATIVE); NITRITE,URINE NEGATIVE (NEGATIVE); PH,URINE 5.5 (5-9); PROTEIN,URINE TRACE (NEGATIVE)
[2022-02-26 19:05] LABS: BACTERIA,URINE TRACE /HPF; RBC,URINE RARE /HPF
[2022-02-26 19:09] LABS: AMPHETAMINE SCREEN, URINE POSITIVE (NEGATIVE); BARBITURATE SCREEN URINE NEGATIVE (NEGATIVE); BENZODIAZEPINES SCREEN URINE NEGATIVE (NEGATIVE); CANNABINOID SCREEN, URINE POSITIVE (NEGATIVE); COCAINE SCREEN URINE NEGATIVE (NEGATIVE); METHADONE STAT NEGATIVE (NEGATIVE); OPIATE SCREEN URINE NEGATIVE (NEGATIVE); OXYCODONE STAT NEGATIVE (NEGATIVE); PROPOXYPHENE STAT NEGATIVE (NEGATIVE); TRICYCLIC ANTIDEPRESSANTS SCRE NEGATIVE (NEGATIVE)
[2022-02-26] MEDS ORDERED: CLINDAMYCIN 900 MG/50 ML IVPB 50 ML IV ONE (19:30)
--- NOTE | 2022-02-26 20:09 | History & Physical-Hospitalist ---
History of Present Illness HPI/Chief Complaint Chief complaint: Rectal abscess HPI: This is a 36-year-old male history of rectal cancer status post ostomy placement by Dr. Mcclendon who presented to the ER from Dr. Merchant office due to rectal pain. She called me and updated me on the situation and I recommended ER admission in case imaging was needed for general surgery and he was found to have a rectal abscess. Clindamycin IV antibiotics and pain control was rec ommended and Dr. Mcclendon will see him tomorrow. Source: patient Exam Limitations: no limitations Date Seen 02/26/22 Time Seen by a Provider: 18:00 Attending Physician [facility] PCP Admitting Physician: Beatrice Yen DO Attending Physician: Beatrice Yen DO Referring Physician Date of Admission Feb 26, 2022 at 19:19 Home Medications & Allergies Home Medications Reviewed patient Home Medication Reconciliation performed by pharmacy medication reconciliations formulation technician and/or nursing. Patients Allergies have been reviewed. Allergies Allergies Coded Allergies No Known Drug Allergies (Unverified06/10/21) Past Xltryzp-Cuwjls-Fnxzxn Hx Patient Social History Marrital Status: single Employed/Student: unemployed Tobacco Use?: Yes Smoking Status: Heavy Tobacco Smoker Smokeless Tobacco Frequency: Never a User Use of E-Cig and/or Vaping dev: No Use of E-Cig and/or Vaping Dillon: Never a User Substance use?: Yes Substance type: Methamphetamine, Marijuana Additional substance use comme: METH AND POT X4 HOURS AGO. Substance frequency: Daily Alcohol Use?: No Pt feels they are or have been: No Immunizations Up To Date First/Initial COVID19 Vaccinat: NO Second COVID19 Vaccination Jim: NO Tetanus Booster (TDap): Unknown Hepatitis A: No Hepatitis B: No Seasonal Allergies Seasonal Allergies: Yes Current Status Advance Directives: No Communicates: Verbally Primary Language: [place] Preferred Spoken Language: [place] Is interpretation needed?: No Implanted or Applied Medical D: Other Past Medical History Surgeries: Abdominal, Appendectomy, Bowel Surgery, Orthopedic Currently Using CPAP: No Currently Using BIPAP: No TIA Sexually Transmitted Disease: No HIV/AIDS: No Gastroesophageal Reflux, Chronic Constipation Arthritis, Chronic Back Pain Loss of Vision: Denies Hearing Impairment: Denies Rectal Did You Recieve Any Treatments: Yes What Type of Treatment Did You: Chemotherapy, Radiation, Surgical Intervention Anxiety, Violent Behavior, Depression Blood Disorders: No Adverse Reaction/Blood Tranf: No Family Medical History Cancer, Hypertension Review of Systems Constitutional: see HPI Other Rectal pain Physical Exam Physical Exam Vital Signs Vital Signs - First Documented 02/26/22 02/26/22 17:41 20:20 Temp 37.0 Pulse 133 Resp 20 B/P (MAP) 133/77 (95) Pulse Ox 98 O2 Delivery Room Air Capillary Refill : Less Than 3 Seconds Height, Weight, BMI Height: 5'7.00" Weight: 140lbs. 0oz. 63.787850km; 23.00 BMI Method:Stated General Appearance: Anxious, Chronically ill, Moderate Distress Respiratory: Lungs Clear, Normal Breath Sounds Cardiovascular: Regular Rate, Rhythm Neurologic/Psychiatric: Alert, Oriented x3, No Motor/Sensory Deficits, Normal Mood/Affect Results Results/Procedures Labs Laboratory Tests 02/26/22 17:43 Patient resulted labs reviewed. Assessment/Plan Admission Diagnosis Assessment: Rectal abscess Rectal carcinoma status post colostomy Smoker Polysubstance abuse Plan: Dr. Mcclendon consult IV antibiotics IV fluids Pain control Admission Status: Inpatient Order (span 2 midnights) Reason for Inpatient Admission: Rectal abscess BEATRICE YEN DO Feb 26, 2022 20:09
[2022-02-26 20:20] VITALS: BP 133/71
[2022-02-26] MEDS ORDERED: ONDANSETRON 4 MG (ZOFRAN) ORAL DISSOLVE TAB PO PRN (20:30)
[2022-02-26] MEDS ORDERED: MILK OF MAGNESIA 400 MG/5 ML 30 ML UDC PO PRN (20:30)
[2022-02-26] MEDS ORDERED: ACETAMINOPHEN 325 MG TABLET PO PRN (20:30)
[2022-02-26] MEDS ORDERED: polyethylene glycoL POWDER 17 GM (MIRALAX) PACK PO PRN (20:30)
[2022-02-26] MEDS ORDERED: MELATONIN 3 MG TABLET PO PRN (20:30)
[2022-02-26] MEDS ORDERED: diphenhydrAMINE 50 MG/ML INJ (BENADRYL) IVP PRN (20:30)
[2022-02-26] MEDS ORDERED: LACTULOSE SYRUP 10GM/15ML (ENULOSE) 30ML UDC PO PRN (20:30)
[2022-02-26] MEDS ORDERED: diphenhydrAMINE 25 MG TAB (BENADRYL) PO PRN (20:30)
[2022-02-26] MEDS ORDERED: ONDANSETRON 4 MG/2 ML (SDV) Z0FRAN IV PRN (20:30)
[2022-02-26] MEDS ORDERED: ANTACID SUSP 30 ML UDC (MYLANTA) PO PRN (20:30)
[2022-02-26] MEDS ORDERED: BISACODYL 10 MG SUPP (DULCOLAX) PR PRN (20:30)
[2022-02-26] MEDS ORDERED: CALCIUM CARBONATE 500 MG (TUMS) TAB.CHEW PO PRN (20:30)
[2022-02-26] MEDS ORDERED: NS IV 1000 ML 1,000 ML ONE (21:06)
[2022-02-26] MEDS: NS IV 1000 ML 1,000 ML IV SCH (21:08)
[2022-02-26 21:18] VITALS: BP 133/77
[2022-02-26] MEDS ORDERED: RT-ALBUTEROL SULF 2.5 MG/3 ML PRE-MIX VIAL INH PRN (21:30)
[2022-02-26 21:40] VITALS: BP 137/65
[2022-02-26] MEDS: SENNOSIDES 8.6 MG (SENOKOT) TAB PO SCH (22:00)
[2022-02-26] MEDS: DOCUSATE SODIUM 100 MG (COLACE) CAP PO SCH (22:00)
--- NOTE | 2022-02-26 23:56 | Consultation - Surgery ---
History of Present Illness History of Present Illness Patient Consulted On(katheryn/time) 02/26/22 23:54 Time Seen by Provider: 23:24 History of Present Illness Surgery asked to consult regarding possible Rectal Abscess. HPI per ED: To ER by private vehicle with reports of severe anal pain. History of cancer for which he has a diverting colostomy and had a couple of rounds of radiation and chemotherapy. He uses marijuana and methamphetamine for pain control. Most recently he smoked both of them about 4 hours ago. He presented to [facility] today and was referred here for further evaluation given his symptoms. When asked how his pain is now he states "its not too bad right now". Severity/Quality: Moderate Location: Other (buttock) Radiation: No Radiation Pt states he has had drainage; "it has been green, with will pieces". Pt is well known to me, has rectal CA and very extensive abscess/ulceration of the rectal area leading to diverting colostomy. He thinks he has an abscess again, states the area never fully closed. Pain is about the same. Rates it as at least 8 out of 10. Allergies and Home Medications Allergies Coded Allergies: No Known Drug Allergies (Unverified , 06/10/21) Patient Home Medication List Home Medication List Reviewed: Yes Oxycodone HCl (Oxycodone HCl ER) 40 Mg Tab.er.12h, 40 MG PO BID Prescribed by: MARICRUZ FRANKEL on 01/01/22 1223 Oxycodone Hcl (Oxyir Tablet) 5 Mg Tab, 15 MG PO Q6H PRN for PAIN MODERATE TO SEVERE Prescribed by: MARICRUZ FRANKEL on 01/01/22 1223 Past Sitftiu-Dmsiux-Sljurb Hx Patient Social History Drug of Choice: HX OF METH Smoking Status: Current Everyday Smoker Type Used: Cigarettes 2nd Hand Smoke Exposure: Yes Recent Hopitalizations: No Alcohol Use?: No Substance type: Methamphetamine, Marijuana Have you traveled recently?: No Immunizations Up To Date Tetanus Booster (TDap): Unknown Seasonal Allergies Seasonal Allergies: Yes Surgeries History of Surgeries: Yes (ANAL BIOPSY; PORT PLACEMENT; COLONOSCOPIES; COLOSTOMY) Surgeries: Abdominal, Appendectomy, Bowel Surgery, Orthopedic Respiratory History of Respiratory Disorde: No Cardiovascular History of Cardiac Disorders: No Neurological History of Neurological Disord: Yes Neurological Disorders: TIA Reproductive System Hx Reproductive Disorders: No Sexually Transmitted Disease: No HIV/AIDS: No Genitourinary History of Genitourinary Disor: No Gastrointestinal History of Gastrointestinal Di: Yes (ANAL CANCER) Gastrointestinal Disorders: Gastroesophageal Reflux, Chronic Constipation Musculoskeletal History of Musculoskeletal Dis: Yes Musculoskeletal Disorders: Arthritis, Chronic Back Pain Endocrine History of Endocrine Disorders: No HEENT History of HEENT Disorders: No Loss of Vision: Denies Hearing Impairment: Denies Cancer History of Cancer: Yes Cancer: Rectal Psychosocial History of Psychiatric Problem: Yes (POLYSUBSTANCE ABUSE) Behavioral Health Disorders: Anxiety, Violent Behavior, Depression Integumentary History of Skin or Integumenta: No Blood Transfusions History of Blood Disorders: No Adverse Reaction to a Blood Tr: No Family Medical History Significant Family History: Cancer, Hypertension Review of Systems-General Constitutional: fever, malaise, weakness EENTM: No blurred vision, No mouth swelling, No epistaxis Respiratory: No cough, No dyspnea on exertion Cardiovascular: No chest pain, No edema, No palpitations Gastrointestinal: No abdominal pain, No nausea, No vomiting; other (ostomy functioning well) Genitourinary: No dysuria, No frequency, No hematuria Musculoskeletal: joint pain, muscle pain, muscle stiffness Skin: No change in color, No change in hair/nails Psychiatric/Neurological: Denies Anxiety; Depressed; Denies Seizure, Denies Tremors Physical Exam-General Problems Physical Exam Vital Signs Vital Signs - First Documented 02/26/22 02/26/22 17:41 20:20 Temp 37.0 Pulse 133 Resp 20 B/P (MAP) 133/77 (95) Pulse Ox 98 O2 Delivery Room Air Capillary Refill : Less Than 3 Seconds General Appearance: WD/WN, mild distress (secondary to pain) Eyes: Bilateral Eye PERRL, Bilateral Eye EOMI HEENT: pharynx normal; No scleral icterus (R), No scleral icterus (L) Neck: non-tender, supple Respiratory: lungs clear, normal breath sounds, no respiratory distress, no accessory muscle use Cardiovascular: regular rate, rhythm, no murmur Gastrointestinal: non tender, soft, no organomegaly, other (ostomy pink and functioning. Gluteal are has openings, skin is firm, tender, no real erythema) Back: no CVA tenderness, no vertebral tenderness Extremities: no pedal edema, no calf tenderness Neurologic/Psychiatric: alert, normal mood/affect, oriented x 3 Skin: normal color, warm/dry Lymphatic: no adenopathy (neck or axilla) Data Review Labs Laboratory Tests 02/26/22 17:43: White Blood Count 11.1H, Red Blood Count 3.85L, Hemoglobin 10.6L, Hematocrit 32L , Mean Corpuscular Volume 84, Mean Corpuscular Hemoglobin 28, Mean Corpuscular Hemoglobin Concent 33, Red Cell Distribution Width 14.4, Platelet Count 394, Mean Platelet Volume 7.8L, Immature Granulocyte % (Auto) 0, Neutrophils (%) (Auto) 82H, Lymphocytes (%) (Auto) 7L, Monocytes (%) (Auto) 6, Eosinophils (%) (Auto) 4, Basophils (%) (Auto) 1, Neutrophils # (Auto) 9.0H, Lymphocytes # (Auto) 0.8L, Monocytes # (Auto) 0.7, Eosinophils # (Auto) 0.5H, Basophils # (Auto) 0.1, Immature Granulocyte # (Auto) 0.0, Neutrophils % (Manual) 80, Lymphocytes % (Manual) 5, Monocytes % (Manual) 11, Eosinophils % (Manual) 4, Blood Morphology Comment NORMAL, Sodium Level 134L, Potassium Level 3.4L, Chloride Level 98, Carbon Dioxide Level 25, Anion Gap 11, Blood Urea Nitrogen 9, Creatinine 0.95, Estimat Glomerular Filtration Rate 107, BUN/Creatinine Ratio 9, Glucose Level 131H, Calcium Level 9.2, Corrected Calcium 9.4, Total Bilirubin 0.2, Aspartate Amino Transf (AST/SGOT) 15, Alanine Aminotransferase (ALT/SGPT) 19, Alkaline Phosphatase 71, Total Protein 7.4, Albumin 3.7 02/26/22 18:52: Urine Color YELLOW, Urine Clarity CLEAR, Urine pH 5.5, Urine Specific [place] 1.020, Urine Protein TRACEH, Urine Glucose (UA) NEGATIVE, Urine Ketones NEGATIVE, Urine Nitrite NEGATIVE, Urine Bilirubin NEGATIVE, Urine Urobilinogen 1.0, Urine Leukocyte Esterase NEGATIVE, Urine RBC (Auto) NEGATIVE, Urine RBC RARE, Urine WBC NONE, Urine Crystals NONE, Urine Bacteria TRACE, Urine Casts NONE, Urine Mucus SMALLH, Urine Culture Indicated NO, Urine Opiates Screen NEGATIVE, Urine Oxycodone Screen NEGATIVE, Urine Methadone Screen NEGATIVE, Urine Propoxyphene Screen NEGATIVE, Urine Barbiturates Screen NEGATIVE, Ur Tricyclic Antidepressants Screen NEGATIVE, Urine Phencyclidine Screen NEGATIVE, Urine Amphetamines Screen POSITIVEH, Urine Methamphetamines Screen POSITIVEH, Urine Benzodiazepines Screen NEGATIVE, Urine Cocaine Screen NEGATIVE, Urine Cannabinoids Screen POSITIVEH Radiology Date of Exam:02/26/22 CT ABDOMEN/PELVIS W EXAMINATION: CT abdomen and pelvis with intravenous contrast. TECHNIQUE: Multiple contiguous axial images were obtained through the abdomen and pelvis after the uneventful administration of intravenous contrast. All CT scans use one or more of the following dose optimizing techniques: automated exposure control, MA and/or KvP adjustment based on patient size and exam type or iterative reconstruction. HISTORY: anal pain/hx cancer COMPARISON: 12/21/2021. FINDINGS: Lung bases: The lung bases are clear. Solid organs: The liver is normal without focal lesion. The gallbladder is normal. There is no biliary ductal dilation. Pancreas is normal. Spleen is normal. Adrenal glands are normal. The kidneys are normal without hydronephrosis. Bowel: The stomach and small bowel are normal without obstruction. Surgical changes from partial colectomy with left lower quadrant colostomy. There is mild thickening of the lower rectal stump and anus with a 3.1 x 1.8 cm fluid collection seen posterior to the anal canal. Peritoneum: There is no intraperitoneal free fluid or free air. No suspicious lymphadenopathy. Vasculature: Normal without aneurysm. Musculoskeletal: No suspicious osseous lesion or compression fracture. Pelvis: The prostate gland is normal. The urinary bladder is normal. IMPRESSION: 1. Wall thickening of the lower rectal stump and anal canal with an adjacent 3.1 x 1.8 cm fluid collection within the right gluteal soft tissues. Findings concerning for a perianal abscess. Dictated by: Dictated on workstation # [id number] Dict: 02/26/221838 Trans: 02/26/221909 [id number] Interpreted by: GRACY CORONEL DO Electronically signed by: GRACY CORONEL DO 02/26/221909 Assessment/Plan Assessment/Plan Assessment/Plan Possible Rectal vs. Gluteal Abscess Rectal CA I reviewed the CT myself and discussed the case with ED provider and Hospitalist. I don't think he has an abscess, but probably does have fluid in that area. The area is basically open, but it is hard to look because of the pain associated with looking. I think the best thing to do is look tomorrow under anesthesia and do debridement if necessary. Will get consent for this and make pt NPO after midnight. All questions answered to his satisfaction. Pain control, IV fluids, IV ABX. MARICRUZ FRANKEL DO Feb 26, 2022 23:56
[2022-02-27 00:07] VITALS: BP 121/84
[2022-02-27] MEDS: HYDROmorphone 2 MG/ML VIAL (DILAUDID) IV PRN ×7 (00:41→21:03)
[2022-02-27 04:28] VITALS: BP 134/79
[2022-02-27] MEDS: CLINDAMYCIN 600 MG/50 ML IVPB 50 ML IV SCH ×3 (05:11→21:03)
--- NOTE | 2022-02-27 06:53 | Progress Note - Hospitalist ---
Subjective HPI/CC On Admission Date Seen by Provider: Feb 27, 2022 Time Seen by Provider: 11:00 Chief complaint: Rectal abscess HPI: This is a 36-year-old male history of rectal cancer status post ostomy placement by Dr. Mcclendon who presented to the ER from Dr. Merchant office due to rectal pain. She called me and updated me on the situation and I recommended ER admission in case imaging was needed for general surgery and he was found to have a rectal abscess. Clindamycin IV antibiotics and pain control was recommended and Dr. Mcclendon will see him tomorrow. Subjective/Events-last exam Pain still very challenging I&D today by DR Mcclendon Objective Exam Vital Signs Vital Signs Date Time Temp Pulse Resp B/P (MAP) Pulse Ox O2 Delivery O2 Flow Rate FiO2 02/27/22 11:22 36.8 100 20 129/76 (93) 98 Room Air Capillary Refill : Less Than 3 Seconds General Appearance: No Apparent Distress, WD/WN, Chronically ill Respiratory: Lungs Clear, Normal Breath Sounds Cardiovascular: Regular Rate, Rhythm Results/Procedures Lab Laboratory Tests 02/26/22 17:43 02/27/22 06:23 Patient resulted labs reviewed. Assessment/Plan Assessment and Plan Assess & Plan/Chief Complaint Assessment: Rectal abscess Rectal carcinoma status post colostomy Smoker Polysubstance abuse Plan: Dr. Mcclendon consult IV antibiotics IV fluids Pain control SIRIA PARADA DO Feb 27, 2022 06:53
[2022-02-27 07:02] LABS: BASOPHILS # (AUTO) 0.1 10^3/uL (0.0-0.1); BASOPHILS % (AUTO) 1 % (0-10); EOSINOPHILS # (AUTO) 0.8 10^3/uL (0.0-0.3); EOSINOPHILS % (AUTO) 7 % (0-10); HEMATOCRIT 31 % (40-54); HEMOGLOBIN 9.9 g/dL (13.3-17.7); LYMPHOCYTES # (AUTO) 1.2 10^3/uL (1.0-4.0); LYMPHOCYTES % (AUTO) 12 % (12-44); MEAN CORPUSCULAR HEMOGLOBIN 27 pg (25-34); MEAN CORPUSCULAR HGB CONC 32 g/dL (32-36); MEAN CORPUSCULAR VOLUME 85 fL (80-99); MEAN PLATELET VOLUME 8.3 fL (9.0-12.2); MONOCYTES # (AUTO) 0.9 10^3/uL (0.0-1.0); MONOCYTES % (AUTO) 9 % (0-12); NEUTROPHILS # (AUTO) 7.2 10^3/uL (1.8-7.8); NEUTROPHILS % (AUTO) 71 % (42-75); PLATELET COUNT 428 10^3/uL (130-400); WHITE BLOOD COUNT 10.1 10^3/uL (4.3-11.0)
[2022-02-27 07:11] LABS: ALBUMIN 3.4 GM/DL (3.2-4.5); POTASSIUM 3.9 MMOL/L (3.6-5.0)
[2022-02-27 07:12] LABS: CALCIUM 8.7 MG/DL (8.5-10.1)
[2022-02-27 07:14] LABS: TOTAL PROTEIN 6.7 GM/DL (6.4-8.2)
[2022-02-27 07:15] LABS: BILIRUBIN,TOTAL 0.2 MG/DL (0.1-1.0)
[2022-02-27 07:17] LABS: CREATININE SERUM 0.91 MG/DL (0.60-1.30)
[2022-02-27 07:38] VITALS: BP 116/75
[2022-02-27] MEDS: NS IV 1000 ML 1,000 ML IV SCH ×2 (09:54→22:09)
[2022-02-27] MEDS: DOCUSATE SODIUM 100 MG (COLACE) CAP PO SCH ×2 (09:55→21:02)
[2022-02-27] MEDS: ENOXAPARIN 40 MG/0.4 ML (LOVENOX) SYR SC SCH (09:55)
[2022-02-27] MEDS: SENNOSIDES 8.6 MG (SENOKOT) TAB PO SCH ×2 (09:55→21:02)
[2022-02-27] MEDS: ALPRAZolam 0.5 MG (XANAX) TAB PO PRN ×3 (10:01→18:50)
--- NOTE | 2022-02-27 10:27 | Progress Note - Surgery ---
CASSI JARVIS 02/27/22 1027: Subjective Date Seen by a Provider: Feb 27, 2022 Time Seen by a Provider: 08:15 Subjective/Events-last exam The patient is in a right lateral recumbent position at the time of my evaluation. He states he has persistent, unchanged pain in his gluteal region, worse superiorly and midline and just to the right of midline. He endorses drainage accompanying his pain as well. The patient denies any chills, nausea, vomiting, or abdominal pain. Review of Systems General: No Chills Pulmonary: No Dyspnea Cardiovascular: No: Chest Pain Gastrointestinal: No: Nausea, Vomiting, Abdominal Pain Musculoskeletal: other (buttock pain) Objective Exam Vital Signs Date Time Temp Pulse Resp B/P (MAP) Pulse Ox O2 Delivery O2 Flow Rate FiO2 02/27/22 10:14 95 Room Air 02/27/22 09:55 37.2 02/27/22 07:38 37.2 79 20 116/75 (89) 95 Room Air 02/27/22 07:26 36.9 02/27/22 04:28 36.9 105 18 134/79 (97) 97 Room Air 02/27/22 00:07 36.5 102 18 121/84 (96) 98 Room Air 02/26/22 21:40 37.1 96 18 137/65 (89) 97 Room Air 02/26/22 21:18 37.0 133 02/26/22 20:40 Room Air 02/26/22 20:20 36.3 115 20 133/71 (91) 98 Room Air 02/26/22 17:41 37.0 133 20 133/77 (95) Room Air I & O 02/27/22 07:00 Intake Total 170 ml Output Total 0 ml Balance 170 ml Capillary Refill : Less Than 3 Seconds General Appearance: Anxious, Chronically ill, Mild Distress HEENT: PERRL/EOMI Neck: Non Tender, Supple Respiratory: Lungs Clear, Normal Breath Sounds Cardiovascular: Regular Rate, Rhythm, No Murmur Peripheral Pulses: 2+ Radial Pulses (R), 2+ Radial Pulses (L) Gastrointestinal: non tender, soft, no organomegaly, other (ostomy pink and functioning. Gluteal area with bilaterally firmness and pinkness with multiple openings, primarily along the inferior gluteal cleft. Some drainage is present, unsure if purulent) Extremity: No Calf Tenderness, No Pedal Edema Neurologic/Psychiatric: Alert, Oriented x3 Skin: Other (skin along gluteal fold is pink with open sores, tender to ma nipulation) Results Lab Laboratory Tests 02/26/22 17:43: White Blood Count 11.1H, Red Blood Count 3.85L, Hemoglobin 10.6L, Hematocrit 32L , Mean Corpuscular Volume 84, Mean Corpuscular Hemoglobin 28, Mean Corpuscular Hemoglobin Concent 33, Red Cell Distribution Width 14.4, Platelet Count 394, Mean Platelet Volume 7.8L, Immature Granulocyte % (Auto) 0, Neutrophils (%) (Auto) 82H, Lymphocytes (%) (Auto) 7L, Monocytes (%) (Auto) 6, Eosinophils (%) (Auto) 4, Basophils (%) (Auto) 1, Neutrophils # (Auto) 9.0H, Lymphocytes # (Auto) 0.8L, Monocytes # (Auto) 0.7, Eosinophils # (Auto) 0.5H, Basophils # (Auto) 0.1, Immature Granulocyte # (Auto) 0.0, Neutrophils % (Manual) 80, L ymphocytes % (Manual) 5, Monocytes % (Manual) 11, Eosinophils % (Manual) 4, Blood Morphology Comment NORMAL, Sodium Level 134L, Potassium Level 3.4L, Chloride Level 98, Carbon Dioxide Level 25, Anion Gap 11, Blood Urea Nitrogen 9, Creatinine 0.95, Estimat Glomerular Filtration Rate 107, BUN/Creatinine Ratio 9, Glucose Level 131H, Calcium Level 9.2, Corrected Calcium 9.4, Total Bilirubin 0.2, Aspartate Amino Transf (AST/SGOT) 15, Alanine Aminotransferase (ALT/SGPT) 19, Alkaline Phosphatase 71, Total Protein 7.4, Albumin 3.7 02/26/22 18:52: Urine Color YELLOW, Urine Clarity CLEAR, Urine pH 5.5, Urine Specific [place] 1.020, Urine Protein TRACEH, Urine Glucose (UA) NEGATIVE, Urine Ketones NEGATIVE, Urine Nitrite NEGATIVE, Urine Bilirubin NEGATIVE, Urine Urobilinogen 1.0, Urine Leukocyte Esterase NEGATIVE, Urine RBC (Auto) NEGATIVE, Urine RBC RARE, Urine WBC NONE, Urine Crystals NONE, Urine Bacteria TRACE, Urine Casts NONE, Urine Mucus SMALLH, Urine Culture Indicated NO, Urine Opiates Screen NEGATIVE, Urine Oxycodone Screen NEGATIVE, Urine Methadone Screen NEGATIVE, Urine Propoxyphene Screen NEGATIVE, Urine Barbiturates Screen NEGATIVE, Ur Tricyclic Antidepressants Screen NEGATIVE, Urine Phencyclidine Screen NEGATIVE, Urine Amphetamines Screen POSITIVEH, Urine Methamphetamines Screen POSITIVEH, Urine Benzodiazepines Screen NEGATIVE, Urine Cocaine Screen NEGATIVE, Urine Cannabinoids Screen POSITIVEH 02/27/22 06:23: White Blood Count 10.1, Red Blood Count 3.65L, Hemoglobin 9.9L, Hematocrit 31L, Mean Corpuscular Volume 85, Mean Corpuscular Hemoglobin 27, Mean Corpuscular Hemoglobin Concent 32, Red Cell Distribution Width 14.4, Platelet Count 428H, Mean Platelet Volume 8.3L, Immature Granulocyte % (Auto) 0, Neutrophils (%) (Auto) 71, Lymphocytes (%) (Auto) 12, Monocytes (%) (Auto) 9, Eosinophils (%) (Auto) 7, Basophils (%) (Auto) 1, Neutrophils # (Auto) 7.2, Lymphocytes # (Auto) 1.2, Monocytes # (Auto) 0.9, Eosinophils # (Auto) 0.8H, Basophils # (Auto) 0.1, Immature Granulocyte # (Auto) 0.0, Sodium Level 134L, Potassium Level 3.9, Chloride Level 100, Carbon Dioxide Level 24, Anion Gap 10, Blood Urea Nitrogen 10, Creatinine 0.91, Estimat Glomerular Filtration Rate 113, BUN/Creatinine Ratio 11, Glucose Level 89, Calcium Level 8.7, Corrected Calcium 9.2, Total Bilirubin 0.2, Aspartate Amino Transf (AST/SGOT) 14, Alanine Aminotransferase (ALT/SGPT) 20, Alkaline Phosphatase 66, Total Protein 6.7, Albumin 3.4 Assessment/Plan Assessment/Plan Assessment/Plan Possible Rectal vs. Gluteal Abscess Hx Rectal CA Patient has persistent pain and swelling to his gluteal cleft with openings, pain is worse on the right. Plan for examination under anesthesia later today with debridement as needed. Continue pain control, IV fluids, and antibiotic regimen. CODY MCCLENDON DO 02/27/22 1219: Subjective Time Seen by a Provider: 09:53 Subjective/Events-last exam Pt seen and examined, no new changes; still has severe rectal pain. Review of Systems General: No Chills Pulmonary: No Dyspnea Cardiovascular: No: Chest Pain Gastrointestinal: No: Nausea, Vomiting, Abdominal Pain Musculoskeletal: other (buttock pain) Objective Exam General Appearance: Anxious, Chronically ill, Mild Distress HEENT: PERRL/EOMI Respiratory: Lungs Clear, Normal Breath Sounds, No Accessory Muscle Use, No Respiratory Distress Cardiovascular: Regular Rate, Rhythm, No Murmur Gastrointestinal: non tender, soft, no organomegaly, other (ostomy pink and functioning. Gluteal area with bilaterally firmness and pinkness with multiple openings, primarily along the inferior gluteal cleft. Some drainage is present, unsure if purulent) Extremity: No Calf Tenderness Neurologic/Psychiatric: Alert, Oriented x3 Skin: Other (skin along gluteal fold is pink with open sores, tender to manipulation) Assessment/Plan Assessment/Plan Assessment/Plan Possible Rectal vs. Gluteal Abscess Hx Rectal CA Patient has persistent pain and swelling to his gluteal cleft with openings, pain is worse on the right. Plan for examination under anesthesia later today with debridement as needed. Continue pain control, IV fluids, and antibiotic regimen. Supervisory-Addendum Brief Verification & Attestation Participated in pt care: history, MDM, physical Personally performed: exam, history, MDM, supervision of care Care discussed with: Medical Student Procedures: n/a Verification and Attestation of Medical Student E/M Service A medical student performed and documented this service. I then reviewed and verified all information documented by the medical student and made modific ations to such information, when appropriate. I personally performed a physical exam, medical decision making and then discussed any differences between the notes and made revisions as necessary to create one note. Cody Mcclendon , 02/27/22 , 12:19 CASSI JARVIS Feb 27, 2022 10:27 CODY MCCLENDON DO Feb 27, 2022 12:19
[2022-02-27 11:22] VITALS: BP 129/76
[2022-02-27 15:32] VITALS: BP 120/76
[2022-02-27 19:36] VITALS: BP 122/73
[2022-02-28] VITALS (13 sets, daily range): BP systolic 107–146; BP diastolic 48–98
[2022-02-28] MEDS: NS IV 1000 ML 1,000 ML IV SCH ×3 (02:01→23:40)
[2022-02-28] MEDS: HYDROmorphone 2 MG/ML VIAL (DILAUDID) IV PRN ×6 (02:01→20:48)
[2022-02-28] MEDS: CLINDAMYCIN 600 MG/50 ML IVPB 50 ML IV SCH ×3 (05:13→20:48)
[2022-02-28 06:15] LABS: BASOPHILS # (AUTO) 0.1 10^3/uL (0.0-0.1); BASOPHILS % (AUTO) 1 % (0-10); EOSINOPHILS # (AUTO) 0.8 10^3/uL (0.0-0.3); EOSINOPHILS % (AUTO) 9 % (0-10); HEMATOCRIT 28 % (40-54); HEMOGLOBIN 9.2 g/dL (13.3-17.7); LYMPHOCYTES # (AUTO) 0.9 10^3/uL (1.0-4.0); LYMPHOCYTES % (AUTO) 11 % (12-44); MEAN CORPUSCULAR HEMOGLOBIN 28 pg (25-34); MEAN CORPUSCULAR HGB CONC 33 g/dL (32-36); MEAN CORPUSCULAR VOLUME 85 fL (80-99); MEAN PLATELET VOLUME 8.2 fL (9.0-12.2); MONOCYTES # (AUTO) 0.6 10^3/uL (0.0-1.0); MONOCYTES % (AUTO) 7 % (0-12); NEUTROPHILS # (AUTO) 6.3 10^3/uL (1.8-7.8); NEUTROPHILS % (AUTO) 72 % (42-75); PLATELET COUNT 338 10^3/uL (130-400); WHITE BLOOD COUNT 8.7 10^3/uL (4.3-11.0)
[2022-02-28 06:32] LABS: POTASSIUM 3.9 MMOL/L (3.6-5.0)
[2022-02-28 06:33] LABS: CALCIUM 8.5 MG/DL (8.5-10.1)
[2022-02-28 06:34] LABS: TOTAL PROTEIN 5.9 GM/DL (6.4-8.2)
[2022-02-28 06:36] LABS: BILIRUBIN,TOTAL 0.2 MG/DL (0.1-1.0)
[2022-02-28 06:38] LABS: CREATININE SERUM 0.83 MG/DL (0.60-1.30)
--- NOTE | 2022-02-28 08:03 | Progress Note - Hospitalist ---
Subjective HPI/CC On Admission Date Seen by Provider: Feb 28, 2022 Time Seen by Provider: 11:00 Chief complaint: Rectal abscess HPI: This is a 36-year-old male history of rectal cancer status post ostomy placement by Dr. Mcclendon who presented to the ER from Dr. Merchant office due to rectal pain. She called me and updated me on the situation and I recommended ER admission in case imaging was needed for general surgery and he was found to have a rectal abscess. Clindamycin IV antibiotics and pain control was recommended and Dr. Mcclendon will see him tomorrow. Subjective/Events-last exam Patient will have incision and drainage today Apparently he ate yesterday and he was n.p.o. which delayed the surgery Review of Systems General: Fatigue, Malaise Rectal pain Objective Exam Vital Signs Vital Signs Date Time Temp Pulse Resp B/P (MAP) Pulse Ox O2 Delivery O2 Flow Rate FiO2 02/28/22 11:39 36.8 121 20 116/62 (80) 97 Room Air Capillary Refill : Less Than 3 Seconds General Appearance: Anxious, Chronically ill, Mild Distress Neurologic/Psychiatric: Alert, Oriented x3, No Motor/Sensory Deficits, Normal Mood/Affect Results/Procedures Lab Laboratory Tests 02/28/22 05:53 Patient resulted labs reviewed. Assessment/Plan Assessment and Plan Assess & Plan/Chief Complaint Assessment: Rectal abscess Rectal carcinoma status post colostomy Smoker Polysubstance abuse Plan: Dr. Mcclendon consult IV antibiotics IV fluids Pain control SIRIA PARADA DO Feb 28, 2022 08:03
[2022-02-28] MEDS: ENOXAPARIN 40 MG/0.4 ML (LOVENOX) SYR SC SCH (08:06)
[2022-02-28] MEDS: SENNOSIDES 8.6 MG (SENOKOT) TAB PO SCH ×2 (08:06→20:47)
[2022-02-28] MEDS: DOCUSATE SODIUM 100 MG (COLACE) CAP PO SCH ×2 (08:06→20:47)
--- NOTE | 2022-02-28 12:10 | Progress Note - Surgery ---
CASSI JARVIS 02/28/22 1210: Subjective Date Seen by a Provider: Feb 28, 2022 Time Seen by a Provider: 12:00 Subjective/Events-last exam The patient is lying in a right lateral recumbent position in his bed at the time of my evaluation. The patient states he is in significant pain at this time due to his rectal sores; the pain worsens if he manipulates his buttocks or sits up in bed. He states the pain is overall the same as yesterday, with fluctuations in intensity. The patient states he urinated 1 hour ago but has chronic difficulty urinating. The patient's nurse remarks he has not had output from his colostomy since arrival to the hospital. The patient also endorses naus ea for the past 24 hours, though he has not vomited. He denies any chills, chest pain, SOB, or abdominal pain. Review of Systems General: No Chills Pulmonary: No Dyspnea, No Cough Gastrointestinal: Nausea, Other (rectal and gluteal pain); No: Vomiting, Abdominal Pain Genitourinary: Retention Objective Exam Vital Signs Date Time Temp Pulse Resp B/P (MAP) Pulse Ox O2 Delivery O2 Flow Rate FiO2 02/28/22 11:39 36.8 121 20 116/62 (80) 97 Room Air 02/28/22 08:30 Room Air 02/28/22 07:59 Room Air 02/28/22 07:53 36.4 124 20 112/48 (69) 99 Room Air 02/28/22 04:01 37.2 106 18 120/60 (80) 99 Room Air 02/28/22 00:14 36.4 102 18 114/70 (85) 96 Room Air 02/27/22 21:00 Room Air 02/27/22 19:36 36.4 90 20 122/73 (89) 95 Room Air 02/27/22 18:50 36.4 02/27/22 16:04 Room Air 02/27/22 15:32 36.4 90 22 120/76 (91) 98 Room Air 02/27/22 14:30 36.8 02/27/22 14:00 36.8 I & O 02/28/22 07:00 Intake Total 1710 ml Balance 1710 ml Capillary Refill : Less Than 3 Seconds General Appearance: Chronically ill, Moderate Distress HEENT: PERRL/EOMI Neck: Non Tender, Supple Respiratory: Lungs Clear, Normal Breath Sounds Cardiovascular: Regular Rate, Rhythm, No Murmur Peripheral Pulses: 2+ Radial Pulses (R), 2+ Radial Pulses (L) Gastrointestinal: non tender, soft, no organomegaly, other (ostomy pink, surrounding skin nonerythematous. Gluteal area with bilaterally firmness and pinkness with multiple openings, primarily along the inferior gluteal cleft. More drainage than yesterday is present, unsure if purulent) Extremity: No Calf Tenderness, No Pedal Edema Neurologic/Psychiatric: Alert, Oriented x3 Skin: Tattoos/Piercings, Other (skin along gluteal fold is pink with open sores, tender to manipulation) Results Lab Laboratory Tests 02/28/22 05:53: White Blood Count 8.7, Red Blood Count 3.31L, Hemoglobin 9.2L, Hematocrit 28L, Mean Corpuscular Volume 85, Mean Corpuscular Hemoglobin 28, Mean Corpuscular Hemoglobin Concent 33, Red Cell Distribution Width 14.5, Platelet Count 338, Mean Platelet Volume 8.2L, Immature Granulocyte % (Auto) 0, Neutrophils (%) (Auto) 72, Lymphocytes (%) (Auto) 11L, Monocytes (%) (Auto) 7, Eosinophils (%) (Auto) 9, Basophils (%) (Auto) 1, Neutrophils # (Auto) 6.3, Lymphocytes # (Auto) 0.9L, Monocytes # (Auto) 0.6, Eosinophils # (Auto) 0.8H, Basophils # (Auto) 0.1, Immature Granulocyte # (Auto) 0.0, Sodium Level 136, Potassium Level 3.9, Chloride Level 103, Carbon Dioxide Level 24, Anion Gap 9, Blood Urea Nitrogen 11, Creatinine 0.83, Estimat Glomerular Filtration Rate 117, BUN/Creatinine Rat io 13, Glucose Level 110H, Calcium Level 8.5, Corrected Calcium 9.3, Total Bilirubin 0.2, Aspartate Amino Transf (AST/SGOT) 14, Alanine Aminotransferase (ALT/SGPT) 18, Alkaline Phosphatase 57, Total Protein 5.9L, Albumin 3.0L Microbiology 02/27/22 MRSA Screen - Final, Complete MRSA not isolated Assessment/Plan Assessment/Plan Assessment/Plan Possible Rectal vs. Gluteal Abscess Hx Rectal CA Patient has persistent pain and swelling to his gluteal cleft with openings, pain is worse on the right. Plan for examination under anesthesia later today with debridement as needed. Continue pain control, IV fluids, and antibiotic r freddie. CODY MCCLENDON DO 02/28/22 1553: Subjective Time Seen by a Provider: 12:49 Subjective/Events-last exam Pt seen and examined, ready for surgery today. No questions Review of Systems General: No Chills Pulmonary: No Dyspnea, No Cough Gastrointestinal: Nausea, Other (rectal and gluteal pain); No: Vomiting, Abdominal Pain Objective Exam General Appearance: Chronically ill, Moderate Distress HEENT: PERRL/EOMI Respiratory: Lungs Clear, Normal Breath Sounds, No Accessory Muscle Use, No Respiratory Distress Cardiovascular: Regular Rate, Rhythm, No Murmur Gastrointestinal: other (ostomy pink, surrounding skin nonerythematous. Gluteal area with bilaterally firmness and pinkness with multiple openings, primarily along the inferior gluteal cleft. More drainage than yesterday is present, unsure if purulent) Assessment/Plan Assessment/Plan Assessment/Plan Possible Rectal vs. Gluteal Abscess Hx Rectal CA Patient has persistent pain and swelling to his gluteal cleft with openings, pain is worse on the right. Plan for examination under anesthesia later today with debridement as needed. Continue pain control, IV fluids, and antibiotic regimen. Supervisory-Addendum Brief Verification & Attestation Participated in pt care: history, MDM, physical Personally performed: exam, history, MDM, supervision of care Care discussed with: Medical Student Procedures: n/a Verification and Attestation of Medical Student E/M Service A medical student performed and documented this service. I then reviewed and verified all information documented by the medical student and made modifications to such information, when appropriate. I personally performed a physical exam, medical decision making and then discussed any differences between the notes and made revisions as necessary to create one note. Cody Mcclendon , 02/28/22 , 15:52 CASSI JARVIS Feb 28, 2022 12:10 CODY MCCLENDON DO Feb 28, 2022 15:53
[2022-02-28] MEDS ORDERED: LACTATED RINGERS 1,000 ML IV PRN (12:30)
[2022-02-28] MEDS ORDERED: MIDAZOLAM 2 MG/2 ML (VERSED) VIAL ONE (12:36)
[2022-02-28] MEDS ORDERED: fentaNYL INJ 100 MCG/2 ML AMP ONE ×2 (12:36→13:09)
[2022-02-28] MEDS ORDERED: LIDOCAINE PF 2% 5 ML (XYLOCAINE) VIAL ONE (13:24)
[2022-02-28] MEDS ORDERED: proPOfol 200 MG/20 ML (DIPRIVAN) VIAL IV ONE (13:24)
[2022-02-28] MEDS ORDERED: ONDANSETRON 4 MG/2 ML (SDV) Z0FRAN ONE (13:24)
[2022-02-28] MEDS ORDERED: SUCCINYLCHOLINE INJ 20 MG/1 ML 10 ML VIAL ONE (13:24)
[2022-02-28] MEDS ORDERED: KETOROLAC 30 MG/ML VIAL ONE (13:24)
[2022-02-28] MEDS ORDERED: SEVOFLURANE (ULTANE) 15 ML INHAL SOLN ONE (13:32)
[2022-02-28] MEDS ORDERED: HYDROmorphone 2 MG/ML VIAL (DILAUDID) ONE (13:34)
--- NOTE | 2022-02-28 15:45 | Anesthesia-General Post-Op ---
General Patient Condition Mental Status/LOC: Same as Preop Cardiovascular: Satisfactory Nausea/Vomiting: Absent Respiratory: Satisfactory Pain: Controlled Complications: Absent Post Op Complications Complications None Follow Up Care/Instructions Patient Instructions None needed. Anesthesia/Patient Condition Patient Condition Patient is doing well, no complaints, stable vital signs, no apparent adverse anesthesia problems. No complications reported per nursing. SUZY TESFAYE CRNA Feb 28, 2022 15:45
--- NOTE | 2022-02-28 16:08 | Progress Note-Post Operative ---
Post-Operative Progess Note Surgeon (s)/Day Trader (s) Surgeon MARICRUZ FRANKEL DO Day Trader: KALEIGH Monson Pre-Operative Diagnosis Anal Cancer, Anal/Gluteal Ulcer r/o abscess Post-Operative Diagnosis same and necrotic tissue Procedure & Operative Findings Date of Procedure 02/28/22 Procedure Performed/Findings Gluteal ulcer exploration with debridement of necrotic tissue and packing Anesthesia Type GET Estimated Blood Loss Estimated blood loss (mL): less than 10ml Specimens/Packing Specimens Removed necrotic tissue Packin MARICRUZ FRANKEL DO Feb 28, 2022 16:08
--- NOTE | 2022-02-28 18:02 | OPERATIVE REPORT ---
DATE OF SERVICE: 02/28/2022 PREOPERATIVE DIAGNOSIS: Anal gluteal ulcer, rule out abscess, history of anal cancer. POSTOPERATIVE DIAGNOSES: Anal gluteal ulcer, rule out abscess, history of anal cancer plus necrotic tissue. PROCEDURE: Gluteal ulcer exploration with debridement of necrotic tissue and packing. SURGEON: Cody Mcclendon DO. SPECIALTY TRANSFORMER ASSEMBLER: Jovan Mccauley MS3. ANESTHESIA: General endotracheal tube. SPECIMEN: Necrotic tissue. BLOOD LOSS: Less than 10 mL. FLUIDS: Per anesthesia. POSTOPERATIVE CONDITION: Stable. INDICATIONS FOR PROCEDURE: The patient is a 36-year-old male with an ulcer, possible abscess called on CAT scan, needs to be explored under anesthesia because of the significant pain it is causing patient. FINDINGS: The patient had some necrotic tissue, but no real abscess. DESCRIPTION OF PROCEDURE: After informed consent was obtained, the patient was brought to the operating room and placed on the table in the lithotomy position, sterilely prepped and draped in normal fashion. The patient had a large open wound from the previous wound, it looked about the same. There was some necrotic tissue, which was roughly debrided and then saw a small portion of necrotic tissue. This was removed. It was less than a centimeter, sent to pathology, irrigated a little bit and then elected to place 1-inch iodoform packing; 1-inch iodoform packing was placed and then the area was cleaned and dried. Big ABD sponge was placed as well as some mesh panties. The patient tolerated the procedure. Sponge and needle count correct at the end of the case. He was transferred to recovery room in stable condition. Job ID: [id number] DocumentID: [id number] Dictated Date: 02/28/2022 16:07:34 Finishing Pan Operator Date: 02/28/2022 18:00:00 Dictated By: CODY MCCLENDON DO
[2022-03-01] MEDS: HYDROmorphone 2 MG/ML VIAL (DILAUDID) IV PRN ×7 (02:08→21:14)
[2022-03-01 04:20] VITALS: BP 123/78
[2022-03-01] MEDS: CLINDAMYCIN 600 MG/50 ML IVPB 50 ML IV SCH ×3 (05:22→21:14)
[2022-03-01 06:26] LABS: BASOPHILS % (AUTO) 0 % (0-10); EOSINOPHILS % (AUTO) 0 % (0-10); HEMATOCRIT 31 % (40-54); HEMOGLOBIN 9.9 g/dL (13.3-17.7); LYMPHOCYTES # (AUTO) 0.8 10^3/uL (1.0-4.0); LYMPHOCYTES % (AUTO) 5 % (12-44); MEAN CORPUSCULAR HEMOGLOBIN 27 pg (25-34); MEAN CORPUSCULAR HGB CONC 32 g/dL (32-36); MEAN CORPUSCULAR VOLUME 85 fL (80-99); MEAN PLATELET VOLUME 8.5 fL (9.0-12.2); MONOCYTES # (AUTO) 0.7 10^3/uL (0.0-1.0); MONOCYTES % (AUTO) 5 % (0-12); NEUTROPHILS # (AUTO) 13.9 10^3/uL (1.8-7.8); NEUTROPHILS % (AUTO) 90 % (42-75); PLATELET COUNT 434 10^3/uL (130-400); WHITE BLOOD COUNT 15.5 10^3/uL (4.3-11.0)
[2022-03-01 06:47] LABS: ALBUMIN 3.6 GM/DL (3.2-4.5); BILIRUBIN,TOTAL 0.2 MG/DL (0.1-1.0); CALCIUM 9.5 MG/DL (8.5-10.1); CREATININE SERUM 0.83 MG/DL (0.60-1.30); POTASSIUM 3.9 MMOL/L (3.6-5.0); TOTAL PROTEIN 7.4 GM/DL (6.4-8.2)
[2022-03-01 06:54] LABS: LYMPHOCYTES % (MANUAL) 6 %; NEUTROPHILS % (MANUAL) 87 %
[2022-03-01 06:55] LABS: ANISOCYTOSIS SLIGHT; EOSINOPHILS % (MANUAL) 1 %; HYPOCHROMASIA SLIGHT; MICROCYTOSIS SLIGHT; MONOCYTES % (MANUAL) 6 %
[2022-03-01 07:41] VITALS: BP 122/73
--- NOTE | 2022-03-01 07:43 | Progress Note - Surgery ---
CASSI JARVIS 03/01/22 0743: Subjective Date Seen by a Provider: Mar 01, 2022 Time Seen by a Provider: 07:20 Subjective/Events-last exam The patient is standing in the bathroom at the time of my evaluation. He states he has been trying to change his mesh panties and adjust his dressing without interfering with the packing. He reports discomfort in his rectum, primarily of the sensation that he needs to defecate. He notes his rectal pain has improved from yesterday. The patient denies any nausea, chills, shortness of breath, chest pain, or abdominal pain. He remarks it is day 4 without output from his colostomy bag, which is normal, and he typically has a sensation that he needs to defecate in his rectum and then passes gas through his colostomy, both of which have been happening this morning. The patient does endorse feeling "feverish" whenever Dilaudid has been administered. The patient also endorses intermittent difficulty urinating, which he states has been ongoing for months and attributes to his methamphetamine use. Review of Systems General: No Chills Pulmonary: No Dyspnea Cardiovascular: No: Chest Pain Gastrointestinal: No: Nausea, Abdominal Pain Genitourinary: Retention (chronic) Objective Exam Vital Signs Date Time Temp Pulse Resp B/P (MAP) Pulse Ox O2 Delivery O2 Flow Rate FiO2 03/01/22 04:20 36.8 126 18 123/78 (93) 96 Room Air 02/28/22 23:40 36.8 118 18 119/70 (86) 96 Room Air 02/28/22 21:30 36.6 100 18 108/68 (81) 99 Room Air 02/28/22 20:45 Room Air 02/28/22 19:32 36.6 109 22 107/65 (79) Room Air 02/28/22 18:56 96 Room Air 02/28/22 16:06 36.4 96 20 138/82 (100) 96 Room Air 02/28/22 14:20 36.7 12 131/90 (104) 96 Room Air 02/28/22 14:20 Room Air 02/28/22 14:10 18 127/85 (99) 94 Room Air 02/28/22 14:05 OxyMask 6.00 02/28/22 14:00 10 129/98 (108) 98 OxyMask 6.00 02/28/22 13:50 12 127/80 (96) 96 OxyMask 6.00 02/28/22 13:50 OxyMask 8 02/28/22 13:38 OxyMask 8 02/28/22 13:38 36.7 14 146/86 (106) 100 OxyMask 8 02/28/22 11:39 36.8 121 20 116/62 (80) 97 Room Air 02/28/22 08:30 Room Air 02/28/22 07:59 Room Air 02/28/22 07:53 36.4 124 20 112/48 (69) 99 Room Air I & O 03/01/22 07:00 Intake Total 1450 ml Output Total 480 ml Balance 970 ml Capillary Refill : Less Than 3 Seconds General Appearance: Chronically ill, Mild Distress HEENT: PERRL/EOMI Neck: Non Tender, Supple Respiratory: Lungs Clear, Normal Breath Sounds, No Accessory Muscle Use, No Respiratory Distress Cardiovascular: No Murmur, Tachycardia Peripheral Pulses: 2+ Radial Pulses (R), 2+ Radial Pulses (L) Gastrointestinal: non tender, other (ostomy pink, surrounding skin nonerythematous. rectal area with dressing and packing in place, not taken down to be visualized today) Extremity: No Calf Tenderness, No Pedal Edema Neurologic/Psychiatric: Alert, Oriented x3, Normal Mood/Affect Skin: Tattoos/Piercings Results Lab Laboratory Tests 03/01/22 05:51: White Blood Count 15.5H, Red Blood Count 3.62L, Hemoglobin 9.9L, Hematocrit 31L, Mean Corpuscular Volume 85, Mean Corpuscular Hemoglobin 27, Mean Corpuscular Hemoglobin Concent 32, Red Cell Distribution Width 14.5, Platelet Count 434H, Mean Platelet Volume 8.5L, Immature Granulocyte % (Auto) 1, Neutrophils (%) (Auto) 90H, Lymphocytes (%) (Auto) 5L, Monocytes (%) (Auto) 5, Eosinophils (%) (Auto) 0, Basophils (%) (Auto) 0, Neutrophils # (Auto) 13.9H, Lymphocytes # (Auto) 0.8L, Monocytes # (Auto) 0.7, Eosinophils # (Auto) 0.0, Basophils # (Auto) 0.0, Immature Granulocyte # (Auto) 0.1, Neutrophils % (Manual) 87, Lymphocytes % (Manual) 6, Monocytes % (Manual) 6, Eosinophils % (Manual) 1, Hypochromasia SLIGHT, Anisocytosis SLIGHT, Microcytosis SLIGHT, Sodium Level 137, Potassium Level 3.9, Chloride Level 102, Carbon Dioxide Level 25, Anion Gap 10, Blood Urea Nitrogen 10, Creatinine 0.83, Estimat Glomerular Filtration Rate 117, BUN/Creatinine Ratio 12, Glucose Level 116H, Calcium Level 9.5, Corrected Calcium 9.8, Total Bilirubin 0.2, Aspartate Amino Transf (AST/SGOT) 22, Alanine Aminotransferase (ALT/SGPT) 22, Alkaline Phosphatase 66, Total Protein 7.4, Albumin 3.6 Microbiology 02/27/22 MRSA Screen - Final, Complete MRSA not isolated Assessment/Plan Assessment/Plan Assessment/Plan Possible Rectal vs. Gluteal Abscess, s/p EUA day 1 Hx Rectal CA Leukocytosis - 15.5 on 03/01 Nausea, urinary hesitancy - 4 months Patient reports improved pain to his rectal area today though has new discomfort that he describes as a sensation that he needs to discomfort, since the packing is in place. Patient has leukocytosis of 15.5, up from 8.7 yesterday, as well as tachycardia; consider chest X-ray to rule out aspiration pneumonitis vs pneumonia due to vomiting during EUA yesterday. Continue pain control, IV f luids, and antibiotic regimen. CODY MCCLENDON DO 03/01/22 1231: Subjective Time Seen by a Provider: 12:15 Subjective/Events-last exam Pt seen and examined, he is asking to take packing out and go home. Pain is the same. Review of Systems General: No Chills Pulmonary: No Dyspnea Cardiovascular: No: Chest Pain Gastrointestinal: Other (rectal pain); No: Nausea, Abdominal Pain Objective Exam General Appearance: WD/WN, Mild Distress HEENT: PERRL/EOMI Respiratory: Lungs Clear, Normal Breath Sounds, No Accessory Muscle Use, No Respiratory Distress Cardiovascular: No Murmur, Tachycardia Gastrointestinal: non tender, other (ostomy pink, surrounding skin nonerythematous. rectal area with dressing and packing in place, not taken down to be visualized today) Assessment/Plan Assessment/Plan Assessment/Plan Possible Rectal vs. Gluteal Abscess, s/p EUA day 1 Hx Rectal CA Leukocytosis - 15.5 on 1/23 Nausea, urinary hesitancy - 4 months Patient reports improved pain to his rectal area today though has new discomfort that he describes as a sensation that he needs to discomfort, since the packing is in place. Patient has leukocytosis of 15.5, up from 8.7 yesterday, as well as tachycardia; consider chest X-ray to rule out aspiration pneumonitis vs pneumonia due to vomiting during EUA yesterday. Should continue antibiotic regimen as outpt (orals ok) and ok to d/c home today. Supervisory-Addendum Brief Verification & Attestation Participated in pt care: history, MDM, physical Personally performed: exam, history, MDM, supervision of care Care discussed with: Medical Student Procedures: n/a Verification and Attestation of Medical Student E/M Service A medical student performed and documented this service. I then reviewed and verified all information documented by the medical student and made modifications to such information, when appropriate. I personally performed a physical exam, medical decision making and then discussed any differences between the notes and made revisions as necessary to create one note. Cody Mcclendon , 03/01/22 , 12:31 CASSI JARVIS Mar 01, 2022 07:43 CODY MCCLENDON DO Mar 01, 2022 12:31
[2022-03-01] MEDS: ENOXAPARIN 40 MG/0.4 ML (LOVENOX) SYR SC SCH (07:49)
[2022-03-01] MEDS: DOCUSATE SODIUM 100 MG (COLACE) CAP PO SCH ×2 (07:49→21:13)
[2022-03-01] MEDS: SENNOSIDES 8.6 MG (SENOKOT) TAB PO SCH ×2 (07:49→21:13)
[2022-03-01] MEDS: ALPRAZolam 0.5 MG (XANAX) TAB PO PRN ×2 (07:56→21:14)
[2022-03-01] MEDS ORDERED: IBUP-2473 PO (09:03)
[2022-03-01] MEDS ORDERED: ACET-2267 PO (09:03)
[2022-03-01] MEDS ORDERED: DOCU100T2 PO (09:04)
[2022-03-01] MEDS ORDERED: OXC5T PO (10:32)
[2022-03-01] MEDS ORDERED: CLIN-144 PO (10:32)
--- NOTE | 2022-03-01 10:33 | Discharge Summary ---
Discharge Summary Hospital Course Hospital Course Date of Admission: Feb 26, 2022 at 19:19 Admission Diagnosis : Family Physician/Provider: [place]/Counts Include 234 Beds At [facility] Date of Discharge: 03/01/22 Discharge Diagnosis: [ ] Hospital Course: [ ] Labs and Pending Lab Test: Laboratory Tests 03/01/22 05:51: White Blood Count 15.5H, Red Blood Count 3.62L, Hemoglobin 9.9L, Hematocrit 31L, Mean Corpuscular Volume 85, Mean Corpuscular Hemoglobin 27, Mean Corpuscular Hemoglobin Concent 32, Red Cell Distribution Width 14.5, Platelet Count 434H, Mean Platelet Volume 8.5L, Immature Granulocyte % (Auto) 1, Neutrophils (%) (Auto) 90H, Lymphocytes (%) (Auto) 5L, Monocytes (%) (Auto) 5, Eosinophils (%) (Auto) 0, Basophils (%) (Auto) 0, Neutrophils # (Auto) 13.9H, Lymphocytes # (Auto) 0.8L, Monocytes # (Auto) 0.7, Eosinophils # (Auto) 0.0, Basophils # (Auto) 0.0, Immature Granulocyte # (Auto) 0.1, Neutrophils % (Manual) 87, Lymphocytes % (Manual) 6, Monocytes % (Manual) 6, Eosinophils % (Manual) 1, Hypochromasia SLIGHT, Anisocytosis SLIGHT, Microcytosis SLIGHT, Sodium Level 137, Potassium Level 3.9, Chloride Level 102, Carbon Dioxide Level 25, Anion Gap 10, Blood Urea Nitrogen 10, Creatinine 0.83, Estimat Glomerular Filtration Rate 117, BUN/Creatinine Ratio 12, Glucose Level 116H, Calcium Level 9.5, Corrected Calcium 9.8, Total Bilirubin 0.2, Aspartate Amino Transf (AST/SGOT) 22, Alanine Aminotransferase (ALT/SGPT) 22, Alkaline Phosphatase 66, Total Protein 7.4, Albumin 3.6 Microbiology 02/27/22 MRSA Screen - Final, Complete MRSA not isolated Home Meds Active Clindamycin HCl 300 Mg Capsule 300 Mg PO TID Reported Docusate Sodium 100 Mg Tablet 100 Mg PO DAILY PRN Ibuprofen 200 Mg Tablet 800 Mg PO Q4H PRN TAKES 4 (200MG) TABS Tylenol Extra Strength (Acetaminophen) 500 Mg Tablet 2,000 Mg PO Q4H PRN TAKES 4 (500MG) TABS Discharge Physical Examination Vital Signs Vital Signs Date Time Temp Pulse Resp B/P (MAP) Pulse Ox O2 Delivery O2 Flow Rate FiO2 03/01/22 08:06 Room Air 03/01/22 07:41 36.7 131 18 122/73 (89) 97 02/28/22 14:05 6.00 Allergies: Coded Allergies: No Known Drug Allergies (Unverified , 06/10/21) Discharge Summary Date of Admission Feb 26, 2022 at 19:19 Date of Discharge Discharge Date: Mar 01, 2022 Admission Diagnosis Assessment: Rectal abscess Rectal carcinoma status post colostomy Smoker Polysubstance abuse Plan: Dr. Mcclendon consult IV antibiotics IV fluids Pain control Discharge Diagnosis Assessment: Rectal abscess Rectal carcinoma status post colostomy Smoker Polysubstance abuse Plan: Dr. Mcclendon consult IV antibiotics IV fluids Pain control SIRIA PARADA DO Mar 01, 2022 10:32
[2022-03-01 11:18] VITALS: BP 136/64
--- NOTE | 2022-03-01 12:48 | Progress Note ---
DANISH PABLO Mar 01, 2022 12:48
[2022-03-01 16:16] VITALS: BP 121/86
[2022-03-01] MEDS ORDERED: LACTATED RINGERS 1,000 ML IV PRN (18:30)
--- NOTE | 2022-03-01 19:07 | Progress Note ---
Progress Note Davide Nuno is a year old male with a history of diverting colostomy, rectal cancer, and methamphetamine use who presented to his PCP on 02/26 with severe anal pain. The on-call hospitalist at [facility] was consulted and recommended the patient to go the ER in case a potential anal abcess. A CT scan showed wall thickening of the lower rectal stump and anal canal with an adjacent 3.1 x1.8cm fluid collection within the right gluteal tissue. There findings were interpreted to be suspicious a perianal abscess, and the patient was admitted to [facility]. IV fluids, IV clindamycin and pain control were started and surgery was consulted. At the time of admission, the patient rated his pain a 8/10 and reported green and will colostomy drainage. Upon review of the CT and physical examination, surgery expressed doubt that the patient had a true perianal abcess but noted the presence of fluid to be likely; they indicated that thorough examination was limitited by the patients' pain. On 02/28, surgery performed an examination under anesthesia which confirmed the presence of an anal ulcer and necrotic tissue; the area was debrided and packed. On 03/01, the patient reported significant improvement in rectal pain following the procedure. He did note an irritating urge to defecate and remarked that he had not had output - only flatus- in his colostomy bag since admission. He otherwise denied abdominal pain, N/V/D, chest pain, SOB, or chills and requested to go home; he was discharged on 03/01. DANISH PABLO Mar 01, 2022 19:07
[2022-03-01 19:35] VITALS: BP 119/65
--- NOTE | 2022-03-01 20:14 | Progress Note - Hospitalist ---
Subjective HPI/CC On Admission Date Seen by Provider: Mar 01, 2022 Time Seen by Provider: 11:00 Chief complaint: Rectal abscess HPI: This is a 36-year-old male history of rectal cancer status post ostomy placement by Dr. Mcclendon who presented to the ER from Dr. Merchant office due to rectal pain. She called me and updated me on the situation and I recommended ER admission in case imaging was needed for general surgery and he was found to have a rectal abscess. Clindamycin IV antibiotics and pain control was recommended and Dr. Mcclendon will see him tomorrow. Subjective/Events-last exam DC planned but wanted to delay the DC another day SW discussing SNF or hospice Patient is rally able to make those decisions as an outpatient since there is no evidence of imminent process Review of Systems Rectal pain Objective Exam Vital Signs Vital Signs Date Time Temp Pulse Resp B/P (MAP) Pulse Ox O2 Delivery O2 Flow Rate FiO2 03/02/22 04:00 36.2 113 18 116/68 (84) 96 Room Air 02/28/22 14:05 6.00 Capillary Refill : Less Than 3 Seconds General Appearance: No Apparent Distress, WD/WN, Chronically ill Results/Procedures Lab Laboratory Tests 03/01/22 05:51 Patient resulted labs reviewed. Assessment/Plan Assessment and Plan Assess & Plan/Chief Complaint Assessment: Rectal abscess Rectal carcinoma status post colostomy Smoker Polysubstance abuse Plan: SIRIA MERINO DO Mar 01, 2022 20:14
[2022-03-02] MEDS: HYDROmorphone 2 MG/ML VIAL (DILAUDID) IV PRN ×7 (00:14→20:06)
[2022-03-02 00:15] VITALS: BP 107/70
[2022-03-02 04:00] VITALS: BP 116/68
[2022-03-02] MEDS: CLINDAMYCIN 600 MG/50 ML IVPB 50 ML IV SCH ×2 (05:50→13:19)
[2022-03-02 05:58] LABS: BASOPHILS # (AUTO) 0.1 10^3/uL (0.0-0.1); BASOPHILS % (AUTO) 1 % (0-10); EOSINOPHILS # (AUTO) 0.5 10^3/uL (0.0-0.3); EOSINOPHILS % (AUTO) 5 % (0-10); HEMATOCRIT 33 % (40-54); HEMOGLOBIN 10.3 g/dL (13.3-17.7); LYMPHOCYTES # (AUTO) 1.1 10^3/uL (1.0-4.0); LYMPHOCYTES % (AUTO) 12 % (12-44); MEAN CORPUSCULAR HEMOGLOBIN 27 pg (25-34); MEAN CORPUSCULAR HGB CONC 32 g/dL (32-36); MEAN CORPUSCULAR VOLUME 86 fL (80-99); MEAN PLATELET VOLUME 8.2 fL (9.0-12.2); MONOCYTES # (AUTO) 0.7 10^3/uL (0.0-1.0); MONOCYTES % (AUTO) 7 % (0-12); NEUTROPHILS # (AUTO) 7.1 10^3/uL (1.8-7.8); NEUTROPHILS % (AUTO) 75 % (42-75); PLATELET COUNT 422 10^3/uL (130-400); WHITE BLOOD COUNT 9.4 10^3/uL (4.3-11.0)
[2022-03-02 06:12] LABS: ALBUMIN 3.5 GM/DL (3.2-4.5); BILIRUBIN,TOTAL 0.2 MG/DL (0.1-1.0); CALCIUM 9.2 MG/DL (8.5-10.1); CREATININE SERUM 0.82 MG/DL (0.60-1.30); POTASSIUM 3.6 MMOL/L (3.6-5.0)
[2022-03-02 07:43] VITALS: BP 124/66
[2022-03-02] MEDS: SENNOSIDES 8.6 MG (SENOKOT) TAB PO SCH (08:02)
[2022-03-02] MEDS: DOCUSATE SODIUM 100 MG (COLACE) CAP PO SCH (08:02)
[2022-03-02] MEDS: ENOXAPARIN 40 MG/0.4 ML (LOVENOX) SYR SC SCH (08:04)
--- NOTE | 2022-03-02 09:45 | Discharge Summary ---
Discharge Summary Hospital Course Was the Problem List Reviewed?: Yes Problems/Dx: (1) Rectal abscess (2) Anal cancer Status: Acute (3) Perianal abscess Status: Acute Hospital Course Date of Admission: Feb 26, 2022 at 19:19 Admission Diagnosis : [facility] Date of Discharge: 03/02/22 Discharge Diagnosis: [ ] Hospital Course: Davide Nuno is a year old male with a history of diverting colostomy, rectal cancer, and methamphetamine use who presented to his PCP on 02/26 with severe anal pain. The on-call hospitalist at [facility] was consulted and recommended the patient to go the ER in case a potential anal abcess. A CT scan showed wall thickening of the lower rectal stump and anal canal with an adjacent 3.1 x1.8cm fluid collection within the right gluteal tissue. There findings were interpreted to be suspicious a perianal abscess, and the patient was admitted to [facility]. IV fluids, IV clindamycin and pain control were started and surgery was consulted. At the time of admission, the patient rated his pain a 8/10 and reported green and will colostomy drainage. Upon review of the CT and physical examination, surgery expressed doubt that the patient had a true perianal abcess but noted the presence of fluid to be likely; they indicated that thorough examination was limitited by the patients' pain. On 02/28, surgery performed an examination under anesthesia which confirmed the presence of an anal ulcer and necrotic tissue; the area was debrided and packed. On 03/01, the patient reported significant improvement in rectal pain following the procedure. He did note an irritating urge to defecate and remarked that he had not had output - only flatus- in his colostomy bag since admission. He otherwise denied abdominal pain, N/V/D, chest pain, SOB, or chills and requested to go home; he was discharged on 03/01. DANISH PABLO Labs and Pending Lab Test: Laboratory Tests 03/02/22 05:40: White Blood Count 9.4, Red Blood Count 3.77L, Hemoglobin 10.3L, Hematocrit 33L, Mean Corpuscular Volume 86, Mean Corpuscular Hemoglobin 27, Mean Corpuscular Hemoglobin Concent 32, Red Cell Distribution Width 14.6H, Platelet Count 422H, Mean Platelet Volume 8.2L, Immature Granulocyte % (Auto) 1, Neutrophils (%) (Auto) 75, Lymphocytes (%) (Auto) 12, Monocytes (%) (Auto) 7, Eosinophils (%) (Auto) 5, Basophils (%) (Auto) 1, Neutrophils # (Auto) 7.1, Lymphocytes # (Auto) 1.1, Monocytes # (Auto) 0.7, Eosinophils # (Auto) 0.5H, Basophils # (Auto) 0.1, Immature Granulocyte # (Auto) 0.1, Sodium Level 139, Potassium Level 3.6, Chloride Level 104, Carbon Dioxide Level 26, Anion Gap 9, Blood Urea Nitrogen 11, Creatinine 0.82, Estimat Glomerular Filtration Rate 117, BUN/Creatinine Ratio 13, Glucose Level 80, Calcium Level 9.2, Corrected Calcium 9.6, Total Bilirubin 0.2, Aspartate Amino Transf (AST/SGOT) 25, Alanine Aminotransferase (ALT/SGPT) 26, Alkaline Phosphatase 62, Total Protein 7.0, Albumin 3.5 Microbiology 02/27/22 MRSA Screen - Final, Complete MRSA not isolated Home Meds Active Clindamycin HCl 300 Mg Capsule 300 Mg PO TID Oxyir Tablet (Oxycodone HCl) 5 Mg Tab 5 Mg PO Q4HR PRN Reported Docusate Sodium 100 Mg Tablet 100 Mg PO DAILY PRN Ibuprofen 200 Mg Tablet 800 Mg PO Q4H PRN TAKES 4 (200MG) TABS Tylenol Extra Strength (Acetaminophen) 500 Mg Tablet 2,000 Mg PO Q4H PRN TAKES 4 (500MG) TABS Assessment/Pt Instructions PCP 1 week Discharge Planning: <30 minutes discharge planning Discharge Instructions Discharge Diet: No Restrictions Activity as Tolerated: Yes Discharge Physical Examination Vital Signs Vital Signs Date Time Temp Pulse Resp B/P (MAP) Pulse Ox O2 Delivery O2 Flow Rate FiO2 03/02/22 07:43 108 97 21 03/02/22 07:43 37.1 18 124/66 (85) Room Air 02/28/22 14:05 6.00 General Appearance: No Apparent Distress, WD/WN Allergies: Coded Allergies: No Known Drug Allergies (Unverified , 06/10/21) Discharge Summary Date of Admission Feb 26, 2022 at 19:19 Date of Discharge Discharge Date: Mar 02, 2022 Admission Diagnosis Assessment: Rectal abscess Rectal carcinoma status post colostomy Smoker Polysubstance abuse Plan: Dr. Mcclendon consult IV antibiotics IV fluids Pain control Discharge Diagnosis Assessment: Rectal abscess Rectal carcinoma status post colostomy Smoker Polysubstance abuse Plan: SIRIA MERINO DO Mar 02, 2022 09:45
[2022-03-02 11:33] VITALS: BP 130/70
[2022-03-02 16:13] VITALS: BP 112/77
[2022-03-02 19:49] VITALS: BP 118/74
== END 2022-03-02 20:30 | disposition home or self-care (01) ==
LOC: EDUNIT# 17:15 → ER 17:17 → 4TH 19:19 → UNDOADMOB 19:19 → INTOOBSV 19:19 → 4TH 20:55 → UNDODISOB 03-02 20:30
PROVIDERS: ADMIT Internal Medicine; ATTEND Internal Medicine
DX: K62.6 Ulcer of anus and rectum (principal); C21.0 Malignant neoplasm of anus, unspecified; Z85.048 Personal history of other malignant neoplasm of rectum, rectosigmoid junction, and anus; Z93.3 Colostomy status; F12.90 Cannabis use, unspecified, uncomplicated; F15.90 Other stimulant use, unspecified, uncomplicated
CPT/HCPCS: 36415; 74177; 80053; 80306; 81000; 85007; 85025; 85027; 87081; 94760; 96361; 96366; 96372; 96375; 96376; G0378

== ENCOUNTER 2022-03-30 21:47 | Inpatient (IN) | payer MEDICAID ==
[~2022-03-30] VITALS: Ht 165 cm; Wt 85.0 kg
[~2022-03-30 21:47] MED LIST changes: +CLIN-144 PO; +DOCU100T2 PO; +IBUP-2473 PO
[2022-03-30] MEDS ORDERED: LACTATED RINGERS 1,000 ML IV ONE (22:00)
--- NOTE | 2022-03-30 22:00 | ED General ---
General Chief Complaint: General Problems/Pain Stated Complaint: RECTAL PAIN Nursing Triage Note: PT ARRIVAL TO ER VIA [facility] FROM HOME WITH COMPLAINT OF RECTAL PAIN. PT HAS HISTORY OF COLON/RECTAL CANCER. PT HAS PAIN AT A 9/10. PATIENT WAS GIVEN SCRIPT FOR 80 OXY'S Q6 HRS 7 DAYS AGO AND HAS BEEN OUT FOR TWO DAYS. 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 Source of Information: Patient, Old Records History of Present Illness Date Seen by Provider: Mar 30, 2022 Time Seen by Provider: 21:49 Initial Comments PT ARRIVES VIA [facility] FROM HOME C/O RECTAL PAIN X 2 DAYS PT WITH ANAL/RECTAL CANCER AND COLOSTOMY Allergies and Home Medications Allergies Coded Allergies: No Known Drug Allergies (Unverified , 06/10/21) Patient Home Medication List Acetaminophen (Tylenol Extra Strength) 500 Mg Tablet, 2,000 MG PO Q4H PRN for PAIN-MILD (1-4), (Reported) Entered as Reported by: JASPREET MCCARTY on 03/01/22 0903 Clindamycin HCl (Clindamycin HCl) 300 Mg Capsule, 300 MG PO TID Prescribed by: SIRIA PARADA on 03/01/22 1032 Docusate Sodium (Docusate Sodium) 100 Mg Tablet, 100 MG PO DAILY PRN for CONSTIPATION-1ST LINE, (Reported) Entered as Reported by: JASPREET MCCARTY on 03/01/22 0904 Ibuprofen (Ibuprofen) 200 Mg Tablet, 800 MG PO Q4H PRN for PAIN-MILD (1-4), (Reported) Entered as Reported by: JASPREET MCCARTY on 03/01/22 0903 Oxycodone Hcl (Oxyir Tablet) 5 Mg Tab, 5 MG PO Q4HR PRN for PAIN-SEE DOSE INSTRUCTIONS Prescribed by: SIRIA PARADA on 03/01/22 1032 Past Ztybrku-Gjnwii-Ifwngv Hx Patient Social History Tobacco Use?: Yes Tobacco type used: Cigarettes Smoking Status: Current Everyday Smoker Use of E-Cig and/or Vaping dev: No Substance use?: Yes Substance type: Methamphetamine Substance frequency: Daily Alcohol Use?: No Pt feels they are or have been: No Immunizations Up To Date Tetanus Booster (TDap): Unknown Influenza Vaccine Up-to-Date: No; Not Current First/Initial COVID19 Vaccinat: NO Second COVID19 Vaccination Jim: NO Third COVID19 Vaccination Date: NO Seasonal Allergies Seasonal Allergies: Yes Past Medical History Surgery/Hospitalization HX: OSTOMY PORT INSERTION COLONOSCOPY Surgeries: Yes (ANAL BIOPSY; PORT PLACEMENT; COLONOSCOPIES; COLOSTOMY) Abdominal, Appendectomy, Bowel Surgery, Orthopedic Respiratory: No Currently Using CPAP: No Currently Using BIPAP: No Cardiac: No Neurological: Yes TIA Reproductive Disorders: No Sexually Transmitted Disease: No HIV/AIDS: No Genitourinary: No Gastrointestinal: Yes (ANAL CANCER) Gastroesophageal Reflux, Chronic Constipation Musculoskeletal: Yes Arthritis, Chronic Back Pain Endocrine: No HEENT: No Loss of Vision: Denies Hearing Impairment: Denies Cancer: Yes Rectal Did You Recieve Any Treatments: Yes What Type of Treatment Did You: Chemotherapy, Radiation, Surgical Intervention Psychosocial: Yes (POLYSUBSTANCE ABUSE) Anxiety, Violent Behavior, Depression Integumentary: No Blood Disorders: No Adverse Reaction/Blood Tranf: No Family Medical History Cancer, Hypertension Physical Exam Vital Signs Vital Signs - First Documented 03/30/22 21:50 Temp 37.0 Pulse 117 Resp 20 B/P (MAP) 125/86 (99) Pulse Ox 99 O2 Delivery Room Air Capillary Refill : Less Than 3 Seconds Height, Weight, BMI Height: 5'7.00" Weight: 140lbs. 0oz. [id number]; 23.81 BMI Method:Stated Progress/Results/Core Measures Suspected Sepsis SIRS Temperature: Pulse: 117 Respiratory Rate: 20 Blood Pressure 125 /86 Mean: 99 Results/Orders My Orders Orders - MARY JANE SMITH DO Ed Iv/Invasive Line Start (03/30/22 21:53) Monitor-Rhythm Ecg Trace Only (03/30/22 21:53) Ct Abdomen/Pelvis W (03/30/22 21:53) Alcohol (03/30/22 21:53) Cbc With Automated Diff (03/30/22 21:53) Comprehensive Metabolic Panel (03/30/22 21:53) Hs C Reactive Protein (03/30/22 21:53) Drug Screen Stat (Urine) (03/30/22 21:53) Protime With Inr (03/30/22 21:53) Partial Thromboplastin Time (03/30/22 21:53) Ua Culture If Indicated (03/30/22 21:53) Erythrocyte Sedimentation Rate (03/30/22 21:53) Ed Iv/Invasive Line Start (03/30/22 21:53) Lactated Ringers (Lr 1000 Ml Iv Solution (03/30/22 22:00) Vital Signs/I&O 03/30/22 21:50 Temp 37.0 Pulse 117 Resp 20 B/P (MAP) 125/86 (99) Pulse Ox 99 O2 Delivery Room Air Capillary Refill : Less Than 3 Seconds Blood Pressure Mean: 99 Departure Departure-Patient Inst. Referrals: [facility] (PCP/Family) Primary Care Physician MARY JANE SMITH DO Mar 30, 2022 22:00
[2022-03-30 22:05] LABS: BILIRUBIN,URINE NEGATIVE (NEGATIVE); CLARITY,URINE CLEAR; COLOR,URINE YELLOW; GLUCOSE, URINE (UA) NEGATIVE (NEGATIVE); KETONES,URINE NEGATIVE (NEGATIVE); LEUKOCYTE ESTERASE ,URINE NEGATIVE (NEGATIVE); NITRITE,URINE NEGATIVE (NEGATIVE); PH,URINE 7.5 (5-9); PROTEIN,URINE NEGATIVE (NEGATIVE)
[2022-03-30] MEDS ORDERED: ONDANSETRON 4 MG/2 ML (SDV) Z0FRAN IVP ONE (22:15)
[2022-03-30 22:22] LABS: AMPHETAMINE SCREEN, URINE POSITIVE (NEGATIVE); BARBITURATE SCREEN URINE NEGATIVE (NEGATIVE); BENZODIAZEPINES SCREEN URINE NEGATIVE (NEGATIVE); CANNABINOID SCREEN, URINE POSITIVE (NEGATIVE); COCAINE SCREEN URINE NEGATIVE (NEGATIVE); METHADONE STAT NEGATIVE (NEGATIVE); OPIATE SCREEN URINE NEGATIVE (NEGATIVE); OXYCODONE STAT POSITIVE (NEGATIVE); PROPOXYPHENE STAT NEGATIVE (NEGATIVE); TRICYCLIC ANTIDEPRESSANTS SCRE NEGATIVE (NEGATIVE)
[2022-03-30 22:24] LABS: BACTERIA,URINE NEGATIVE /HPF
[2022-03-30] MEDS ORDERED: IOHEXOL 350 MG/ML 100 ML (OMNIPAQUE 350) VIAL IV ONE (22:30)
[2022-03-30] MEDS ORDERED: NS 100 ML (IVPB) BAG IV ONE (22:30)
[2022-03-30] MEDS ORDERED: HOLD METFORMIN - RECEIVED CONTRAST 20 ML VIAL IV SCH (22:30)
[2022-03-30 22:39] LABS: BASOPHILS # (AUTO) 0.1 10^3/uL (0.0-0.1); BASOPHILS % (AUTO) 0 % (0-10); EOSINOPHILS # (AUTO) 0.4 10^3/uL (0.0-0.3); EOSINOPHILS % (AUTO) 4 % (0-10); HEMATOCRIT 28 % (40-54); LYMPHOCYTES # (AUTO) 0.6 10^3/uL (1.0-4.0); LYMPHOCYTES % (AUTO) 5 % (12-44); MEAN CORPUSCULAR HEMOGLOBIN 27 pg (25-34); MEAN CORPUSCULAR HGB CONC 32 g/dL (32-36); MEAN CORPUSCULAR VOLUME 85 fL (80-99); MEAN PLATELET VOLUME 8.4 fL (9.0-12.2); MONOCYTES # (AUTO) 0.7 10^3/uL (0.0-1.0); MONOCYTES % (AUTO) 6 % (0-12); NEUTROPHILS # (AUTO) 9.4 10^3/uL (1.8-7.8); NEUTROPHILS % (AUTO) 84 % (42-75); PLATELET COUNT 424 10^3/uL (130-400); WHITE BLOOD COUNT 11.2 10^3/uL (4.3-11.0)
[2022-03-30 22:46] LABS: INR 1.1 (0.8-1.4); PROTHROMBIN TIME PATIENT 14.8 SEC (12.2-14.7)
[2022-03-30 22:52] LABS: ALANINE AMINOTRANSFERASE 14 U/L (0-55); ALKALINE PHOSPHATASE 64 U/L (40-136); BILIRUBIN,TOTAL 0.2 MG/DL (0.1-1.0); BUN/CREATININE RATIO 9; CALCIUM 8.4 MG/DL (8.5-10.1); CARBON DIOXIDE 24 MMOL/L (21-32); CHLORIDE 103 MMOL/L (98-107); CREATININE SERUM 0.75 MG/DL (0.60-1.30); GFR ESTIMATED 121; GLUCOSE 95 MG/DL (70-105); POTASSIUM 3.8 MMOL/L (3.6-5.0); SODIUM 136 MMOL/L (135-145); TOTAL PROTEIN 6.3 GM/DL (6.4-8.2)
[2022-03-30 22:53] LABS: EOSINOPHILS % (MANUAL) 6 %; LYMPHOCYTES % (MANUAL) 7 %; MONOCYTES % (MANUAL) 6 %; NEUTROPHILS % (MANUAL) 81 %; PLATELET ESTIMATE NORMAL; RBC MORPH NORMAL
[2022-03-30 23:00] LABS: ERYTHROCYTE SEDIMENTATION RATE 66 MM/HR (0-15)
[2022-03-30] MEDS ORDERED: VANCOMYCIN INJECTION 1,000 MG in NS (IVPB) 250 ML IV ONE (23:45)
[2022-03-30] MEDS ORDERED: PIPERACILLIN SODIUM/TAZOBACTAM 4.5 GM in NS (IVPB) 100 ML IV ONE (23:45)
[2022-03-30] MEDS ORDERED: KETOROLAC 30 MG/ML VIAL IVP ONE (23:45)
[2022-03-31] VITALS (7 sets, daily range): BP systolic 116–137; BP diastolic 63–78
[2022-03-31] MEDS ORDERED: VANCOMYCIN INJECTION 750 MG in NS (IVPB) 250 ML IV ONE (00:45)
[2022-03-31] MEDS ORDERED: ONDANSETRON 4 MG/2 ML (SDV) Z0FRAN IV PRN (01:30)
[2022-03-31] MEDS: morphine INJ 4 MG/ML 1 ML (VIAL/SYRINGE) IV PRN ×6 (02:23→23:28)
[2022-03-31] MEDS: D5 1/2 NS W/KCL 20 MEQ/L 1,000 ML IV SCH ×5 (02:23→23:19)
--- NOTE | 2022-03-31 06:41 | Diagnostic Imaging Report ---
PROCEDURE: CT abdomen and pelvis with contrast. TECHNIQUE: Multiple contiguous axial images were obtained through the abdomen and pelvis after administration of intravenous contrast. Auto Exposure Controls were utilized during the CT exam to meet ALARA standards for radiation dose reduction. All CT scans use one or more of the following dose optimizing techniques: automated exposure control, MA and/or KvP adjustment based on patient size and exam type or iterative reconstruction. INDICATION: Rectal pain, history of anal carcinoma. EXAMINATION: CT abdomen and pelvis with contrast 03/30/2022. COMPARISON: 02/26/2022. FINDINGS: Lung bases clear. Liver, spleen, gallbladder, pancreas and adrenal glands unremarkable. Kidneys within normal limits. There are findings of moderate constipation. There is an ostomy in the left lower quadrant. There are suture line adalberto in the left lower abdomen into the pelvis. Again noted is irregularity and deformity of the perirectal/anal region likely due to the prior known carcinoma and postsurgical change. Along left lateral aspect of the lower rectum, a more masslike abnormality is noted causing mass effect towards the right. There is some gas extending along the right aspect of the masslike abnormality. This is in the region of the previously noted abscess. A small collection of fluid in the dependent aspect of the focal gas is noted. It is unclear if these findings are all perirectal or intraluminal felt to be less likely. Degree of fluid in the region has decreased since previous imaging. No free fluid appreciated. No intraperitoneal free air. Minimal wall thickening of the urinary bladder likely due to under distention with cystitis not excluded. Appendix is not visualized. There is no acute osseous abnormality. IMPRESSION: 1. Perirectal abnormality with a masslike area along the left rectal wall and a right likely perirectal air-fluid collection with decreased fluid when compared to previous imaging. These findings are likely perirectal, however association with the rectal lumen is difficult to exclude. Follow-up post rectal contrast CT of the pelvis could further evaluate these findings if clinically indicated. 2. Wall thickening urinary bladder likely due to under distention cystitis should be clinically excluded. Other incidental findings as above. Pertinent findings agree with the preliminary report. Dictated by: Dictated on workstation # [id number]
[2022-03-31 07:39] LABS: BASOPHILS # (AUTO) 0.1 10^3/uL (0.0-0.1); BASOPHILS % (AUTO) 1 % (0-10); EOSINOPHILS # (AUTO) 0.5 10^3/uL (0.0-0.3); EOSINOPHILS % (AUTO) 4 % (0-10); HEMATOCRIT 30 % (40-54); HEMOGLOBIN 9.7 g/dL (13.3-17.7); LYMPHOCYTES # (AUTO) 0.4 10^3/uL (1.0-4.0); LYMPHOCYTES % (AUTO) 4 % (12-44); MEAN CORPUSCULAR HEMOGLOBIN 27 pg (25-34); MEAN CORPUSCULAR HGB CONC 32 g/dL (32-36); MEAN CORPUSCULAR VOLUME 84 fL (80-99); MEAN PLATELET VOLUME 8.3 fL (9.0-12.2); MONOCYTES # (AUTO) 0.6 10^3/uL (0.0-1.0); MONOCYTES % (AUTO) 5 % (0-12); NEUTROPHILS # (AUTO) 10.2 10^3/uL (1.8-7.8); NEUTROPHILS % (AUTO) 87 % (42-75); PLATELET COUNT 423 10^3/uL (130-400); WHITE BLOOD COUNT 11.7 10^3/uL (4.3-11.0)
[2022-03-31 07:46] LABS: ALBUMIN 3.2 GM/DL (3.2-4.5)
[2022-03-31 07:47] LABS: POTASSIUM 3.8 MMOL/L (3.6-5.0)
[2022-03-31 07:48] LABS: CALCIUM 8.6 MG/DL (8.5-10.1)
[2022-03-31 07:49] LABS: TOTAL PROTEIN 6.5 GM/DL (6.4-8.2)
[2022-03-31 07:51] LABS: BILIRUBIN,TOTAL 0.2 MG/DL (0.1-1.0)
[2022-03-31 07:53] LABS: CREATININE SERUM 0.74 MG/DL (0.60-1.30)
--- NOTE | 2022-03-31 08:09 | Consultation - Surgery ---
LANDRY PANDYA 03/31/22 0809: History of Present Illness History of Present Illness Patient Consulted On(katheryn/time) 03/31/22 08:04 Date Seen by Provider: Mar 31, 2022 Time Seen by Provider: 08:04 Reason for Visit: Rectal Pain History of Present Illness Our patient is a 36 year old M who arrived to the ER with rectal pain. He has a history of rectal cancer for which he was seeing Dr. Lou in the cancer center around 6 months ago. He states that he received radiation and chemotherapy for the last year. He wasn't sure if he was cured but doesn't think that he was. He notes that they wanted him to follow-up after his treatment but he never did. He notes that his pain is a constant 9/10 relegated to the anus but radiates to his hips bilaterally. He notes that his pain began 2-3 days ago, no inciting event noted, worsened by movement and pressure. He notes that his pain occurs frequently but is generally not this severe. He presented a month ago with similar pain and had a gluteal ulcer exploration and debridement by Dr. Frankel. He ran out of oxycodone a few days ago and used methamphetamine in an attempt to deal with the pain, notes that the oxycodone is mostly sufficient for pain management. He notes constipation for which he takes stool softeners, nausea, difficulty urinating and occasional urgency, and intermittent blood in the colostomy bag. He also notes chills and intermittent SOB. Denies headache and vomiting. During the interview he became uncooperative and severely distressed due to his pain for which he was administered morphine and calmed down quickly afterwards. He indicates that his anus is draining a greenish, foul-smelling fluid for the past few days. Allergies and Home Medications Allergies Coded Allergies: No Known Drug Allergies (Unverified , 06/10/21) Patient Home Medication List Home Medication List Reviewed: No Oxycodone HCl/Acetaminophen (Oxycodone-Acetaminophen 5-325) 5 Mg-325 Mg Tablet, 1-2 EACH PO Q6H PRN for PAIN-SEVERE, (Reported) Entered as Reported by: BRENDA CHRISTIANSON on 03/31/22 0797 Last Action: Reviewed Discontinued Medications Acetaminophen (Tylenol Extra Strength) 500 Mg Tablet, 2,000 MG PO Q4H PRN for PAIN-MILD (1-4), (Reported) Discontinued Reason: No Longer Taking Entered as Reported by: JASPREET MCCARTY on 03/01/22902 Last Action: Discontinued Clindamycin HCl (Clindamycin HCl) 300 Mg Capsule, 300 MG PO TID Discontinued Reason: No Longer Taking Prescribed by: SIRIA PARADA on 03/01/221031 Last Action: Discontinued Docusate Sodium (Docusate Sodium) 100 Mg Tablet, 100 MG PO DAILY PRN for CONSTIPATION-1ST LINE, (Reported) Discontinued Reason: No Longer Taking Entered as Reported by: JASPREET MCCARTY on 03/01/22903 Last Action: Discontinued Ibuprofen (Ibuprofen) 200 Mg Tablet, 800 MG PO Q4H PRN for PAIN-MILD (1-4), (Reported) Discontinued Reason: No Longer Taking Entered as Reported by: JASPREET MCCARTY on 03/01/22902 Last Action: Discontinued Oxycodone Hcl (Oxyir Tablet) 5 Mg Tab, 5 MG PO Q4HR PRN for PAIN-SEE DOSE INSTRUCTIONS Discontinued Reason: No Longer Taking Prescribed by: SIRIA PARADA on 03/01/221031 Last Action: Discontinued Past Rsccgpg-[id number]-Jkrnvi Hx Patient Social History Drug of Choice: HX OF METH Smoking Status: Current Everyday Smoker (1 ppd for the past 15 years) Type Used: Cigarettes 2nd Hand Smoke Exposure: Yes Recent Hopitalizations: No Alcohol Use?: No (Former heavy drinker, quit 5 years ago) Substance type: Amphetamines, Methamphetamine, Nicotine, Misuse of prescript meds, Marijuana Have you traveled recently?: No Immunizations Up To Date Tetanus Booster (TDap): Unknown Seasonal Allergies Seasonal Allergies: Yes Surgeries History of Surgeries: Yes (ANAL BIOPSY; PORT PLACEMENT; COLONOSCOPIES; COLOSTOMY) Surgeries: Abdominal, Appendectomy (28 years ago), Bowel Surgery, Orthopedic (Upper jaw repair around 10 years ago at [place]), Rectal (Anal abscess debridement 1 month ago), Tonsillectomy (20 years ago in [place]) Respiratory History of Respiratory Disorde: No Cardiovascular History of Cardiac Disorders: No Neurological History of Neurological Disord: Yes Neurological Disorders: TIA Reproductive System Hx Reproductive Disorders: No Sexually Transmitted Disease: No HIV/AIDS: No Genitourinary History of Genitourinary Disor: No Gastrointestinal History of Gastrointestinal Di: Yes (ANAL CANCER) Gastrointestinal Disorders: Gastroesophageal Reflux, Chronic Constipation Musculoskeletal History of Musculoskeletal Dis: Yes Musculoskeletal Disorders: Arthritis, Chronic Back Pain Endocrine History of Endocrine Disorders: No HEENT History of HEENT Disorders: No Loss of Vision: Denies Hearing Impairment: Denies Cancer History of Cancer: Yes Cancer: Rectal Psychosocial History of Psychiatric Problem: Yes (POLYSUBSTANCE ABUSE) Behavioral Health Disorders: Anxiety, Violent Behavior, Depression Integumentary History of Skin or Integumenta: No Blood Transfusions History of Blood Disorders: No Adverse Reaction to a Blood Tr: No Family Medical History Significant Family History: Cancer (Throat cancer in Grandpa) Review of Systems-General Constitutional: chills; No fever, No weakness EENTM: No hearing loss, No blurred vision, No vision loss Respiratory: No cough; short of breath (Intermittent); No wheezing Cardiovascular: No chest pain, No palpitations Gastrointestinal: No abdominal pain; constipation, heartburn (Occasional) Genitourinary: No dysuria, No hematuria; hesitancy (Difficulty starting a stream), other (Occasional urgency) Musculoskeletal: joint pain (Pain in hips bilaterally) Skin: No hx of skin cancer, No rash Psychiatric/Neurological: Anxiety; Denies Headache, Denies Numbness Physical Exam-General Problems Physical Exam Vital Signs Vital Signs - First Documented 03/30/22 21:50 Temp 37.0 Pulse 117 Resp 20 B/P (MAP) 125/86 (99) Pulse Ox 99 O2 Delivery Room Air Capillary Refill : Less Than 3 Seconds General Appearance: severe distress (Until administered morphine) HEENT: PERRL/EOMI; No scleral icterus (R), No scleral icterus (L) Neck: non-tender, supple; No carotid bruit, No lymphadenopathy (R), No lymphadenopathy (L) Respiratory: chest non-tender, lungs clear, normal breath sounds, no respiratory distress, no accessory muscle use Cardiovascular: no gallop, no murmur, tachycardia Peripheral Pulses: 2+ Radial Pulses (R), 2+ Radial Pulses (L) Gastrointestinal: non tender, soft; No distended, No guarding; other (Colostomy bag is full of stool) Rectal: tenderness, other (Anus appears ulcerated around the entirety of the outer margin, no active drainage noted.) Back: no CVA tenderness, no vertebral tenderness Extremities: non-tender, no calf tenderness, normal capillary refill Neurologic/Psychiatric: alert, oriented x 3 Skin: warm/dry; No diaphoresis, No jaundice Data Review Labs Laboratory Tests 03/30/22 22:00: Urine Color YELLOW, Urine Clarity CLEAR, Urine pH 7.5, Urine Specific [place] 1.015L, Urine Protein NEGATIVE, Urine Glucose (UA) NEGATIVE, Urine Ketones NEGATIVE, Urine Nitrite NEGATIVE, Urine Bilirubin NEGATIVE, Urine Urobilinogen 1.0, Urine Leukocyte Esterase NEGATIVE, Urine RBC (Auto) NEGATIVE, Urine RBC NONE, Urine WBC NONE, Urine Squamous Epithelial Cells NONE, Urine Crystals NONE, Urine Bacteria NEGATIVE, Urine Casts NONE, Urine Mucus NEGATIVE, Urine Culture Indicated NO, Urine Opiates Screen NEGATIVE, Urine Oxycodone Screen POSITIVEH, Urine Methadone Screen NEGATIVE, Urine Propoxyphene Screen NEGATIVE, Urine Barbiturates Screen NEGATIVE, Ur Tricyclic Antidepressants Screen NEGATIVE, Urine Phencyclidine Screen NEGATIVE, Urine Amphetamines Screen POSITIVEH, Urine Methamphetamines Screen POSITIVEH, Urine Benzodiazepines Screen NEGATIVE, Urine Cocaine Screen NEGATIVE, Urine Cannabinoids Screen POSITIVEH 03/30/22 22:28: White Blood Count 11.2H, Red Blood Count 3.31L, Hemoglobin 9.0L, Hematocrit 28L, Mean Corpuscular Volume 85, Mean Corpuscular Hemoglobin 27, Mean Corpuscular Hemoglobin Concent 32, Red Cell Distribution Width 16.3H, Platelet Count 424H, Mean Platelet Volume 8.4L, Immature Granulocyte % (Auto) 0, Neutrophils (%) (Auto) 84H, Lymphocytes (%) (Auto) 5L, Monocytes (%) (Auto) 6, Eosinophils (%) (Auto) 4, Basophils (%) (Auto) 0, Neutrophils # (Auto) 9.4H, Lymphocytes # (Auto) 0.6L, Monocytes # (Auto) 0.7, Eosinophils # (Auto) 0.4H, Basophils # (Auto) 0.1, Immature Granulocyte # (Auto) 0.1, Neutrophils % (Manual) 81, Lymphocytes % (Manual) 7, Monocytes % (Manual) 6, Eosinophils % (Manual) 6, Platelet Estimate NORMAL, Blood Morphology Comment NORMAL, Erythrocyte Sedimentation Rate 66H, Prothrombin Time 14.8H, INR Comment 1.1, Activated Partial Thromboplast Time 39H, Sodium Level 136, Potassium Level 3.8, Chloride Level 103, Carbon Dioxide Level 24, Anion Gap 9, Blood Urea Nitrogen 7, Creatinine 0.75, Estimat Glomerular Filtration Rate 121, BUN/Creatinine Ratio 9, Glucose Level 95, Calcium Level 8.4L, Corrected Calcium 9.2, Total Bilirubin 0.2, Aspartate Amino Transf (AST/SGOT) 10, Alanine Aminotransferase (ALT/SGPT) 14, Alkaline Phosphatase 64, C-Reactive Protein High Sensitivity 9.80H, Total Protein 6.3L, Albumin 3.0L, Serum Alcohol < 10 03/31/22 07:15: White Blood Count 11.7H, Red Blood Count 3.59L, Hemoglobin 9.7L, Hematocrit 30L, Mean Corpuscular Volume 84, Mean Corpuscular Hemoglobin 27, Mean Corpuscular Hemoglobin Concent 32, Red Cell Distribution Width 16.5H, Platelet Count 423H, Mean Platelet Volume 8.3L, Immature Granulocyte % (Auto) 0, Neutrophils (%) (Auto) 87H, Lymphocytes (%) (Auto) 4L, Monocytes (%) (Auto) 5, Eosinophils (%) (Auto) 4, Basophils (%) (Auto) 1, Neutrophils # (Auto) 10.2H, Lymphocytes # (Auto) 0.4L, Monocytes # (Auto) 0.6, Eosinophils # (Auto) 0.5H, Basophils # (Auto) 0.1, Immature Granulocyte # (Auto) 0.0, Sodium Level 138, Potassium Level 3.8, Chloride Level 106, Carbon Dioxide Level 24, Anion Gap 8, Blood Urea Nitrogen 5L, Creatinine 0.74, Estimat Glomerular Filtration Rate 121, BUN/Creatinine Ratio 7, Glucose Level 109H, Calcium Level 8.6, Corrected Calcium 9.2, Total Bilirubin 0.2, Aspartate Amino Transf (AST/SGOT) 13, Alanine Aminotransferase (ALT/SGPT) 14, Alkaline Phosphatase 66, Total Protein 6.5, Albumin 3.2 Radiology Date of Exam:03/30/22 CT ABDOMEN/PELVIS W PROCEDURE: CT abdomen and pelvis with contrast. TECHNIQUE: Multiple contiguous axial images were obtained through the abdomen and pelvis after administration of intravenous contrast. Auto Exposure Controls were utilized during the CT exam to meet ALARA standards for radiation dose reduction. All CT scans use one or more of the following dose optimizing techniques: automated exposure control, MA and/or KvP adjustment based on patient size and exam type or iterative reconstruction. INDICATION: Rectal pain, history of anal carcinoma. EXAMINATION: CT abdomen and pelvis with contrast 03/30/2022. COMPARISON: 02/26/2022. FINDINGS: Lung bases clear. Liver, spleen, gallbladder, pancreas and adrenal glands unremarkable. Kidneys within normal limits. There are findings of moderate constipation. There is an ostomy in the left lower quadrant. There are suture line adalberto in the left lower abdomen into the pelvis. Again noted is irregularity and deformity of the perirectal/anal region likely due to the prior known carcinoma and postsurgical change. Along left lateral aspect of the lower rectum, a more masslike abnormality is noted causing mass effect towards the right. There is some gas extending along the right aspect of the masslike abnormality. This is in the region of the previously noted abscess. A small collection of fluid in the dependent aspect of the focal gas is noted. It is unclear if these findings are all perirectal or intraluminal felt to be less likely. Degree of fluid in the region has decreased since previous imaging. No free fluid appreciated. No intraperitoneal free air. Minimal wall thickening of the urinary bladder likely due to under distention with cystitis not excluded. Appendix is not visualized. There is no acute osseous abnormality. IMPRESSION: 1. Perirectal abnormality with a masslike area along the left rectal wall and a right likely perirectal air-fluid collection with decreased fluid when compared to previous imaging. These findings are likely perirectal, however association with the rectal lumen is difficult to exclude. Follow-up post rectal contrast CT of the pelvis could further evaluate these findings if clinically indicated. 2. Wall thickening urinary bladder likely due to under distention cystitis should be clinically excluded. Other incidental findings as above. Pertinent findings agree with the preliminary report. Dictated by: Dictated on workstation # [id number] Dict: 03/31/22 0632 Trans: 03/31/22 0841 [id number] Interpreted by: CADY RACHEL MD Electronically signed by: CADY RACHEL MD 03/31/22 0841 Assessment/Plan Assessment/Plan Admission [facility] Rectal Pain Assessment/Plan Rectal pain - possible mass or abscess along the left rectal wall, may need incision and drainage, debridement, or surgical exploration, follow-up rectal contrast CT if indicated, strive for adequate pain control, patient placed on piperacillin-tazobactam and administered vancomycin, fluid resuscitation. History of anal carcinoma - possible perirectal cancer, may need further visualization and biopsy. Anemia - Hgb of 9.7, will continue to monitor, possibly of chronic disease Polysubstance Abuse - social insurance analyst consult on discharge for addiction treatment. GERD - may be given protonix if he experiences acid reflux during his stay MARICRUZ FRANKEL DO 03/31/22 1541: History of Present Illness History of Present Illness Time Seen by Provider: 13:57 History of Present Illness Surgery asked to consult regarding rectal pain. Pt is well known to me, unfortunately he has stage IV rectal CA and has had non- healing ulcerated area around rectum. He has come in numerous times for the same thing. He states that it started causing severe pain again and "draining green stuff." Allergies and Home Medications Allergies Coded Allergies: No Known Drug Allergies (Unverified , 06/10/21) Patient Home Medication List Home Medication List Reviewed: Yes Oxycodone HCl/Acetaminophen (Oxycodone-Acetaminophen 5-325) 5 Mg-325 Mg Tablet, 1-2 EACH PO Q6H PRN for PAIN-SEVERE, (Reported) Entered as Reported by: BRENDA CHRISTIANSON on 03/31/22 1446 Last Action: Reviewed Discontinued Medications Acetaminophen (Tylenol Extra Strength) 500 Mg Tablet, 2,000 MG PO Q4H PRN for PAIN-MILD (1-4), (Reported) Discontinued Reason: No Longer Taking Entered as Reported by: JASPREET MCCARTY on 03/01/22 09 Last Action: Discontinued Clindamycin HCl (Clindamycin HCl) 300 Mg Capsule, 300 MG PO TID Discontinued Reason: No Longer Taking Prescribed by: SIRIA PARADA on 03/01/22 1032 Last Action: Discontinued Docusate Sodium (Docusate Sodium) 100 Mg Tablet, 100 MG PO DAILY PRN for CONSTIPATION-1ST LINE, (Reported) Discontinued Reason: No Longer Taking Entered as Reported by: JASPREET MCCARTY on 03/01/22 0904 Last Action: Discontinued Ibuprofen (Ibuprofen) 200 Mg Tablet, 800 MG PO Q4H PRN for PAIN-MILD (1-4), (Reported) Discontinued Reason: No Longer Taking Entered as Reported by: JASPREET MCCARTY on 03/01/22 0903 Last Action: Discontinued Oxycodone Hcl (Oxyir Tablet) 5 Mg Tab, 5 MG PO Q4HR PRN for PAIN-SEE DOSE INSTRUCTIONS Discontinued Reason: No Longer Taking Prescribed by: SIRIA PARADA on 03/01/22 1032 Last Action: Discontinued Past Oaikolv-Wqblff-Ipfqkg Hx Patient Social History Smoking Status: Current Everyday Smoker (1 ppd for the past 15 years) Substance type: Methamphetamine Surgeries History of Surgeries: Yes Surgeries: Abdominal, Appendectomy (28 years ago), Bowel Surgery, Orthopedic (Upper jaw repair around 10 years ago at [place]), Rectal (Anal abscess debridement 1 month ago), Tonsillectomy (20 years ago in [place]) Respiratory History of Respiratory Disorde: No Cardiovascular History of Cardiac Disorders: No Neurological History of Neurological Disord: No Genitourinary History of Genitourinary Disor: No Gastrointestinal History of Gastrointestinal Di: Yes Gastrointestinal Disorders: Obstructive Bowel, Chronic Diarrhea Musculoskeletal History of Musculoskeletal Dis: No Endocrine History of Endocrine Disorders: No HEENT History of HEENT Disorders: No Loss of Vision: Denies Hearing Impairment: Denies Cancer History of Cancer: Yes Cancer: Colon (rectal) Psychosocial History of Psychiatric Problem: Yes Behavioral Health Disorders: Depression Review of Systems-General Constitutional: chills; No fever, No weakness EENTM: No hearing loss, No blurred vision, No vision loss Respiratory: No cough; short of breath (Intermittent); No wheezing Cardiovascular: No chest pain, No palpitations Gastrointestinal: No abdominal pain; constipation, heartburn (Occasional) Genitourinary: No dysuria, No hematuria; hesitancy (Difficulty starting a stream), other (Occasional urgency) Musculoskeletal: joint pain (Pain in hips bilaterally) Skin: No hx of skin cancer, No rash Psychiatric/Neurological: Anxiety; Denies Headache, Denies Numbness Physical Exam-General Problems Physical Exam General Appearance: WD/WN, severe distress (Until administered morphine) Eyes: Bilateral Eye PERRL, Bilateral Eye EOMI HEENT: PERRL/EOMI, pharynx normal; No scleral icterus (R), No scleral icterus (L) Neck: non-tender, supple; No carotid bruit Respiratory: lungs clear, normal breath sounds, no respiratory distress, no accessory muscle use Cardiovascular: no murmur, tachycardia Gastrointestinal: non tender, soft; No distended, No guarding; other (Colostomy bag is full of stool) Rectal: tenderness, other (Anus appears ulcerated around the entirety of the outer margin, lots of drainage noted.) Back: no CVA tenderness, no vertebral tenderness Extremities: non-tender, no calf tenderness, normal capillary refill Neurologic/Psychiatric: alert, oriented x 3 Assessment/Plan Assessment/Plan Assessment/Plan Rectal pain - chronic abscess with ?? new mass along the left rectal wall. Pain control, IV ABX patient placed on piperacillin-tazobactam and administered vancomycin, fluid resuscitation. History of anal carcinoma - possible perirectal cancer, may need further visualization and biopsy. Anemia - Hgb of 9.7, will continue to monitor, possibly of chronic disease Polysubstance Abuse - social insurance analyst consult on discharge for addiction treatment. GERD - may be given protonix if he experiences acid reflux during his stay Supervisory-Addendum Brief Verification & Attestation Participated in pt care: history, MDM, physical Personally performed: exam, history, MDM, supervision of care Care discussed with: Medical Student Procedures: n/a Verification and Attestation of Medical Student E/M Service A medical student performed and documented this service. I then reviewed and verified all information documented by the medical student and made modifications to such information, when appropriate. I personally performed a physical exam, medical decision making and then discussed any differences betwee n the notes and made revisions as necessary to create one note. Maricruz Frankel , 03/31/22 , 15:44 LANDRY PANDYA Mar 31, 2022 08:09 MARICRUZ FRANKEL DO Mar 31, 2022 15:41
[2022-03-31] MEDS: PIPERACILLIN SODIUM/TAZOBACTAM 4.5 GM in NS (IVPB) 100 ML IV SCH ×3 (08:13→23:18)
[2022-03-31] MEDS: PANTOPRAZOLE 40 MG (PROTONIX) VIAL IV SCH (08:13)
--- NOTE | 2022-03-31 13:12 | History & Physical-Hospitalist ---
PARIS GERBER 03/31/22 1312: History of Present Illness HPI/Chief Complaint Davide Nuno is a 36 M with past medical history of SCC of the anus, GERD, and polysubstance use. He presented to the ED on 03/30 with complaint of rectal pain that worsened in severity after running out of pain medication two to three days ago. The patient has seen Dr oLu previously and states he has received chemo, radiation, and surgery before for his cancer but has not followed up with the cancer center recently. He has multiple admission for related issues with debridement of necrotic ulcers by Dr Mcclendon most recent being 02/28. The pain is located at the anus and is unrelenting. Patient rates his pain at 8/10 this morning. Visible drainage is present while observing the patient lying in bed. He is difficult to interview and often only provides yes/no answers to my q uestions. He appears to be tired and frustrated with his pain. Patient is NPO in case of need for operation today. Ostomy in place and functioning. Source: patient Exam Limitations: no limitations Date Seen 03/31/22 Time Seen by a Provider: 08:45 Attending Physician [facility] PCP Admitting Physician: Beatrice Parada DO Attending Physician: Beatrice Parada DO Referring Physician Date of Admission Mar 30, 2022 at 22:20 Home Medications & Allergies Home Medications Reviewed patient Home Medication Reconciliation performed by pharmacy medication reconciliations alarm field technician and/or nursing. Patients Allergies have been reviewed. Allergies Allergies Coded Allergies No Known Drug Allergies (Unverified06/10/21) Past Xfwroob-Srzswl-Fxnkut Hx Patient Social History Tobacco Use?: Yes Tobacco type used: Cigarettes Smoking Status: Current Everyday Smoker (1 ppd for the past 15 years) Use of E-Cig and/or Vaping dev: No Substance use?: Yes Substance type: Amphetamines, Methamphetamine, Nicotine, Misuse of prescript meds, Marijuana Substance frequency: Daily Alcohol Use?: No (Former heavy drinker, quit 5 years ago) Pt feels they are or have been: No Immunizations Up To Date First/Initial COVID19 Vaccinat: NO Second COVID19 Vaccination Jim: NO Tetanus Booster (TDap): Unknown Hepatitis A: No Hepatitis B: No Seasonal Allergies Seasonal Allergies: Yes Current Status Advance Directives: No Communicates: Verbally Primary Language: Serbian Preferred Spoken Language: Serbian Implanted or Applied Medical D: None Past Medical History Surgeries: Abdominal, Appendectomy (28 years ago), Bowel Surgery, Orthopedic (Upper jaw repair around 10 years ago at [place]), Rectal (Anal abscess debrid ement 1 month ago), Tonsillectomy (20 years ago in [place]) Currently Using CPAP: No Currently Using BIPAP: No TIA Sexually Transmitted Disease: No HIV/AIDS: No Gastroesophageal Reflux, Chronic Constipation Arthritis, Chronic Back Pain Loss of Vision: Denies Hearing Impairment: Denies Rectal Did You Recieve Any Treatments: Yes What Type of Treatment Did You: Chemotherapy, Radiation, Surgical Intervention Anxiety, Violent Behavior, Depression Blood Disorders: No Adverse Reaction/Blood Tranf: No Family Medical History Cancer (Throat cancer in [facility]) Review of Systems Constitutional: No chills, No fever Respiratory: No cough, No short of breath Cardiovascular: No chest pain, No palpitations Gastrointestinal: No abdominal pain; constipation; No nausea, No vomiting Genitourinary: No dysuria, No hematuria Skin: lesions (ulcerative lesion present at site of anal cancer and surrounding tissue) Psychiatric/Neurological: Denies Headache Physical Exam Physical Exam Vital Signs Vital Signs - First Documented 03/30/22 21:50 Temp 37.0 Pulse 117 Resp 20 B/P (MAP) 125/86 (99) Pulse Ox 99 O2 Delivery Room Air Capillary Refill : Less Than 3 Seconds Height, Weight, BMI Height: 5'7.00" Weight: 140lbs. 0oz. 63.677903af; 31.22 BMI Method:Stated General Appearance: No Apparent Distress HEENT: PERRL/EOMI, Moist Mucous Membranes Neck: Supple Respiratory: Chest Non Tender, Lungs Clear, No Accessory Muscle Use Cardiovascular: Regular Rate, Rhythm (has been tachycardic intermittently), Normal Peripheral Pulses Gastrointestinal: Non Tender, Soft, Other (ostomy in place and partially full of stool) Rectal: Deferred Extremity: Normal Capillary Refill, No Pedal Edema Neurologic/Psychiatric: Alert, Oriented x3, Other (somnolent) Skin: No Cyanosis, No Diaphoresis; Other (ulcerative lesion present at anus) Results Results/Procedures Labs Laboratory Tests 03/30/22 22:28 03/31/22 07:15 Patient resulted labs reviewed. Imaging [facility], [place] NAME: DAVIDE NUNO [facility] REC#: [id number] PT STATUS: ADM IN : 1985 PHYSICIAN: MARY JANE SMITH DO ADMIT DATE: 03/30/22/ Signed Date of Exam:03/30/22 CT ABDOMEN/PELVIS W PROCEDURE: CT abdomen and pelvis with contrast. TECHNIQUE: Multiple contiguous axial images were obtained through the abdomen and pelvis after administration of intravenous contrast. Auto Exposure Controls were utilized during the CT exam to meet ALARA standards for radiation dose reduction. All CT scans use one or more of the following dose optimizing techniques: automated exposure control, MA and/or KvP adjustment based on patient size and exam type or iterative reconstruction. INDICATION: Rectal pain, history of anal carcinoma. EXAMINATION: CT abdomen and pelvis with contrast 03/30/2022. COMPARISON: 02/26/2022. FINDINGS: Lung bases clear. Liver, spleen, gallbladder, pancreas and adrenal glands unremarkable. Kidneys within normal limits. There are findings of moderate constipation. There is an ostomy in the left lower quadrant. There are suture line adalberto in the left lower abdomen into the pelvis. Again noted is irregularity and deformity of the perirectal/anal region likely due to the prior known carcinoma and postsurgical change. Along left lateral aspect of the lower rectum, a more masslike abnormality is noted causing mass effect towards the right. There is some gas extending along the right aspect of the masslike abnormality. This is in the region of the previously noted abscess. A small collection of fluid in the dependent aspect of the focal gas is noted. It is unclear if these findings are all perirectal or intraluminal felt to be less likely. Degree of fluid in the region has decreased since previous imaging. No free fluid appreciated. No intraperitoneal free air. Minimal wall thickening of the urinary bladder likely due to under distention with cystitis not excluded. Appendix is not visualized. There is no acute osseous abnormality. IMPRESSION: 1. Perirectal abnormality with a masslike area along the left rectal wall and a right likely perirectal air-fluid collection with decreased fluid when compared to previous imaging. These findings are likely perirectal, however association with the rectal lumen is difficult to exclude. Follow-up post rectal contrast CT of the pelvis could further evaluate these findings if clinically indicated. 2. Wall thickening urinary bladder likely due to under distention cystitis should be clinically excluded. Other incidental findings as above. Pertinent findings agree with the preliminary report. Dictated by: Dictated on workstation # [id number] Dict: 03/31/22631 Trans: 03/31/22840 [id number] Interpreted by: CADY RACHEL MD Electronically signed by: CADY RACHEL MD 03/31/2241 Assessment/Plan Admission Diagnosis Rectal pain SCC of rectum polysubstance use Admission Status: Inpatient Order (span 2 midnights) Reason for Inpatient Admission: Rectal pain HX of rectal cancer Substance abuse Assessment and Plan Rectal pain SCC of rectum General surgery consulted Could represent abscess, cellulitis, or ulcerative lesion due to the neoplasm May need further debridement Pain control with morphine 4mg q2hr for severe pain IV abx- pip/tazo Polysubstance use Urine tox screen positive for meth, oxycodone, and cannabinoids Monitor for signs of withdrawal Needs social work assistance with drug abuse/abstinence programs as an outpatient when ready for discharge Anemia Hgb 9.7 this morning Continue to monitor h/h MCV in normal ranges, this could represent anemia of chronic disease or beginning of blood loss anemia, patient not complaining of bleeding from his wound or ostomy at this time BEATRICE PARADA DO 04/01/22 0520: Supervisory-Addendum Brief Verification & Attestation Participated in pt care: history, MDM, physical Personally performed: exam, history, MDM, supervision of care Care discussed with: Medical Student Procedures: n/a Results interpretation: Verified all documentation Verification and Attestation of Medical Student E/M Service A medical student performed and documented this service in my presence. I reviewed and verified all information documented by the medical student and made modifications to such information, when appropriate. I personally performed the physical exam and medical decision making. Beatrice Parada Apr 01, 2022,05:19 [place] GERBER Mar 31, 2022 13:12 BEATRICE PARADA DO Apr 01, 2022 05:20
[2022-03-31] MEDS ORDERED: OXYC1TAB11 PO (14:46)
[2022-03-31] MEDS ORDERED: NICOTINE 21 MG (NICODERM) PATCH ONE (20:04)
[2022-03-31] MEDS ORDERED: PATCH REMOVAL TP SCH (21:00)
[2022-03-31] MEDS ORDERED: NICOTINE 21 MG (NICODERM) PATCH TD SCH (21:00)
[2022-03-31] MEDS: ACETAMINOPHEN 500 MG TAB (TYLENOL) PO PRN (21:21)
[2022-04-01 03:43] VITALS: BP 114/76
[2022-04-01] MEDS: morphine INJ 4 MG/ML 1 ML (VIAL/SYRINGE) IV PRN ×4 (04:00→11:13)
[2022-04-01] MEDS: ACETAMINOPHEN 500 MG TAB (TYLENOL) PO PRN (05:11)
[2022-04-01 07:28] VITALS: BP 122/77
[2022-04-01] MEDS: PIPERACILLIN SODIUM/TAZOBACTAM 4.5 GM in NS (IVPB) 100 ML IV SCH (07:36)
[2022-04-01] MEDS: PANTOPRAZOLE 40 MG (PROTONIX) VIAL IV SCH (08:04)
[2022-04-01 08:36] LABS: BASOPHILS # (AUTO) 0.1 10^3/uL (0.0-0.1); BASOPHILS % (AUTO) 1 % (0-10); EOSINOPHILS # (AUTO) 0.7 10^3/uL (0.0-0.3); EOSINOPHILS % (AUTO) 8 % (0-10); HEMATOCRIT 32 % (40-54); HEMOGLOBIN 10.4 g/dL (13.3-17.7); LYMPHOCYTES # (AUTO) 0.8 10^3/uL (1.0-4.0); LYMPHOCYTES % (AUTO) 10 % (12-44); MEAN CORPUSCULAR HEMOGLOBIN 27 pg (25-34); MEAN CORPUSCULAR HGB CONC 32 g/dL (32-36); MEAN CORPUSCULAR VOLUME 84 fL (80-99); MONOCYTES # (AUTO) 0.5 10^3/uL (0.0-1.0); MONOCYTES % (AUTO) 6 % (0-12); NEUTROPHILS # (AUTO) 6.7 10^3/uL (1.8-7.8); NEUTROPHILS % (AUTO) 76 % (42-75); PLATELET COUNT 450 10^3/uL (130-400); WHITE BLOOD COUNT 8.8 10^3/uL (4.3-11.0)
--- NOTE | 2022-04-01 08:43 | Progress Note - Surgery ---
LANDRY PADNYA 04/01/22 0843: Subjective Date Seen by a Provider: Apr 01, 2022 Time Seen by a Provider: 07:50 Subjective/Events-last exam Our patient is a 36 year old man admitted for anorectal pain with known stage IV rectal cancer. He states that he is feeling better today and his pain has im proved somewhat, falling to a 7/10. He notes that it is worsened by movement and coughing but helped by the pain medication that he has been receiving. He denies chills, nausea, or vomiting but does indicate night sweats, weakness in the legs, and a moderately severe headache that improved substantially after eating yesterday. He denies SOB, cough, chest pain, or palpitations. In addition, he states that he sometimes has difficulty starting a urinary stream and occasionally he experiences urgency. Denies dysuria and hematuria. Review of Systems General: No Chills; Night Sweats, Fatigue HEENT: Head Aches (Before he ate yesterday); No Visual Changes, No Sore Throat Pulmonary: No Dyspnea, No Cough Cardiovascular: No: Chest Pain, Palpitations Gastrointestinal: No: Nausea, Vomiting, Abdominal Pain Genitourinary: No Dysuria; Other (Retention at times and urgency at others) Musculoskeletal: No: neck pain, back pain Neurological: Weakness (In legs); No: Confusion Focused Exam Lactate Level 03/30/22 00:05: Lactic Acid Level 0.81 Objective Exam Vital Signs Date Time Temp Pulse Resp B/P (MAP) Pulse Ox O2 Delivery O2 Flow Rate FiO2 04/01/22 08:00 Room Air 04/01/22 07:28 36.8 101 18 122/77 (92) 97 Room Air 04/01/22 07:07 99 04/01/22 03:43 36.5 109 18 114/76 (89) 97 Room Air 04/01/22 01:00 127 03/31/22 23:20 36.4 109 18 117/75 (89) 97 Room Air 03/31/22 20:10 Room Air 03/31/22 19:20 37.4 108 18 132/63 (86) 96 Room Air 03/31/22 19:00 117 03/31/22 16:15 37.1 116 19 116/69 (85) 96 Room Air 03/31/22 12:53 103 03/31/22 11:38 37.3 101 18 121/70 (87) 96 Room Air I & O 04/01/22 07:00 Intake Total 2946 ml Output Total 2000 ml Balance 946 ml Capillary Refill : Less Than 3 Seconds General Appearance: No Apparent Distress, Chronically ill HEENT: PERRL/EOMI, Moist Mucous Membranes; No Scleral Icterus (L), No Scleral Icterus (R) Neck: Non Tender, Supple; No Carotid Bruit, No Lymphadenopathy (L), No Lymphadenopathy (R) Respiratory: Chest Non Tender, Lungs Clear, Normal Breath Sounds, No Accessory Muscle Use, No Respiratory Distress Cardiovascular: No Edema, No Gallop, No Murmur, Normal Peripheral Pulses, Tachycardia Peripheral Pulses: 2+ Radial Pulses (R), 2+ Radial Pulses (L) Gastrointestinal: non tender, soft; No distended, No guarding Extremity: Normal Capillary Refill, No Calf Tenderness, No Pedal Edema Neurologic/Psychiatric: Alert, Oriented x3, Other (Somnolent) Skin: Normal Color; No Diaphoresis, No Jaundice; Other (Ulcerative lesion present at the anus) Results Lab Laboratory Tests 04/01/22 08:27: Microbiology 03/30/22 Blood Culture - Preliminary, Resulted No growth Assessment/Plan Assessment/Plan Admission Diagonsis Rectal Pain Assessment/Plan Rectal pain - possible new mass or abscess along the left rectal wall, strive for adequate pain control, patient placed on piperacillin-tazobactam on bag 05/21 and administered vancomycin, fluid resuscitation. Patient should follow-up with oncology upon discharge. History of anal carcinoma - known stage IV rectal cancer, patient should follow- up with oncology upon discharge for further treatment. 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 GERD - may be given protonix if he experiences acid reflux during his stay Leukocytosis - resolved, WBC dropped by 8.8 CODY MCCLENDON DO 04/01/22 1701: Subjective Time Seen by a Provider: 11:58 Subjective/Events-last exam Pt seen and examined, no new changes...still complains of rectal pain. Review of Systems General: No Chills; Night Sweats, Fatigue Pulmonary: No Dyspnea, No Cough Cardiovascular: No: Chest Pain, Palpitations Gastrointestinal: No: Nausea, Vomiting, Abdominal Pain Genitourinary: Other (Retention at times and urgency at others) Objective Exam General Appearance: No Apparent Distress, Chronically ill HEENT: PERRL/EOMI, Moist Mucous Membranes Respiratory: Lungs Clear, Normal Breath Sounds, No Accessory Muscle Use, No Respiratory Distress Cardiovascular: No Murmur, Tachycardia Gastrointestinal: non tender, soft; No distended, No guarding Neurologic/Psychiatric: Alert, Oriented x3 Skin: Other (Ulcerative lesion present around the anus) Assessment/Plan Assessment/Plan Assessment/Plan Rectal pain - no change and nothing new; unfortunately it is the same pain from his rectal CA and the ulceration. History of anal carcinoma - known stage IV rectal cancer, patient should follow- up with oncology upon discharge for further treatment. 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 GERD - may be given protonix if he experiences acid reflux during his stay Leukocytosis - resolved, WBC dropped by 8.8 Supervisory-Addendum Brief Verification & Attestation Participated in pt care: history, MDM, physical Personally performed: exam, history, MDM, supervision of care Care discussed with: Medical Student Procedures: n/a Verification and Attestation of Medical Student E/M Service A medical student performed and documented this service. I then reviewed and verified all information documented by the medical student and made modifications to such information, when appropriate. I personally performed a physical exam, medical decision making and then discussed any differences between the notes and made revisions as necessary to create one note. Cody Mcclendon , 04/01/22 , 17:01 LANDRY PANDYA Apr 01, 2022 08:43 CODY MCCLENDON DO Apr 01, 2022 17:01
[2022-04-01 08:53] LABS: ALBUMIN 3.3 GM/DL (3.2-4.5)
[2022-04-01 08:54] LABS: CALCIUM 8.8 MG/DL (8.5-10.1)
[2022-04-01 08:56] LABS: TOTAL PROTEIN 6.9 GM/DL (6.4-8.2)
[2022-04-01 08:58] LABS: BILIRUBIN,TOTAL 0.2 MG/DL (0.1-1.0)
[2022-04-01 08:59] LABS: CREATININE SERUM 0.86 MG/DL (0.60-1.30)
[2022-04-01] MEDS ORDERED: NICOTINE 21 MG (NICODERM) PATCH TD SCH (09:00)
[2022-04-01] MEDS ORDERED: CATHETER FLUSH 10 ML SYR IVP PRN (09:15)
[2022-04-01] MEDS: D5 1/2 NS W/KCL 20 MEQ/L 1,000 ML IV SCH (11:13)
[2022-04-01 11:32] VITALS: BP 140/81
[2022-04-01] MEDS ORDERED: AMOX1TAB12 PO (12:41)
[2022-04-01] MEDS ORDERED: OXYC1TAB11 PO (12:41)
--- NOTE | 2022-04-01 12:42 | Discharge Summary ---
Discharge Summary Hospital Course Was the Problem List Reviewed?: Yes Problems/Dx: (1) Anal cancer Status: Acute (2) Methamphetamine use Status: Acute (3) Opiate abuse, continuous Status: Acute Hospital Course Date of Admission: Mar 30, 2022 at 22:20 Admission Diagnosis : [facility] Date of Discharge: 04/01/22 Discharge Diagnosis: [ ] Hospital Course: Short course after he was admitted for acute on chronic infection of anal region. He had taken al of his pain meds so he used a lot of meth to manage the pain. IV abx maintained and will transition to PO abx. Pt was deemed stable for DC by Dr Mcclendon. Labs and Pending Lab Test: Laboratory Tests 04/01/22 08:27: White Blood Count 8.8, Red Blood Count 3.82L, Hemoglobin 10.4L, Hematocrit 32L, Mean Corpuscular Volume 84, Mean Corpuscular Hemoglobin 27, Mean Corpuscular Hemoglobin Concent 32, Red Cell Distribution Width 16.4H, Platelet Count 450H, Mean Platelet Volume 8.0L, Immature Granulocyte % (Auto) 0, Neutrophils (%) (Auto) 76H, Lymphocytes (%) (Auto) 10L, Monocytes (%) (Auto) 6, Eosinophils (%) (Auto) 8, Basophils (%) (Auto) 1, Neutrophils # (Auto) 6.7, Lymphocytes # (Auto) 0.8L, Monocytes # (Auto) 0.5, Eosinophils # (Auto) 0.7H, Basophils # (Auto) 0.1, Immature Granulocyte # (Auto) 0.0, Sodium Level 140, Potassium Level 4.0, Chloride Level 106, Carbon Dioxide Level 24, Anion Gap 10, Blood Urea Nitrogen 6L, Creatinine 0.86, Estimat Glomerular Filtration Rate 116, BUN/Creatinine Ratio 7, Glucose Level 141H, Calcium Level 8.8, Corrected Calcium 9.4, Total Bilirubin 0.2, Aspartate Amino Transf (AST/SGOT) 11, Alanine Aminotransferase (ALT/SGPT) 14, Alkaline Phosphatase 73, Total Protein 6.9, Albumin 3.3 Microbiology 03/30/22 Blood Culture - Preliminary, Resulted No growth Home Meds Active Amox Tr-K Clv 875-125 mg Tab (Amoxicillin/Potassium Clav) 875 Mg-125 Mg Tablet 1 Each PO BID Assessment/Pt Instructions pcp 1 week Discharge Planning: <30 minutes discharge planning Discharge Instructions Discharge Diet: No Restrictions Discharge Physical Examination Vital Signs Vital Signs Date Time Temp Pulse Resp B/P (MAP) Pulse Ox O2 Delivery O2 Flow Rate FiO2 04/01/22 11:32 36.7 111 18 140/81 (100) 97 Room Air General Appearance: No Apparent Distress, WD/WN, Chronically ill Allergies: Coded Allergies: No Known Drug Allergies (Unverified , 06/10/21) Discharge Summary Date of Admission Mar 30, 2022 at 22:20 Date of Discharge Discharge Date: Apr 01, 2022 Admission Diagnosis Rectal pain SCC of rectum polysubstance use SIRIA PARADA DO Apr 01, 2022 12:42
== END 2022-04-01 14:20 | disposition home or self-care (01) | DRG 394 ==
LOC: EDUNIT# 21:47 → ER 21:48 → 4TH 22:20
PROVIDERS: ADMIT Internal Medicine; ATTEND Internal Medicine
DX: K61.1 Rectal abscess (principal); C79.9 Secondary malignant neoplasm of unspecified site; K62.6 Ulcer of anus and rectum; Z85.048 Personal history of other malignant neoplasm of rectum, rectosigmoid junction, and anus; Z93.3 Colostomy status; F15.10 Other stimulant abuse, uncomplicated; F17.210 Nicotine dependence, cigarettes, uncomplicated; K59.09 Other constipation; K21.9 Gastro-esophageal reflux disease without esophagitis; D64.9 Anemia, unspecified; M19.91 Primary osteoarthritis, unspecified site; M54.9 Dorsalgia, unspecified; F41.9 Anxiety disorder, unspecified; F32.A Depression, unspecified; R45.6 Violent behavior; Z86.73 Personal history of transient ischemic attack (TIA), and cerebral infarction without residual deficits; Z79.899 Other long term (current) drug therapy
CPT/HCPCS: 36415; 74177; 80053; 80306; 80320; 81000; 83605; 85007; 85025; 85027; 85610; 85652; 85730; 86141; 87040; 93041

== ENCOUNTER 2022-04-14 18:08 | Emergency (ER) | payer MEDICAID ==
[~2022-04-14] VITALS: Ht 167 cm; Wt 70.3 kg
[~2022-04-14 18:08] MED LIST changes: +OXYC1TAB11 PO
[2022-04-14] MEDS ORDERED: morphine INJ 10 MG/ML 1ML (SYR OR VIAL) IVP STA (19:00)
--- NOTE | 2022-04-14 19:09 | ED General ---
General Chief Complaint: Rect Problems Stated Complaint: RECTAL PAIN Nursing Triage Note: pt presents to ED with c/o rectal pain x 1 week. pt has hx of rectal cancer and PCP has pt on morphine and oxy for pain management but those meds ran out 4 days ago and has been unable to get them re-filled since. Source of Information: Patient, Old Records Exam Limitations: No Limitations History of Present Illness Date Seen by Provider: Apr 14, 2022 Time Seen by Provider: 18:48 Initial Comments Davide is a 37-year-old man who has metastatic anal rectal cancer currently not under any cancer treatment. He is not presently established with an oncologist but reports he is working on that with his primary care provider, Dr. Malik. He ran out of his pain medications a few days ago and is having exacerbation of pain. He states his primary care doctor was concerned he may be developing infection again. He has been admitted previously for infection associated with this neoplasm. He has history of substance abuse and reports being clean for about 10 days. He has not had any fevers but is tachycardic. Allergies and Home Medications Allergies Coded Allergies: No Known Drug Allergies (Unverified , 06/10/21) Patient Home Medication List Home Medication List Reviewed: Yes Amoxicillin/Potassium Clav (Amox Tr-K Clv 875-125 mg Tab) 875 Mg-125 Mg Tablet, 1 EACH PO BID Prescribed by: SIRIA PARADA on 04/01/22 1241 Oxycodone HCl/Acetaminophen (Oxycodone-Acetaminophen 5-325) 5 Mg-325 Mg Tablet, 1-2 EACH PO Q6H PRN for PAIN-SEVERE Prescribed by: SIRIA PARADA on 04/01/22 1242 Oxycodone HCl/Acetaminophen (Percocet 5-325 mg Tablet) 1 Each Tablet, 1-2 TAB PO Q6H PRN for PAIN BREAKTROUGH Prescribed by: DALILA GUPTA on 04/14/222042 Sulfamethoxazole/Trimethoprim (Bactrim Ds Tablet) 1 Each Tablet, 1 EACH PO BID Prescribed by: DALILA GUPTA on 04/14/222041 Review of Systems Review of Systems Constitutional: no symptoms reported EENTM: no symptoms reported Respiratory: no symptoms reported Cardiovascular: see HPI Gastrointestinal: see HPI Genitourinary: no symptoms reported Musculoskeletal: no symptoms reported Skin: see HPI Psychiatric/Neurological: No Symptoms Reported Hematologic/Lymphatic: No Symptoms Reported Past Ibmmnwm-Mjngpa-Jlsmzc Hx Patient Social History Tobacco Use?: Yes Tobacco type used: Cigarettes Smoking Status: Current Everyday Smoker Substance use?: No Alcohol Use?: No Immunizations Up To Date Tetanus Booster (TDap): Unknown Influenza Vaccine Up-to-Date: No; Not Current First/Initial COVID19 Vaccinat: NO Second COVID19 Vaccination Jim: NO Third COVID19 Vaccination Date: NO Seasonal Allergies Seasonal Allergies: Yes Past Medical History Surgery/Hospitalization HX: OSTOMY PORT INSERTION COLONOSCOPY Surgeries: Yes Abdominal, Appendectomy, Bowel Surgery, Orthopedic, Rectal, Tonsillectomy Respiratory: No Currently Using CPAP: No Currently Using BIPAP: No Cardiac: No Neurological: No TIA Reproductive Disorders: No Sexually Transmitted Disease: No HIV/AIDS: No Genitourinary: No Gastrointestinal: Yes Obstructive Bowel, Chronic Diarrhea Musculoskeletal: No Arthritis, Chronic Back Pain Endocrine: No HEENT: No Loss of Vision: Denies Hearing Impairment: Denies Cancer: Yes Colon (rectal) Did You Recieve Any Treatments: Yes What Type of Treatment Did You: Chemotherapy, Radiation, Surgical Intervention Psychosocial: Yes Depression Integumentary: No Blood Disorders: No Adverse Reaction/Blood Tranf: No Family Medical History Cancer Physical Exam Vital Signs Vital Signs - First Documented 04/14/22 18:20 Temp 37.7 Pulse 120 Resp 18 B/P (MAP) 116/78 (91) Pulse Ox 99 O2 Delivery Room Air Capillary Refill : Less Than 3 Seconds Height, Weight, BMI Height: 5'7.00" Weight: 140lbs. 0oz. [id number]; 25.00 BMI Method:Stated General Appearance: WD/WN, Moderate Distress HEENT: PERRL/EOMI, Normal ENT Inspection Neck: Normal Inspection Respiratory: Lungs Clear, Normal Breath Sounds, No Accessory Muscle Use Cardiovascular: Regular Rate, Rhythm, No Edema, No Murmur Gastrointestinal: Non Tender, Soft; No Distended Rectal: Other (Severe tissue erosion around the anus and rectum with surrounding induration. There is tissue weeping of clear fluid. No significant inflammatory change to suggest cellulitis.) Extremity: Normal Inspection, No Pedal Edema Neurologic/Psychiatric: Alert, Oriented x3, No Motor/Sensory Deficits, Normal Mood/Affect Skin: Normal Color, Warm/Dry Progress/Results/Core Measures Suspected Sepsis SIRS Temperature: Pulse: 120 Respiratory Rate: 18 Laboratory Tests 04/14/22 19:30: White Blood Count 8.6 Blood Pressure 116 /78 Mean: 91 Laboratory Tests 04/14/22 19:30: Creatinine 0.73, Platelet Count 448H, Total Bilirubin 0.1 Results/Orders Lab Results Laboratory Tests Test 04/14/22 19:30 04/14/22 19:37 Range/Units White Blood Count 8.6 4.3-11.0 10^3/uL Red Blood Count 3.74 L 4.30-5.52 10^6/uL Hemoglobin 9.8 L 13.3-17.7 g/dL Hematocrit 32 L 40-54 % Mean Corpuscular Volume 85 80-99 fL Mean Corpuscular Hemoglobin 26 25-34 pg Mean Corpuscular Hemoglobin Concent 31 L 32-36 g/dL Red Cell Distribution Width 16.0 H 10.0-14.5 % Platelet Count 448 H 130-400 10^3/uL Mean Platelet Volume 7.9 L 9.0-12.2 fL Immature Granulocyte % (Auto) 0 % Neutrophils (%) (Auto) 74 42-75 % Lymphocytes (%) (Auto) 11 L 12-44 % Monocytes (%) (Auto) 8 0-12 % Eosinophils (%) (Auto) 6 0-10 % Basophils (%) (Auto) 1 0-10 % Neutrophils # (Auto) 6.4 1.8-7.8 10^3/uL Lymphocytes # (Auto) 0.9 L 1.0-4.0 10^3/uL Monocytes # (Auto) 0.7 0.0-1.0 10^3/uL Eosinophils # (Auto) 0.5 H 0.0-0.3 10^3/uL Basophils # (Auto) 0.1 0.0-0.1 10^3/uL Immature Granulocyte # (Auto) 0.0 0.0-0.1 10^3/uL Sodium Level 140 135-145 MMOL/L Potassium Level 3.6 3.6-5.0 MMOL/L Chloride Level 104 98-107 MMOL/L Carbon Dioxide Level 25 21-32 MMOL/L Anion Gap 11 5-14 MMOL/L Blood Urea Nitrogen 8 7-18 MG/DL Creatinine 0.73 0.60-1.30 MG/DL Estimat Glomerular Filtration Rate 121 BUN/Creatinine Ratio 11 Glucose Level 92 70-105 MG/DL Calcium Level 8.8 8.5-10.1 MG/DL Corrected Calcium 9.3 8.5-10.1 MG/DL Total Bilirubin 0.1 0.1-1.0 MG/DL Aspartate Amino Transf (AST/SGOT) 12 5-34 U/L Alanine Aminotransferase (ALT/SGPT) 17 0-55 U/L Alkaline Phosphatase 65 40-136 U/L C-Reactive Protein High Sensitivity 5.10 H 0.00-0.50 MG/DL Total Protein 7.0 6.4-8.2 GM/DL Albumin 3.4 3.2-4.5 GM/DL Urine Color YELLOW Urine Clarity CLEAR Urine pH 6.5 5-9 Urine Specific [place] 1.010 L 1.016-1.022 Urine Protein NEGATIVE NEGATIVE Urine Glucose (UA) NEGATIVE NEGATIVE Urine Ketones NEGATIVE NEGATIVE Urine Nitrite NEGATIVE NEGATIVE Urine Bilirubin NEGATIVE NEGATIVE Urine Urobilinogen 1.0 < = 1.0 MG/DL Urine Leukocyte Esterase NEGATIVE NEGATIVE Urine RBC (Auto) NEGATIVE NEGATIVE Urine RBC NONE /HPF Urine WBC RARE /HPF Urine Squamous Epithelial Cells NONE /HPF Urine Crystals NONE /LPF Urine Bacteria TRACE /HPF Urine Casts NONE /LPF Urine Mucus NEGATIVE /LPF Urine Culture Indicated NO Urine Opiates Screen NEGATIVE NEGATIVE Urine Oxycodone Screen POSITIVE H NEGATIVE Urine Methadone Screen NEGATIVE NEGATIVE Urine Propoxyphene Screen NEGATIVE NEGATIVE Urine Barbiturates Screen NEGATIVE NEGATIVE Ur Tricyclic Antidepressants Screen NEGATIVE NEGATIVE Urine Phencyclidine Screen NEGATIVE NEGATIVE Urine Amphetamines Screen NEGATIVE NEGATIVE Urine Methamphetamines Screen NEGATIVE NEGATIVE Urine Benzodiazepines Screen NEGATIVE NEGATIVE Urine Cocaine Screen NEGATIVE NEGATIVE Urine Cannabinoids Screen POSITIVE H NEGATIVE My Orders Orders - DALILA JOHNSON MD Cbc With Automated Diff (04/14/22 19:00) Comprehensive Metabolic Panel (04/14/22 19:00) Hs C Reactive Protein (04/14/22 19:00) Ua Culture If Indicated (04/14/22 19:00) Ed Iv/Invasive Line Start (04/14/22 19:00) Morphine Injection (Morphine Injection (04/14/22 19:00) Drug Screen Stat (Urine) (04/14/22 19:31) Oxycodone/Apap 5/325mg Tablet (Percocet (04/14/22 20:45) Sulfamethoxazole/Trimet Ds Tab (Bactrim (04/14/22 20:45) Vital Signs/I&O 04/14/22 04/14/22 18:20 20:50 Temp 37.7 Pulse 120 106 Resp 18 20 B/P (MAP) 116/78 (91) 109/72 Pulse Ox 99 97 O2 Delivery Room Air Room Air Capillary Refill : Less Than 3 Seconds Blood Pressure Mean: 91 Progress Note : Progress Note Pain was treated with morphine and then with oxycodone. Labs were reviewed. He had blood dyscrasias noted on the CBC but none were critical. CRP was mildly elevated consistent with his active cancer. Tachycardia improved with treatment of pain. A prescription was provided for short-term pain management. Bactrim was prescribed for possible infection of the cancer site. 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 See discharge instructions for further discussion. Departure Impression Primary Impression: Rectal cancer Additional Impression: Chronic pain Qualified Codes: G89.29 - Other chronic pain Disposition: HOME, SELF-CARE Condition: Improved Departure-Patient Inst. Decision time for Depature: 20:38 Referrals: BRENDA MALIK DO (PCP) Primary Care Physician [facility] (Family) Primary Care Physician Patient Instructions: Colon and Rectal Cancer (DC), Chronic Pain Add. Discharge Instructions: Complete antibiotics as prescribed. Continue with your long-acting pain medication and use the Percocet prescribed from the ER only for severe breakthrough pain. Follow-up with Dr. Malik to discuss chronic pain management to avoid ER visits for management of chronic pain issues. Follow-up with Dr. Frankel for monitoring of your wound. Return to the ER if you have worsening symptoms despite following these instructions especially if you develop fever or chills. All discharge instructions reviewed with patient and/or family. Voiced understanding. Scripts Sulfamethoxazole/Trimethoprim (Bactrim Ds Tablet) 1 Each Tablet 1 EACH PO BID, #14 TAB Prov: DALILA JOHNSON MD 04/14/22 Oxycodone HCl/Acetaminophen (Percocet 5-325 mg Tablet) 1 Each Tablet 1-2 TAB PO Q6H PRN for PAIN BREAKTROUGH MDD 6 TABS, #15 TAB Prov: DALILA JOHNSON MD 04/14/22 Copy Copies To 1: BRENDA MALIK DO Copies To 2: MARICRUZ FRANKEL JOSHUA T MD Apr 14, 2022 19:09
[2022-04-14 19:41] LABS: BASOPHILS # (AUTO) 0.1 10^3/uL (0.0-0.1); BASOPHILS % (AUTO) 1 % (0-10); EOSINOPHILS # (AUTO) 0.5 10^3/uL (0.0-0.3); EOSINOPHILS % (AUTO) 6 % (0-10); HEMATOCRIT 32 % (40-54); HEMOGLOBIN 9.8 g/dL (13.3-17.7); LYMPHOCYTES # (AUTO) 0.9 10^3/uL (1.0-4.0); LYMPHOCYTES % (AUTO) 11 % (12-44); MEAN CORPUSCULAR HEMOGLOBIN 26 pg (25-34); MEAN CORPUSCULAR HGB CONC 31 g/dL (32-36); MEAN CORPUSCULAR VOLUME 85 fL (80-99); MEAN PLATELET VOLUME 7.9 fL (9.0-12.2); MONOCYTES # (AUTO) 0.7 10^3/uL (0.0-1.0); MONOCYTES % (AUTO) 8 % (0-12); NEUTROPHILS # (AUTO) 6.4 10^3/uL (1.8-7.8); NEUTROPHILS % (AUTO) 74 % (42-75); PLATELET COUNT 448 10^3/uL (130-400); WHITE BLOOD COUNT 8.6 10^3/uL (4.3-11.0)
[2022-04-14 19:45] LABS: BILIRUBIN,URINE NEGATIVE (NEGATIVE); CLARITY,URINE CLEAR; COLOR,URINE YELLOW; GLUCOSE, URINE (UA) NEGATIVE (NEGATIVE); KETONES,URINE NEGATIVE (NEGATIVE); LEUKOCYTE ESTERASE ,URINE NEGATIVE (NEGATIVE); NITRITE,URINE NEGATIVE (NEGATIVE); PH,URINE 6.5 (5-9); PROTEIN,URINE NEGATIVE (NEGATIVE)
[2022-04-14 19:48] LABS: ALBUMIN 3.4 GM/DL (3.2-4.5); POTASSIUM 3.6 MMOL/L (3.6-5.0)
[2022-04-14 19:49] LABS: CALCIUM 8.8 MG/DL (8.5-10.1)
[2022-04-14 19:52] LABS: BILIRUBIN,TOTAL 0.1 MG/DL (0.1-1.0)
[2022-04-14 19:54] LABS: CREATININE SERUM 0.73 MG/DL (0.60-1.30)
[2022-04-14 20:00] LABS: BACTERIA,URINE TRACE /HPF; WBC,URINE RARE /HPF
[2022-04-14 20:01] LABS: AMPHETAMINE SCREEN, URINE NEGATIVE (NEGATIVE); BARBITURATE SCREEN URINE NEGATIVE (NEGATIVE); BENZODIAZEPINES SCREEN URINE NEGATIVE (NEGATIVE); CANNABINOID SCREEN, URINE POSITIVE (NEGATIVE); COCAINE SCREEN URINE NEGATIVE (NEGATIVE); METHADONE STAT NEGATIVE (NEGATIVE); OPIATE SCREEN URINE NEGATIVE (NEGATIVE); OXYCODONE STAT POSITIVE (NEGATIVE); PROPOXYPHENE STAT NEGATIVE (NEGATIVE); TRICYCLIC ANTIDEPRESSANTS SCRE NEGATIVE (NEGATIVE)
[2022-04-14] MEDS ORDERED: OXYC1TAB87 PO (20:42)
[2022-04-14] MEDS ORDERED: SULF1TAB38 PO (20:42)
[2022-04-14] MEDS ORDERED: oxyCODONE/APAP 5/325MG (PERCOCET 5) TABLET PO ONE (20:45)
[2022-04-14] MEDS ORDERED: TRIM/SULFAMETH 160/800 (SEPTRA DS) TAB PO ONE (20:45)
[2022-04-14 20:50] VITALS: BP 109/72
== END 2022-04-14 20:53 | disposition home or self-care (01) ==
LOC: EDUNIT# 18:08 → ER 18:10
DX: C19 Malignant neoplasm of rectosigmoid junction (principal); G89.29 Other chronic pain; F17.210 Nicotine dependence, cigarettes, uncomplicated; Z79.1 Long term (current) use of non-steroidal anti-inflammatories (NSAID); Z28.310 Unvaccinated for COVID-19; Z92.21 Personal history of antineoplastic chemotherapy; Z92.3 Personal history of irradiation
CPT/HCPCS: 36415; 80053; 80306; 81000; 85025; 86141; 99283

== ENCOUNTER 2022-05-08 15:16 | Emergency (ER) | payer MEDICAID ==
[~2022-05-08] VITALS: Ht 165.1 cm; Wt 70.3 kg
[2022-05-08] MEDS ORDERED: morphine INJ 10 MG/ML 1ML (SYR OR VIAL) IVP STA (16:45)
[2022-05-08 16:51] LABS: BASOPHILS # (AUTO) 0.1 10^3/uL (0.0-0.1); BASOPHILS % (AUTO) 1 % (0-10); EOSINOPHILS # (AUTO) 0.3 10^3/uL (0.0-0.3); EOSINOPHILS % (AUTO) 4 % (0-10); HEMATOCRIT 28 % (40-54); HEMOGLOBIN 8.8 g/dL (13.3-17.7); LYMPHOCYTES # (AUTO) 0.7 10^3/uL (1.0-4.0); LYMPHOCYTES % (AUTO) 8 % (12-44); MEAN CORPUSCULAR HEMOGLOBIN 26 pg (25-34); MEAN CORPUSCULAR HGB CONC 32 g/dL (32-36); MEAN CORPUSCULAR VOLUME 82 fL (80-99); MEAN PLATELET VOLUME 8.7 fL (9.0-12.2); MONOCYTES # (AUTO) 0.6 10^3/uL (0.0-1.0); MONOCYTES % (AUTO) 6 % (0-12); NEUTROPHILS # (AUTO) 7.5 10^3/uL (1.8-7.8); NEUTROPHILS % (AUTO) 82 % (42-75); PLATELET COUNT 352 10^3/uL (130-400); WHITE BLOOD COUNT 9.2 10^3/uL (4.3-11.0)
[2022-05-08 16:53] LABS: ALBUMIN 3.6 GM/DL (3.2-4.5); POTASSIUM 3.8 MMOL/L (3.6-5.0)
[2022-05-08 16:57] LABS: BILIRUBIN,TOTAL 0.3 MG/DL (0.1-1.0)
[2022-05-08 16:59] LABS: CREATININE SERUM 0.8 MG/DL (0.60-1.30)
--- NOTE | 2022-05-08 17:24 | ED GI ---
General Chief Complaint: Rect Problems Stated Complaint: ABD PAIN Nursing Triage Note: RECTAL PAIN X2 DAYS SEVERE AT THIS ITME. 11/16. FALL LAST WEEK AND PAIN HAS BEEN INCREASING SINCE Source of Information: Patient Exam Limitations: No Limitations History of Present Illness Date Seen by Provider: May 08, 2022 Time Seen by Provider: 16:38 Allergies and Home Medications Allergies Coded Allergies: No Known Drug Allergies (Unverified , 06/10/21) Patient Home Medication List Home Medication List Reviewed: Yes Amoxicillin/Potassium Clav (Amox Tr-K Clv 875-125 mg Tab) 875 Mg-125 Mg Tablet, 1 EACH PO BID Prescribed by: SIRIA PARADA on 04/01/22 1241 Oxycodone HCl/Acetaminophen (Oxycodone-Acetaminophen 5-325) 5 Mg-325 Mg Tablet, 1-2 EACH PO Q6H PRN for PAIN-SEVERE Prescribed by: SIRIA PARADA on 04/01/22 1242 Oxycodone HCl/Acetaminophen (Percocet 5-325 mg Tablet) 1 Each Tablet, 1-2 TAB PO Q6H PRN for PAIN BREAKTROUGH Prescribed by: DALILA GUPTA on 04/14/222042 Sulfamethoxazole/Trimethoprim (Bactrim Ds Tablet) 1 Each Tablet, 1 EACH PO BID Prescribed by: DALILA GUPTA on 04/14/222041 Sulfamethoxazole/Trimethoprim (Bactrim Ds Tablet) 1 Each Tablet, 1 EACH PO BID Prescribed by: DALILA GPUTA on 05/08/22 1740 Past Xbomlkv-Odsqpw-Ftkzad Hx Patient Social History Tobacco Use?: Yes Tobacco type used: Cigarettes Smoking Status: Current Everyday Smoker Use of E-Cig and/or Vaping dev: No Substance type: Marijuana Substance frequency: Couple times a week Alcohol Use?: No Pt feels they are or have been: No Immunizations Up To Date Tetanus Booster (TDap): Unknown First/Initial COVID19 Vaccinat: NO Second COVID19 Vaccination Jim: NO Third COVID19 Vaccination Date: NO Seasonal Allergies Seasonal Allergies: Yes Past Medical History Surgery/Hospitalization HX: OSTOMY PORT INSERTION COLONOSCOPY APPY Surgeries: Yes Abdominal, Appendectomy, Bowel Surgery, Orthopedic, Rectal, Tonsillectomy Respiratory: No Currently Using CPAP: No Currently Using BIPAP: No Cardiac: No Neurological: No TIA Reproductive Disorders: No Sexually Transmitted Disease: No HIV/AIDS: No Genitourinary: No Gastrointestinal: Yes Obstructive Bowel, Chronic Diarrhea Musculoskeletal: No Arthritis, Chronic Back Pain Endocrine: No HEENT: No Loss of Vision: Denies Hearing Impairment: Denies Cancer: Yes Colon Did You Recieve Any Treatments: Yes What Type of Treatment Did You: Chemotherapy, Radiation, Surgical Intervention Psychosocial: Yes Depression Integumentary: No Blood Disorders: No Adverse Reaction/Blood Tranf: No Family Medical History Cancer Physical Exam Vital Signs Vital Signs - First Documented 05/08/22 15:19 Temp 37.0 Pulse 116 Resp 16 B/P (MAP) 139/64 (89) Pulse Ox 98 O2 Delivery Room Air Capillary Refill : Less Than 3 Seconds Height/Weight/BMI Height: 5'7.00" Weight: 140lbs. 0oz. 63.552136co; 25.00 BMI Method:Stated Progress/Results/Core Measures Results/Orders Lab Results Laboratory Tests Test 05/08/22 15:24 05/08/22 17:57 Range/Units White Blood Count 9.2 4.3-11.0 10^3/uL Red Blood Count 3.38 L 4.30-5.52 10^6/uL Hemoglobin 8.8 L 13.3-17.7 g/dL Hematocrit 28 L 40-54 % Mean Corpuscular Volume 82 80-99 fL Mean Corpuscular Hemoglobin 26 25-34 pg Mean Corpuscular Hemoglobin Concent 32 32-36 g/dL Red Cell Distribution Width 15.3 H 10.0-14.5 % Platelet Count 352 130-400 10^3/uL Mean Platelet Volume 8.7 L 9.0-12.2 fL Immature Granulocyte % (Auto) 0 % Neutrophils (%) (Auto) 82 H 42-75 % Lymphocytes (%) (Auto) 8 L 12-44 % Monocytes (%) (Auto) 6 0-12 % Eosinophils (%) (Auto) 4 0-10 % Basophils (%) (Auto) 1 0-10 % Neutrophils # (Auto) 7.5 1.8-7.8 10^3/uL Lymphocytes # (Auto) 0.7 L 1.0-4.0 10^3/uL Monocytes # (Auto) 0.6 0.0-1.0 10^3/uL Eosinophils # (Auto) 0.3 0.0-0.3 10^3/uL Basophils # (Auto) 0.1 0.0-0.1 10^3/uL Immature Granulocyte # (Auto) 0.0 0.0-0.1 10^3/uL Sodium Level 136 135-145 MMOL/L Potassium Level 3.8 3.6-5.0 MMOL/L Chloride Level 100 98-107 MMOL/L Carbon Dioxide Level 26 21-32 MMOL/L Anion Gap 10 5-14 MMOL/L Blood Urea Nitrogen 13 7-18 MG/DL Creatinine 0.80 0.60-1.30 MG/DL Estimat Glomerular Filtration Rate 118 BUN/Creatinine Ratio 16 Glucose Level 93 70-105 MG/DL Calcium Level 9.0 8.5-10.1 MG/DL Corrected Calcium 9.3 8.5-10.1 MG/DL Total Bilirubin 0.3 0.1-1.0 MG/DL Aspartate Amino Transf (AST/SGOT) 17 5-34 U/L Alanine Aminotransferase (ALT/SGPT) 16 0-55 U/L Alkaline Phosphatase 63 40-136 U/L C-Reactive Protein High Sensitivity 12.27 H 0.00-0.50 MG/DL Total Protein 7.0 6.4-8.2 GM/DL Albumin 3.6 3.2-4.5 GM/DL Urine Color YELLOW Urine Clarity CLEAR Urine pH 6.0 5-9 Urine Specific [place] <=1.005 1.016-1.022 Urine Protein NEGATIVE NEGATIVE Urine Glucose (UA) NEGATIVE NEGATIVE Urine Ketones NEGATIVE NEGATIVE Urine Nitrite NEGATIVE NEGATIVE Urine Bilirubin NEGATIVE NEGATIVE Urine Urobilinogen 0.2 < = 1.0 MG/DL Urine Leukocyte Esterase NEGATIVE NEGATIVE Urine RBC (Auto) NEGATIVE NEGATIVE Urine RBC NONE /HPF Urine WBC NONE /HPF Urine Squamous Epithelial Cells NONE /HPF Urine Crystals NONE /LPF Urine Bacteria NEGATIVE /HPF Urine Casts NONE /LPF Urine Mucus NEGATIVE /LPF Urine Culture Indicated NO Urine Opiates Screen POSITIVE H NEGATIVE Urine Oxycodone Screen POSITIVE H NEGATIVE Urine Methadone Screen NEGATIVE NEGATIVE Urine Propoxyphene Screen NEGATIVE NEGATIVE Urine Barbiturates Screen NEGATIVE NEGATIVE Ur Tricyclic Antidepressants Screen NEGATIVE NEGATIVE Urine Phencyclidine Screen NEGATIVE NEGATIVE Urine Amphetamines Screen POSITIVE H NEGATIVE Urine Methamphetamines Screen POSITIVE H NEGATIVE Urine Benzodiazepines Screen NEGATIVE NEGATIVE Urine Cocaine Screen NEGATIVE NEGATIVE Urine Cannabinoids Screen POSITIVE H NEGATIVE My Orders Orders - DALILA JOHNSON MD Cbc With Automated Diff (05/08/22 16:45) Comprehensive Metabolic Panel (05/08/22 16:45) Hs C Reactive Protein (05/08/22 16:45) Drug Screen Stat (Urine) (05/08/22 16:45) Ua Culture If Indicated (05/08/22 16:45) Morphine Injection (Morphine Injection (05/08/22 16:45) Ed Iv/Invasive Line Start (05/08/22 16:45) Sulfamethoxazole/Trimet Ds Tab (Bactrim (05/08/22 17:45) Vital Signs/I&O 05/08/22 05/08/22 15:19 17:58 Temp 37.0 Pulse 116 116 Resp 16 18 B/P (MAP) 139/64 (89) 121/75 Pulse Ox 98 98 O2 Delivery Room Air Room Air Blood Pressure Mean: 89 Departure Impression Primary Impression: Anal cancer Additional Impressions: Rectal or anal pain Cellulitis Qualified Codes: L03.317 - Cellulitis of buttock Disposition: HOME, SELF-CARE Condition: Improved Departure-Patient Inst. Decision time for Depature: 17:38 Referrals: BRENDA MALIK DO (PCP) Primary Care Physician [facility] (Family) Primary Care Physician MARICRUZ FRANKEL DO Patient Instructions: Anal Cancer, Cellulitis (Skin Infection), Adult ED Add. Discharge Instructions: Follow-up with Dr. Frankel as soon as possible for chronic management of your cancer lesion and wounds. Please call Tuesday morning to schedule the appointment. Follow-up at [facility] as soon as possible. Call them as soon as possible for an appointment time. Take your antibiotics as prescribed. Use your pain medication as directed. Return to the ER if you have worsening symptoms despite following these instructions, especially if you develop fever. All discharge instructions reviewed with patient and/or family. Voiced understanding. Scripts Sulfamethoxazole/Trimethoprim (Bactrim Ds Tablet) 1 Each Tablet 1 EACH PO BID, #20 TAB Prov: DALILA JOHNSON MD 05/08/22 DALILA JOHNSON MD May 08, 2022 17:24
[2022-05-08] MEDS ORDERED: OXYC-199 PO (17:40)
[2022-05-08] MEDS ORDERED: SULF1TAB38 PO (17:40)
[2022-05-08] MEDS ORDERED: oxyCODONE/APAP 5/325MG (PERCOCET 5) TABLET PO ONE (17:45)
[2022-05-08] MEDS ORDERED: TRIM/SULFAMETH 160/800 (SEPTRA DS) TAB PO ONE (17:45)
[2022-05-08 17:58] VITALS: BP 121/75
[2022-05-08 18:14] LABS: BILIRUBIN,URINE NEGATIVE (NEGATIVE); CLARITY,URINE CLEAR; COLOR,URINE YELLOW; GLUCOSE, URINE (UA) NEGATIVE (NEGATIVE); KETONES,URINE NEGATIVE (NEGATIVE); LEUKOCYTE ESTERASE ,URINE NEGATIVE (NEGATIVE); NITRITE,URINE NEGATIVE (NEGATIVE); PROTEIN,URINE NEGATIVE (NEGATIVE)
[2022-05-08 18:20] LABS: BACTERIA,URINE NEGATIVE /HPF
[2022-05-08 18:31] LABS: AMPHETAMINE SCREEN, URINE POSITIVE (NEGATIVE); BARBITURATE SCREEN URINE NEGATIVE (NEGATIVE); BENZODIAZEPINES SCREEN URINE NEGATIVE (NEGATIVE); CANNABINOID SCREEN, URINE POSITIVE (NEGATIVE); COCAINE SCREEN URINE NEGATIVE (NEGATIVE); METHADONE STAT NEGATIVE (NEGATIVE); OPIATE SCREEN URINE POSITIVE (NEGATIVE); OXYCODONE STAT POSITIVE (NEGATIVE); PROPOXYPHENE STAT NEGATIVE (NEGATIVE); TRICYCLIC ANTIDEPRESSANTS SCRE NEGATIVE (NEGATIVE)
== END 2022-05-08 18:00 | disposition home or self-care (01) ==
LOC: EDUNIT# 15:16 → ER 15:17
DX: C21.0 Malignant neoplasm of anus, unspecified (principal); L03.90 Cellulitis, unspecified; F17.210 Nicotine dependence, cigarettes, uncomplicated; Z28.310 Unvaccinated for COVID-19
CPT/HCPCS: 36415; 80053; 80306; 81000; 85025; 86141

== ENCOUNTER 2022-06-20 07:48 | Inpatient (IN) | payer MEDICAID ==
[~2022-06-20] VITALS: Ht 167.5 cm; Wt 62.1 kg
[~2022-06-20 07:48] MED LIST changes: +OXYC-199 PO
[2022-06-20] MEDS ORDERED: NALOXONE 0.4 MG/ML 1 ML (NARCAN) VIAL IV PRN (09:45)
--- NOTE | 2022-06-20 11:05 | Consultation ---
HPI History of Present Illness: Date Seen 06/20/22 Attending Physician Ortega Merchant DO PCP Admitting Physician: Cody Mcclendon DO Attending Physician: Cody Mcclendon DO Referring Physician Date of Admission June 20, 2022 at 10:04 Home Medications & Allergies Home Medications Reviewed patient Home Medication Reconciliation performed by pharmacy medication reconciliations physics technician and/or nursing. Patients Allergies have been reviewed. Allergies Allergies Coded Allergies No Known Drug Allergies (Unverified06/10/21) Past Bjqtexs-Tijaqj-Xkvxmr Hx Patient Social History Alcohol Beverage of Choice: Beer Drug of Choice: HX OF METH Type Used: Cigarettes 2nd Hand Smoke Exposure: Yes Recent Foreign Travel: No Contact w/other who traveled: No Recent Hopitalizations: No Immunizations Up To Date Tetanus Booster (TDap): Unknown Seasonal Allergies Seasonal Allergies: Yes Past Medical History Surgeries: Abdominal, Appendectomy, Bowel Surgery, Orthopedic, Rectal, Tonsillectomy Currently Using CPAP: No Currently Using BIPAP: No Neurological: TIA Reproductive: No Sexually Transmitted Disease: No HIV/AIDS: No Gastrointestinal: Obstructive Bowel, Chronic Diarrhea Musculoskeletal: Arthritis, Chronic Back Pain Loss of Vision: Denies Hearing Impairment: Denies Cancer: Colon Did You Recieve Any Treatments: Yes What Type of Treatment Did You: Chemotherapy, Radiation, Surgical Intervention Psychosocial: Depression History of Blood Disorders: No Adverse Reaction to Blood Ram: No Family History Cancer Physical Exam Physical Exam Vital Signs Vital Signs - First Documented 06/20/22 11:07 Temp 36.8 Pulse 137 Resp 18 B/P (MAP) 115/77 (90) Pulse Ox 98 O2 Delivery Room Air Capillary Refill : Height, Weight, BMI Height: 5'7.00" Weight: 140lbs. 0oz. 63.186135cd; 25.00 BMI Method:Stated Results Results/Procedures Labs Patient resulted labs reviewed. SIRIA PARADA DO June 20, 2022 11:04
[2022-06-20 11:07] VITALS: BP 115/77
--- NOTE | 2022-06-20 11:23 | Consultation - Hospitalist ---
HPI History of Present Illness: HPI/Chief Complaint CC: Rectal pain suspicious for abscess HPI: This is a 37yoWM clinic patient of [facility] who has a h/o rectal cancer who presented to the hospital in [place] and found to have findings c/w rectal abscess so he was admitted and likely will need debridement. Pain meds will be ordered. Source: patient, RN/MD, old records Date Seen 06/20/22 Attending Physician Ortega Merchant DO PCP Admitting Physician: Cody Mcclendon DO Attending Physician: Cody Mcclendon DO Referring Physician Date of Admission June 20, 2022 at 10:04 Home Medications & Allergies Home Medications Reviewed patient Home Medication Reconciliation performed by pharmacy medication reconciliations certified endoscopy technician and/or nursing. Patients Allergies have been reviewed. Allergies Allergies Coded Allergies No Known Drug Allergies (Unverified06/10/21) Past Rrzbesv-Kpdzgi-Nnwghh Hx Patient Social History Marrital Status: single Employed/Student: unemployed Smoking Status: Former Smoker Immunizations Up To Date First/Initial COVID19 Vaccinat: NO Second COVID19 Vaccination Jim: NO Tetanus Booster (TDap): Unknown Hepatitis A: No Hepatitis B: No Seasonal Allergies Seasonal Allergies: Yes Current Status Primary Language: Armenian Past Medical History Surgeries: Abdominal, Appendectomy, Bowel Surgery, Orthopedic, Rectal, Tonsillectomy Currently Using CPAP: No Currently Using BIPAP: No TIA Sexually Transmitted Disease: No HIV/AIDS: No Obstructive Bowel, Chronic Diarrhea Arthritis, Chronic Back Pain Loss of Vision: Denies Hearing Impairment: Denies Colon Did You Recieve Any Treatments: Yes What Type of Treatment Did You: Chemotherapy, Radiation, Surgical Intervention Depression Blood Disorders: No Adverse Reaction/Blood Tranf: No Family Medical History Cancer Review of Systems Constitutional: see HPI Physical Exam Physical Exam Vital Signs Vital Signs - First Documented 06/20/22 11:07 Temp 36.8 Pulse 137 Resp 18 B/P (MAP) 115/77 (90) Pulse Ox 98 O2 Delivery Room Air Capillary Refill : Height, Weight, BMI Height: 5'7.00" Weight: 140lbs. 0oz. 63.987326ay; 25.00 BMI Method:Stated General Appearance: No Apparent Distress, WD/WN, Chronically ill Eyes: Bilateral Eye Normal Inspection, Bilateral Eye PERRL HEENT: PERRL/EOMI, Normal ENT Inspection, Pharynx Normal Neck: Full Range of Motion, Normal Inspection, Non Tender, Supple, Carotid Bruit Respiratory: Chest Non Tender, Lungs Clear, Normal Breath Sounds, No Accessory Muscle Use, No Respiratory Distress Cardiovascular: Regular Rate, Rhythm, No Edema, No Gallop, No JVD, No Murmur, Normal Peripheral Pulses Gastrointestinal: Normal Bowel Sounds, No Organomegaly, No Pulsatile Mass, Non Tender, Soft Back: Normal Inspection, No CVA Tenderness, No Vertebral Tenderness Extremity: Normal Capillary Refill, Normal Inspection, Normal Range of Motion, Non Tender, No Calf Tenderness, No Pedal Edema Neurologic/Psychiatric: Alert, Oriented x3, No Motor/Sensory Deficits, Normal Mood/Affect Skin: Normal Color, Warm/Dry Lymphatic: No Adenopathy Results Results/Procedures Labs Laboratory Tests 06/20/22 13:03 Patient resulted labs reviewed. Assessment/Plan Assessment and Plan Assess & Plan/Chief Complaint Assessment: Rectal carcinoma Rectal abscess? Meth use THC use Chronic pain Plan: Pain control Debridement management SIRIA PARADA DO June 20, 2022 11:23
--- NOTE | 2022-06-20 11:25 | History & Physical-Surgical ---
History of Present Illness History of Present Illness Patient Consulted On(katheryn/time) 06/20/22 11:13 Date Seen by Provider: June 20, 2022 Time Seen by Provider: 11:13 Reason for Visit: Perirectal pain/abscess History of Present Illness Pt is a 37yo male past pt of Dr. Li with Hx of Colorectal cancer, presenting with c/o perirectal ulceration and pain. He came in from [facility] where he was seen [facility] [place] [facility], CT report from them describes an abscess and infra-pubic mass. He said that they gave him morphine for his pain. He indicated that he has a PCP Ortega Merchant at [facility] who has been unable to refill hydrocodone for the last several weeks, and no current oncologist. He said he dealt with Dr. Freedman for chemo at [facility] about a year ago but then just stopped seeking to continue his treatment. He self medicates at home using meth and marijuana, and says it helps his blood pressure, pain, heart rate. He denies fevers, chills, vomiting. He indicates random pleuritic pain which causes SOB with pain radiating mainly from lower abdomin b/l, nausea thats made better with pain management, and mentioned tissue changes near his right scrotum/inguinal cannal. His current pain due to the ulceration/abscess is currently 8/10 and very tender to touch. CC: Rectal pain and possible infection. Patient is a 37 year old male with anal cancer. Patient with significant ulcer and infections previously and had to be diverted. Patient states that his pain has been increasing and hard to keep under control Currently he reates it about a 9/10. He phuong to [facility] to ER where they felt he had a perirectal abscess and was transferred here. Patient has not been following up with Oncology and states that he just didn't want to have any treatment. He has been using Methamphetamine and marijuana to control pain and treat. He had a ct scan that is suggetive fluid collection posterior near anus. Sitting on the area or touching the area makes. He has had some drainage from the area. Also report significant ulceration. On the ride over to [place] he stopped at [employer] and ate. Reports no abdominal pain. Colostomy functioning. Allergies and Home Medications Allergies Coded Allergies: No Known Drug Allergies (Unverified , 06/10/21) Patient Home Medication List Home Medication List Reviewed: Yes Amoxicillin/Potassium Clav (Amox Tr-K Clv 875-125 mg Tab) 875 Mg-125 Mg Tablet, 1 EACH PO BID Prescribed by: SIRIA PARADA on 04/01/22 1241 Oxycodone HCl/Acetaminophen (Oxycodone-Acetaminophen 5-325) 5 Mg-325 Mg Tablet, 1-2 EACH PO Q6H PRN for PAIN-SEVERE Prescribed by: SIRIA PARADA on 04/01/22 1242 Oxycodone HCl/Acetaminophen (Percocet 5-325 mg Tablet) 1 Each Tablet, 1-2 TAB PO Q6H PRN for PAIN BREAKTROUGH Prescribed by: DALILA GUPTA on 04/14/222042 Sulfamethoxazole/Trimethoprim (Bactrim Ds Tablet) 1 Each Tablet, 1 EACH PO BID Prescribed by: DALILA GUPTA on 04/14/222041 Sulfamethoxazole/Trimethoprim (Bactrim Ds Tablet) 1 Each Tablet, 1 EACH PO BID Prescribed by: DALILA GUPTA on 05/08/22 1740 Past Wkbfyag-Vlnyeh-Tlplpv Hx Patient Social History Drug of Choice: HX OF METH Smoking Status: Current Everyday Smoker Type Used: Cigarettes 2nd Hand Smoke Exposure: Yes Recent Hopitalizations: No Substance type: Methamphetamine, Marijuana Immunizations Up To Date Tetanus Booster (TDap): Unknown Seasonal Allergies Seasonal Allergies: Yes Surgeries History of Surgeries: Yes Surgeries: Abdominal, Appendectomy, Bowel Surgery, Orthopedic, Rectal, Tonsillectomy Respiratory History of Respiratory Disorde: No Cardiovascular History of Cardiac Disorders: No Neurological History of Neurological Disord: No Neurological Disorders: TIA Reproductive System Hx Reproductive Disorders: No Sexually Transmitted Disease: No HIV/AIDS: No Genitourinary History of Genitourinary Disor: No Gastrointestinal History of Gastrointestinal Di: Yes Gastrointestinal Disorders: Obstructive Bowel, Chronic Diarrhea Musculoskeletal History of Musculoskeletal Dis: Yes Musculoskeletal Disorders: Arthritis, Chronic Back Pain Endocrine History of Endocrine Disorders: No HEENT History of HEENT Disorders: No Loss of Vision: Denies Hearing Impairment: Denies Cancer History of Cancer: Yes Cancer: Colon Psychosocial History of Psychiatric Problem: Yes Behavioral Health Disorders: Depression Integumentary History of Skin or Integumenta: No Blood Transfusions History of Blood Disorders: No Adverse Reaction to a Blood Tr: No Reviewed Nursing Assessment Reviewed/Agree w Nursing PMH: Yes Family Medical History Significant Family History: Cancer Review of Systems-General Constitutional: No chills, No diaphoresis, No fever, No malaise EENTM: No blurred vision, No hoarseness, No throat pain Respiratory: No cough; short of breath; No wheezing Cardiovascular: chest pain; No edema, No palpitations Gastrointestinal: No abdominal pain, No diarrhea, No hematemesis; nausea; No vomiting Genitourinary: dysuria (says its difficult to initiate urination even when he feels he needs to), frequency (decreased); No hematuria, No pain Musculoskeletal: No back pain, No muscle stiffness, No muscle cramps; other (hip pain, said he fell a week ago on his right hip) Skin: No hx of skin cancer, No rash; other Psychiatric/Neurological: Denies Anxiety, Denies Depressed, Denies Emotional Problems, Denies Headache, Denies Paresthesia; Tingling (mentions that nerves in his lumbar region sometime radiate down both legs) All Other Systems Reviewed Negative Unless Noted: Yes (Negative excepted noted.) Physical Exam-General Problems Physical Exam Vital Signs Vital Signs - First Documented 06/20/22 11:07 Temp 36.8 Pulse 137 Resp 18 B/P (MAP) 115/77 (90) Pulse Ox 98 O2 Delivery Room Air Capillary Refill : General Appearance: WD/WN, no apparent distress HEENT: PERRL/EOMI, normal ENT inspection; No photophobia Neck: non-tender, supple Respiratory: chest non-tender, no respiratory distress, no accessory muscle use Cardiovascular: no JVD, tachycardia Peripheral Pulses: 2+ Radial Pulses (R), 2+ Radial Pulses (L) Gastrointestinal: non tender, soft, no organomegaly; No distended, No guarding, No rebound Rectal: tenderness, other (Ulceration posterior to anus with slight purulence and tumor present, tender to touch and likely some slight area of ichemic tumor.) Genital/Rectal: tenderness (right inguinal canal), other (small hard pea like mass pt says isnt normal, found in his right inguinal canal, felt lateral to the spermatic cord.) Back: no CVA tenderness, no vertebral tenderness Extremities: no pedal edema, no calf tenderness; No inflammation; other (right hip tender from reported fall from a week ago.) Neurologic/Psychiatric: alert, oriented x 3 Skin: warm/dry; No ecchymosis; other (posterior anal ulceration); No pallor, No rash Lymphatic: inguinal node tender (R) Assessment/Plan Assessment/Plan Admission Diagonsis anal cancer rectal pain history of pettit for diversion poor compliance methamphetamine and marijuana use. Admission Status: Inpatient Order (span 2 midnights) Reason for Inpatient Admission: patient will be here 2 midnights for pain control wound care, and IV abx Assessment/Plan anal cancer rectal pain history of pettit for diversion poor compliance methamphetamine and marijuana use. * clear liquids and npo after midnight, ate [employer] while transferring from [facility] to [place] in case needs exam under anesthesia. * Pain and Nausea meds PRN * Rocephin/Flagyl * IM consult and Oncology Consults * Irrigate and Pack wound. * I do not feel there is abscess that needs drained, ulcer appears to be draining so will treat with antibiotics and wound care (irrigate and packing) If not improving would consider doing exam under anesthesia. * Discussed with patient need for compliance of his treatment. Supervisory-Addendum Brief Verification & Attestation Participated in pt care: history, MDM, physical Personally performed: exam, history, MDM, supervision of care Care discussed with: Medical Student Procedures: n/a Results interpretation: Verified all documentation Verification and Attestation of Medical Student E/M Service A medical student performed and documented this service in my presence. I reviewed and verified all information documented by the medical student and made modifications to such information, when appropriate. I personally performed the physical exam and medical decision making. Almas Tesfaye, June 20, 2022,16:39 DIOGENES CORNELL June 20, 2022 11:25 ALMAS TESFAYE DO June 20, 2022 16:16
[2022-06-20] MEDS: NS IV 1000 ML 1,000 ML IV SCH ×3 (11:27→21:13)
[2022-06-20] MEDS ORDERED: HYDROmorphone 2 MG/ML VIAL (DILAUDID) IV PRN (11:30)
[2022-06-20] MEDS: NICOTINE 21 MG (NICODERM) PATCH TD SCH (13:04)
[2022-06-20 13:16] LABS: HEMATOCRIT 29 % (40-54); HEMOGLOBIN 9.1 g/dL (13.3-17.7); MEAN CORPUSCULAR HEMOGLOBIN 25 pg (25-34); MEAN CORPUSCULAR HGB CONC 31 g/dL (32-36); MEAN CORPUSCULAR VOLUME 81 fL (80-99); MEAN PLATELET VOLUME 7.9 fL (9.0-12.2); PLATELET COUNT 444 10^3/uL (130-400)
[2022-06-20 13:26] LABS: ALBUMIN 3.1 GM/DL (3.2-4.5); POTASSIUM 3.8 MMOL/L (3.6-5.0)
[2022-06-20] MEDS: HYDROcodone/APAP 5 MG/325 MG (LORTAB) TAB PO PRN ×2 (13:26→21:14)
[2022-06-20] MEDS: metroNIDAZOLE 500MG/100ML IVPB 100 ML IV SCH ×2 (13:26→21:13)
[2022-06-20] MEDS: cefTRIAXone IV/IM 1,000 MG in NS (IVPB) 50 ML IV SCH (13:26)
[2022-06-20 13:27] LABS: CALCIUM 8.8 MG/DL (8.5-10.1)
[2022-06-20 13:29] LABS: TOTAL PROTEIN 6.5 GM/DL (6.4-8.2)
[2022-06-20 13:30] LABS: BILIRUBIN,TOTAL 0.2 MG/DL (0.1-1.0)
[2022-06-20 13:32] LABS: CREATININE SERUM 0.86 MG/DL (0.60-1.30)
[2022-06-20] MEDS: HYDROmorphone 2 MG/ML VIAL (DILAUDID) IV PRN ×3 (13:51→23:45)
[2022-06-20 15:53] VITALS: BP 125/71
[2022-06-20 19:16] VITALS: BP 105/72
[2022-06-20 23:42] VITALS: BP 111/67
[2022-06-21] VITALS (8 sets, daily range): BP systolic 103–130; BP diastolic 66–81
[2022-06-21] MEDS: HYDROmorphone 2 MG/ML VIAL (DILAUDID) IV PRN ×9 (02:53→23:33)
[2022-06-21] MEDS: metroNIDAZOLE 500MG/100ML IVPB 100 ML IV SCH ×3 (05:13→23:30)
--- NOTE | 2022-06-21 05:22 | Progress Note - Hospitalist ---
Subjective HPI/CC On Admission Date Seen by Provider: June 21, 2022 Time Seen by Provider: 10:00 CC: Rectal pain suspicious for abscess HPI: This is a 37yoWM clinic patient of [facility] who has a h/o rectal cancer who presented to the hospital in [place] and found to have findings c/w rectal abscess so he was admitted and likely will need debridement. Pain meds will be ordered. Subjective/Events-last exam Doing about the same Operation scheduled for today IV abx maintained Reviewed labs Review of Systems General: Fatigue, Malaise Objective Exam Vital Signs Vital Signs Date Time Temp Pulse Resp B/P (MAP) Pulse Ox O2 Delivery O2 Flow Rate FiO2 06/21/22 20:19 37.1 116 18 105/66 (79) 97 Room Air Capillary Refill : General Appearance: No Apparent Distress, WD/WN, Chronically ill Respiratory: Lungs Clear, Normal Breath Sounds Cardiovascular: Regular Rate, Rhythm Neurologic/Psychiatric: Alert, Oriented x3 Results/Procedures Lab Laboratory Tests 06/21/22 05:14 Patient resulted labs reviewed. Assessment/Plan Assessment and Plan Assess & Plan/Chief Complaint Assessment: Rectal carcinoma Rectal abscess? Meth use THC use Chronic pain Plan: Pain control Debridement management Clinical Quality Measures DVT/VTE Risk/Contraindication: Contraindications-Pharm: Other *list below* Other: surgery SIRIA PARADA DO June 21, 2022 05:22
[2022-06-21 05:43] LABS: HEMATOCRIT 31 % (40-54); HEMOGLOBIN 9.8 g/dL (13.3-17.7); MEAN CORPUSCULAR HEMOGLOBIN 26 pg (25-34); MEAN CORPUSCULAR HGB CONC 32 g/dL (32-36); MEAN CORPUSCULAR VOLUME 82 fL (80-99); MEAN PLATELET VOLUME 8.3 fL (9.0-12.2); PLATELET COUNT 455 10^3/uL (130-400); WHITE BLOOD COUNT 9.4 10^3/uL (4.3-11.0)
[2022-06-21 06:10] LABS: ALBUMIN 3.1 GM/DL (3.2-4.5); BILIRUBIN,TOTAL 0.2 MG/DL (0.1-1.0); CALCIUM 9.1 MG/DL (8.5-10.1); CREATININE SERUM 0.8 MG/DL (0.60-1.30); TOTAL PROTEIN 6.5 GM/DL (6.4-8.2)
--- NOTE | 2022-06-21 07:09 | Progress Note - Surgery ---
LIZY COMBS 06/21/22 0709: Subjective Date Seen by a Provider: June 21, 2022 Time Seen by a Provider: 07:00 Subjective/Events-last exam patient reports a 9/10 pain in the perirectal area from the packing in his wound. States that because of this he has to always lay on his side. States he w nestor up every 2 hours for pain medications last night, which helped initially but wear off. patient states that he does not want a physical exam and would prefer Dr. Frankel and he requests pain medications prior. Review of Systems General: No Chills, No Night Sweats HEENT: No Head Aches, No Visual Changes Pulmonary: No Dyspnea, No Cough Cardiovascular: No: Chest Pain, Palpitations Gastrointestinal: No: Nausea, Vomiting, Abdominal Pain Genitourinary: No Dysuria, No Frequency; Other (Rectal pain) Musculoskeletal: No: neck pain, shoulder pain Neurological: No: Change in speech, Confusion Objective Exam Vital Signs Date Time Temp Pulse Resp B/P (MAP) Pulse Ox O2 Delivery O2 Flow Rate FiO2 06/21/22 03:28 36.9 96 18 103/69 (80) 96 Room Air 06/20/22 23:42 37.0 102 20 111/67 (82) 97 Room Air 06/20/22 19:29 Room Air 06/20/22 19:16 36.9 100 20 105/72 (83) 100 Room Air 06/20/22 15:53 36.7 102 16 125/71 (89) 99 Room Air 06/20/22 11:30 98 Room Air 06/20/22 11:07 36.8 137 18 115/77 (90) 98 Room Air I & O 06/21/22 07:00 Intake Total 2040 ml Output Total 1900 ml Balance 140 ml Capillary Refill : Results Lab Laboratory Tests 06/20/22 13:03: White Blood Count 11.0, Red Blood Count 3.61L, Hemoglobin 9.1L, Hematocrit 29L, Mean Corpuscular Volume 81, Mean Corpuscular Hemoglobin 25, Mean Corpuscular Hemoglobin Concent 31L, Red Cell Distribution Width 16.5H, Platelet Count 444H, Mean Platelet Volume 7.9L, Sodium Level 141, Potassium Level 3.8, Chloride Level 106, Carbon Dioxide Level 25, Anion Gap 10, Blood Urea Nitrogen 9, Creatinine 0.86, Estimat Glomerular Filtration Rate 115, BUN/Creatinine Ratio 10, Glucose Level 89, Calcium Level 8.8, Corrected Calcium 9.5, Total Bilirubin 0.2, Aspartate Amino Transf (AST/SGOT) 25, Alanine Aminotransferase (ALT/SGPT) 15, Alkaline Phosphatase 63, Total Protein 6.5, Albumin 3.1L 06/21/22 05:14: White Blood Count 9.4, Red Blood Count 3.78L, Hemoglobin 9.8L, Hematocrit 31L, Mean Corpuscular Volume 82, Mean Corpuscular Hemoglobin 26, Mean Corpuscular Hemoglobin Concent 32, Red Cell Distribution Width 16.2H, Platelet Count 455H, Mean Platelet Volume 8.3L, Sodium Level 134L, Potassium Level 4.0, Chloride Level 101, Carbon Dioxide Level 24, Anion Gap 9, Blood Urea Nitrogen 5L, Creatinine 0.80, Estimat Glomerular Filtration Rate 118, BUN/Creatinine Ratio 6, Glucose Level 92, Calcium Level 9.1, Corrected Calcium 9.8, Total Bilirubin 0.2, Aspartate Amino Transf (AST/SGOT) 11, Alanine Aminotransferase (ALT/SGPT) 13, Alkaline Phosphatase 67, Total Protein 6.5, Albumin 3.1L Assessment/Plan Assessment/Plan Assessment/Plan anal cancer rectal pain history of pettit for diversion poor compliance methamphetamine and marijuana use. Patient declined a physical exam from this student. Patient NPO. Receiving Nausea and pain medications PRN. Clinical Quality Measures DVT/VTE Risk/Contraindication: Contraindications-Pharm: Other *list below* Other: surgery YOLANDAMARICRUZ TALLEY Leland DO 06/21/22 1318: Subjective Time Seen by a Provider: 12:59 Subjective/Events-last exam Pt seen and examined, when asked states he did Meth day before going to hospital. He is hungry and in pain. Review of Systems Pulmonary: No Dyspnea, No Cough Cardiovascular: No: Chest Pain, Palpitations Gastrointestinal: No: Nausea, Vomiting, Abdominal Pain Genitourinary: No Dysuria, No Frequency Musculoskeletal: leg pain Objective Exam General Appearance: Anxious, Chronically ill, Moderate Distress (secondary to pain) HEENT: PERRL/EOMI, Moist Mucous Membranes Respiratory: Lungs Clear, Normal Breath Sounds, No Accessory Muscle Use, No Respiratory Distress Cardiovascular: No Murmur, Tachycardia Gastrointestinal: non tender, soft, no organomegaly Extremity: No Calf Tenderness, No Pedal Edema Assessment/Plan Assessment/Plan Assessment/Plan anal cancer rectal pain history of pettit for diversion poor compliance methamphetamine and marijuana use. Patient declined a physical exam from this student. Patient NPO. Receiving Nausea and pain medications PRN Pt did meth and will need to be off of it 2-3 days before he can go to surgery. Will plan on surgery for Tuesday, he can eat in the meantime and start PO meds. Supervisory-Addendum Brief Verification & Attestation Participated in pt care: history, MDM, physical Personally performed: exam, history, MDM, supervision of care Care discussed with: Medical Student Procedures: n/a Verification and Attestation of Medical Student E/M Service A medical student performed and documented this service. I then reviewed and verified all information documented by the medical student and made modifications to such information, when appropriate. I personally performed a physical exam, medical decision making and then discussed any differences between the notes and made revisions as necessary to create one note. Maricruz Frankel , 06/21/22 , 13:18 LIZY COMBS June 21, 2022 07:09 MARICRUZ FRANKEL DO June 21, 2022 13:18
[2022-06-21] MEDS: NICOTINE 21 MG (NICODERM) PATCH TD SCH (08:06)
[2022-06-21] MEDS: NS IV 1000 ML 1,000 ML IV SCH ×2 (08:08→17:47)
[2022-06-21] MEDS: PATCH REMOVAL TP SCH (08:15)
[2022-06-21] MEDS ORDERED: NICOTINE 21 MG (NICODERM) PATCH TD SCH (09:00)
[2022-06-21] MEDS ORDERED: ACET-2267 PO (09:46)
[2022-06-21] MEDS: cefTRIAXone IV/IM 1,000 MG in NS (IVPB) 50 ML IV SCH (12:54)
[2022-06-21] MEDS: HYDROcodone/APAP 5 MG/325 MG (LORTAB) TAB PO PRN ×4 (13:15→23:34)
--- NOTE | 2022-06-21 13:28 | Oncology Consultation ---
Visit Information Visit Information Date of Admission June 20, 2022 at 10:04 Attending Physician Ortega Merchant V DO Admitting Physician Admitting Physician: Cody Mcclendon DO Attending Physician: Cody Mcclendon DO Chief Complaint Rectal pain, ?abscess. H/o rectal cancer 10/2021 Interval History Called to see this 37 year old white man, h/o rectal cancer, primary oncologist Dr Lou. 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 He has been non-complaint in his routine follow up. Last time saw Dr Lou was 10/2021. He noticed the open anal wound and sent him to Dr Mcclendon but pt did not follow the instructions and lost follow up since 01/2022. He has been visit ER multiple times for rectal pain since. Not establish PCP. Now he has more rectal pain 10/10 scales and hard mass ?abscess vs cancer. He continues to use drugs per Dr Gomez's ER note. Pt is living with his parents currently. I consulted the patient on: 06/21/22 13:14 Time Seen by Provider: 11:45 Review of Systems Constitutional: see HPI Health Status Allergies Coded Allergies: No Known Drug Allergies (Unverified , 06/10/21) Home Medications Acetaminophen (Tylenol Extra Strength) 500 Mg Tablet, 2,000-3,000 MG PO Q8H PRN for PAIN-MILD (1-4), (Reported) TAKES 4-6 ([id number]) TABS FFE-Iqhyns-Kaegvs Hx Patient Social History Marrital Status: single Employed/Student: unemployed Drug of Choice: HX OF METH Smoking Status: Current Everyday Smoker Type Used: Cigarettes 2nd Hand Smoke Exposure: Yes Recent Hopitalizations: No Alcohol Use?: No Substance type: Methamphetamine, Marijuana Have you traveled recently?: No Immunizations Up To Date Tetanus Booster (TDap): Unknown Family Medical History Significant Family History: Cancer Physical Exam Vital Signs Vital Signs - First Documented 06/20/22 11:07 Temp 36.8 Pulse 137 Resp 18 B/P (MAP) 115/77 (90) Pulse Ox 98 O2 Delivery Room Air Capillary Refill : Height, Weight, BMI Height: 5'7.00" Weight: 140lbs. 0oz. 63.377476nw; 25.05 BMI Method:Stated General Appearance: Moderate Distress HEENT: PERRL/EOMI Respiratory: No Accessory Muscle Use, No Respiratory Distress Genital/Rectal: Tenderness, Other (open hole anus surrounded by hard mass. ) Data Review Labs Laboratory Tests 06/21/22 05:14 Laboratory Tests 06/20/22 13:03: Red Blood Count 3.61L, Hemoglobin 9.1L, Hematocrit 29L, Mean Corpuscular Hemoglobin Concent 31L, Red Cell Distribution Width 16.5H, Platelet Count 444H, Mean Platelet Volume 7.9L, Albumin 3.1L 06/21/22 05:14: Red Blood Count 3.78L, Hemoglobin 9.8L, Hematocrit 31L, Red Cell Distribution Width 16.2H, Platelet Count 455H, Mean Platelet Volume 8.3L, Albumin 3.1L, Sodium Level 134L, Blood Urea Nitrogen 5L Impression & Plan Impression & Plan IMP: 1. 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 Non compliance. 2. Non-healing open wound of the anus. abscess vs cancer or both? 3. h/o drug abuses per ER note 4. 37 year old white man, good performance status. 5. Anemia due to #1 and 2. 6. Thrombocytosis, reactive. Rec: 1. Consult Dr Mcclendon to help get tissue for diagnosis and possible drainage if it is abscess. 2. Pain control with oral and IV morphine as needed. 3. Dr Lou will be here tomorrow. I will ask him for follow up. JOSEFINA RO MD June 21, 2022 13:28
[2022-06-22] MEDS: NS IV 1000 ML 1,000 ML IV SCH ×3 (01:40→18:42)
[2022-06-22] MEDS: HYDROcodone/APAP 5 MG/325 MG (LORTAB) TAB PO PRN ×6 (01:41→23:11)
[2022-06-22] MEDS: HYDROmorphone 2 MG/ML VIAL (DILAUDID) IV PRN ×7 (01:41→20:32)
[2022-06-22 04:10] VITALS: BP 111/69
--- NOTE | 2022-06-22 05:16 | Progress Note - Hospitalist ---
Subjective HPI/CC On Admission Date Seen by Provider: June 22, 2022 Time Seen by Provider: 10:00 CC: Rectal pain suspicious for abscess HPI: This is a 37yoWM clinic patient of [facility] who has a h/o rectal cancer who presented to the hospital in [place] and found to have findings c/w rectal abscess so he was admitted and likely will need debridement. Pain meds will be ordered. Subjective/Events-last exam Patient sleeping Labs stable NO major issues Pain controlled Review of Systems General: Fatigue, Malaise Objective Exam Vital Signs Vital Signs Date Time Temp Pulse Resp B/P (MAP) Pulse Ox O2 Delivery O2 Flow Rate FiO2 06/22/22 07:17 36.9 93 18 96/57 (70) 96 Room Air Capillary Refill : General Appearance: Chronically ill Respiratory: Lungs Clear, Normal Breath Sounds Results/Procedures Lab Laboratory Tests 06/22/22 06:11 Patient resulted labs reviewed. Assessment/Plan Assessment and Plan Assess & Plan/Chief Complaint Assessment: Rectal carcinoma Rectal abscess? Meth use THC use Chronic pain Plan: Pain control Debridement management Clinical Quality Measures DVT/VTE Risk/Contraindication: Contraindications-Pharm: Other *list below* Other: surgery SIRIA PARADA DO June 22, 2022 05:16
[2022-06-22] MEDS: metroNIDAZOLE 500MG/100ML IVPB 100 ML IV SCH ×3 (05:38→22:12)
[2022-06-22 06:20] LABS: BASOPHILS # (AUTO) 0.1 10^3/uL (0.0-0.1); BASOPHILS % (AUTO) 1 % (0-10); EOSINOPHILS # (AUTO) 0.7 10^3/uL (0.0-0.3); EOSINOPHILS % (AUTO) 8 % (0-10); HEMATOCRIT 32 % (40-54); LYMPHOCYTES # (AUTO) 0.7 10^3/uL (1.0-4.0); LYMPHOCYTES % (AUTO) 9 % (12-44); MEAN CORPUSCULAR HEMOGLOBIN 25 pg (25-34); MEAN CORPUSCULAR HGB CONC 31 g/dL (32-36); MEAN CORPUSCULAR VOLUME 81 fL (80-99); MEAN PLATELET VOLUME 7.9 fL (9.0-12.2); MONOCYTES # (AUTO) 0.6 10^3/uL (0.0-1.0); MONOCYTES % (AUTO) 7 % (0-12); NEUTROPHILS # (AUTO) 6.2 10^3/uL (1.8-7.8); NEUTROPHILS % (AUTO) 75 % (42-75); PLATELET COUNT 411 10^3/uL (130-400); WHITE BLOOD COUNT 8.3 10^3/uL (4.3-11.0)
[2022-06-22 06:37] LABS: ALBUMIN 2.9 GM/DL (3.2-4.5)
[2022-06-22 06:38] LABS: POTASSIUM 4.3 MMOL/L (3.6-5.0)
[2022-06-22 06:39] LABS: CALCIUM 8.8 MG/DL (8.5-10.1)
[2022-06-22 06:40] LABS: TOTAL PROTEIN 6.3 GM/DL (6.4-8.2)
[2022-06-22 06:42] LABS: BILIRUBIN,TOTAL 0.2 MG/DL (0.1-1.0)
[2022-06-22 06:44] LABS: CREATININE SERUM 0.74 MG/DL (0.60-1.30)
[2022-06-22 07:17] VITALS: BP 96/57
--- NOTE | 2022-06-22 07:35 | Progress Note - Surgery ---
LIZY COMBS 06/22/22 0735: Subjective Date Seen by a Provider: June 22, 2022 Time Seen by a Provider: 07:15 Subjective/Events-last exam Patient resting in bed lying on left side. Patient complains of 8/10 rectal pain. Denies nausea, vomiting, abdominal pain or fever. Patient states that the packing is very uncomfortable. Review of Systems General: No Chills, No Night Sweats HEENT: No Head Aches, No Visual Changes Pulmonary: No Dyspnea, No Cough Cardiovascular: No: Chest Pain, Palpitations Gastrointestinal: Other (rectal pain); No: Nausea, Vomiting, Abdominal Pain Genitourinary: No Dysuria, No Frequency Musculoskeletal: No: neck pain, shoulder pain Neurological: No: Change in speech, Confusion Objective Exam Vital Signs Date Time Temp Pulse Resp B/P (MAP) Pulse Ox O2 Delivery O2 Flow Rate FiO2 06/22/22 07:17 36.9 93 18 96/57 (70) 96 Room Air 06/22/22 04:10 36.0 117 18 111/69 (83) 98 Room Air 06/21/22 23:30 36.3 118 18 124/69 (87) 98 Room Air 06/21/22 21:34 36.4 125 18 130/80 (97) 97 Room Air 06/21/22 20:19 37.1 116 18 105/66 (79) 97 Room Air 06/21/22 20:00 Room Air 06/21/22 16:26 36.9 110 18 113/73 (86) 98 Room Air 06/21/22 15:14 36.8 101 18 117/77 96 Room Air 06/21/22 11:49 36.8 101 18 117/77 (90) 96 Room Air 06/21/22 08:00 Room Air 06/21/22 07:33 37.0 104 18 123/81 (95) 95 Room Air I & O 06/22/22 07:00 Intake Total 3050 ml Output Total 3470 ml Balance -420 ml Capillary Refill : General Appearance: No Apparent Distress HEENT: PERRL/EOMI Respiratory: Normal Breath Sounds, No Accessory Muscle Use Cardiovascular: Regular Rate, Rhythm Gastrointestinal: normal bowel sounds Extremity: No Calf Tenderness, No Pedal Edema Neurologic/Psychiatric: Alert, Oriented x3 Skin: Normal Color, Warm/Dry Results Lab Laboratory Tests 06/22/22 06:11: White Blood Count 8.3, Red Blood Count 3.95L, Hemoglobin 10.0L, Hematocrit 32L, Mean Corpuscular Volume 81, Mean Corpuscular Hemoglobin 25, Mean Corpuscular Hemoglobin Concent 31L, Red Cell Distribution Width 16.2H, Platelet Count 411H, Mean Platelet Volume 7.9L, Immature Granulocyte % (Auto) 0, Neutrophils (%) (Auto) 75, Lymphocytes (%) (Auto) 9L, Monocytes (%) (Auto) 7, Eosinophils (%) (Auto) 8, Basophils (%) (Auto) 1, Neutrophils # (Auto) 6.2, Lymphocytes # (Auto) 0.7L, Monocytes # (Auto) 0.6, Eosinophils # (Auto) 0.7H, Basophils # (Auto) 0.1, Immature Granulocyte # (Auto) 0.0, Sodium Level 137, Potassium Level 4.3, Chloride Level 106, Carbon Dioxide Level 21, Anion Gap 10, Blood Urea Nitrogen 9, Creatinine 0.74, Estimat Glomerular Filtration Rate 120, BUN/Creatinine Ratio 12, Glucose Level 105, Calcium Level 8.8, Corrected Calcium 9.7, Total Bilirubin 0.2, Aspartate Amino Transf (AST/SGOT) 11, Alanine Aminotransferase (ALT/SGPT) 13, Alkaline Phosphatase 61, Total Protein 6.3L, Albumin 2.9L Assessment/Plan Assessment/Plan Assessment/Plan anal cancer rectal pain history of pettit for diversion poor compliance methamphetamine and marijuana use. Patient receiving anti-emetics and pain medications PRN. Plan for surgery tomorrow. Clinical Quality Measures DVT/VTE Risk/Contraindication: Contraindications-Pharm: Other *list below* Other: surgery YOLANDAMAYANKMARICRUZCHEMO Ha DO 06/22/22 1047: Subjective Time Seen by a Provider: 09:54 Subjective/Events-last exam Pt seen and examined, he denies any changes. Still complains of rectal pain. Review of Systems Pulmonary: No Dyspnea, No Cough Cardiovascular: No: Chest Pain, Palpitations Gastrointestinal: Other (rectal pain); No: Nausea, Vomiting, Abdominal Pain Objective Exam General Appearance: No Apparent Distress HEENT: PERRL/EOMI Respiratory: Lungs Clear, Normal Breath Sounds, No Accessory Muscle Use Cardiovascular: Regular Rate, Rhythm, No Murmur Gastrointestinal: normal bowel sounds, soft Extremity: No Calf Tenderness, No Pedal Edema Neurologic/Psychiatric: Alert, Oriented x3 Skin: Warm/Dry Assessment/Plan Assessment/Plan Assessment/Plan anal cancer rectal pain history of pettit for diversion poor compliance methamphetamine and marijuana use. Patient receiving anti-emetics and pain medications PRN. Plan for surgery tomorrow. Supervisory-Addendum Brief Verification & Attestation Participated in pt care: history, MDM, physical Personally performed: exam, history, MDM, supervision of care Care discussed with: Medical Student Procedures: n/a Verification and Attestation of Medical Student E/M Service A medical student performed and documented this service. I then reviewed and verified all information documented by the medical student and made modifications to such information, when appropriate. I personally performed a physical exam, medical decision making and then discussed any differences between the notes and made revisions as necessary to create one note. Maricruz Frankel , 06/22/22 , 10:47 LIZY COMBS June 22, 2022 07:35 MARICRUZ FRANKEL DO June 22, 2022 10:47
[2022-06-22] MEDS ORDERED: PATCH REMOVAL TP SCH (09:00)
[2022-06-22 09:18] LABS: AMPHETAMINE SCREEN, URINE POSITIVE (NEGATIVE); BENZODIAZEPINES SCREEN URINE NEGATIVE (NEGATIVE); CANNABINOID SCREEN, URINE POSITIVE (NEGATIVE); COCAINE SCREEN URINE NEGATIVE (NEGATIVE)
[2022-06-22 09:19] LABS: BARBITURATE SCREEN URINE NEGATIVE (NEGATIVE); METHADONE STAT NEGATIVE (NEGATIVE); OPIATE SCREEN URINE POSITIVE (NEGATIVE); OXYCODONE STAT NEGATIVE (NEGATIVE); PROPOXYPHENE STAT NEGATIVE (NEGATIVE); TRICYCLIC ANTIDEPRESSANTS SCRE NEGATIVE (NEGATIVE)
[2022-06-22] MEDS: NICOTINE 21 MG (NICODERM) PATCH TD SCH (09:48)
[2022-06-22] MEDS: PATCH REMOVAL TP SCH (09:48)
[2022-06-22] MEDS: ENOXAPARIN 40 MG/0.4 ML (LOVENOX) SYR SC SCH (09:51)
[2022-06-22 11:07] VITALS: BP 101/60
[2022-06-22] MEDS: cefTRIAXone IV/IM 1,000 MG in NS (IVPB) 50 ML IV SCH (13:02)
[2022-06-22] MEDS ORDERED: ONDANSETRON 4 MG/2 ML (SDV) Z0FRAN IVP PRN (14:30)
[2022-06-22 16:26] VITALS: BP 117/64
[2022-06-22 20:00] VITALS: BP 99/59
[2022-06-22] MEDS: DOCUSATE SODIUM 100 MG (COLACE) CAP PO SCH (20:32)
[2022-06-22 23:39] VITALS: BP 108/58
[2022-06-23] VITALS (14 sets, daily range): BP systolic 96–138; BP diastolic 55–85
[2022-06-23] MEDS: HYDROmorphone 2 MG/ML VIAL (DILAUDID) IV PRN ×5 (00:06→21:48)
[2022-06-23] MEDS: NS IV 1000 ML 1,000 ML IV SCH ×3 (03:57→17:45)
--- NOTE | 2022-06-23 05:15 | Progress Note - Hospitalist ---
Subjective HPI/CC On Admission Date Seen by Provider: June 23, 2022 Time Seen by Provider: 11:00 CC: Rectal pain suspicious for abscess HPI: This is a 37yoWM clinic patient of [facility] who has a h/o rectal cancer who presented to the hospital in [place] and found to have findings c/w rectal abscess so he was admitted and likely will need debridement. Pain meds will be ordered. Subjective/Events-last exam Going for exploratory surgery today? Labs stable IV abx maintained Sleeps most of the time Objective Exam Vital Signs Vital Signs Date Time Temp Pulse Resp B/P (MAP) Pulse Ox O2 Delivery O2 Flow Rate FiO2 06/23/22 11:27 36.8 116 20 118/73 (88) 97 Room Air Capillary Refill : General Appearance: No Apparent Distress, WD/WN Results/Procedures Lab Laboratory Tests 06/23/22 05:13 Patient resulted labs reviewed. Assessment/Plan Assessment and Plan Assess & Plan/Chief Complaint Assessment: Rectal carcinoma Rectal abscess? Meth use THC use Chronic pain Plan: Pain control Debridement management Clinical Quality Measures DVT/VTE Risk/Contraindication: Contraindications-Pharm: Other *list below* Other: surgery SIRIA PARADA DO June 23, 2022 05:15
[2022-06-23] MEDS: metroNIDAZOLE 500MG/100ML IVPB 100 ML IV SCH ×3 (05:20→21:49)
[2022-06-23 05:24] LABS: BASOPHILS # (AUTO) 0.1 10^3/uL (0.0-0.1); BASOPHILS % (AUTO) 1 % (0-10); EOSINOPHILS # (AUTO) 0.8 10^3/uL (0.0-0.3); EOSINOPHILS % (AUTO) 6 % (0-10); HEMATOCRIT 34 % (40-54); HEMOGLOBIN 10.8 g/dL (13.3-17.7); LYMPHOCYTES # (AUTO) 0.8 10^3/uL (1.0-4.0); LYMPHOCYTES % (AUTO) 6 % (12-44); MEAN CORPUSCULAR HEMOGLOBIN 25 pg (25-34); MEAN CORPUSCULAR HGB CONC 32 g/dL (32-36); MEAN CORPUSCULAR VOLUME 80 fL (80-99); MEAN PLATELET VOLUME 7.8 fL (9.0-12.2); MONOCYTES # (AUTO) 0.6 10^3/uL (0.0-1.0); MONOCYTES % (AUTO) 5 % (0-12); NEUTROPHILS # (AUTO) 10.4 10^3/uL (1.8-7.8); NEUTROPHILS % (AUTO) 82 % (42-75); PLATELET COUNT 466 10^3/uL (130-400); WHITE BLOOD COUNT 12.8 10^3/uL (4.3-11.0)
[2022-06-23 05:42] LABS: ALBUMIN 3.2 GM/DL (3.2-4.5); POTASSIUM 4.4 MMOL/L (3.6-5.0)
[2022-06-23 05:43] LABS: CALCIUM 9.2 MG/DL (8.5-10.1)
[2022-06-23 05:44] LABS: TOTAL PROTEIN 6.9 GM/DL (6.4-8.2)
[2022-06-23 05:46] LABS: BILIRUBIN,TOTAL 0.2 MG/DL (0.1-1.0)
[2022-06-23 05:48] LABS: CREATININE SERUM 0.75 MG/DL (0.60-1.30)
[2022-06-23] MEDS: HYDROcodone/APAP 5 MG/325 MG (LORTAB) TAB PO PRN ×2 (06:04→19:44)
[2022-06-23 06:21] LABS: ANISOCYTOSIS SLIGHT; EOSINOPHILS % (MANUAL) 4 %; HYPOCHROMASIA SLIGHT; LYMPHOCYTES % (MANUAL) 3 %; MONOCYTES % (MANUAL) 4 %; NEUTROPHILS % (MANUAL) 89 %
--- NOTE | 2022-06-23 07:06 | Progress Note - Surgery ---
LIZY COMBS 06/23/22 0706: Subjective Date Seen by a Provider: June 23, 2022 Time Seen by a Provider: 06:55 Subjective/Events-last exam Patient resting in bed on right side. Patient reports he cannot lay on his back due to the 9/10 rectal pain. Denies nausea, vomiting, abdominal pain, fevers. Review of Systems General: No Chills, No Night Sweats HEENT: No Head Aches, No Visual Changes Pulmonary: No Dyspnea, No Cough Cardiovascular: No: Chest Pain, Palpitations Gastrointestinal: Other (rectal pain); No: Nausea, Vomiting, Abdominal Pain Genitourinary: No Dysuria, No Frequency Musculoskeletal: No: neck pain, shoulder pain Neurological: No: Change in speech, Confusion Objective Exam Vital Signs Date Time Temp Pulse Resp B/P (MAP) Pulse Ox O2 Delivery O2 Flow Rate FiO2 06/23/22 04:00 37.1 120 18 96/61 (73) 98 Room Air 06/22/22 23:39 125 18 108/58 (75) 98 Room Air 06/22/22 20:00 37.7 121 18 99/59 (72) 98 Room Air 06/22/22 19:45 Room Air 06/22/22 16:26 36.7 117 18 117/64 (81) 96 Room Air 06/22/22 11:07 36.8 95 18 101/60 (74) 97 Room Air 06/22/22 08:00 Room Air 06/22/22 07:17 36.9 93 18 96/57 (70) 96 Room Air I & O 06/23/22 06:59 Intake Total 5890 ml Output Total 4550 ml Balance 1340 ml Capillary Refill : General Appearance: No Apparent Distress HEENT: PERRL/EOMI Respiratory: Lungs Clear, Normal Breath Sounds, No Accessory Muscle Use Cardiovascular: Regular Rate, Rhythm, No Murmur Gastrointestinal: normal bowel sounds, soft Extremity: No Calf Tenderness, No Pedal Edema Neurologic/Psychiatric: Alert, Oriented x3 Skin: Warm/Dry Results Lab Laboratory Tests 06/22/22 09:02: Urine Opiates Screen POSITIVEH, Urine Oxycodone Screen NEGATIVE, Urine Methadone Screen NEGATIVE, Urine Propoxyphene Screen NEGATIVE, Urine Barbiturates Screen NEGATIVE, Ur Tricyclic Antidepressants Screen NEGATIVE, Urine Phencyclidine Screen NEGATIVE, Urine Amphetamines Screen POSITIVEH, Urine Methamphetamines Screen POSITIVEH, Urine Benzodiazepines Screen NEGATIVE, Urine Cocaine Screen NEGATIVE, Urine Cannabinoids Screen POSITIVEH 06/23/22 05:13: White Blood Count 12.8H, Red Blood Count 4.30, Hemoglobin 10.8L, Hematocrit 34L, Mean Corpuscular Volume 80, Mean Corpuscular Hemoglobin 25, Mean Corpuscular H emoglobin Concent 32, Red Cell Distribution Width 16.2H, Platelet Count 466H, Mean Platelet Volume 7.8L, Immature Granulocyte % (Auto) 0, Neutrophils (%) (Auto) 82H, Lymphocytes (%) (Auto) 6L, Monocytes (%) (Auto) 5, Eosinophils (%) (Auto) 6, Basophils (%) (Auto) 1, Neutrophils # (Auto) 10.4H, Lymphocytes # (Auto) 0.8L, Monocytes # (Auto) 0.6, Eosinophils # (Auto) 0.8H, Basophils # (Auto) 0.1, Immature Granulocyte # (Auto) 0.1, Neutrophils % (Manual) 89, Lymphocytes % (Manual) 3, Monocytes % (Manual) 4, Eosinophils % (Manual) 4, Hypochromasia SLIGHT, Anisocytosis SLIGHT, Sodium Level 135, Potassium Level 4.4, Chloride Level 102, Carbon Dioxide Level 22, Anion Gap 11, Blood Urea Nitrogen 8, Creatinine 0.75, Estimat Glomerular Filtration Rate 120, BUN/Creatinine Ratio 11, Glucose Level 133H, Calcium Level 9.2, Corrected Calci um 9.8, Total Bilirubin 0.2, Aspartate Amino Transf (AST/SGOT) 11, Alanine Aminotransferase (ALT/SGPT) 14, Alkaline Phosphatase 63, Total Protein 6.9, Albumin 3.2 Assessment/Plan Assessment/Plan Assessment/Plan anal cancer rectal pain history of pettit for diversion poor compliance methamphetamine and marijuana use. Patient receiving anti-emetics and pain medications PRN. Plan for surgery today. Clinical Quality Measures DVT/VTE Risk/Contraindication: Contraindications-Pharm: Other *list below* Other: surgery CODY MCCLENDON DO 06/23/22 1417: Subjective Time Seen by a Provider: 14:11 Subjective/Events-last exam Pt seen and examined in [facility], ready to go to OR. He states no new changes. Review of Systems Pulmonary: No Dyspnea, No Cough Cardiovascular: No: Chest Pain, Palpitations Gastrointestinal: No: Nausea, Vomiting, Abdominal Pain Genitourinary: No Dysuria, No Frequency Objective Exam General Appearance: No Apparent Distress HEENT: PERRL/EOMI Respiratory: Lungs Clear, Normal Breath Sounds, No Accessory Muscle Use Cardiovascular: Regular Rate, Rhythm, No Murmur Gastrointestinal: soft Assessment/Plan Assessment/Plan Assessment/Plan Anal/Gluteal abscess anal cancer rectal pain history of pettit for diversion poor compliance methamphetamine and marijuana use. Plan for surgery today; washout and debridement. All questions answered to his satisfaction. Supervisory-Addendum Brief Verification & Attestation Participated in pt care: history, MDM, physical Personally performed: exam, history, MDM, supervision of care Care discussed with: Medical Student Procedures: n/a Verification and Attestation of Medical Student E/M Service A medical student performed and documented this service. I then reviewed and verified all information documented by the medical student and made modifications to such information, when appropriate. I personally performed a physical exam, medical decision making and then discussed any differences between the notes and made revisions as necessary to create one note. Cody Mcclendon , 06/23/22 , 14:16 LIZY COMBS June 23, 2022 07:06 CODY MCCLENDON DO June 23, 2022 14:17
[2022-06-23] MEDS: DOCUSATE SODIUM 100 MG (COLACE) CAP PO SCH ×2 (07:45→19:44)
[2022-06-23] MEDS: NICOTINE 21 MG (NICODERM) PATCH TD SCH (07:46)
[2022-06-23] MEDS: ENOXAPARIN 40 MG/0.4 ML (LOVENOX) SYR SC SCH (07:48)
[2022-06-23] MEDS: PATCH REMOVAL TP SCH (07:50)
[2022-06-23] MEDS: cefTRIAXone IV/IM 1,000 MG in NS (IVPB) 50 ML IV SCH (12:17)
[2022-06-23] MEDS ORDERED: BUP/EPI 0.5% 1:200,000 (SENSORCAINE) 30 ML VIAL ONE (13:46)
[2022-06-23] MEDS: LACTATED RINGERS 1,000 ML IV PRN ×2 (14:00→15:36)
[2022-06-23] MEDS ORDERED: ROCURONIUM 50 MG/5 ML (ZEMURON) VIAL IV ONE (14:16)
[2022-06-23] MEDS ORDERED: proPOfol 200 MG/20 ML (DIPRIVAN) VIAL IV ONE (14:16)
[2022-06-23] MEDS ORDERED: LIDOCAINE PF 2% 5 ML (XYLOCAINE) VIAL ONE (14:16)
[2022-06-23] MEDS ORDERED: MIDAZOLAM 2 MG/2 ML (VERSED) VIAL ONE (14:17)
[2022-06-23] MEDS ORDERED: fentaNYL INJ 100 MCG/2 ML AMP ONE (14:17)
--- NOTE | 2022-06-23 14:56 | Progress Note-Post Operative ---
Post-Operative Progess Note Surgeon (s)/Stamp Analyst (s) Surgeon MARICRUZ FRANKEL DO Stamp Analyst: GABRIELA Johns student Pre-Operative Diagnosis Anal Cancer, Anal/Gluteal Ulcer r/o abscess Post-Operative Diagnosis same pending path Procedure & Operative Findings Date of Procedure 06/23/22 Procedure Performed/Findings 1) Washout of anal abscess cavity with debridement and packing 2) Excision of anal mass Anesthesia Type GET Estimated Blood Loss Estimated blood loss (mL): less than 10ml Specimens/Packing Specimens Removed ant and posterior specimen MARICRUZ FRANKEL DO June 23, 2022 14:56
[2022-06-23] MEDS ORDERED: NEOSTIGMINE 3 MG/3 ML VIAL ONE (15:06)
[2022-06-23] MEDS ORDERED: SEVOFLURANE (ULTANE) 15 ML INHAL SOLN ONE (15:14)
--- NOTE | 2022-06-23 15:22 | Anesthesia-General Post-Op ---
General Patient Condition Mental Status/LOC: Same as Preop Cardiovascular: Satisfactory Nausea/Vomiting: Absent Respiratory: Satisfactory Pain: Controlled Complications: Absent Post Op Complications Complications None Follow Up Care/Instructions Patient Instructions None needed. Anesthesia/Patient Condition Patient Condition Patient is doing well, no complaints, stable vital signs, no apparent adverse anesthesia problems. No complications reported per nursing. SUZY TESFAYE CRNA June 23, 2022 15:22
[2022-06-23] MEDS ORDERED: fentaNYL INJ 100 MCG/2 ML AMP IVP ONE (15:30)
[2022-06-23] MEDS ORDERED: ONDANSETRON 4 MG/2 ML (SDV) Z0FRAN IVP PRN (15:30)
[2022-06-23] MEDS ORDERED: HYDROmorphone 2 MG/ML VIAL (DILAUDID) IV ONE (15:30)
[2022-06-23] MEDS ORDERED: MEPERIDINE (DEMEROL) INJ 50 MG/ML IVP ONE (15:30)
[2022-06-23] MEDS ORDERED: HYDROmorphone 2 MG/ML VIAL (DILAUDID) IV NR (17:00)
--- NOTE | 2022-06-23 21:37 | OPERATIVE REPORT ---
DATE OF SERVICE: 06/23/2022 PREOPERATIVE DIAGNOSES: Anal abscess with cavity, history of anal cancer that is metastatic. POSTOPERATIVE DIAGNOSES: Anal cavity with abscess, possible anal cancer. PROCEDURE: 1. Washout and debridement of an anal abscess cavity with packing. 2. Excision of anal mass. SURGEON: Cody Mcclendon DO FEATURES EDITOR: GABRIELA [place] student. ANESTHESIA: General endotracheal tube. SPECIMEN: Anterior and posterior cavity mass. BLOOD LOSS: Less than 10 mL FLUIDS: Per anesthesia. POSTOPERATIVE CONDITION: Stable. INDICATIONS: The patient is a 37-year-old male who unfortunately has a history of anal cancer that has eroded the gluteal area and anal area. Chronic infections. This is metastatic. FINDINGS: The patient had anal cavity or abscess cavity. This eroded all around it and felt like it was cancer. There was some purulent fluid. DESCRIPTION OF PROCEDURE: After informed consent was obtained, the patient was brought to the operating room. He was placed on table in prone position. He was then sterilely prepped and draped in normal fashion. I started irrigating with normal saline to suction to try to get all the purulent fluid out. Looked around, it looked like it was probably a metastatic cancer. I did a biopsy from the posterior portion and from the anterior portion, all of it and there was hard, roughly debrided this with a sponge and elected to pack it with a 1-inch iodoform packing. Once this was done, sponge and needle count correct at the end of the case and the patient will be transferred to recovery room in stable condition. Job ID: [id number] DocumentID: [id number] Dictated Date: 06/23/2022 14:59:10 Corporate Risk Analyst Date: 06/23/2022 21:35:00 Dictated By: CODY MCCLENDON DO
[2022-06-24] VITALS (8 sets, daily range): BP systolic 95–120; BP diastolic 58–77
[2022-06-24] MEDS: HYDROcodone/APAP 5 MG/325 MG (LORTAB) TAB PO PRN ×5 (00:31→21:43)
[2022-06-24] MEDS: NS IV 1000 ML 1,000 ML IV SCH ×4 (01:49→20:39)
[2022-06-24] MEDS: HYDROmorphone 2 MG/ML VIAL (DILAUDID) IV PRN ×8 (01:59→22:43)
--- NOTE | 2022-06-24 05:11 | Progress Note - Hospitalist ---
Subjective HPI/CC On Admission Date Seen by Provider: June 24, 2022 Time Seen by Provider: 11:00 CC: Rectal pain suspicious for abscess HPI: This is a 37yoWM clinic patient of [facility] who has a h/o rectal cancer who presented to the hospital in [place] and found to have findings c/w rectal abscess so he was admitted and likely will need debridement. Pain meds will be ordered. Subjective/Events-last exam No major issues Reviewed OR report Pain meds taken Review of Systems General: Fatigue, Malaise Objective Exam Vital Signs Vital Signs Date Time Temp Pulse Resp B/P (MAP) Pulse Ox O2 Delivery O2 Flow Rate FiO2 06/24/22 08:00 96 Room Air 0.00 06/24/22 07:40 36.4 108 20 105/61 (76) Capillary Refill : General Appearance: No Apparent Distress, WD/WN, Chronically ill Respiratory: Lungs Clear, Normal Breath Sounds Cardiovascular: Regular Rate, Rhythm Neurologic/Psychiatric: Alert, Oriented x3, No Motor/Sensory Deficits, Normal Mood/Affect Results/Procedures Lab Laboratory Tests 06/24/22 05:10 Patient resulted labs reviewed. Assessment/Plan Assessment and Plan Assess & Plan/Chief Complaint Assessment: Rectal carcinoma Rectal abscess? Meth use THC use Chronic pain Plan: Pain control Debridement management Clinical Quality Measures DVT/VTE Risk/Contraindication: Contraindications-Pharm: Other *list below* Other: surgery SIRIA PARADA DO June 24, 2022 05:11
[2022-06-24 05:23] LABS: BASOPHILS % (AUTO) 0 % (0-10); EOSINOPHILS % (AUTO) 0 % (0-10); HEMATOCRIT 32 % (40-54); HEMOGLOBIN 10.1 g/dL (13.3-17.7); LYMPHOCYTES # (AUTO) 0.6 10^3/uL (1.0-4.0); LYMPHOCYTES % (AUTO) 4 % (12-44); MEAN CORPUSCULAR HEMOGLOBIN 25 pg (25-34); MEAN CORPUSCULAR HGB CONC 31 g/dL (32-36); MEAN CORPUSCULAR VOLUME 80 fL (80-99); MEAN PLATELET VOLUME 8.3 fL (9.0-12.2); MONOCYTES # (AUTO) 0.5 10^3/uL (0.0-1.0); MONOCYTES % (AUTO) 3 % (0-12); NEUTROPHILS # (AUTO) 12.9 10^3/uL (1.8-7.8); NEUTROPHILS % (AUTO) 92 % (42-75); PLATELET COUNT 492 10^3/uL (130-400)
[2022-06-24] MEDS: metroNIDAZOLE 500MG/100ML IVPB 100 ML IV SCH ×3 (05:33→21:42)
[2022-06-24 05:43] LABS: ALANINE AMINOTRANSFERASE 7 U/L (0-55); ALKALINE PHOSPHATASE 59 U/L (40-136); BILIRUBIN,TOTAL < 0.1 MG/DL (0.1-1.0); BUN/CREATININE RATIO 19; CALCIUM 9.1 MG/DL (8.5-10.1); CARBON DIOXIDE 25 MMOL/L (21-32); CHLORIDE 106 MMOL/L (98-107); CREATININE SERUM 0.72 MG/DL (0.60-1.30); GFR ESTIMATED 121; GLUCOSE 134 MG/DL (70-105); POTASSIUM 4.5 MMOL/L (3.6-5.0); SODIUM 139 MMOL/L (135-145); TOTAL PROTEIN 6.4 GM/DL (6.4-8.2)
--- NOTE | 2022-06-24 06:59 | Progress Note - Surgery ---
LIZY COMBS 06/24/22 0659: Subjective Date Seen by a Provider: June 24, 2022 Time Seen by a Provider: 06:50 Subjective/Events-last exam Patient resting in bed lying on left side. Reports his rectal pain is an 8/10 when he moves but if he lays completely still he doesn't have pain. Pain is b susan than yesterday. Patient reports no abdominal pain, nausea, vomiting, or fevers. States that he was able to eat after surgery last night. Review of Systems General: No Chills, No Night Sweats HEENT: No Head Aches, No Visual Changes Pulmonary: No Dyspnea, No Cough Cardiovascular: No: Chest Pain, Palpitations Gastrointestinal: Other (rectal pain); No: Nausea, Vomiting, Abdominal Pain Genitourinary: No Dysuria, No Frequency Musculoskeletal: No: neck pain, shoulder pain Neurological: No: Change in speech, Confusion Objective Exam Vital Signs Date Time Temp Pulse Resp B/P (MAP) Pulse Ox O2 Delivery O2 Flow Rate FiO2 06/24/22 03:05 36.8 115 18 120/70 (87) 97 Room Air 06/23/22 23:07 36.6 109 18 110/55 (73) 96 Room Air 06/23/22 19:45 Room Air 06/23/22 19:22 36.8 110 18 138/82 (100) 97 Room Air 06/23/22 16:28 36.4 111 20 128/70 (89) 95 Room Air 06/23/22 16:20 Room Air 06/23/22 16:09 36.7 15 122/66 (84) 97 Room Air 06/23/22 16:05 Room Air 06/23/22 15:59 21 131/63 (85) 95 Room Air 06/23/22 15:49 18 134/74 (94) 99 Room Air 06/23/22 15:43 Room Air 06/23/22 15:39 21 138/77 (97) 100 OxyMask 10.00 06/23/22 15:29 23 135/71 (92) 100 OxyMask 10.00 06/23/22 15:25 OxyMask 10.00 06/23/22 15:19 16 138/85 (102) 100 OxyMask 10.00 06/23/22 15:09 36.5 17 123/71 (88) 99 OxyMask 10.00 06/23/22 15:09 OxyMask 10.00 06/23/22 11:27 36.8 116 20 118/73 (88) 97 Room Air 06/23/22 08:00 Room Air 06/23/22 07:41 37.1 114 20 130/75 (93) 97 Room Air I & O 06/24/22 06:59 Intake Total 4142 ml Output Total 4525 ml Balance -383 ml Capillary Refill : General Appearance: No Apparent Distress, WD/WN HEENT: PERRL/EOMI Respiratory: Lungs Clear, Normal Breath Sounds, No Accessory Muscle Use Cardiovascular: Regular Rate, Rhythm, No Murmur Gastrointestinal: non tender, soft, other (colostomy bag present) Extremity: No Calf Tenderness, No Pedal Edema Neurologic/Psychiatric: Alert, Oriented x3 Skin: Warm/Dry Results Lab Laboratory Tests 06/24/22 05:10: White Blood Count 14.0H, Red Blood Count 4.05L, Hemoglobin 10.1L, Hematocrit 32L , Mean Corpuscular Volume 80, Mean Corpuscular Hemoglobin 25, Mean Corpuscular Hemoglobin Concent 31L, Red Cell Distribution Width 16.2H, Platelet Count 492H, Mean Platelet Volume 8.3L, Immature Granulocyte % (Auto) 0, Neutrophils (%) (Auto) 92H, Lymphocytes (%) (Auto) 4L, Monocytes (%) (Auto) 3, Eosinophils (%) (Auto) 0, Basophils (%) (Auto) 0, Neutrophils # (Auto) 12.9H, Lymphocytes # (Auto) 0.6L, Monocytes # (Auto) 0.5, Eosinophils # (Auto) 0.0, Basophils # (Auto ) 0.0, Immature Granulocyte # (Auto) 0.1, Sodium Level 139, Potassium Level 4.5, Chloride Level 106, Carbon Dioxide Level 25, Anion Gap 8, Blood Urea Nitrogen 14, Creatinine 0.72, Estimat Glomerular Filtration Rate 121, BUN/Creatinine Ratio 19, Glucose Level 134H, Calcium Level 9.1, Corrected Calcium 9.9, Total Bilirubin < 0.1L, Aspartate Amino Transf (AST/SGOT) 7, Alanine Aminotransferase (ALT/SGPT) 7, Alkaline Phosphatase 59, Total Protein 6.4, Albumin 3.0L Microbiology 06/22/22 MRSA Screen - Final, Complete No growth Assessment/Plan Assessment/Plan Assessment/Plan Anal/Gluteal abscess anal cancer rectal pain history of pettit for diversion poor compliance methamphetamine and marijuana use. Wound packed during surgery. Patient having decreased pain. Clinical Quality Measures DVT/VTE Risk/Contraindication: Contraindications-Pharm: Other *list below* Other: surgery YOLANDAMARICRUZ TALLEY Leland MCDONOUGH 06/24/22 1206: Subjective Time Seen by a Provider: 11:52 Subjective/Events-last exam Pt seen and examined, no new complaints. He is still having pain and nurse stated he was tachycardic. Pt denied chest pain or SOB. Review of Systems Pulmonary: No Dyspnea, No Cough Cardiovascular: No: Chest Pain, Palpitations Gastrointestinal: Other (rectal pain); No: Nausea, Vomiting, Abdominal Pain Objective Exam General Appearance: No Apparent Distress, WD/WN HEENT: PERRL/EOMI Respiratory: Lungs Clear, Normal Breath Sounds, No Accessory Muscle Use, No Respiratory Distress Cardiovascular: No Murmur, Tachycardia Gastrointestinal: non tender, soft, other (colostomy bag present) Extremity: No Calf Tenderness, No Pedal Edema Neurologic/Psychiatric: Alert, Oriented x3 Assessment/Plan Assessment/Plan Assessment/Plan S/P Washout, Debridement and Packing of anal cavity Anal/Gluteal abscess anal cancer rectal pain history of pettit for diversion poor compliance methamphetamine and marijuana use. Wound packed during surgery. Patient having decreased pain. I will call Dr. Lou and get an opinion about possible treatment for patient. I believe the cavity is filled with cancer and therefore will not heal. ?Chemo or radiation will help this. Supervisory-Addendum Brief Verification & Attestation Participated in pt care: history, MDM, physical Personally performed: exam, history, MDM, supervision of care Care discussed with: Medical Student Procedures: n/a Verification and Attestation of Medical Student E/M Service A medical student performed and documented this service. I then reviewed and verified all information documented by the medical student and made modifications to such information, when appropriate. I personally performed a physical exam, medical decision making and then discussed any differences between the notes and made revisions as necessary to create one note. Maricruz Frankel , 06/24/22 , 12:06 LIZY COMBS June 24, 2022 06:59 MARICRUZ FRANKEL DO June 24, 2022 12:06
[2022-06-24] MEDS: NICOTINE 21 MG (NICODERM) PATCH TD SCH (07:56)
[2022-06-24] MEDS: DOCUSATE SODIUM 100 MG (COLACE) CAP PO SCH ×2 (07:57→20:36)
[2022-06-24] MEDS: ENOXAPARIN 40 MG/0.4 ML (LOVENOX) SYR SC SCH (07:58)
[2022-06-24] MEDS: PATCH REMOVAL TP SCH (07:59)
--- NOTE | 2022-06-24 10:01 | Oncology Progress Note ---
Subjective Date Seen by a Provider: June 24, 2022 Time Seen by a Provider: 09:56 Subjective/Events-last exam Pt had surgical debris yesterday by Dr Joy. It was noticed pus and hard mass. Biopsy was sent. Pathology pending. Pt will need to have f/u with Dr Lou at the cancer after discharge from the hospital for discuss the pathology result and treatment options after the infection under control. Pt will need antibiotics treatment and wound dressing changes. Dr Yen and Dr Mcclendon to decide the antibiotic course and discharge plan. Data Review Labs Laboratory Tests 06/24/22 05:10 Laboratory Tests 06/22/22 06:11: Red Blood Count 3.95L, Hemoglobin 10.0L, Hematocrit 32L, Mean Corpuscular He moglobin Concent 31L, Red Cell Distribution Width 16.2H, Platelet Count 411H, Mean Platelet Volume 7.9L, Lymphocytes (%) (Auto) 9L, Lymphocytes # (Auto) 0.7L, Eosinophils # (Auto) 0.7H, Total Protein 6.3L, Albumin 2.9L 06/22/22 09:02: Urine Opiates Screen POSITIVEH, Urine Amphetamines Screen POSITIVEH, Urine Methamphetamines Screen POSITIVEH, Urine Cannabinoids Screen POSITIVEH 06/23/22 05:13: Hemoglobin 10.8L, Hematocrit 34L, Red Cell Distribution Width 16.2H, Platelet Count 466H, Mean Platelet Volume 7.8L, Lymphocytes (%) (Auto) 6L, Lymphocytes # (Auto) 0.8L, Eosinophils # (Auto) 0.8H, White Blood Count 12.8H, Neutrophils (%) (Auto) 82H, Neutrophils # (Auto) 10.4H, Glucose Level 133H 06/24/22 05:10: Red Blood Count 4.05L, Hemoglobin 10.1L, Hematocrit 32L, Mean Corpuscular Hemoglobin Concent 31L, Red Cell Distribution Width 16.2H, Platelet Count 492H, Mean Platelet Volume 8.3L, Lymphocytes (%) (Auto) 4L, Lymphocytes # (Auto) 0.6L, Albumin 3.0L, White Blood Count 14.0H, Neutrophils (%) (Auto) 92H, Neutrophils # (Auto) 12.9H, Glucose Level 134H, Total Bilirubin < 0.1L Physical Exam Vital Signs Vital Signs - First Documented 06/20/22 11:07 Temp 36.8 Pulse 137 Resp 18 B/P (MAP) 115/77 (90) Pulse Ox 98 O2 Delivery Room Air Capillary Refill : Height, Weight, BMI Height: 5'7.00" Weight: 140lbs. 0oz. [id number]; 25.05 BMI Method:Stated General Appearance: No Apparent Distress Impression & Plan Impression & Plan IMP: 1. 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 Non compliance. 2. Non-healing open wound of the anus. abscess vs cancer or both? 3. h/o drug abuses per ER note 4. 37 year old white man, good performance status. 5. Anemia due to #1 and 2. 6. Thrombocytosis, reactive. Rec: 1. F/u with his primary oncologist Dr Lou as out-pt after discharge. Clinical Quality Measures DVT/VTE Risk/Contraindication: Contraindications-Pharm: Other *list below* Other: surgery JOSEFINA RO MD June 24, 2022 10:01
[2022-06-24] MEDS: cefTRIAXone IV/IM 1,000 MG in NS (IVPB) 50 ML IV SCH (12:18)
[2022-06-24] MEDS: CALCIUM CARBONATE 500 MG (TUMS) TAB.CHEW PO PRN (20:34)
[2022-06-25] MEDS: CALCIUM CARBONATE 500 MG (TUMS) TAB.CHEW PO PRN (01:30)
[2022-06-25] MEDS: HYDROmorphone 2 MG/ML VIAL (DILAUDID) IV PRN ×10 (01:30→22:07)
[2022-06-25 03:24] VITALS: BP 124/74
--- NOTE | 2022-06-25 04:53 | Progress Note - Hospitalist ---
Subjective HPI/CC On Admission Date Seen by Provider: June 25, 2022 Time Seen by Provider: 11:00 CC: Rectal pain suspicious for abscess HPI: This is a 37yoWM clinic patient of [facility] who has a h/o rectal cancer who presented to the hospital in [place] and found to have findings c/w rectal abscess so he was admitted and likely will need debridement. Pain meds will be ordered. Subjective/Events-last exam no changes labs reviewed Objective Exam Vital Signs Vital Signs Date Time Temp Pulse Resp B/P (MAP) Pulse Ox O2 Delivery O2 Flow Rate FiO2 06/25/22 11:36 37.3 117 18 96/58 (71) 97 Room Air 06/24/22 23:47 0.00 0.00 Capillary Refill : General Appearance: No Apparent Distress, WD/WN, Chronically ill, Other (asleep) Results/Procedures Lab Laboratory Tests 06/25/22 05:13 Patient resulted labs reviewed. Assessment/Plan Assessment and Plan Assess & Plan/Chief Complaint Assessment: Rectal carcinoma Rectal abscess? Meth use THC use Chronic pain Plan: Pain control Debridement management Clinical Quality Measures DVT/VTE Risk/Contraindication: Contraindications-Pharm: Other *list below* Other: surgery SIRIA PARADA DO June 25, 2022 04:53
[2022-06-25 05:32] LABS: BASOPHILS # (AUTO) 0.1 10^3/uL (0.0-0.1); BASOPHILS % (AUTO) 1 % (0-10); EOSINOPHILS # (AUTO) 0.5 10^3/uL (0.0-0.3); EOSINOPHILS % (AUTO) 4 % (0-10); HEMATOCRIT 31 % (40-54); HEMOGLOBIN 9.6 g/dL (13.3-17.7); LYMPHOCYTES # (AUTO) 1.2 10^3/uL (1.0-4.0); LYMPHOCYTES % (AUTO) 9 % (12-44); MEAN CORPUSCULAR HEMOGLOBIN 25 pg (25-34); MEAN CORPUSCULAR HGB CONC 31 g/dL (32-36); MEAN CORPUSCULAR VOLUME 81 fL (80-99); MEAN PLATELET VOLUME 7.9 fL (9.0-12.2); MONOCYTES # (AUTO) 0.8 10^3/uL (0.0-1.0); MONOCYTES % (AUTO) 6 % (0-12); NEUTROPHILS # (AUTO) 10.2 10^3/uL (1.8-7.8); NEUTROPHILS % (AUTO) 80 % (42-75); PLATELET COUNT 427 10^3/uL (130-400); WHITE BLOOD COUNT 12.8 10^3/uL (4.3-11.0)
[2022-06-25] MEDS: metroNIDAZOLE 500MG/100ML IVPB 100 ML IV SCH ×3 (05:35→22:02)
[2022-06-25] MEDS: NS IV 1000 ML 1,000 ML IV SCH ×2 (05:39→15:28)
[2022-06-25 05:54] LABS: ALANINE AMINOTRANSFERASE 9 U/L (0-55); ALBUMIN 2.9 GM/DL (3.2-4.5); ALKALINE PHOSPHATASE 56 U/L (40-136); BILIRUBIN,TOTAL < 0.1 MG/DL (0.1-1.0); BUN/CREATININE RATIO 18; CALCIUM 8.8 MG/DL (8.5-10.1); CARBON DIOXIDE 22 MMOL/L (21-32); CHLORIDE 103 MMOL/L (98-107); CREATININE SERUM 0.72 MG/DL (0.60-1.30); GFR ESTIMATED 121; GLUCOSE 91 MG/DL (70-105); SODIUM 138 MMOL/L (135-145); TOTAL PROTEIN 6.2 GM/DL (6.4-8.2)
[2022-06-25] MEDS: HYDROcodone/APAP 5 MG/325 MG (LORTAB) TAB PO PRN ×4 (06:50→22:02)
[2022-06-25] MEDS: PATCH REMOVAL TP SCH (08:15)
[2022-06-25] MEDS: NICOTINE 21 MG (NICODERM) PATCH TD SCH (08:16)
[2022-06-25] MEDS: DOCUSATE SODIUM 100 MG (COLACE) CAP PO SCH ×2 (08:41→19:43)
[2022-06-25] MEDS: ENOXAPARIN 40 MG/0.4 ML (LOVENOX) SYR SC SCH (08:42)
[2022-06-25 08:53] VITALS: BP 102/84
--- NOTE | 2022-06-25 09:19 | Progress Note - Surgery ---
Subjective Time Seen by a Provider: 08:57 Subjective/Events-last exam Pt seen and examined, he was sleeping in bed but easily arousable. Complained about "keep getting woke up". Still with rectal pain. Review of Systems General: No Chills, No Night Sweats Pulmonary: No Dyspnea, No Cough Cardiovascular: No: Chest Pain, Palpitations Gastrointestinal: No: Nausea, Vomiting, Abdominal Pain Objective Exam Vital Signs Date Time Temp Pulse Resp B/P (MAP) Pulse Ox O2 Delivery O2 Flow Rate FiO2 06/25/22 08:53 36.9 114 16 102/84 (90) 95 Room Air 06/25/22 03:24 36.6 99 16 124/74 (91) 95 Room Air 06/24/22 23:47 37.0 99 18 118/77 (91) 97 Room Air 0.00 0.00 06/24/22 22:02 37.1 110 18 95/62 (73) 94 Room Air 06/24/22 20:35 Room Air 06/24/22 20:18 36.9 118 17 101/63 (76) 96 Room Air 06/24/22 17:25 36.7 96 17 106/68 (81) 97 Room Air 06/24/22 17:00 36.7 96 17 106/68 (81) 97 Room Air 06/24/22 11:35 36.6 125 20 100/58 (72) 96 Room Air I & O 06/25/22 07:00 Intake Total 3796 ml Output Total 4200 ml Balance -404 ml Capillary Refill : General Appearance: No Apparent Distress Respiratory: Lungs Clear, Normal Breath Sounds, No Accessory Muscle Use, No Respiratory Distress Cardiovascular: No Murmur, Tachycardia Gastrointestinal: non tender, soft, other (colostomy pink and functioning) Extremity: No Calf Tenderness, No Pedal Edema Neurologic/Psychiatric: Alert, Oriented x3 Skin: Warm/Dry Results Lab Laboratory Tests 06/25/22 05:13: White Blood Count 12.8H, Red Blood Count 3.87L, Hemoglobin 9.6L, Hematocrit 31L, Mean Corpuscular Volume 81, Mean Corpuscular Hemoglobin 25, Mean Corpuscular Hemoglobin Concent 31L, Red Cell Distribution Width 16.6H, Platelet Count 427H, Mean Platelet Volume 7.9L, Immature Granulocyte % (Auto) 1, Neutrophils (%) (Auto) 80H, Lymphocytes (%) (Auto) 9L, Monocytes (%) (Auto) 6, Eosinophils (%) (Auto) 4, Basophils (%) (Auto) 1, Neutrophils # (Auto) 10.2H, Lymphocytes # (Auto) 1.2, Monocytes # (Auto) 0.8, Eosinophils # (Auto) 0.5H, Basophils # (Auto) 0.1, Immature Granulocyte # (Auto) 0.1, Sodium Level 138, Potassium Level 4.0, Chloride Level 103, Carbon Dioxide Level 22, Anion Gap 13, Blood Urea Nitrogen 13, Creatinine 0.72, Estimat Glomerular Filtration Rate 121, BUN/Creatinine Ratio 18, Glucose Level 91, Calcium Level 8.8, Corrected Calcium 9.7, Total Bilirubin < 0.1L, Aspartate Amino Transf (AST/SGOT) 15, Alanine Aminotransferase (ALT/SGPT) 9, Alkaline Phosphatase 56, Total Protein 6.2L, Albumin 2.9L Microbiology 06/22/22 MRSA Screen - Final, Complete No growth Assessment/Plan Assessment/Plan Assessment/Plan S/P Washout, Debridement and Packing of anal cavity - Change packing daily Anal/Gluteal abscess secondary to anal cancer Rectal pain Colostomy for diversion Poor compliance Methamphetamine and marijuana use. I spoke with Dr. Christensen and she spoke about possible treatment for patient, she wants to speak to Dr. Benz and try to do everything outpt. I believe the cavity is filled with cancer and therefore will not heal. ?Chemo or radiation will help this. Clinical Quality Measures DVT/VTE Risk/Contraindication: Contraindications-Pharm: Other *list below* Other: surgery MARICRUZ FRANKEL DO June 25, 2022 09:19
[2022-06-25 11:36] VITALS: BP 96/58
[2022-06-25] MEDS: cefTRIAXone IV/IM 1,000 MG in NS (IVPB) 50 ML IV SCH (12:33)
[2022-06-25 16:41] VITALS: BP 115/56
[2022-06-25 19:25] VITALS: BP 119/72
[2022-06-25 23:13] VITALS: BP 108/66
[2022-06-26] MEDS: NS IV 1000 ML 1,000 ML IV SCH ×3 (00:15→17:48)
[2022-06-26] MEDS: HYDROmorphone 2 MG/ML VIAL (DILAUDID) IV PRN ×11 (00:15→23:23)
[2022-06-26] MEDS: HYDROcodone/APAP 5 MG/325 MG (LORTAB) TAB PO PRN ×4 (02:42→21:04)
[2022-06-26 03:59] VITALS: BP 111/73
[2022-06-26] MEDS: metroNIDAZOLE 500MG/100ML IVPB 100 ML IV SCH ×3 (05:27→21:04)
[2022-06-26] MEDS: NICOTINE 21 MG (NICODERM) PATCH TD SCH (07:47)
[2022-06-26 08:14] VITALS: BP 125/76
[2022-06-26] MEDS: ENOXAPARIN 40 MG/0.4 ML (LOVENOX) SYR SC SCH (08:33)
[2022-06-26] MEDS: DOCUSATE SODIUM 100 MG (COLACE) CAP PO SCH ×2 (08:33→21:04)
[2022-06-26] MEDS: PATCH REMOVAL TP SCH (08:38)
[2022-06-26 08:42] LABS: BASOPHILS # (AUTO) 0.1 10^3/uL (0.0-0.1); BASOPHILS % (AUTO) 1 % (0-10); EOSINOPHILS # (AUTO) 0.8 10^3/uL (0.0-0.3); EOSINOPHILS % (AUTO) 6 % (0-10); HEMATOCRIT 33 % (40-54); HEMOGLOBIN 10.5 g/dL (13.3-17.7); LYMPHOCYTES # (AUTO) 0.8 10^3/uL (1.0-4.0); LYMPHOCYTES % (AUTO) 6 % (12-44); MEAN CORPUSCULAR HEMOGLOBIN 25 pg (25-34); MEAN CORPUSCULAR HGB CONC 32 g/dL (32-36); MEAN CORPUSCULAR VOLUME 79 fL (80-99); MEAN PLATELET VOLUME 7.8 fL (9.0-12.2); MONOCYTES # (AUTO) 0.7 10^3/uL (0.0-1.0); MONOCYTES % (AUTO) 5 % (0-12); NEUTROPHILS # (AUTO) 10.4 10^3/uL (1.8-7.8); NEUTROPHILS % (AUTO) 81 % (42-75); PLATELET COUNT 396 10^3/uL (130-400); WHITE BLOOD COUNT 12.8 10^3/uL (4.3-11.0)
[2022-06-26 08:55] LABS: ALBUMIN 3.2 GM/DL (3.2-4.5); POTASSIUM 3.9 MMOL/L (3.6-5.0)
[2022-06-26 08:56] LABS: CALCIUM 9.1 MG/DL (8.5-10.1)
[2022-06-26 08:58] LABS: TOTAL PROTEIN 6.6 GM/DL (6.4-8.2)
[2022-06-26 08:59] LABS: BILIRUBIN,TOTAL 0.2 MG/DL (0.1-1.0)
[2022-06-26 09:01] LABS: CREATININE SERUM 0.72 MG/DL (0.60-1.30)
[2022-06-26 11:30] VITALS: BP 95/62
--- NOTE | 2022-06-26 11:53 | Progress Note - Hospitalist ---
Subjective HPI/CC On Admission Date Seen by Provider: June 27, 2022 Time Seen by Provider: 12:23 CC: Rectal pain suspicious for abscess HPI: This is a 37yoWM clinic patient of [facility] who has a h/o rectal cancer who presented to the hospital in [place] and found to have findings c/w rectal abscess so he was admitted and likely will need debridement. Pain meds will be ordered. Subjective/Events-last exam Pain unchanged reasonable control with the patient getting a milligram of Dilaudid roughly every 2 hours and requesting his hydrocodone every 4 hours. No chills or fever reported. Patient refuses packing of his abscess small amount of serosanguineous drainage reported on external dressing. No reports voiced other than perirectal pain requiring narcotics Objective Exam Vital Signs Vital Signs Date Time Temp Pulse Resp B/P (MAP) Pulse Ox O2 Delivery O2 Flow Rate FiO2 06/27/22 11:39 36.9 120 18 114/75 (88) 96 Room Air 06/24/22 23:47 0.00 0.00 Capillary Refill : General Appearance: No Apparent Distress, Chronically ill Respiratory: Chest Non Tender, Lungs Clear, Normal Breath Sounds, No Accessory Muscle Use, No Respiratory Distress Cardiovascular: Regular Rate, Rhythm, No Edema, No Gallop, No JVD, No Murmur, Normal Peripheral Pulses Rectal: Other (Unchanged from yesterday no gluteal induration or erythema) Results/Procedures Lab Laboratory Tests 06/27/22 05:31 Patient resulted labs reviewed. Assessment/Plan Assessment and Plan Assess & Plan/Chief Complaint 1. Perirectal abscess likely complicated by recurrent squamous cell carcinoma of the anus continue pain management defer treatment issues to oncology continue antibiotics for now.Patient will need switch to longer acting oral narcotic therapy but will defer to oncology. Clinical Quality Measures DVT/VTE Risk/Contraindication: Contraindications-Pharm: Other *list below* Other: surgery LARRY JUAREZ MD June 26, 2022 11:53
[2022-06-26] MEDS: cefTRIAXone IV/IM 1,000 MG in NS (IVPB) 50 ML IV SCH (12:40)
[2022-06-26 16:16] VITALS: BP 103/60
[2022-06-26 20:00] VITALS: BP 97/60
[2022-06-27] VITALS (7 sets, daily range): BP systolic 94–114; BP diastolic 61–75
[2022-06-27] MEDS: HYDROmorphone 2 MG/ML VIAL (DILAUDID) IV PRN ×10 (01:39→23:23)
[2022-06-27] MEDS: HYDROcodone/APAP 5 MG/325 MG (LORTAB) TAB PO PRN ×5 (02:27→23:23)
[2022-06-27] MEDS: NS IV 1000 ML 1,000 ML IV SCH ×4 (02:27→21:27)
[2022-06-27 05:43] LABS: BASOPHILS # (AUTO) 0.1 10^3/uL (0.0-0.1); BASOPHILS % (AUTO) 1 % (0-10); EOSINOPHILS # (AUTO) 1.1 10^3/uL (0.0-0.3); EOSINOPHILS % (AUTO) 9 % (0-10); HEMATOCRIT 33 % (40-54); HEMOGLOBIN 10.6 g/dL (13.3-17.7); LYMPHOCYTES # (AUTO) 0.9 10^3/uL (1.0-4.0); LYMPHOCYTES % (AUTO) 7 % (12-44); MEAN CORPUSCULAR HEMOGLOBIN 25 pg (25-34); MEAN CORPUSCULAR HGB CONC 32 g/dL (32-36); MEAN CORPUSCULAR VOLUME 79 fL (80-99); MONOCYTES # (AUTO) 0.9 10^3/uL (0.0-1.0); MONOCYTES % (AUTO) 7 % (0-12); NEUTROPHILS # (AUTO) 10.1 10^3/uL (1.8-7.8); NEUTROPHILS % (AUTO) 77 % (42-75); PLATELET COUNT 407 10^3/uL (130-400); WHITE BLOOD COUNT 13.2 10^3/uL (4.3-11.0)
[2022-06-27 05:59] LABS: ALBUMIN 3.4 GM/DL (3.2-4.5)
[2022-06-27] MEDS: metroNIDAZOLE 500MG/100ML IVPB 100 ML IV SCH ×3 (05:59→21:29)
[2022-06-27 06:00] LABS: POTASSIUM 4.4 MMOL/L (3.6-5.0)
[2022-06-27 06:01] LABS: CALCIUM 9.5 MG/DL (8.5-10.1)
[2022-06-27 06:02] LABS: TOTAL PROTEIN 6.9 GM/DL (6.4-8.2)
[2022-06-27 06:04] LABS: BILIRUBIN,TOTAL 0.2 MG/DL (0.1-1.0)
[2022-06-27 06:06] LABS: CREATININE SERUM 0.67 MG/DL (0.60-1.30)
[2022-06-27] MEDS: DOCUSATE SODIUM 100 MG (COLACE) CAP PO SCH ×2 (07:53→19:23)
[2022-06-27] MEDS: ENOXAPARIN 40 MG/0.4 ML (LOVENOX) SYR SC SCH (07:53)
[2022-06-27] MEDS: NICOTINE 21 MG (NICODERM) PATCH TD SCH (08:37)
[2022-06-27] MEDS: PATCH REMOVAL TP SCH (08:37)
--- NOTE | 2022-06-27 12:19 | Progress Note - Hospitalist ---
Subjective HPI/CC On Admission Date Seen by Provider: June 27, 2022 Time Seen by Provider: 11:45 CC: Rectal pain suspicious for abscess HPI: This is a 37yoWM clinic patient of [facility] who has a h/o rectal cancer who presented to the hospital in [place] and found to have findings c/w rectal abscess so he was admitted and likely will need debridement. Pain meds will be ordered. Subjective/Events-last exam Rectal pain about the same patient refuses packing of the wound secondary to pain. Minimal drainage per staff on exterior bandage patient voices no other complaints. Objective Exam Vital Signs Vital Signs Date Time Temp Pulse Resp B/P (MAP) Pulse Ox O2 Delivery O2 Flow Rate FiO2 06/27/22 11:39 36.9 120 18 114/75 (88) 96 Room Air 06/24/22 23:47 0.00 0.00 Capillary Refill : General Appearance: No Apparent Distress, Chronically ill, Thin Respiratory: Chest Non Tender, Lungs Clear, Normal Breath Sounds, No Accessory Muscle Use, No Respiratory Distress Cardiovascular: Regular Rate, Rhythm, No Edema, No Gallop, No JVD, No Murmur, Normal Peripheral Pulses Gastrointestinal: Non Tender, Soft, Other (Semisolid stool small amount in left lower quadrant ostomy bag.) Results/Procedures Lab Laboratory Tests 06/27/22 05:31 Patient resulted labs reviewed. Assessment/Plan Assessment and Plan Assess & Plan/Chief Complaint 1. Perirectal abscess likely complicated by recurrent squamous cell carcinoma of the anus continue pain management defer treatment issues to oncology continue antibiotics for now. Clinical Quality Measures DVT/VTE Risk/Contraindication: Contraindications-Pharm: Other *list below* Other: surgery LARRY JUAREZ MD June 27, 2022 12:19
[2022-06-27] MEDS: cefTRIAXone IV/IM 1,000 MG in NS (IVPB) 50 ML IV SCH (13:34)
[2022-06-27] MEDS: CALCIUM CARBONATE 500 MG (TUMS) TAB.CHEW PO PRN ×2 (16:51→23:23)
[2022-06-28] MEDS: HYDROmorphone 2 MG/ML VIAL (DILAUDID) IV PRN ×11 (01:37→21:57)
[2022-06-28 03:16] VITALS: BP 100/60
[2022-06-28] MEDS: HYDROcodone/APAP 5 MG/325 MG (LORTAB) TAB PO PRN ×5 (03:45→20:06)
[2022-06-28] MEDS: metroNIDAZOLE 500MG/100ML IVPB 100 ML IV SCH ×3 (05:55→21:58)
[2022-06-28] MEDS: NS IV 1000 ML 1,000 ML IV SCH ×3 (05:55→20:06)
[2022-06-28] MEDS: NICOTINE 21 MG (NICODERM) PATCH TD SCH (08:00)
[2022-06-28] MEDS: PATCH REMOVAL TP SCH (08:00)
[2022-06-28] MEDS: ENOXAPARIN 40 MG/0.4 ML (LOVENOX) SYR SC SCH ×2 (08:00→08:03)
[2022-06-28] MEDS: DOCUSATE SODIUM 100 MG (COLACE) CAP PO SCH ×2 (08:00→20:06)
[2022-06-28 08:09] VITALS: BP 99/65
--- NOTE | 2022-06-28 09:48 | Progress Note ---
Subjective Subjective/Events-last exam Pain is borderline control, if he stays really still he is okay, but if he moves at all it is very bad. He is wanting to go home. Objective Exam Last Set of Vital Signs Vital Signs Date Time Temp Pulse Resp B/P (MAP) Pulse Ox O2 Delivery O2 Flow Rate FiO2 06/28/22 08:09 36.9 110 18 99/65 (76) 97 Room Air 06/28/22 03:16 0.00 0.00 Capillary Refill : I&O Intake and Output 06/28/22 00:00 Intake Total 4220 ml Output Total 3100 ml Balance 1120 ml Intake Oral 2020 ml IV Total 2200 ml Output Urine Total 3100 ml # Bowel Movements 3 General: Alert, No Acute Distress Lungs: Clear to Auscultation, Normal Air Movement Heart: No Murmurs, Other (tachycardic) Extremities: No Edema Psych/Mental Status: Mood NL Results/Procedures Lab Microbiology 06/22/22 MRSA Screen - Final, Complete No growth Assessment/Plan Assessment/Plan (1) Perianal abscess Status: Acute Assessment & Plan: Possible, uncertain how much is cancer versus abscess, appreciate Surgery recommendations. (2) Sinus tachycardia Status: Acute Assessment & Plan: Uncertain etiology, no clear evidence of true volume depletion, and is receiving NS@125 mls/hr. Possibly related to substance use. Pt reports chronic for him. (3) Methamphetamine use Status: Chronic Assessment & Plan: Recommended abstinence, he states it is easier to come off of methamphetamine than opiates from a withdrawal standpoint and also that today's methamphetamine is "like vitamins". (4) Colostomy in place Status: Chronic (5) Anal cancer Status: Chronic Assessment & Plan: s/p Hartkaylaa's 12/23/21 with end colostomy, previously following with Dr. Freedman in Oncology, stopped following up. Appreciate Dr. Christensen's recommendations, plan to resume outpatient treatment after acute h ospitalization. (6) Rectal or anal pain Status: Chronic Assessment & Plan: Still having significant pain, consider increasing hydrocodone, he states he doesn't want higher dose as he keeps getting "cut off" outpatient and having to go through withdrawal. Will reach out to his primary on d/c to discuss as well. (7) DVT prophylaxis Status: Acute Assessment & Plan: Enoxaparin Clinical Quality Measures DVT/VTE Risk/Contraindication: Contraindications-Pharm: Other *list below* Other: surgery SOLEDAD CADET MD June 28, 2022 09:48
[2022-06-28] MEDS: cefTRIAXone IV/IM 1,000 MG in NS (IVPB) 50 ML IV SCH (12:01)
[2022-06-28 12:11] VITALS: BP 124/75
[2022-06-28 12:32] LABS: BASOPHILS # (AUTO) 0.1 10^3/uL (0.0-0.1); BASOPHILS % (AUTO) 1 % (0-10); EOSINOPHILS # (AUTO) 1.4 10^3/uL (0.0-0.3); EOSINOPHILS % (AUTO) 10 % (0-10); HEMATOCRIT 30 % (40-54); HEMOGLOBIN 9.8 g/dL (13.3-17.7); LYMPHOCYTES # (AUTO) 1.1 10^3/uL (1.0-4.0); LYMPHOCYTES % (AUTO) 8 % (12-44); MEAN CORPUSCULAR HEMOGLOBIN 25 pg (25-34); MEAN CORPUSCULAR HGB CONC 32 g/dL (32-36); MEAN CORPUSCULAR VOLUME 79 fL (80-99); MEAN PLATELET VOLUME 7.9 fL (9.0-12.2); MONOCYTES % (AUTO) 7 % (0-12); NEUTROPHILS # (AUTO) 9.7 10^3/uL (1.8-7.8); NEUTROPHILS % (AUTO) 73 % (42-75); PLATELET COUNT 377 10^3/uL (130-400); WHITE BLOOD COUNT 13.4 10^3/uL (4.3-11.0)
[2022-06-28 12:41] LABS: POTASSIUM 4.3 MMOL/L (3.6-5.0)
[2022-06-28 12:44] LABS: TOTAL PROTEIN 6.5 GM/DL (6.4-8.2)
[2022-06-28 12:46] LABS: BILIRUBIN,TOTAL 0.2 MG/DL (0.1-1.0)
[2022-06-28 12:48] LABS: CREATININE SERUM 0.7 MG/DL (0.60-1.30)
[2022-06-28 16:37] VITALS: BP 96/60
[2022-06-28 19:57] VITALS: BP 105/64
[2022-06-29] VITALS (7 sets, daily range): BP systolic 97–121; BP diastolic 30–68
[2022-06-29] MEDS: HYDROmorphone 2 MG/ML VIAL (DILAUDID) IV PRN ×12 (00:06→22:08)
[2022-06-29] MEDS: HYDROcodone/APAP 5 MG/325 MG (LORTAB) TAB PO PRN ×6 (00:06→20:20)
[2022-06-29 05:50] LABS: BASOPHILS # (AUTO) 0.1 10^3/uL (0.0-0.1); BASOPHILS % (AUTO) 1 % (0-10); EOSINOPHILS # (AUTO) 1.1 10^3/uL (0.0-0.3); EOSINOPHILS % (AUTO) 10 % (0-10); HEMATOCRIT 31 % (40-54); HEMOGLOBIN 9.7 g/dL (13.3-17.7); LYMPHOCYTES # (AUTO) 0.8 10^3/uL (1.0-4.0); LYMPHOCYTES % (AUTO) 7 % (12-44); MEAN CORPUSCULAR HEMOGLOBIN 25 pg (25-34); MEAN CORPUSCULAR HGB CONC 32 g/dL (32-36); MEAN CORPUSCULAR VOLUME 78 fL (80-99); MEAN PLATELET VOLUME 8.1 fL (9.0-12.2); MONOCYTES # (AUTO) 0.8 10^3/uL (0.0-1.0); MONOCYTES % (AUTO) 7 % (0-12); NEUTROPHILS # (AUTO) 8.7 10^3/uL (1.8-7.8); NEUTROPHILS % (AUTO) 75 % (42-75); PLATELET COUNT 392 10^3/uL (130-400); WHITE BLOOD COUNT 11.6 10^3/uL (4.3-11.0)
[2022-06-29 06:16] LABS: BILIRUBIN,TOTAL 0.1 MG/DL (0.1-1.0); CALCIUM 8.9 MG/DL (8.5-10.1); CREATININE SERUM 0.67 MG/DL (0.60-1.30); POTASSIUM 4.3 MMOL/L (3.6-5.0); TOTAL PROTEIN 6.5 GM/DL (6.4-8.2)
[2022-06-29] MEDS: metroNIDAZOLE 500MG/100ML IVPB 100 ML IV SCH ×3 (06:19→22:08)
[2022-06-29 06:28] LABS: ANISOCYTOSIS SLIGHT; EOSINOPHILS % (MANUAL) 12 %; LYMPHOCYTES % (MANUAL) 7 %; MICROCYTOSIS SLIGHT; MONOCYTES % (MANUAL) 3 %; MYELOCYTES % 1 %; NEUTROPHILS % (MANUAL) 77 %
[2022-06-29] MEDS: NICOTINE 21 MG (NICODERM) PATCH TD SCH (08:08)
[2022-06-29] MEDS: DOCUSATE SODIUM 100 MG (COLACE) CAP PO SCH ×2 (08:08→20:20)
[2022-06-29] MEDS: ENOXAPARIN 40 MG/0.4 ML (LOVENOX) SYR SC SCH (08:08)
[2022-06-29] MEDS: NS IV 1000 ML 1,000 ML IV SCH ×2 (08:11→18:15)
[2022-06-29] MEDS: PATCH REMOVAL TP SCH (08:11)
[2022-06-29] MEDS: CALCIUM CARBONATE 500 MG (TUMS) TAB.CHEW PO PRN ×2 (08:15→18:41)
[2022-06-29] MEDS: cefTRIAXone IV/IM 1,000 MG in NS (IVPB) 50 ML IV SCH (12:09)
[2022-06-30] MEDS: HYDROcodone/APAP 5 MG/325 MG (LORTAB) TAB PO PRN ×3 (00:04→08:13)
[2022-06-30] MEDS: NS IV 1000 ML 1,000 ML IV SCH ×2 (00:04→10:39)
[2022-06-30] MEDS: HYDROmorphone 2 MG/ML VIAL (DILAUDID) IV PRN ×6 (00:04→10:36)
[2022-06-30 04:11] VITALS: BP 107/57
[2022-06-30 05:22] LABS: BASOPHILS # (AUTO) 0.1 10^3/uL (0.0-0.1); BASOPHILS % (AUTO) 1 % (0-10); EOSINOPHILS # (AUTO) 1.1 10^3/uL (0.0-0.3); EOSINOPHILS % (AUTO) 9 % (0-10); HEMATOCRIT 29 % (40-54); HEMOGLOBIN 9.4 g/dL (13.3-17.7); LYMPHOCYTES # (AUTO) 0.8 10^3/uL (1.0-4.0); LYMPHOCYTES % (AUTO) 6 % (12-44); MEAN CORPUSCULAR HEMOGLOBIN 25 pg (25-34); MEAN CORPUSCULAR HGB CONC 32 g/dL (32-36); MEAN CORPUSCULAR VOLUME 78 fL (80-99); MEAN PLATELET VOLUME 7.9 fL (9.0-12.2); MONOCYTES # (AUTO) 0.8 10^3/uL (0.0-1.0); MONOCYTES % (AUTO) 7 % (0-12); NEUTROPHILS # (AUTO) 9.5 10^3/uL (1.8-7.8); NEUTROPHILS % (AUTO) 77 % (42-75); PLATELET COUNT 357 10^3/uL (130-400); WHITE BLOOD COUNT 12.4 10^3/uL (4.3-11.0)
[2022-06-30 05:35] LABS: POTASSIUM 4.3 MMOL/L (3.6-5.0)
[2022-06-30 05:36] LABS: CALCIUM 9.2 MG/DL (8.5-10.1)
[2022-06-30 05:38] LABS: TOTAL PROTEIN 6.3 GM/DL (6.4-8.2)
[2022-06-30 05:40] LABS: BILIRUBIN,TOTAL 0.2 MG/DL (0.1-1.0)
[2022-06-30 05:41] LABS: CREATININE SERUM 0.72 MG/DL (0.60-1.30)
[2022-06-30] MEDS: metroNIDAZOLE 500MG/100ML IVPB 100 ML IV SCH (06:03)
[2022-06-30 08:03] VITALS: BP 99/63
[2022-06-30] MEDS: DOCUSATE SODIUM 100 MG (COLACE) CAP PO SCH (08:12)
[2022-06-30] MEDS: ENOXAPARIN 40 MG/0.4 ML (LOVENOX) SYR SC SCH (08:13)
[2022-06-30] MEDS: NICOTINE 21 MG (NICODERM) PATCH TD SCH (08:14)
[2022-06-30] MEDS: PATCH REMOVAL TP SCH (08:14)
[2022-06-30 12:00] VITALS: BP 95/62
== END 2022-06-30 12:00 | disposition left against medical advice (07) | DRG 348 ==
LOC: 4TH 10:04
PROVIDERS: ADMIT Surgery; ATTEND Surgery
PROC: 0DBQ7ZZ Excision of Anus, Via Natural or Artificial Opening (ICD-10-PCS; principal; 2022-06-23 14:21)
DX: K61.0 Anal abscess (principal); C20 Malignant neoplasm of rectum; K62.6 Ulcer of anus and rectum; F15.90 Other stimulant use, unspecified, uncomplicated; F12.90 Cannabis use, unspecified, uncomplicated; Z93.3 Colostomy status; R00.0 Tachycardia, unspecified; D75.839 Thrombocytosis, unspecified; D64.9 Anemia, unspecified; F17.210 Nicotine dependence, cigarettes, uncomplicated; Z91.199 Patient's noncompliance with other medical treatment and regimen due to unspecified reason; Z79.2 Long term (current) use of antibiotics; Z79.891 Long term (current) use of opiate analgesic; Z79.899 Other long term (current) drug therapy
CPT/HCPCS: 36415; 80053; 80306; 82607; 83540; 85007; 85025; 85027; 87081; 88305

== ENCOUNTER 2022-07-03 22:19 | Emergency (ER) | payer MEDICAID ==
[~2022-07-03] VITALS: Ht 167 cm; Wt 63.5 kg
[2022-07-03 22:21] VITALS: BP 96/73
[2022-07-03 23:00] LABS: AMPHETAMINE SCREEN, URINE POSITIVE (NEGATIVE); BARBITURATE SCREEN URINE NEGATIVE (NEGATIVE); BENZODIAZEPINES SCREEN URINE NEGATIVE (NEGATIVE); CANNABINOID SCREEN, URINE POSITIVE (NEGATIVE); COCAINE SCREEN URINE NEGATIVE (NEGATIVE); METHADONE STAT NEGATIVE (NEGATIVE); OPIATE SCREEN URINE POSITIVE (NEGATIVE); OXYCODONE STAT POSITIVE (NEGATIVE); PROPOXYPHENE STAT NEGATIVE (NEGATIVE); TRICYCLIC ANTIDEPRESSANTS SCRE NEGATIVE (NEGATIVE)
--- NOTE | 2022-07-03 23:01 | ED General ---
General Chief Complaint: Rect Problems Stated Complaint: PAIN Nursing Triage Note: PT PRESENTS TO ED WITH C/O RECTAL PAIN D/T RECTAL CANCER AND RIGHT-SIDED BACK AND LEG PAIN. PT ALSO VOICES DESIRE TO SPEAK WITH HOSPICE. Source of Information: Patient (EXTREMELY DIFFICULT HISTORIAN, BELLIGERENT CURSING, AND REFUSES TO ANSWER QUESTIONS. ), Old Records History of Present Illness Date Seen by Provider: July 03, 2022 Time Seen by Provider: 22:22 Initial Comments PT ARRIVES VIA EMS--PT LIVES IN A SHED IN HIS PARENT'S BACK YARD, PARENTS KICKED HIM OUT OF THEIR HOUSE DUE TO PT'S CHRONIC SUBSTANCE ABUSE. PT IS BELLIGERENT AND CURSING ON ARRIVAL, REFUSING TO ANSWER ANY QUESTIONS, STATES "IT'S ALL THE SAME LAST TIME" "I'M NOT FUCKIN' ANSWERING ANY OF YOUR QUESTIONS" "I'M IN FUCKIN' PAIN" "I DON'T HAVE FUCKIN' TIME FOR THIS" PT HAS KNOWN ANAL CANCER--HE HAS HAD SURGERY WITH PERMANENT COLOSTOMY, HAD SOME CHEMOTHERAPY AND RADIATION, BUT THEN NEVER FOLLOWED UP WITH ONCOLOGY OR ANYONE--HAS NOT SEEN ONCOLOGY IN FOLLOW UP SINCE 10/2021. HE HAS HAD CHRONIC ABSCESSES TO THE ANAL / RECTAL AREA AND HAS HAD MULTIPLE SURGERIES FOR DRAINAGE/DEBRIDEMENTS. HE HAS HAD A MULTITUDE OF VISITS HERE FOR THIS PROBLEM WELL HIS CHRONIC PAIN COMPLAINTS HE COMPLAINS OF CHRONIC LOW BACK PAIN AND BILATERAL LEG PAIN AND RECTAL / BUTTOCKS PAIN HE HAS AN EXTENSIVE HISTORY OF NON-COMPLIANCE IN ALL ASPECTS OF CARE, AND HAS NOT FOLLOWED UP WITH ANYONE FOR ONGOING CARE OF HIS CANCER OR ANY CHRONIC PAIN MANAGEMENT. HE IS NOT WANTING ANY OTHER CANCER TREATMENT HOSPICE HAS BEEN DISCUSSED WITH PT ON PRIOR VISITS, BUT HE HAS DECLINED IN THE PAST. PT ALSO HAS AN EXTENSIVE POLYSUBSTANCE ABUSE--ESPECIALLY OPIATES, METHAMPHETAMINES, THC ON A DAILY BASIS PT STATES "I USE WHAT EVER I CAN GET MY HANDS ON--HEROIN, ANYTHING" PT WAS MOST RECENTLY ADMITTED HERE 06/20/22 -06/30/22 FOR THIS PROBLEM AND HE HAD DEBRIDEMENT OF ABSCESS/ NECROTIC TISSUE FROM THE AREA--SUSPECTED THAT IT IS COMBINATION OF INFECTION AND FROM THE CANCER ITSELF HE WAS PRESCRIBED OXYCODONE #15 ON 07/02/22 PT TELLS ME THAT HE NEVER GOT IT FILLED. PT TELLS RN THAT HE HAS BEEN TAKING IT AND TOOK SOME EARLIER TODAY AND HE TELLS RN THAT HE ALWAYS TAKES TOO MUCH OF IT. HE IS HERE DEMANDING SOMETHING FOR PAIN HE IS BEING WHEELED INTO ER FROM THE AMBULANCE. HE APPEARS TO BE UNDER THE INFLUENCE OF SOME SUBSTANCE/S AT THIS TIME, DUE TO HIS BEHAVIOR. PCP: SHEILA. DR. MALIK Allergies and Home Medications Allergies Coded Allergies: No Known Drug Allergies (Unverified , 06/10/21) Patient Home Medication List Home Medication List Reviewed: Yes Acetaminophen (Tylenol Extra Strength) 500 Mg Tablet, 2,000-3,000 MG PO Q8H PRN for PAIN-MILD (1-4), (Reported) Entered as Reported by: JASPREET MCCARTY on 06/21/22 0946 Review of Systems Review of Systems Constitutional: see HPI Past Mizbyri-Citkhl-Dnotdk Hx Patient Social History Tobacco Use?: Yes Tobacco type used: Cigarettes Smoking Status: Current Everyday Smoker Substance use?: Yes Substance type: Methamphetamine, Opiates/Opioids, Marijuana Substance frequency: Daily Alcohol Use?: No Pt feels they are or have been: No Immunizations Up To Date Tetanus Booster (TDap): Unknown First/Initial COVID19 Vaccinat: NO Second COVID19 Vaccination Jim: NO Third COVID19 Vaccination Date: NO Seasonal Allergies Seasonal Allergies: Yes Past Medical History Surgery/Hospitalization HX: OSTOMY PORT INSERTION COLONOSCOPY APPY Surgeries: Yes Abdominal, Appendectomy, Bowel Surgery, Cardiac, Orthopedic, Rectal, Tonsillectomy Respiratory: No Currently Using CPAP: No Currently Using BIPAP: No Cardiac: No Neurological: No Reproductive Disorders: No Sexually Transmitted Disease: No HIV/AIDS: No Genitourinary: No Gastrointestinal: Yes (ANAL CANCER) Obstructive Bowel, Chronic Diarrhea Musculoskeletal: Yes Arthritis, Chronic Back Pain Endocrine: No HEENT: No Loss of Vision: Denies Hearing Impairment: Denies Cancer: Yes Colon Did You Recieve Any Treatments: Yes What Type of Treatment Did You: Chemotherapy, Radiation, Surgical Intervention ANAL CANCER DX 05/2021 HE HAD SOME CHEMOTHERAPY AND RADIATION, BUT THEN NEVER FOLLOWED UP WITH ONCOLOGY Psychosocial: Yes (POLYSUBSTANCE ABUSE) Depression Integumentary: No Blood Disorders: No Adverse Reaction/Blood Tranf: No Family Medical History Cancer SOCIAL HISTORY: -SMOKES AT LEAST 1 PPD -ETOH--CLAIMS NO RECENT USE, BUT HAS LONG HISTORY OF ALCOHOL ABUSE -DRUGS--EXTENSIVE DRUG ABUSE INCLUDING METHAMPHETAMINES, OPIATE ABUSE / RX DRUG ABUSE, THC, HEROIN, OTHERS. STATES "ANYTHING I CAN GET MY HANDS ON" -MULTIPLE INCARCERATIONS -LONG HISTORY OF EXTREME NON COMPLIANCE IN ALL ASPECTS OF CARE. PAST SURGICAL HISTORY: -APPENDECTOMY -EGD AND COLONOSCOPIES -COLO-RECTAL RESECTION WITH PERMANENT COLOSTOMY -MULTIPLE I&D'S AND DEBRIDEMENTS OF THE RECTAL AREA FOR ABSCESSES/NECROTIC TISSUE -PORT PLACEMENT CARDIAC CATH 07/29/[address] DAY CONCLUSION: 1. Slightly tortuous coronary system with mild disease no significant obstructive disease 2. Normal left ventricular size with mild hypokinesia at the anterior wall with ejection fraction 40% 3. Normal aortic arch and great vessels of the neck DISCUSSION AND RECOMMENDATION: ST elevation is probably secondary to chemotherapy with probably coronary spasm or the use of methamphetamine. There is no significant obstructive disease at this point, patient had elevated troponin level, I will continue on aspirin treatment, advised avoiding any illicit drug use. Physical Exam Vital Signs Vital Signs - First Documented 07/03/22 22:21 Temp 36.3 Pulse 118 Resp 20 B/P (MAP) 96/73 (81) Pulse Ox 99 O2 Delivery Room Air Capillary Refill : Height, Weight, BMI Height: 5'7.00" Weight: 140lbs. 0oz. 63.137689vr; 22.00 BMI Method:Stated General Appearance: Other (FILTHY, MALODOROUS, VERY UNKEMPT; YELLING, CURSING, VERY BELLIGERENT; PT WITH CONSTANT MOVEMENTS AND IS THRASHING ALL OVER, AND APPEARS TO BE UNDER THE INFLUENCE OF SOME SUBSTANCE/S; PT IS BAREFOOT AND ONLY HAS ON A OPEN ROBE, AND IS WEARING A TRASH BAG FOR UNDERWEAR. HE DOES NOT HAVE ANYTHING ELSE ON . ) Respiratory: Normal Breath Sounds Cardiovascular: Regular Rate, Rhythm Gastrointestinal: Non Tender, Other (COLOSTOMY SITE IN LEFT ABDOMEN APPEARS E SSENTIALLY NORMAL, WITH NORMAL APPEARING STOOL, AND NO SIGNS OF INFECTION . THERE IS AN OSTOMY BAG IN PLACE. ) Rectal: Other (UNABLE TO FULLY EXAMINE BUTTOCKS OR RECTUM, DUE TO PT DISCOMFORT. APPEARS TO BE AN OPEN AREA--UNABLE TO DETERMINE IF THIS IS HIS RECTUM OR THE RECENT SURGICAL SITE. THERE IS NOT OBVIOUS PURULENCE, BUT THERE IS CLEAR LIQUID ALL OVER SKIN AND THE TRASHBAG HE IS WEARING FOR UNDERWEAR. THERE IS FIRM INDURATION OF BOTH BUTTOCKS AND MILD ERYTHEMA. ) Extremity: No Pedal Edema Neurologic/Psychiatric: Alert, Oriented x3, No Motor/Sensory Deficits Skin: Warm/Dry, Pallor Progress/Results/Core Measures Suspected Sepsis SIRS Temperature: Pulse: 118 Respiratory Rate: 20 Blood Pressure 96 /73 Mean: 81 Results/Orders Lab Results Laboratory Tests Test 07/03/22 22:39 Range/Units Urine Opiates Screen POSITIVE H NEGATIVE Urine Oxycodone Screen POSITIVE H NEGATIVE Urine Methadone Screen NEGATIVE NEGATIVE Urine Propoxyphene Screen NEGATIVE NEGATIVE Urine Barbiturates Screen NEGATIVE NEGATIVE Ur Tricyclic Antidepressants Screen NEGATIVE NEGATIVE Urine Phencyclidine Screen NEGATIVE NEGATIVE Urine Amphetamines Screen POSITIVE H NEGATIVE Urine Methamphetamines Screen POSITIVE H NEGATIVE Urine Benzodiazepines Screen NEGATIVE NEGATIVE Urine Cocaine Screen NEGATIVE NEGATIVE Urine Cannabinoids Screen POSITIVE H NEGATIVE My Orders Orders - MARY JANE SMITH DO Drug Screen Stat (Urine) (07/03/22 22:29) Vital Signs/I&O 07/03/22 22:21 Temp 36.3 Pulse 118 Resp 20 B/P (MAP) 96/73 (81) Pulse Ox 99 O2 Delivery Room Air Capillary Refill : Blood Pressure Mean: 81 Progress Note : Progress Note BELLIGERENT BEHAVIOR CONTINUES, AND REPEATEDLY DEMANDING SOMETHING FOR PAIN . I ADVISED HIM THAT I WOULD NOT BE PRESCRIBING PAIN MEDICATION, HE HAS BEEN PRESCRIBED OXYCODONE ON 07/02/22, AND HE ADMITS TO ABUSING IT, AND HE WILL NEED TO FOLLOW UP WITH HIS PCP FOR MANAGEMENT OF HIS CHRONIC PAIN. OFFERED TO GIVE PT SHOTS FOR PAIN, HE THEN LATER REFUSED SHOTS AND STATES HE WILL JUST GO HOME. BRIEFLY DISCUSSED HOSPICE, AND ADVISED HIM TO FOLLOW UP WITH HIS PCP NEXT WEEK THIS IS A HOLIDAY WEEKEND, AND CALL THE OFFICE ON TUESDAY TO MAKE AN APPOINTMENT. PT IS ABLE TO WALK OUT OF ER. REVIEWED PRIOR RECORDS, INCLUDING ER VISITS, ADMITS/H&P'S/CONSULTS/DISCHARGE SUMMARIES, TESTS/PROCEDURES. Departure Impression Primary Impression: Chronic pain Additional Impressions: Illicit drug use Methamphetamine use Opiate abuse, continuous Marijuana abuse Medical non-compliance Anal cancer Disposition: 01 HOME, SELF-CARE Condition: Stable Departure-Patient Inst. Decision time for Depature: 23:00 Referrals: BRENDA MALIK DO (PCP) Primary Care Physician [facility] (Family) Primary Care Physician Patient Instructions: Colon and Rectal Cancer (DC), Chronic Pain (DC), Substance Use Disorder ED Add. Discharge Instructions: FOLLOW UP WITH [facility] TOMORROW FOR FURTHER CARE All discharge instructions reviewed with patient and/or family. Voiced understanding. MARY JANE SMITH DO July 03, 2022 23:01
== END 2022-07-03 23:08 | disposition home or self-care (01) ==
LOC: EDUNIT# 22:19 → ER 22:20
DX: G89.29 Other chronic pain (principal); C21.0 Malignant neoplasm of anus, unspecified; F19.90 Other psychoactive substance use, unspecified, uncomplicated; F15.90 Other stimulant use, unspecified, uncomplicated; F11.10 Opioid abuse, uncomplicated; F12.10 Cannabis abuse, uncomplicated; F17.210 Nicotine dependence, cigarettes, uncomplicated; Z91.198 Patient's noncompliance with other medical treatment and regimen for other reason; Z92.21 Personal history of antineoplastic chemotherapy; Z92.3 Personal history of irradiation; Z28.310 Unvaccinated for COVID-19; Z98.890 Other specified postprocedural states; Z93.3 Colostomy status
CPT/HCPCS: 80306; 99283